=== PATIENT | female | born 1955 | race Caucasian/White ===

== ENCOUNTER 2024-12-20 14:25 | Outpatient (CLI) | payer MEDICARE, SELFPAY ==
--- OUTSIDE RECORDS SUMMARY | 2024-12-20 14:36 | XMS_ITS | Encounter Summary ---
Author Organization [facility] Address [address] [place] [address] Phone Care Team Providers Care Warehouse Distribution Associate Name Role Phone Ailyn Cruz MD Primary Care Provider + [phone] Jose Schwartz DPM Unavailable [phone] Diana Gonzalez SUPERVISOR TANK HOUSE, AIRCRAFT METALSMITH Unavailable [phone] Ewelina Reynolds SUPERVISOR TANK HOUSE, AIRCRAFT METALSMITH Unavailable Sandra uDron MD Primary Care Provider + [phone] Chuck Lee MD Unavailable Javier Yost PAC Primary Care Provider + [phone] Rafa Ortega MD Unavailable Reason for Visit * Reason Comments Medication Refill Encounter Details Date Type Department Care Team (Late st Contact Info) Description 12/03/2021 Refill [facility] - Primary Care - [address] [place] [address] Ailyn Cruz MD [address] [place] [address] Medication Refill Social History Tobacco Use Types Packs/Day Years Used Date Smoking Tobacco: Never Smokeless Tobacco: Never Alcohol Use Standard Drinks/Week Comments Yes 0 (1 standard drink = 0.6 oz pur e alcohol) very seldom PHQ-2 Answer Date Recorded Total Score - Questions 1-9 0 01/25 Education Answer Date Recorded What is the highest level of school you have completed or the highest degree you have received? Some college, no degree 08/23/2021 Comments No Sex and Gender Information Value Date Recorded Sex Assigned at Female 01/07/2023 12:14 PM CDT Legal Sex Female 11:59 PM CDT Gender Identity Female 01/07/2023 12:14 PM CDT Sexual Orientation Not on file Occupation Industry Job Start Date Job End Date [employer] Not on file Not on file Not on fi le documented as of this encounter Miscellaneous Notes * Telephone Encounter - Fatimah Lynch RN - 12/03/2021 2:33 PM CDT Medication failed the protocol, provider to review and approve the medication order if appropriate. Requested Prescriptions Pending Prescriptions Disp Refills Repatha SureClick 140 MG/ML Solution Auto-injector [Pharmacy Med Name: REPATHA SRCLK 140MG/ML PF AUTO INJ] 6 mL 2 Sig: INJECT 140 MG( ONE SYRINGE) UNDER THE SKIN ONCE EVERY 14 DAYS Not Delegated - Off Protocol Failed - 12/03/2021 2:18 PM Failed - This refill cannot be delegated Passed - Visit with relevant provider in past 12 months or upcoming 90 days Recent Visits Date Type Provider Dept 09/28/21 Office Visit Ailyn Cruz MD [facility] 08/23/21 Office Visit Natalya Maguire APRN, CNP [facility] [address] 05/29/21 Office Visit Natalya Maguire APRN, CNP [facility] [address] 02/22/21 Office Visit Ailyn Cruz MD [facility] Showing recent visits within past 365 days and meeting all other requirements Future Appointments No visits were found meeting these conditions. Showing future appointments within next 90 days and meeting all other requirements documented in this encounter Plan of Treatment Upcoming Encounters Date Type Department Care Team (Late st Contact Info) Description 01/14/2025 9:30 AM CDT Office Visit [facility] - Primary Care - [address] [place] [address] Javier Yost PAC [address] [place] [address] 04/05/2025 1:15 PM EMERGENCY SPILL RESPONSE TECHNICIAN Office Visit [facility] - Pulmonology & Sleep Medicine - [place] [address] [place] [address] Chuck Lee MD [address] [place] [address] documented as of this encounter Visit Diagnoses Not on filedocumented in this encounter Additional Health Concerns Infection Onset Date Last Indicated Resolved Time COVID - 19 06/23/2023 06/23/2023 06/23/2023 5:22 PM EMERGENCY SPILL RESPONSE TECHNICIAN Respiratory Rule-Out 06/23/2023 06/23/2023 024 5:23 PM EMERGENCY SPILL RESPONSE TECHNICIAN COVID - 19 Confirmed 06/23/2023 06/23/2023 024 12:16 AM EMERGENCY SPILL RESPONSE TECHNICIAN COVID - 19 01/25/2024 01/25/2024 01/25/2024 12:0 2 PM CDT Assessment Noted Time PHQ-9 Depression Total Score: 0 02/21/20 20 10:00 AM CDT documented as of this encounter Care Teams Warehouse Distribution Associate Relationship Specialty Start Date End Date Ailyn Cruz MD PCP - General Family Medicine 03/11/15 07/09/22 Sandra Duron MD [address] [place] [address] PCP - General Family Medicine 07/10/22 07/09/23 Javier Yost, PAC [address] [place] [address] PCP - General Physician Retail Sales Professional 07/10/23 Jose Schwartz DPM Podiatry 07/18/15 Diana Gonzalez, SUPERVISOR TANK HOUSE, AIRCRAFT METALSMITH Nurse Practitioner Advanced Practice Nurse 12/21/15 Ewelina Reynolds, LUKE, AIRCRAFT METALSMITH Nurse Practitioner Advanced Practice Nurse 04/16/16 Chuck Lee MD [address] [place] [address] Consulting Physician Pulmonary Disease 03/04/22 Rafa Ortega MD [address] [address] Consulting Physician Colon and Rectal Surgery 10/08/24 documented as of this encounter
--- OUTSIDE RECORDS SUMMARY | 2024-12-20 14:36 | XMS_ITS | Encounter Summary ---
Author Organization [facility] Address [address] [place] [address] Phone Care Team Providers Care Apprentice Instrument Technician Name Role Phone Ailyn Cruz MD Primary Care Provider + [phone] Jose Schwartz DPM Unavailable [phone] Diana Gonzalez EELER, HYDRAULIC ELEVATOR CONSTRUCTOR Unavailable [phone] Ewelina Reynolds EELER, HYDRAULIC ELEVATOR CONSTRUCTOR Unavailable Sandar Duron MD Primary Care Provider + [phone] Chuck Lee MD Unavailable Javier Yost PAC Primary Care Provider + [phone] Rafa Ortega MD Unavailable Reason for Visit * Reason Comments Medication Refill Encounter Details Date Type Department Care Team (Late st Contact Info) Description 07/04/2021 Refill [facility] - Primary Care - [address] [place] [address] Ailyn Cruz MD [address] [place] [address] Medication Refill Social History Tobacco Use Types Packs/Day Years Used Date Smoking Tobacco: Never Smokeless Tobacco: Never Alcohol Use Standard Drinks/Week Comments Yes 0 (1 standard drink = 0.6 oz pur e alcohol) very seldom PHQ-2 Answer Date Recorded Total Score - Questions 1-9 0 01/25 Comments No Sex and Gender Information Value Date Recorded Sex Assigned at Female 01/07/2023 12:14 PM CDT Legal Sex Female 11:59 PM CDT Gender Identity Female 01/07/2023 12:14 PM CDT Sexual Orientation Not on file Occupation Industry Job Start Date Job End Date [employer] Not on file Not on file Not on fi le documented as of this encounter Miscellaneous Notes * Telephone Encounter - Jennifer Lu RN - 07/04/2021 8:57 AM CST Per nursing clinical judgement, provider to review and approve the medication(s) order(s) if appropriate. Requested Prescriptions Pending Prescriptions Disp Refills hydroCHLOROthiazide 25 MG Tablet [Pharmacy Med Name: HYDROCHLOROTHIAZIDE 25MG TABLETS] 90 Tablet 1 Sig: TAKE 1 TABLET BY MOUTH DAILY Diuretics Protocol Passed - 07/04/2021 8:57 AM Passed - Serum potassium on record in past 12 months POTASSIUM Date Value Ref Range Status 03/21/2021 3.6 3.5 - 5.1 mmol/L Final Passed - Serum sodium on record in past 12 months SODIUM Date Value Ref Range Status 03/21/2021 144 136 - 144 mmol/L Final Passed - Blood pressure on record in past 12 months Clinician-entered: BP Readings from Last 3 Encounters: 05/29/21 142/80 02/22/21 120/70 11/19/20 148/58 Patient-entered: No data recorded Passed - Visit with relevant provider in past 12 months or upcoming 90 days Recent Visits Date Type Provider Dept 05/29/21 Office Visit Natalya Maguire APRN, BRANDY [facility] [employer] [address] 02/22/21 Office Visit Ailyn Cruz MD [facility] 10/26/20 Office Visit Ailyn Cruz MD [facility] [employer] [address] 08/21/20 [facility] Showing recent visits within past 365 days and meeting all other requirements Future Appointments Date Type Provider Dept 08/21/21 Appointment Ailyn Cruz MD [facility] [employer] [facility] Showing future appointments within next 90 days and meeting all other requirements Passed - GFR on record in past 12 months GFR, EST. NONAFRICAN Date Value Ref Range Status 03/21/2021 >60 >=60 Final glipiZIDE (GLUCOTROL XL) 5 MG TABLET SR 24 HR [Pharmacy Med Name: GLIPIZIDE ER 5MG TABLETS] 180 Tablet 1 Sig: TAKE 1 TABLET BY MOUTH TWICE DAILY Sulfonylureas Protocol Passed - 07/04/2021 8:57 AM Passed - Visit with relevant provider in past 6 months or upcoming 90 days Recent Visits Date Type Provider Dept 05/29/21 Office Visit Natalya Maguire APRN, HYDRAULIC ELEVATOR CONSTRUCTOR [facility] [address] 02/22/21 Office Visit Ailyn Cruz MD [facility] [employer] [facility] Showing recent visits within past 182 days and meeting all other requirements Future Appointments Date Type Provider Dept 08/21/21 Appointment Ailyn Cruz MD [facility] [employer] [facility] Showing future appointments within next 90 days and meeting all other requirements Passed - HgA1C on record in past 6 months HGB-A1C Date Value Ref Range Status 02/10/2021 6.3 (H) 4.0 - 6.0 % Final Passed - GFR on record in past 6 months GFR, EST. NONAFRICAN Date Value Ref Range Status 03/21/2021 >60 >=60 Final ICAL THERAPIST TECHNICIAN documented in this encounter Plan of Treatment Upcoming Encounters Date Type Department Care Team (Late st Contact Info) Description 01/14/2025 9:30 AM CDT Office Visit [facility] - Primary Care - [address] [place] [address] Javier Yost, NADIR [address] [place] [address] 04/05/2025 1:15 PM PHYSICAL THERAPIST TECHNICIAN Office [facility] - Pulmonology & [facility] Medicine [facility] [address] [place] [address] Chuck Lee MD [address] [place] [address] documented as of this encounter Visit Diagnoses Diagnosis Type 2 diabetes mellitus without complication, without long-term current use of insulin documented in this encounter Additional Health Concerns Infection Onset Date Last Indicated Resolved Time Influenza 08/23/2021 08/23/2021 08/30/2021 12:1 6 AM CDT COVID - 19 06/23/2023 06/23/2023 06/23/2023 5:22 PM PHYSICAL THERAPIST TECHNICIAN Respiratory Rule-Out 06/23/2023 06/23/2023 024 5:23 PM PHYSICAL THERAPIST TECHNICIAN COVID - 19 Confirmed 06/23/2023 06/23/2023 024 12:16 AM PHYSICAL THERAPIST TECHNICIAN COVID - 19 01/25/2024 01/25/2024 01/25/2024 12:0 2 PM CDT Assessment Noted Time PHQ-9 Depression Total Score: 0 02/21/20 20 10:00 AM CDT documented as of this encounter Care Teams Apprentice Instrument Technician Relationship Specialty Start Date End Date Ailyn Cruz MD PCP - General Family Medicine 03/11/15 07/09/22 Sandra Duron MD [address] [place] [address] PCP - General Family Medicine 07/10/22 07/09/23 Javier Yost PAC [address] [place] [id number] PCP - General Physician Biztalk Architect 07/10/23 Jose Schwartz DPM Podiatry 07/18/15 Diana Gonzalez, EELER, HYDRAULIC ELEVATOR CONSTRUCTOR Nurse Practitioner Advanced Practice Nurse 12/21/15 Ewelina Reynolds APRN, HYDRAULIC ELEVATOR CONSTRUCTOR Nurse Practitioner Advanced Practice Nurse 04/16/16 Chuck Lee MD [address] [place] [address] Consulting Physician Pulmonary Disease 03/04/22 Rafa Ortega MD [address] [address] Consulting Physician Colon and Rectal Surgery 10/08/24 documented as of this encounter
--- OUTSIDE RECORDS SUMMARY | 2024-12-20 14:36 | XMS_ITS | Encounter Summary ---
Author Organization [facility] Address [address] [place] [address] Phone Care Team Providers Care Barge Master Name Role Phone Ailyn Cruz MD Primary Care Provider + [phone] Jose Schwartz DPM Unavailable [phone] Diana Gonzalez FILLING WINDER, COKE STILL CLEANER Unavailable [phone] Ewelina Reynolds FILLING WINDER, COKE STILL CLEANER Unavailable Sandra Duron MD Primary Care Provider + [phone] Chuck Lee MD Unavailable Javier Yost PAC Primary Care Provider + [phone] Rafa Ortega MD Unavailable Reason for Visit * Reason Comments Medication Refill Encounter Details Date Type Department Care Team (Late st Contact Info) Description 02/26/2021 Refill [facility] - Primary Care - [address] [place] [address] Ailyn Cruz MD [address] [place] [address] Medication Refill Social History Tobacco [...] Not on file Not on fi le COVID-19 Exposure Response Date Recorded In the last month, have you been in contact with someone who was confirmed or suspected to have Coronavirus / COVID-19? Unable to assess 02/22/2021 9:50 AM CDT documented as of this encounter Miscellaneous Notes * Telephone Encounter - Jennifer Lu RN - 02/26/2021 10:49 AM CDT Medication failed the protocol, provider to review and approve the medication order if appropriate. Requested Prescriptions Pending Prescriptions Disp Refills glipiZIDE (GLUCOTROL XL) 5 MG TABLET SR 24 HR [Pharmacy Med Name: GLIPIZIDE ER 5MG TABLETS] 180 Tablet 3 Sig: TAKE 1 TABLET BY MOUTH TWICE DAILY Sulfonylureas Protocol Passed - 02/26/2021 10:47 AM Passed - Visit with relevant provider in past 6 months or upcoming 90 days Recent Visits Date Type Provider Dept 02/22/21 Office Visit Ailyn Cruz MD [facility] 10/26/20 Office Visit Ailyn Cruz MD [facility] Showing recent visits within past 182 days [...] EST. NONAFRICAN Date Value Ref Range Status 02/10/2021 >60 >=60 Final pregabalin (LYRICA) 75 MG Capsule [Pharmacy Med Name: PREGABALIN 75MG CAPSULES] 180 Capsule Sig: TAKE 1 CAPSULE BY MOUTH TWICE DAILY [facility] Not Delegated - Neurology: Anticonvulsants - Controlled Substances Failed - 02/26/2021 10:47 AM Failed - This refill cannot be delegated Passed - Valid encounter within last 12 months Past Office Visits Recent Outpatient Visits 4 days ago Type 2 diabetes mellitus without complication, without long-term current use of insulin ([facility]) [facility] Ailyn Cruz MD 4 months ago Acute sinusitis, recurrence not specified, unspecified location [facility] Ailyn Cruz MD 6 months ago Type 2 diabetes mellitus without complication, without long-term current use of insulin ([facility]) [facility] Ailyn Cruz MD 1 year ago Physical exam, annual (Adult) [facility] Ailyn Cruz MD 1 year ago Type 2 diabetes mellitus without complication, without long-term current use of insulin ([facility]) [facility] Ailyn Cruz MD Upcoming Appointments Future Appointments In 5 months Ailyn Cruz MD [facility] FACILITIES PLANT ENGINEER - Recent and Past Visits Recent Visits Date Type Provider Dept 02/22/21 Office Visit Ailyn Cruz MD [facility] 10/26/20 Office Visit Ailyn Cruz MD [facility] 08/21/20 Office Visit Ailyn Cruz MD [facility] 02/21/20 Office Visit Ailyn Cruz MD [facility] Showing recent visits within past 460 days with a meds authorizing provider and meeting all other requirements Future Appointments No visits were found meeting these conditions. Showing future appointments within next 90 days with a meds authorizing provider and meeting all other requirements hydroCHLOROthiazide 25 MG Tablet [Pharmacy Med Name: HYDROCHLOROTHIAZIDE 25MG TABLETS] 90 Tablet 3 Sig: TAKE 1 TABLET BY MOUTH DAILY Diuretics Protocol Passed - 02/26/2021 10:47 AM Passed - Serum potassium on record in past 12 months POTASSIUM Date Value Ref Range Status 02/10/2021 3.7 3.5 - 5.1 mmol/L Final Passed - Serum sodium on record in past 12 months SODIUM Date Value Ref Range Status 02/10/2021 142 136 - 144 mmol/L Final Passed - Blood pressure on record in past 12 months Clinician-entered: BP Readings from Last 3 Encounters: 02/22/21 120/70 11/19/20 148/58 10/26/20 124/78 Patient-entered: No data recorded Passed - Visit with relevant provider in past 12 months or upcoming 90 days Recent Visits Date Type Provider Dept 02/22/21 Office Visit Ailyn Cruz MD [facility] [address] 10/26/20 Office Visit Ailyn Cruz MD [facility] 08/21/20 Office Visit [facility] Showing recent visits within past 365 days and meeting all other requirements Future Appointments No visits were found meeting these conditions. Showing future appointments within next 90 days and meeting all other requirements Passed - GFR on record in past 12 months GFR, EST. NONAFRICAN Date Value Ref Range Status 02/10/2021 >60 >=60 Final documented in this encounter Plan of Treatment Upcoming Encounters Date Type Department Care Team (Late st Contact Info) Description 01/14/2025 9:30 AM CDT Office Visit [facility] - Primary Care - [address] [place] [phone] Javier Yost PAC [address] [place] [address] 04/05/2025 1:15 PM PSYCHOLOGIST ENGINEERING Office Visit [facility] - Pulmonology & Sleep Medicine - [place] [address] [place] [address] Chuck Lee MD [address] [place] [address] documented as of this encounter Visit Diagnoses Diagnosis Type 2 diabetes mellitus without complication, without long-term current use of insulin Arthralgia, unspecified joint documented in this encounter Additional Health Concerns Infection Onset Date Last Indicated Resolved Time Influenza 08/23/2021 08/23/2021 08/30/2021 12:1 6 AM CDT COVID - 19 06/23/2023 06/23/2023 06/23/2023 5:22 PM PSYCHOLOGIST ENGINEERING Respiratory Rule-Out 06/23/2023 06/23/2023 024 5:23 PM PSYCHOLOGIST ENGINEERING COVID - 19 Confirmed 06/23/2023 06/23/2023 024 12:16 AM PSYCHOLOGIST ENGINEERING COVID - 19 01/25/2024 01/25/2024 01/25/2024 12:0 2 PM CDT Assessment Noted Time PHQ-9 Depression Total Score: 0 02/21/20 20 10:00 AM CDT documented as of this encounter Care Teams Barge Master Relationship Specialty Start Date End Date Ailyn Cruz MD PCP - General Family Medicine 03/11/15 07/09/22 Sandra Duron MD [address] [place] [address] PCP - General Family Medicine 07/10/22 07/09/23 Javier Yost PAC [address] [place] [address] PCP - General Physician Dental Service Technician 07/10/23 Jose Schwartz DPM Podiatry 07/18/15 Diana Gonzalez, FILLING WINDER, COKE STILL CLEANER Nurse Practitioner Advanced Practice Nurse 12/21/15 Ewelina Reynolds APRN, BRANDY Nurse Practitioner Advanced Practice Nurse 04/16/16 Chuck Lee MD [address] [place] [address] Consulting Physician Pulmonary Disease 03/04/22 Rafa Ortega MD [address] [address] Consulting Physician Colon and Rectal Surgery 10/08/24 documented as of this encounter
--- OUTSIDE RECORDS SUMMARY | 2024-12-20 14:36 | XMS_ITS | Encounter Summary ---
Author Organization [facility] Address [address] [place] [address] Phone Care Team Providers Care Certified Real Estate Appraiser Name Role Phone LanaJose DPM Unavailable [phone] Diana Gonzalez LAB ENGINEER, SOFTWARE ANALYST Unavailable [phone] wEelina Reynolds LAB ENGINEER, SOFTWARE ANALYST Unavailable Chuck Lee MD Unavailable Javier Yost [facility] Primary Care Provider [phone] Rafa Ortega MD Unavailable Reason for Visit * Reason Comments Medication Refill Encounter Details Date Type Department Care Team (Late st Contact Info) Description 08/29/2023 Refill [facility] - Primary Care - [address] [place] [address] Sandra Duron MD [address] [place] [address] Medication Refill Social History Tobacco Use Types Packs/Day Years Used Date Smoking Tobacco: Never Smokeless Tobacco: Never Alcohol Use Standard Drinks/Week Comments Yes 0 (1 standard drink = 0.6 oz pur e alcohol) Very seldom [facility] Utilities Answer Date Recorded In the past 12 months has th e electric, gas, oil, or water Diversion threatened to shut off services in your home? No 07/07/2023 Social Connection and Isolation Panel Answer Date Recorded In a typical week, how many times do you talk on the phone with family, friends, or neighbors? More than three times a week 07/07/2023 How often do you get togethe r with friends or relatives? Once a week 07/07/2023 How often do you attend chur or samaritan services? Never 07/07/2023 Do you belong to any clubs o r organizations such as confucianist groups, unions, fraternal or athletic groups, or school groups? No 07/07/2023 How often do you attend meet ings of the clubs or organizations you belong to? Never 07/07/2023 Are you , , di vorced, , never , or living with a partner? 07/07/2023 AUDIT-C Answer Date Recorded Q1: How often do you have a drink containing alc ohol? Monthly or less 07/07/2023 Q2: How many drinks containi ng alcohol do you have on a typical day when you are drinking? 1 or 2 07/07/2023 Q3: How often do you have si x or more drinks on one occasion? Never 07/07/2023 Overall Financial Resource Strain (CARDIA) Answe r Date Recorded How hard is it for you to pa y for the very basics like food, housing, medical care, and heating? Not very hard 07/07/2023 PHQ-2 Answer Date Recorded Total Score - Questions 1-9 0 06/26 [facility] - Occupational Stress Questionnaire Answer Date Recorded Do you feel stress - tense, restless, nervous, or anxious, or unable to sleep at night because your mind is troubled all the time - these days? Rather much 07/07/2023 Exercise Vital Sign Answer Date Recorde d On average, how many days pe r week do you engage in moderate to strenuous exercise (like a brisk walk)? 2 days 07/07/2023 On average, how many minutes do you engage in exercise at this level? 30 min 07/07/2023 Hunger Vital Sign Answer Date Recorded Within the past 12 months, y ou worried that your food would run out before you got the money to buy more. Never true 07/07/19 24 Within the past 12 months, t he food you bought just didn't last and you didn't have money to get more. Never true 07/07/2023 PRAPARE - Transportation Answer Date Re corded In the past 12 months, has l ack of transportation kept you from medical appointments or from getting medications? No 06/26 In the past 12 months, has l ack of transportation kept you from meetings, work, or from getting things needed for daily living? No 07/07/2023 Housing Stability Vital Sign Answer Yg e Recorded In the last 12 months, was t here a time when you were not able to pay the mortgage or rent on time? No 07/07/2023 In the last 12 months, how many places have you lived? 1 07/07/2023 In the last 12 months, was t here a time when you did not have a steady place to sleep or slept in a halfway (including now)? No 07/07/2023 Education Answer Date Recorded What is the highest level of school you have completed or the highest degree you have received? Some college, no degree 08/23/2021 Sexually Active Control Partners Comments Not Currently Comments No Sex and Gender Information Value [...] encounter Miscellaneous Notes * Telephone Encounter - Deep Higginbotham RN - 08/29/2023 8:18 AM CDT Medication(s) refilled and signed per [facility] Chronic Medication Refill Standing Order for Pediatricand Adult Patients. Requested Prescriptions Pending Prescriptions Disp Refills hydroCHLOROthiazide 25 MG Tablet [Pharmacy Med Name: HYDROCHLOROTHIAZIDE 25MG TABLETS] 90 Tablet 1 Sig: TAKE 1 TABLET BY MOUTH DAILY Diuretics Protocol Passed - 08/29/2023 5:37 AM Passed - Serum potassium on record in past 12 months POTASSIUM Date Value Ref Range Status 07/09/2023 4.1 3.5 - 5.1 mmol/L Final Passed - Serum sodium on record in past 12 months SODIUM Date Value Ref Range Status 07/09/2023 146 (H) 136 - 145 mmol/L Final Passed - Blood pressure on record in past 12 months Clinician-entered: BP Readings from Last 3 Encounters: 07/29/23 140/80 07/09/23 104/72 06/23/23 116/78 Patient-entered: No data recorded Passed - Visit with relevant provider in past 12 months or upcoming 90 days Recent Visits Date Type Provider Dept 07/29/23 Office Visit Yelena Rausch APRN, BR[facility] 07/09/23 Office Visit Javier Yost, PAC [facility] 11/11/22 Office Visit Sandra Duron, [facility] 10/02/22 Office Visit Sandra Duron, [facility] Showing recent visits within past 365 days and meeting all other requirements Future Appointments No visits were found meeting these conditions. Showing future appointments within next 90 days and meeting all other requirements Passed - GFR on record in past 12 months GFR, EST. NONAFRICAN Date Value Ref Range Status 07/09/2023 >60 >=60 Final levothyroxine (SYNTHROID) 100 MCG Tablet [Pharmacy Med Name: LEVOTHYROXINE 0.100MG (100MCG) TAB] 90Tablet 1 Sig: TAKE 1 TABLET BY MOUTH DAILY Thyroid Hormones Protocol Passed - 08/29/2023 5:37 AM Passed - Visit with relevant provider in past 12 months or upcoming 90 days Recent Visits Date Type Provider Dept 07/29/23 Office Visit Yelena Rausch APRN, [facility] 07/09/23 Office Visit Javier Yost, PAC [facility] 11/11/22 Office Visit Sandra Duron, [facility] 10/02/22 Office Visit Sandra Duron, [facility] Showing recent visits within past 365 days and meeting all other requirements Future Appointments No visits were found meeting these conditions. Showing future appointments within next 90 days and meeting all other requirements Passed - Normal TSH in past 12 months TSH Date Value Ref Range Status 07/09/2023 3.717 0.300 - 5.000 mIU/L Final metFORMIN (GLUCOPHAGE) 500 MG Tablet [Pharmacy Med Name: METFORMIN 500MG TABLETS] 180 Tablet 1 Sig: TAKE 1 TABLET BY MOUTH TWICE DAILY WITH MEALS Biguanides Protocol Passed - 08/29/2023 5:37 AM Passed - Visit with relevant provider in past 6 months or upcoming 90 days Recent Visits Date Type Provider Dept 07/29/23 Office Visit Yelena Rausch APRN, SOFTWARE ANALYST [facility] 07/09/23 Office Visit Javier Yost, NADIR [facility] Showing recent visits within past 182 days and meeting all other requirements Future Appointments No visits were found meeting these conditions. Showing future appointments within next 90 days and meeting all other requirements Passed - HgA1C on record in past 6 months HGB-A1C Date Value Ref Range Status 07/09/2023 5.8 4.0 - 6.0 % Final 10/09/2022 5.9 % Final Passed - GFR on record in past 6 months GFR, EST. NONAFRICAN Date Value Ref Range Status 07/09/2023 >60 >=60 Final amLODIPine (NORVASC) 10 MG Tablet [Pharmacy Med Name: AMLODIPINE BESYLATE 10MG TABLETS] 90 Tablet 1 Sig: TAKE 1 TABLET BY MOUTH DAILY Calcium-Channel Blockers Protocol Passed - 08/29/2023 5:37 AM Passed - BP on record in the past year Clinician-entered: BP Readings from Last 3 Encounters: 07/29/23 140/80 07/09/23 104/72 06/23/23 116/78 Patient-entered: No data recorded Passed - Visit with relevant provider in past 12 months or upcoming 90 days Recent Visits Date Type Provider Dept 07/29/23 Office Visit Yelena Rausch APRN, SOFTWARE ANALYST [facility] 07/09/23 Office Visit Javier Yost, NADIR [facility] 11/11/22 Office Visit Sandra Duron, [facility] 10/02/22 Office Visit Sandra Duron, [facility] Showing recent visits within past 365 days and meeting all other requirements Future Appointments No visits were found meeting these conditions. Showing future appointments within next 90 days and meeting all other requirements documented in this encounter Plan of Treatment Upcoming Encounters Date Type Department Care Team (Late st Contact Info) Description 01/14/2025 9:30 AM CDT Office Visit [facility] [place] [place] - Primary Care - [place] [address] [place] [address] Javier Yost PAC [address] [place] [address] 04/05/2025 1:15 PM APPEALS REFEREE Office Visit [facility] [place] [place] - Pulmonology & Sleep Medicine [facility] [address] [place] [address] Chuck Lee MD [address] [place] [address] documented as of this encounter Visit Diagnoses Diagnosis Type 2 diabetes mellitus without complication, without long-term current use of insulin Essential hypertension Unspecified essential hypertension documented in this encounter Additional Health Concerns Infection Onset Date Last Indicated Resolved Time COVID - 19 01/25/2024 01/25/2024 01/25/2024 12:0 2 PM CDT Assessment Noted Time PHQ-9 Depression Total Score: 0 07/09/19 8:46 AM APPEALS REFEREE documented as of this encounter Care Teams Certified Real Estate Appraiser Relationship Specialty Start Date End Date Javier Yost PAC [address] [place] [address] PCP - General Physician Manager Style 07/10/23 Jose Schwartz DPM Podiatry 07/18/15 Diana Gonzalez, LAB ENGINEER, SOFTWARE ANALYST Nurse Practitioner Advanced Practice Nurse 12/21/15 Ewelina Reynolds APRN, SOFTWARE ANALYST Nurse Practitioner Advanced Practice Nurse 04/16/16 Chuck Lee MD [address] [place] [phone] Consulting Physician Pulmonary Disease 03/04/22 Rafa Ortega MD [address] [address] Consulting Physician Colon and Rectal Surgery 10/08/24 documented as of this encounter
--- OUTSIDE RECORDS SUMMARY | 2024-12-20 14:36 | XMS_ITS | Encounter Summary ---
Author Organization [facility] Address [address] [place] [address] Phone Care Team Providers Care Natural Sciences Professor Name Role Phone Ailyn Cruz MD Primary Care Provider + [phone] Jose Schwartz DPM Unavailable [phone] Diana Gonzalez REGISTERED NURSES, LITHOGRAPH OPERATOR Unavailable [phone] Ewelina Reynolds REGISTERED NURSES, LITHOGRAPH OPERATOR Unavailable Sandra Duron MD Primary Care Provider + [phone] Chuck Lee MD Unavailable Javier Yost PAC Primary Care Provider + [phone] Rafa Ortega MD Unavailable Reason for Visit * Reason Comments Medication Refill Encounter Details Date Type Department Care Team (Late st Contact Info) Description 05/26/2022 Refill [facility] - Primary Care - [address] [place] [address] Ailyn Cruz MD [address] [place] [address] Medication Refill Social History Tobacco [...] encounter Miscellaneous Notes * Telephone Encounter - Margot Harrell RN - 05/28/2022 9:15 AM CST Medication failed the protocol, provider to review and approve the medication order if appropriate. Requested Prescriptions Pending Prescriptions Disp Refills pregabalin (LYRICA) 75 MG Capsule [Pharmacy Med Name: PREGABALIN 75MG CAPSULES] 180 Capsule 1 Sig: Take 1 Capsule by mouth 2 times daily. Not Delegated - Anticonvulsants Excluding Benzodiazepines Protocol Failed - 05/26/2022 10:50 PM Failed - This refill cannot be delegated Passed - Visit with relevant provider in past 12 months or upcoming 90 days Recent Visits Date Type Provider Dept 04/01/22 Office Visit Ailyn Cruz MD [facility] 09/28/21 Office Visit Ailyn Cruz MD [facility] 08/23/21 Office Visit Natalya Maguire APRN, CNP [facility] 05/29/21 Office Visit Natalya Maguire APRN, CNP [facility] Showing recent visits within past 365 days and meeting all other requirements Future Appointments No visits were found meeting these conditions. Showing future appointments within next 90 days and meeting all other requirements AL ASSAULT COUNSELOR documented in this encounter Plan of Treatment Upcoming Encounters Date Type Department Care Team (Late st Contact Info) Description 01/14/2025 9:30 AM CDT Office Visit [facility] - Primary Care - [address] [place] [address] Javier Yost PAC [address] [place] [address] 04/05/2025 1:15 PM SEXUAL ASSAULT COUNSELOR Office Visit [facility] - Pulmonology & Sleep Medicine [facility] [address] [place] [address] Chuck Lee MD [address] [place] [address] documented as of this encounter Visit Diagnoses Diagnosis Arthralgia, unspecified joint documented in this encounter Additional Health Concerns Infection Onset Date Last Indicated Resolved Time COVID - 19 06/23/2023 06/23/2023 06/23/2023 5:22 PM SEXUAL ASSAULT COUNSELOR Respiratory Rule-Out 06/23/2023 06/23/2023 024 5:23 PM SEXUAL ASSAULT COUNSELOR COVID - 19 Confirmed 06/23/2023 06/23/2023 024 12:16 AM SEXUAL ASSAULT COUNSELOR COVID - 19 01/25/2024 01/25/2024 01/25/2024 12:0 2 PM CDT Assessment Noted Time PHQ-9 Depression Total Score: 0 02/21/20 20 10:00 AM CDT documented as of this encounter Care Teams Natural Sciences Professor Relationship Specialty Start Date End Date Ailyn Cruz MD PCP - General Family Medicine 03/11/15 07/09/22 Sandra Duron MD [address] [place], [place] [id number] PCP - General Family Medicine 07/10/22 07/09/23 Javier Yost, PAC [address] [place] [address] PCP - General Physician Plant Engineer 07/10/23 Jose Schwartz DPM Podiatry 07/18/15 Diana Gonzalez, REGISTERED NURSES, LITHOGRAPH OPERATOR Nurse Practitioner Advanced Practice Nurse 12/21/15 Ewelina Reynolds APRN, LITHOGRAPH OPERATOR Nurse Practitioner Advanced Practice Nurse 04/16/16 Chuck Lee MD [address] [place] [address] Consulting Physician Pulmonary Disease 03/04/22 Rafa Ortega MD [address] [address] Consulting Physician Colon and Rectal Surgery 10/08/24 documented as of this encounter
--- OUTSIDE RECORDS SUMMARY | 2024-12-20 14:36 | XMS_ITS | Encounter Summary ---
Author Organization [facility] Address [address] [place] [address] Care Team Providers Care Rejected Items Clerk Name Role Phone Shady Rust MD Unavailable Ailyn Cruz MD Primary Care Provider [phone] Dorian Patel MD Primary Care Provider + [phone] Dorian Patel MD Primary Care Provider + [phone] Ailyn Cruz MD Primary Care Provider [phone] Ailyn Cruz MD Primary Care Provider [phone] Aiyln Cruz MD Primary Care Provider [phone] Dorian Patel MD Primary Care Provider + [phone] Ailyn Cruz MD Primary Care Provider [phone] Dorian Patel MD Primary Care Provider + [phone] Ailyn Cruz MD Primary Care Provider [phone] Dorian Patel MD Primary Care Provider + [phone] Ailyn Cruz MD Primary Care Provider [phone] Dorian Patel MD Primary Care Provider + [phone] Ailyn Cruz MD Primary Care Provider [phone] Dorian Patel MD Primary Care Provider + [phone] Sandra Duron MD Primary Care Provider + [phone] Fareed John MD Unavailable [phone] Javier Yost Primary Care Provider [phone] Encounter Details Date Type Department Care Team (Late st Contact Info) Description 04/09/2019 [facility] Outpatient Visit [facility] [address] [place] [address] [place] [address] [facility] [address] [place] [address] Social History Tobacco Use Types Packs/Day Years Used Date Smoking Tobacco: Never Smokeless Tobacco: Never Alcohol Use Standard Drinks/Week Comments Yes 0 (1 standard drink = 0.6 oz pur e alcohol) rare social Comments No Sex and Gender Information Value Date Recorded Sex Assigned at Not on file Legal Sex Female 2:19 PM CDT Gender Identity Not on file Sexual Orientation Not on file documented as of this encounter Plan of Treatment Upcoming Encounters Date Type Department Care Team (Late st Contact Info) Description 02/17/2025 10:15 AM CDT Office Visit [facility] - Rheumatology [address] [facility] [address] [place] [address] [place] [address] [facility] [address] [place] [address] documented as of this encounter Visit Diagnoses Not on filedocumented in this encounter Care Teams Rejected Items Clerk Relationship Specialty [place] [address] [facility] [address] [place] [address] PCP - General Family Medicine 04/07/19 04/25/19 Dorian Patel MD [address] [place] [phone] PCP - General 04/26/19 08/22/19 Dorian Patel MD [address] [place] [address] PCP - General 08/23/19 11/15/19 Ailyn Cruz MD [address] [place] [address] PCP - General Family Medicine 11/16/19 11/21/19 Ailyn Cruz MD [address] [place] [address] PCP - General Family Medicine 02/22/20 02/22/20 Ailyn Cruz MD [address] [place] [address] PCP - General Family Medicine 05/23/20 06/22/20 Dorian Patel MD [address] [place] [address] PCP - General 06/23/20 09/18/20 Ailyn Cruz MD [address] [place] [address] PCP - General Family Medicine 09/19/20 10/16/20 Dorian Patel MD [address] [place] [phone] PCP - General 10/17/20 03/19/21 Ailyn Cruz MD [address] [place] [address] PCP - General Family Medicine 03/20/21 04/03/21 Dorian Patel MD [address] [place] [address] PCP - General 04/04/21 07/09/21 Ailyn Cruz MD [address] [place] [address] PCP - General Family Medicine 07/10/21 08/14/21 Dorian Patel MD [address] [place] [address] PCP - General 08/15/21 01/07/22 Ailyn Cruz MD [address] [place] [address] PCP - General Family Medicine 01/08/22 01/22/22 Dorian Patel MD [address] [place] [address] PCP - General 01/23/22 07/10/22 Sandra Duron MD [address] [place] [address] PCP - General Family Medicine 07/11/22 09/30/23 Javier Yost [address] [place] [phone] PCP - General 10/01/23 [place] [address] [place] [address] Generator Repairer Rheumatology 04/07/19 Fareed John MD [address] [place] [address] Orthopedic Surgery 09/24/22 documented as of this encounter
--- OUTSIDE RECORDS SUMMARY | 2024-12-20 14:36 | XMS_ITS | Encounter Summary ---
Author Organization [facility] Address [address] [place] [address] Phone Care Team Providers Care Acid Purifier Name Role Phone Ailyn Cruz MD Primary Care Provider + [phone] Jose Schwartz DPM Unavailable [phone] Diana Gonzalez ORDER PACKER OR PACKAGER, ENTRY LEVEL MECHANICAL ENGINEER Unavailable [phone] Ewelina Reynolds ORDER PACKER OR PACKAGER, ENTRY LEVEL MECHANICAL ENGINEER Unavailable Sandra Duron MD Primary Care Provider + [phone] Chuck Lee MD Unavailable Javier Yost PAC Primary Care Provider + [phone] Rafa Ortega MD Unavailable Reason for Visit * Reason Comments Medication Refill Encounter Details Date Type Department Care Team (Late st Contact Info) Description 06/24/2022 Refill [facility] - Primary Care - [address] [place] [address] Sandra Duron MD [address] [place] [address] Medication Refill Social History Tobacco [...] Telephone Encounter - Margot Harrell RN - 06/24/2022 9:26 AM CST Medication failed the protocol, provider to review and approve the medication order if appropriate. Requested Prescriptions Pending Prescriptions Disp Refills cyclobenzaprine (FLEXERIL) 5 MG Tablet [Pharmacy Med Name: CYCLOBENZAPRINE 5MG TABLETS] 90 Tablet 1 Sig: Take 1 Tablet by mouth every evening. Not Delegated - Muscle Relaxants Protocol Failed - 06/24/2022 12:35 AM Failed - This refill cannot be delegated Failed - Not delegated, patient not between 1 and 65 years of age Passed - Visit with relevant provider in past 12 months or upcoming 90 days Recent Visits Date Type Provider Dept 04/01/22 Office Visit Ailyn Cruz MD [facility] 09/28/21 Office Visit Ailyn Cruz MD [facility] 08/23/21 Office Visit Natalya Maguire APRN, ENTRY LEVEL MECHANICAL ENGINEER [facility] Showing recent visits within past 365 days and meeting all other requirements Future Appointments No visits were found meeting these conditions. Showing future appointments within next 90 days and meeting all other requirements Signed Prescriptions Disp Refills hydroCHLOROthiazide 25 MG Tablet 90 Tablet 1 Sig: Take 1 Tablet by mouth daily. Diuretics Protocol Passed - 06/24/2022 12:35 AM Passed - Serum potassium on record in past 12 months POTASSIUM Date Value Ref Range Status 04/01/2022 3.9 3.5 - 5.1 mmol/L Final Passed - Serum sodium on record in past 12 months SODIUM Date Value Ref Range Status 04/01/2022 143 136 - 144 mmol/L Final Passed - Blood pressure on record in past 12 months Clinician-entered: BP Readings from Last 3 Encounters: 04/01/22 120/78 03/04/22 124/72 10/24/21 120/72 Patient-entered: No data recorded Passed - Visit with relevant provider in past 12 months or upcoming 90 days Recent Visits Date Type Provider Dept 04/01/22 Office Visit Ailyn Cruz MD [facility] [address] 09/28/21 Office Visit [facility]ily[facility]/23/21 Office Visit Natalya Maguire APRN, ENTRY LEVEL MECHANICAL ENGINEER [facility] Showing recent visits within past 365 days and meeting all other requirements Future Appointments No visits were found meeting these conditions. Showing future appointments within next 90 days and meeting all other requirements Passed - GFR on record in past 12 months GFR, EST. NONAFRICAN Date Value Ref Range Status 04/01/2022 >60 >=60 Final K ABSORPTION FLOOR LAYER documented in this encounter Plan of Treatment Upcoming Encounters Date Type Department Care Team (Late st Contact Info) Description 01/14/2025 9:30 AM CDT Office Visit [facility] - Primary Care - [address] [place] [phone] Javier Yost PAC [address] [place] [address] 04/05/2025 1:15 PM SHOCK ABSORPTION FLOOR LAYER Office Visit [facility] - Pulmonology & Sleep Medicine [facility] [address] [place] [phone] Chuck Lee MD [address] [place] [phone] documented as of this encounter Visit Diagnoses Not on filedocumented in this encounter Additional Health Concerns Infection Onset Date Last Indicated Resolved Time COVID - 19 06/23/2023 06/23/2023 06/23/2023 5:22 PM SHOCK ABSORPTION FLOOR LAYER Respiratory Rule-Out 06/23/2023 06/23/2023 024 5:23 PM SHOCK ABSORPTION FLOOR LAYER COVID - 19 Confirmed 06/23/2023 06/23/2023 024 12:16 AM SHOCK ABSORPTION FLOOR LAYER COVID - 19 01/25/2024 01/25/2024 01/25/2024 12:0 2 PM CDT Assessment Noted Time PHQ-9 Depression Total Score: 0 02/21/20 20 10:00 AM CDT documented as of this encounter Care Teams Acid Purifier Relationship Specialty Start Date End Date Ailyn Cruz MD PCP - General Family Medicine 03/11/15 07/09/22 Sandra Duron MD [address] [place], [place] [id number] PCP - General Family Medicine 07/10/22 07/09/23 Javier Yost PAC [address] [place] [address] PCP - General Physician Volleyball Referee 07/10/23 Jose Scwhartz DPM Podiatry 07/18/15 Diana Gonzalez APRN, ENTRY LEVEL MECHANICAL ENGINEER Nurse Practitioner Advanced Practice Nurse 12/21/15 Ewelina Reynolds APRN, ENTRY LEVEL MECHANICAL ENGINEER Nurse Practitioner Advanced Practice Nurse 04/16/16 Chuck Lee MD [address] [place] [address] Consulting Physician Pulmonary Disease 03/04/22 Rafa Ortega MD [address] [address] Consulting Physician Colon and Rectal Surgery 10/08/24 documented as of this encounter
--- OUTSIDE RECORDS SUMMARY | 2024-12-20 14:36 | XMS_ITS | Encounter Summary ---
Author Organization [facility] Address [address] [place] [address] Phone Care Team Providers Care Social Media Content Manager Name Role Phone Ailyn Cruz MD Primary Care Provider + [phone] Jose Schwartz DPM Unavailable [phone] Diana Gonzalez ADMINISTRATIVE OPERATIONS COORDINATOR, CITY CLERK Unavailable [phone] Ewelina Reynolds ADMINISTRATIVE OPERATIONS COORDINATOR, CITY CLERK Unavailable Sandra Duron MD Primary Care Provider + [phone] Chuck Lee MD Unavailable Javier Yost PAC Primary Care Provider + [phone] Rafa Ortega MD Unavailable Reason for Visit * Reason Comments Medication Refill Encounter Details Date Type Department Care Team (Late st Contact Info) Description 10/15/2020 Refill [facility] - Primary Care - [address] [place] [address] Ailyn Cruz MD [address] [place] [address] Medication Refill Social History Tobacco [...] or suspected to have Coronavirus / COVID-19? No / Unsure 10/03/2020 1:06 PM CDT documented as of this encounter Miscellaneous Notes * Telephone Encounter - Jennifer Lu RN - 10/16/2020 12:22 PM CDT Medication failed the protocol, provider to review and approve the medication order if appropriate. Requested Prescriptions Pending Prescriptions Disp Refills amLODIPine (NORVASC) 10 MG Tablet [Pharmacy Med Name: AMLODIPINE BESYLATE 10MG TABLETS] 90 Tablet 0 Sig: TAKE 1 TABLET BY MOUTH DAILY Calcium-Channel Blockers Protocol Passed - 10/16/2020 12:22 PM Passed - BP on record in the past year Clinician-entered: BP Readings from Last 3 Encounters: 08/21/20 128/72 02/21/20 122/78 11/16/19 (!) 138/92 Patient-entered: No data recorded Passed - Visit with relevant provider in past 12 months or upcoming 90 days Recent Visits Date Type Provider Dept 08/21/20 Office Visit Ailyn Cruz MD [facility] [address] 02/21/20 Office Visit Ailyn Cruz MD [facility] [address] 11/16/19 Office Visit Ailyn Cruz MD [facility] Showing recent visits within past 365 days and meeting all other requirements Future Appointments No visits were found meeting these conditions. Showing future appointments within next 90 days and meeting all other requirements levothyroxine (SYNTHROID) 100 MCG Tablet [Pharmacy Med Name: LEVOTHYROXINE 0.100MG (100MCG) TAB] 90Tablet 1 Sig: TAKE 1 TABLET BY MOUTH DAILY Thyroid Hormones Protocol Passed - 10/16/2020 12:22 PM Passed - Visit with relevant provider in past 6 months or upcoming 90 days Recent Visits Date Type Provider Dept 08/21/20 Office Visit Ailyn Cruz MD [facility] [address] [facility] Showing recent visits within past 182 days and meeting all other requirements Future Appointments No visits were found meeting these conditions. Showing future appointments within next 90 days and meeting all other requirements Passed - Normal TSH in past 6 months TSH Date Value Ref Range Status 08/14/2020 4.040 0.270 - 4.200 mIU/L Final metFORMIN (GLUCOPHAGE) 500 MG Tablet [Pharmacy Med Name: METFORMIN 500MG TABLETS] 180 Tablet 0 Sig: TAKE 1 TABLET BY MOUTH TWICE DAILY WITH MEALS Biguanides Protocol Failed - 10/16/2020 12:22 PM Failed - Normal creatinine in past 6 months CREATININE, BLOOD Date Value Ref Range Status 10/03/2020 0.57 (L) 0.60 - 1.10 mg/dL Final Passed - Visit with relevant provider in past 6 months or upcoming 90 days Recent Visits Date Type Provider Dept 08/21/20 Office Visit Ailyn Cruz MD [facility] Showing recent visits within past 182 days and meeting all other requirements Future Appointments No visits were found meeting these conditions. Showing future appointments within next 90 days and meeting all other requirements Passed - HgA1C on record in past 6 months HGB-A1C Date Value Ref Range Status 08/14/2020 6.6 (H) 4.0 - 6.0 % Final Passed - GFR in normal range fenofibrate 160 MG Tablet [Pharmacy Med Name: FENOFIBRATE 160MG TABLETS] 90 Tablet 1 Sig: TAKE 1 TABLET BY MOUTH DAILY Fibrates Protocol Passed - 10/16/2020 12:22 PM Passed - Visit with relevant provider in past 12 months or upcoming 90 days Recent Visits Date Type Provider Dept 08/21/20 Office Visit [facility] 02/21[facility]20 Office Visit Ailyn Cruz MD [facility] 11/16/19 Office Visit Ailyn Cruz MD [facility] Showing recent visits within past 365 days and meeting all other requirements Future Appointments No visits were found meeting these conditions. Showing future appointments within next 90 days and meeting all other requirements Passed - Lipid panel in past 12 months LDL Date Value Ref Range Status 08/14/2020 113 5 - 130 mg/dL Final HDL CHOLESTEROL Date Value Ref Range Status 08/14/2020 49.4 >40 mg/dL Final CHOLESTEROL Date Value Ref Range Status 08/14/2020 194 <=200 mg/dL Final TRIGLYCERIDES Date Value Ref Range Status 08/14/2020 160 (H) <150 mg/dL Final VLDL Date Value Ref Range Status 08/14/2020 32 5 - 55 mg/dL Final CHOL/HDL RATIO Date Value Ref Range Status 08/14/2020 3.9 0.0 - 4.4 Final NON-HDL CHOLESTEROL Date Value Ref Range Status 08/14/2020 144.6 (H) <130 mg/dL Final documented in this encounter Plan of Treatment Upcoming Encounters Date Type Department Care Team (Late st Contact Info) Description 01/14/2025 9:30 AM CDT Office Visit [facility] - Primary Care - [address] [place] [address] Javier Yost PAC [address] [place] [address] 04/05/2025 1:15 PM LINING REPAIRER Office Visit [facility] - Pulmonology & Sleep Medicine [facility] [address] [place] [phone] Chuck Lee MD [address] [place] [address] documented as of this encounter Visit Diagnoses Diagnosis Essential hypertension Unspecified essential hypertension Type 2 diabetes mellitus without complication, without long-term current use of insulin Hyperlipidemia, unspecified hyperlipidemia type documented in this encounter Additional Health Concerns Infection Onset Date Last Indicated Resolved Time Influenza 08/23/2021 08/23/2021 08/30/2021 12:1 6 AM CDT COVID - 19 06/23/2023 06/23/2023 06/23/2023 5:22 PM LINING REPAIRER Respiratory Rule-Out 06/23/2023 06/23/2023 024 5:23 PM LINING REPAIRER COVID - 19 Confirmed 06/23/2023 06/23/2023 024 12:16 AM LINING REPAIRER COVID - 19 01/25/2024 01/25/2024 01/25/2024 12:0 2 PM CDT Assessment Noted Time PHQ-9 Depression Total Score: 0 02/21/20 20 10:00 AM CDT documented as of this encounter Care Teams Social Media Content Manager Relationship Specialty Start Date End Date Ailyn Cruz MD PCP - General Family Medicine 03/11/15 07/09/22 Sandra Duron MD [address] [place], [place] [id number] PCP - General Family Medicine 07/10/22 07/09/23 Javier Yost PAC [address] [place] [phone] PCP - General Physician Hiv/Aids Care Nurse 07/10/23 Jose Schwartz DPM Podiatry 07/18/15 Diana Gonzalez APRN, CITY CLERK Nurse Practitioner Advanced Practice Nurse 12/21/15 Ewelina Reynolds APRN, CITY CLERK Nurse Practitioner Advanced Practice Nurse 04/16/16 Chuck Lee MD [address] [place] [address] Consulting Physician Pulmonary Disease 03/04/22 Rafa Ortega MD [address] [address] Consulting Physician Colon and Rectal Surgery 10/08/24 documented as of this encounter
--- OUTSIDE RECORDS SUMMARY | 2024-12-20 14:36 | XMS_ITS | Encounter Summary ---
Author Organization [facility] Address [address] [place] [address] Phone Care Team Providers Care Manager Of Customer Billing Name Role Phone Ailyn Cruz MD Primary Care Provider + [phone] Jose Schwartz DPM Unavailable [phone] Diana Gonzalez COMPUTER LAB PARA PROFESSIONAL, JERKER Unavailable [phone] Ewelina Reynolds COMPUTER LAB PARA PROFESSIONAL, JERKER Unavailable Sandra Duron MD Primary Care Provider + [phone] Chuck Lee MD Unavailable Javier Yost PAC Primary Care Provider + [phone] Rafa Ortega MD Unavailable Reason for Visit * Reason Comments Medication Refill Encounter Details Date Type Department Care Team (Late st Contact Info) Description 03/18/2022 Refill [facility] - Primary Care - [address] [place] [address] Ailyn Cruz MD [address] [place] [address] Medication Refill Social History Tobacco [...] Exposure Response Date Recorded In the last 10 days, have yo u been in contact with someone who was confirmed or suspected to have Coronavirus/COVID-19? No / Unsure 03/20/2022 12:03 PM CDT documented as of this encounter Miscellaneous Notes * Telephone Encounter - Sherice Apple RN - 03/18/2022 11:01 AM CDT Medication failed the protocol, provider to review and approve the medication order if appropriate. Requested Prescriptions Pending Prescriptions Disp Refills pregabalin (LYRICA) 75 MG Capsule [Pharmacy Med Name: PREGABALIN 75MG CAPSULES] 180 Capsule 0 Sig: TAKE 1 CAPSULE BY MOUTH TWICE DAILY Not Delegated - Anticonvulsants Excluding Benzodiazepines Protocol Failed - 03/18/2022 12:22 AM Failed - This refill cannot be delegated Passed - Visit with relevant provider in past 12 months or upcoming 90 days Recent Visits Date Type Provider Dept 09/28/21 Office Visit Ailyn Cruz MD [facility] 08/23/21 Office Visit Natalya Maguire APRN, CNP [facility] [address] 05/29/21 Office Visit Natalya Maguire APRN, BRANDY [facility] Showing recent visits within past 365 days and meeting all other requirements Future Appointments Date Type Provider Dept 04/01/22 Appointment Ailyn Cruz MD [facility] Showing future appointments within next 90 days and meeting all other requirements Signed Prescriptions Disp Refills hydroCHLOROthiazide 25 MG Tablet 90 Tablet 0 Sig: TAKE 1 TABLET BY MOUTH DAILY Diuretics Protocol Passed - 03/18/2022 12:22 AM Passed - Serum potassium on record in past 12 months POTASSIUM Date Value Ref Range Status 01/08/2022 3.8 3.5 - 5.1 mmol/L Final Passed - Serum sodium on record in past 12 months SODIUM Date Value Ref Range Status 01/08/2022 144 136 - 144 mmol/L Final Passed - Blood pressure on record in past 12 months Clinician-entered: BP Readings from Last 3 Encounters: 03/04/22 124/72 10/24/21 120/72 09/28/21 120/74 Patient-entered: No data recorded Passed - Visit with relevant provider in past 12 months or upcoming 90 days Recent Visits Date Type Provider Dept 09/28/21 Office Visit Ailyn Cruz MD [facility] 08/23/21 Office Visit Natalya Maguire APRN, CNP [facility] 05/29/21 Office Visit Natalya Maguire APRN, CNP [facility] Showing recent visits within past 365 days and meeting all other requirements Future Appointments Date Type Provider Dept 04/01/22 Appointment Ailyn Cruz MD [facility] Showing future appointments within next 90 days and meeting all other requirements Passed - GFR on record in past 12 months GFR, EST. NONAFRICAN Date Value Ref Range Status 09/24/2021 >60 >=60 Final documented in this encounter Plan of Treatment Upcoming Encounters Date Type Department Care Team (Late st Contact Info) Description 01/14/2025 9:30 AM CDT Office Visit [facility] - Primary Care - [address] [place] [address] Javier Yost, PAC [address] [place] [address] 04/05/2025 1:15 PM NUT ORCHARDIST [facility] [address] [place] [phone] Chuck Lee MD [address] [place] [phone] documented as of this encounter Visit Diagnoses Diagnosis Arthralgia, unspecified joint documented in this encounter Additional Health Concerns Infection Onset Date Last Indicated Resolved Time COVID - 19 06/23/2023 06/23/2023 06/23/2023 5:22 PM NUT ORCHARDIST Respiratory Rule-Out 06/23/2023 06/23/2023 024 5:23 PM NUT ORCHARDIST COVID - 19 Confirmed 06/23/2023 06/23/2023 024 12:16 AM NUT ORCHARDIST COVID - 19 01/25/2024 01/25/2024 01/25/2024 12:0 2 PM CDT Assessment Noted Time PHQ-9 Depression Total Score: 0 02/21/20 20 10:00 AM CDT documented as of this encounter Care Teams Manager Of Customer Billing Relationship Specialty Start Date End Date Ailyn Cruz MD PCP - General Family Medicine 03/11/15 07/09/22 Sandra Duron MD [address] [place] [address] PCP - General Family Medicine 07/10/22 07/09/23 Javier Yost PAC [address] [place] [address] PCP - General Physician Cook Dinner 07/10/23 Jose Schwartz DPM Podiatry 07/18/15 Diana Gonzalez, COMPUTER LAB PARA PROFESSIONAL, JERKER Nurse Practitioner Advanced Practice Nurse 12/21/15 Ewelina Reynolds, LUKE, JERKER Nurse Practitioner Advanced Practice Nurse 04/16/16 Chuck Lee MD [address] [place] [address] Consulting Physician Pulmonary Disease 03/04/22 Rafa Ortega MD [address] [address] Consulting Physician Colon and Rectal Surgery 10/08/24 documented as of this encounter
--- OUTSIDE RECORDS SUMMARY | 2024-12-20 14:36 | XMS_ITS | Encounter Summary ---
Author Organization [facility] Address [address] [place] [address] Phone Care Team Providers Care Director Of Intercollegiate Athletics Name Role Phone Ailyn Cruz MD Primary Care Provider + [phone] Jose Schwartz DPM Unavailable [phone] Diana Gonzalez HOGSHEAD OPENER, STAFF RADIOLOGIST Unavailable [phone] Ewelina Reynolds HOGSHEAD OPENER, STAFF RADIOLOGIST Unavailable Sandra Duron MD Primary Care Provider + [phone] Chuck Lee MD Unavailable Javier Yost PAC Primary Care Provider + [phone] Rafa Ortega MD Unavailable Reason for Visit * Reason Comments Medication Refill Encounter Details Date Type Department Care Team (Late st Contact Info) Description 12/03/2020 Refill [facility] - Primary Care - [address] [place] [address] Ailyn Cruz MD [address] [place] [address] Medication Refill Social History Tobacco [...] have Coronavirus / COVID-19? No / Unsure 11/19/2020 2:50 PM CDT documented as of this encounter Miscellaneous Notes * Telephone Encounter - Jennifer Lu RN - 12/04/2020 10:26 AM CDT [place] last fill date 08/28/20 Medication failed the protocol, provider to review and approve the medication order if appropriate. Requested Prescriptions Pending Prescriptions Disp Refills sertraline (ZOLOFT) 25 MG Tablet [Pharmacy Med Name: SERTRALINE 25MG TABLETS] 90 Tablet 1 Sig: TAKE 1 TABLET BY MOUTH DAILY SSRI (6 Month Refill Only) Protocol Failed - 12/04/2020 10:26 AM Failed - Has an encounter in the past 6 months with a depression, anxiety, adjustment disorder, OCD, or PTSD visit diagnosis Passed - Visit with relevant provider in past 6 months or upcoming 90 days Recent Visits Date Type Provider Dept 10/26/20 Office Visit Ailyn Cruz MD [facility] [address] 08/21/20 Office Visit Ailyn Cruz MD [facility] Showing recent visits within past 182 days and meeting all other requirements Future Appointments Date Type Provider Dept 02/22/21 Appointment Ailyn Cruz MD [facility] Showing future appointments within next 90 days and meeting all other requirements Passed - Patient has establiashed therapy with SSRI for at least 6 months pregabalin (LYRICA) 75 MG Capsule [Pharmacy Med Name: PREGABALIN 75MG CAPSULES] 180 Capsule Sig: TAKE 1 CAPSULE BY MOUTH TWICE DAILY [facility] Not Delegated - Neurology: Anticonvulsants - Controlled Substances Failed - 12/04/2020 10:26 AM Failed - This refill cannot be delegated Passed - Valid encounter within last 12 months Past Office Visits Recent Outpatient Visits 1 month ago Acute sinusitis, recurrence not specified, unspecified location [facility] Ailyn Cruz MD 3 months ago Type 2 diabetes mellitus without complication, without long-term current use of insulin ([facility]) [facility] Ailyn Cruz MD 9 months ago Physical exam, annual (Adult) [facility] Ailyn Cruz MD 1 year ago Type 2 diabetes mellitus without complication, without long-term current use of insulin ([facility]) [facility] Ailyn Cruz MD 1 year ago Depression, unspecified depression type [facility] Ailyn Cruz MD Upcoming Appointments Future Appointments In 2 months Ailyn Cruz MD [facility] ORACLE ANALYST - Recent and Past Visits Recent Visits Date Type Provider Dept 10/26/20 Office Visit Ailyn Cruz MD [facility] 08/21/20 Office Visit Ailyn Cruz MD [facility] 02/21/20 Office Visit Ailyn Cruz MD [facility] 11/16/19 Office Visit Ailyn Cruz MD [facility] Showing recent visits within past 460 days with a meds authorizing provider and meeting all other requirements Future Appointments Date Type Provider Dept 02/22/21 Appointment Ailyn Cruz MD [facility] Showing future appointments within next 90 days with a meds authorizing provider and meeting all other requirements documented in this encounter Plan of Treatment Upcoming Encounters Date Type Department Care Team (Late st Contact Info) Description 01/14/2025 9:30 AM CDT Office Visit [facility] - Primary Care - [place] [address] [place] [address] Javier Yost PAC [address] [place] [address] 04/05/2025 1:15 PM SPEECH SCIENTIST [facility] [address] [place] [address] Chuck Lee MD [address] [place] [address] documented as of this encounter Visit Diagnoses Diagnosis Depression, unspecified depression type Arthralgia, unspecified joint documented in this encounter Additional Health Concerns Infection Onset Date Last Indicated Resolved Time Influenza 08/23/2021 08/23/2021 08/30/2021 12:1 6 AM CDT COVID - 19 06/23/2023 06/23/2023 06/23/2023 5:22 PM SPEECH SCIENTIST Respiratory Rule-Out 06/23/2023 06/23/2023 024 5:23 PM SPEECH SCIENTIST COVID - 19 Confirmed 06/23/2023 06/23/2023 024 12:16 AM SPEECH SCIENTIST COVID - 19 01/25/2024 01/25/2024 01/25/2024 12:0 2 PM CDT Assessment Noted Time PHQ-9 Depression Total Score: 0 02/21/20 20 10:00 AM CDT documented as of this encounter Care Teams Director Of Intercollegiate Athletics Relationship Specialty Start Date End Date Ailyn Cruz MD PCP - General Family Medicine 03/11/15 07/09/22 Sandra Duron MD [address] [place] [address] PCP - General Family Medicine 07/10/22 07/09/23 Javier Yost, PAC [address] [place] [address] PCP - General Physician Account Relationship Manager 07/10/23 Jose Schwartz DPM Podiatry 07/18/15 Diana Gonzalez, HOGSHEAD OPENER, STAFF RADIOLOGIST Nurse Practitioner Advanced Practice Nurse 12/21/15 Ewelina Reynolds, HOGSHEAD OPENER, STAFF RADIOLOGIST Nurse Practitioner Advanced Practice Nurse 04/16/16 Chuck Lee MD [address] [place] [address] Consulting Physician Pulmonary Disease 03/04/22 Rafa Ortega MD [address] [address] Consulting Physician Colon and Rectal Surgery 10/08/24 documented as of this encounter
--- OUTSIDE RECORDS SUMMARY | 2024-12-20 14:36 | XMS_ITS | Encounter Summary ---
Author Organization [facility] Address [address] [place] [address] Phone Care Team Providers Care Metal Grader Name Role Phone Ailyn Cruz MD Primary Care Provider + [phone] Jose Schwartz DPM Unavailable [phone] Diana Gonzalez DIE CASTING MACHINE MAINTAINER, REFLOW OPERATOR Unavailable [phone] Ewelina Reynolds DIE CASTING MACHINE MAINTAINER, REFLOW OPERATOR Unavailable Sandra Duron MD Primary Care Provider + [phone] Chuck Lee MD Unavailable Javier Yost PAC Primary Care Provider + [phone] Rafa Orteag MD Unavailable Reason for Visit * Reason Comments Medication Refill Encounter Details Date Type Department Care Team (Late st Contact Info) Description 05/07/2020 Refill [facility] - Primary Care - [place] [place] [address] Aliyn Cruz MD [address] [place] [address] Medication Refill Social History Tobacco [...] Miscellaneous Notes * Telephone Encounter - Margot Harrell, [facility] - 05/08/2020 9:26 AM CST Medication failed the protocol, provider to review and approve the medication order if appropriate. Requested Prescriptions Pending Prescriptions Disp Refills glipiZIDE (GLUCOTROL XL) 5 MG TABLET SR 24 HR [Pharmacy Med Name: GLIPIZIDE ER 5MG TABLETS] 180 Tab1 Sig: Take 1 Tab by mouth 2 times daily. Endocrinology: Diabetes - Sulfonylureas Passed - 05/07/2020 11:47 PM Passed - Valid encounter within last 12 months Past Office Visits Recent Outpatient Visits 2 months ago Physical exam, annual (Adult) [facility] Ailyn Cruz MD 5 months ago Type 2 diabetes mellitus without complication, without long-term current use of insulin (HCC) [facility] Ailyn Bloom MD 1 year ago Depression, unspecified depression type [facility] Ailyn Bloom MD 1 year ago Type 2 diabetes mellitus without complication, without long-term current use of insulin (HCC) [facility] - Ailyn Bloom MD 1 year ago Physical exam, annual (Adult) [facility] Ailyn Bloom MD Upcoming Appointments Future Appointments In 3 months Ailyn Cruz MD [facility] - Recent and Past Visits Recent Visits Date Type Provider Dept 02/21/20 Office Visit Ailyn Cruz MD [facility] [address] 11/16/19 Office Visit Ailyn Cruz MD [facility] 04/16/19 Office Visit Ailyn Cruz MD [facility] 02/16/19 Office Visit Ailyn [facility] MD [facility] [address] Showing recent visits within past 460 days with a meds authorizing provider and meeting all other requirements Future Appointments No visits were found meeting these conditions. Showing future appointments within next 90 days with a meds authorizing provider and meeting all other requirements Passed - Last BP in normal range BP Readings from Last 1 Encounters: 02/21/20 122/78 S COUNTRY AND TRACK AND FIELD COACH documented in this encounter Plan of Treatment Upcoming Encounters Date Type Department Care Team (Late st Contact Info) Description 01/14/2025 9:30 AM CDT Office Visit [facility] - Primary Care - [place] [address] [place] [address] Javier Yost, NADIR [address] [place] [address] 04/05/2025 1:15 PM CROSS COUNTRY AND TRACK AND FIELD COACH Office Visit [facility] - Pulmonology & Sleep Medicine [facility] [address] [place] [address] Chuck Lee MD [address] [place] [address] documented as of this encounter Visit Diagnoses Diagnosis Type 2 diabetes mellitus without complication, without long-term current use of insulin documented in this encounter Additional Health Concerns Infection Onset Date Last Indicated Resolved Time Influenza 08/23/2021 08/23/2021 08/30/2021 12:1 6 AM CDT COVID - 19 06/23/2023 06/23/2023 06/23/2023 5:22 PM CROSS COUNTRY AND TRACK AND FIELD COACH Respiratory Rule-Out 06/23/2023 06/23/2023 024 5:23 PM CROSS COUNTRY AND TRACK AND FIELD COACH COVID - 19 Confirmed 06/23/2023 06/23/2023 024 12:16 AM CROSS COUNTRY AND TRACK AND FIELD COACH COVID - 19 01/25/2024 01/25/2024 01/25/2024 12:0 2 PM CDT Assessment Noted Time PHQ-9 Depression Total Score: 0 02/21/20 20 10:00 AM CDT documented as of this encounter Care Teams Metal Grader Relationship Specialty Start Date End Date Ailyn Cruz MD PCP - General Family Medicine 03/11/15 07/09/22 Sandra Duron MD [address] [place] [address] PCP - General Family Medicine 07/10/22 07/09/23 Javier Yost, PAC [address] [place] [address] PCP - General Physician Senior Controller 07/10/23 Jose Schwartz DPM Podiatry 07/18/15 Diana Gonzalez, DIE CASTING MACHINE MAINTAINER, REFLOW OPERATOR Nurse Practitioner Advanced Practice Nurse 12/21/15 Ewelina Reynolds, DIE CASTING MACHINE MAINTAINER, REFLOW OPERATOR Nurse Practitioner Advanced Practice Nurse 04/16/16 Chuck Lee MD [address] [place] [address] Consulting Physician Pulmonary Disease 03/04/22 Rafa Ortega MD [address] [place] [address] Consulting Physician Colon and Rectal Surgery 10/08/24 documented as of this encounter
--- OUTSIDE RECORDS SUMMARY | 2024-12-20 14:36 | XMS_ITS | Encounter Summary ---
Author Organization [facility] Address [address] [place] [address] Phone Care Team Providers Care Lion Tamer Name Role Phone Ailyn Cruz MD Primary Care Provider + [phone] Jose Schwartz DPM Unavailable [phone] Diana Gonzalez PLEATING MACHINE OPERATOR, PROP SAWYER Unavailable [phone] Ewelina Reynolds PLEATING MACHINE OPERATOR, PROP SAWYER Unavailable Sandra Duron MD Primary Care Provider + [phone] Chuck Lee MD Unavailable Javier Yost PAC Primary Care Provider + [phone] Rafa Ortega MD Unavailable Reason for Visit * Reason Comments Medication Refill Encounter Details Date Type Department Care Team (Late st Contact Info) Description 01/11/2022 Refill [facility] - Primary Care - [place] [place] [address] Ailyn Cruz MD [address] [place] [address] Medication Refill Social History Tobacco [...] suspected to have Coronavirus/COVID-19? No / Unsure 01/09/2022 9:25 PM CDT documented as of this encounter Miscellaneous Notes * Telephone Encounter - Fatimah Lynch RN - 01/11/2022 1:19 PM CDT Medication failed the protocol, provider to review and approve the medication order if appropriate. Requested Prescriptions Pending Prescriptions Disp Refills cyclobenzaprine (FLEXERIL) 5 MG Tablet [Pharmacy Med Name: CYCLOBENZAPRINE 5MG TABLETS] 90 Tablet 1 Sig: Take 1 Tablet by mouth every evening. Not Delegated - Muscle Relaxants Protocol Failed - 01/11/2022 12:03 PM Failed - This refill cannot be delegated Passed - Visit with relevant provider in past 12 months or upcoming 90 days Recent Visits Date Type Provider Dept 09/28/21 Office Visit Ailyn Cruz MD [facility] [address] 08/23/21 Office Visit Natalya Maguire APRN, CNP [facility] [address] 05/29/21 Office Visit Natalya Maguire APRN, BRANDY [facility] [address] 02/22/21 Office Visit Ailyn Cruz MD [facility] [place] [facility] Showing recent visits within past 365 days and meeting all other requirements Future Appointments Date Type Provider Dept 04/01/22 Appointment [facility] MD [facility] Showing future appointments within next 90 days and meeting all other requirements documented in this encounter Plan of Treatment Upcoming Encounters Date Type Department Care Team (Late st Contact Info) Description 01/14/2025 9:30 AM CDT Office Visit [facility] - Primary Care - [place] [address] [place] [address] Javier Yost PAC [address] [place] [address] 04/05/2025 1:15 PM POCKETED SPRING ASSEMBLER Office Visit [facility] - Pulmonology & Sleep Medicine [facility] [address] [place] [address] Chuck Lee MD [address] [place] [address] documented as of this encounter Visit Diagnoses Not on filedocumented in this encounter Additional Health Concerns Infection Onset Date Last Indicated Resolved Time COVID - 19 06/23/2023 06/23/2023 06/23/2023 5:22 PM POCKETED SPRING ASSEMBLER Respiratory Rule-Out 06/23/2023 06/23/2023 024 5:23 PM POCKETED SPRING ASSEMBLER COVID - 19 Confirmed 06/23/2023 06/23/2023 024 12:16 AM POCKETED SPRING ASSEMBLER COVID - 19 01/25/2024 01/25/2024 01/25/2024 12:0 2 PM CDT Assessment Noted Time PHQ-9 Depression Total Score: 0 02/21/20 20 10:00 AM CDT documented as of this encounter Care Teams Lion Tamer Relationship Specialty Start Date End Date Ailyn Cruz MD PCP - General Family Medicine 10/17/15 2/14/23 Sandra Duron MD [address] [place], [place] [id number] PCP - General Family Medicine 07/10/22 07/09/23 Javier Yost, PAC [address] [place] [address] PCP - General Physician Support Services Tech 07/10/23 Jose Schwartz DPM Podiatry 07/18/15 Diana Gonzalez, PLEATING MACHINE OPERATOR, PROP SAWYER Nurse Practitioner Advanced Practice Nurse 12/21/15 Ewelina Reynolds, LUKE, PROP SAWYER Nurse Practitioner Advanced Practice Nurse 04/16/16 Chuck Lee MD [address] [place] [address] Consulting Physician Pulmonary Disease 03/04/22 Rafa Ortega MD [address] [address] Consulting Physician Colon and Rectal Surgery 10/08/24 documented as of this encounter
--- OUTSIDE RECORDS SUMMARY | 2024-12-20 14:36 | XMS_ITS | Encounter Summary ---
Author Organization [facility] Address [address] [place] [address] Phone Care Team Providers Care Play Reader Name Role Phone Ailyn Cruz MD Primary Care Provider + [phone] Jose Schwartz DPM Unavailable [phone] Diana Gonzalez RABIES INSPECTOR, INDUSTRIAL TRUCK MECHANIC Unavailable [phone] Ewelina Reynolds RABIES INSPECTOR, INDUSTRIAL TRUCK MECHANIC Unavailable Sandra Duron MD Primary Care Provider + [phone] Chuck Lee MD Unavailable Javier Yost PAC Primary Care Provider + [phone] Rafa Ortega MD Unavailable Reason for Visit * Reason Comments Medication Refill Encounter Details Date Type Department Care Team (Late st Contact Info) Description 10/14/2021 Refill [facility] - Primary Care - [place] [address] [place] [address] Ailyn Cruz MD [address] [place] [address] Medication Refill Social History Tobacco [...] suspected to have Coronavirus/COVID-19? No / Unsure 09/28/2021 9:34 AM CDT documented as of this encounter Plan of Treatment Upcoming Encounters Date Type Department Care Team (Late st Contact Info) Description 01/14/2025 9:30 AM CDT Office Visit [facility] - Primary Care - [place] [address] [place] [address] Javier Yost PAC [address] [place] [address] 04/05/2025 1:15 PM SLUBBER HAND [facility] - Pul[facility] [address] [place] [address] Chuck Lee MD [address] [place] [address] documented as of this encounter Visit Diagnoses Diagnosis Essential hypertension Unspecified essential hypertension Type 2 diabetes mellitus without complication, without long-term current use of insulin Hyperlipidemia, unspecified hyperlipidemia type documented in this encounter Additional Health Concerns Infection Onset Date Last Indicated Resolved Time COVID - 19 06/23/2023 06/23/2023 06/23/2023 5:22 PM SLUBBER HAND Respiratory Rule-Out 06/23/2023 06/23/2023 024 5:23 PM SLUBBER HAND COVID - 19 Confirmed 06/23/2023 06/23/2023 024 12:16 AM SLUBBER HAND COVID - 19 01/25/2024 01/25/2024 01/25/2024 12:0 2 PM CDT Assessment Noted Time PHQ-9 Depression Total Score: 0 02/21/20 20 10:00 AM CDT documented as of this encounter Care Teams Play Reader Relationship Specialty Start Date End Date Ailyn Cruz MD PCP - General Family Medicine 03/11/15 07/09/22 Sandra Duron MD [address] [place] [address] PCP - General Family Medicine 07/10/22 07/09/23 Javier Yost, PAC [address] [place] [address] PCP - General Physician Farm Crew Leader 07/10/23 Jose Schwartz DPM Podiatry 07/18/15 Diana Gonzalez APRN, INDUSTRIAL TRUCK MECHANIC Nurse Practitioner Advanced Practice Nurse 12/21/15 Ewelina Reynolds APRN, INDUSTRIAL TRUCK MECHANIC Nurse Practitioner Advanced Practice Nurse 04/16/16 Chuck Lee MD [address] [place] [address] Consulting Physician Pulmonary Disease 03/04/22 Rafa Ortega MD [address] [address] Consulting Physician Colon and Rectal Surgery 10/08/24 documented as of this encounter
--- OUTSIDE RECORDS SUMMARY | 2024-12-20 14:36 | XMS_ITS | Encounter Summary ---
Author Organization [facility] Address [address] [place] [address] Phone Care Team Providers Care Professor Of Poultry Science Name Role Phone Ailyn Cruz MD Primary Care Provider + [phone] Jose Schwartz DPM Unavailable [phone] Diana Gonzalez ANALYTICAL MANAGER, ORACLE MANAGER Unavailable [phone] Ewelina Reynolds ANALYTICAL MANAGER, ORACLE MANAGER Unavailable Sandra Duron MD Primary Care Provider + [phone] Chuck Lee MD Unavailable Javier Yost PAC Primary Care Provider + [phone] Rafa Ortega MD Unavailable Reason for Visit * Reason Comments Medication Refill Encounter Details Date Type Department Care Team (Late st Contact Info) Description 07/10/2020 Refill [facility] - Primary Care - [address] [place] [address] Ailyn Cruz MD [address] [place] [address] Medication Refill Social History Tobacco [...] Telephone Encounter - Fatimah Lynch RN - 07/10/2020 11:51 AM FABRICATING MACHINE OPERATOR Medication approved and signed per standing order protocol. ICATING MACHINE OPERATOR documented in this encounter Plan of Treatment Upcoming Encounters Date Type Department Care Team (Late st Contact Info) Description 01/14/2025 9:30 AM CDT [facility] Primary Care - [address] [place] [address] Javier Yost PAC [address] [place] [address] 04/05/2025 1:15 PM FABRICATING MACHINE OPERATOR [facility] - Pulmonology & Sleep Medicine [facility] [address] [place] [address] Chuck Lee MD [address] [place] [address] documented as of this encounter Visit Diagnoses Diagnosis Type 2 diabetes mellitus without complication, without long-term current use of insulin Essential hypertension Unspecified essential hypertension documented in this encounter Additional Health Concerns Infection Onset Date Last Indicated Resolved Time Influenza 08/23/2021 08/23/2021 08/30/2021 12:1 6 AM CDT COVID - 19 06/23/2023 06/23/2023 06/23/2023 5:22 PM FABRICATING MACHINE OPERATOR Respiratory Rule-Out 06/23/2023 06/23/2023 024 5:23 PM FABRICATING MACHINE OPERATOR COVID - 19 Confirmed 06/23/2023 06/23/2023 024 12:16 AM FABRICATING MACHINE OPERATOR COVID - 19 01/25/2024 01/25/2024 01/25/2024 12:0 2 PM CDT Assessment Noted Time PHQ-9 Depression Total Score: 0 02/21/20 20 10:00 AM CDT documented as of this encounter Care Teams Professor Of Poultry Science Relationship Specialty Start Date End Date Ailyn Cruz MD PCP - General Family Medicine 03/11/15 07/09/22 Sandra Duron MD [address] [place], [place] [id number] PCP - General Family Medicine 07/10/22 07/09/23 Javier Yost, PAC [address] [place] [address] PCP - General Physician Iron Molder Helper 07/10/23 Jose Schwartz DPM Podiatry 07/18/15 Diana Gonzalez APRN, ORACLE MANAGER Nurse Practitioner Advanced Practice Nurse 12/21/15 Ewelina Reynolds APRN, ORACLE MANAGER Nurse Practitioner Advanced Practice Nurse 04/16/16 Chuck Lee MD [address] [place] [address] Consulting Physician Pulmonary Disease 03/04/22 Rafa Ortega MD [address] [address] Consulting Physician Colon and Rectal Surgery 10/08/24 documented as of this encounter
--- OUTSIDE RECORDS SUMMARY | 2024-12-20 14:36 | XMS_ITS | Encounter Summary ---
Author Organization [facility] Address [address] [place] [address] Phone Care Team Providers Care Lead Coater Name Role Phone Ailyn Cruz MD Primary Care Provider + [phone] Jose Schwartz DPM Unavailable [phone] Diana Gonzalez LABORATORY OPERATIONS COORDINATOR, MAT PACKER Unavailable [phone] Ewelina Reynolds LABORATORY OPERATIONS COORDINATOR, MAT PACKER Unavailable Sandra Duron MD Primary Care Provider + [phone] Chuck Lee MD Unavailable Javier Yost PAC Primary Care Provider + [phone] Rafa Ortega MD Unavailable Reason for Visit * Reason Comments Medication Refill Encounter Details Date Type Department Care Team (Late st Contact Info) Description 06/05/2020 Refill [facility] - Primary Care - [address] [place] [address] Ailyn Cruz MD [address] [place] [address] Medication Refill Social History Tobacco [...] Notes * Telephone Encounter - Margot Harrell, [facility] - 06/05/2020 2:34 PM CST Medication failed the protocol, provider to review and approve the medication order if appropriate. Requested Prescriptions Pending Prescriptions Disp Refills sertraline (ZOLOFT) 25 MG Tablet [Pharmacy Med Name: SERTRALINE 25MG TABLETS] 90 Tab 1 Sig: TAKE 1 TABLET BY MOUTH DAILY Not Delegated - Psychiatry: Antidepressants Failed - 06/05/2020 2:22 PM Failed - This refill cannot be delegated Passed - Valid encounter within last 12 months Past Office Visits Recent Outpatient Visits 3 months ago Physical exam, annual (Adult) [facility] Ailyn Cruz MD 6 months ago Type 2 diabetes mellitus without complication, without long-term current use of insulin ([facility]) [facility] - Ailyn Bloom MD 1 year ago Depression, unspecified depression type [facility] Ailyn Bloom MD 1 year ago Type 2 diabetes mellitus without complication, without long-term current use of insulin (HCC) [facility] - Ailyn Bloom MD 1 year ago Physical exam, annual (Adult) [facility] - Ailyn Bloom MD Upcoming Appointments Future Appointments In 2 months Ailyn Cruz MD [facility] - Recent and Past Visits Recent Visits Date Type Provider Dept 02/21/20 Office Visit Ailyn Cruz MD [facility] 11/16/19 Office Visit Ailyn Cruz MD [facility] 04/16/19 Office Visit Ailyn Cruz MD [facility] Showing recent visits within past 460 days with a meds authorizing provider and meeting all other requirements Future Appointments Date Type Provider Dept 08/21/20 Appointment Ailyn Cruz MD [facility] Showing future appointments within next 90 days with a meds authorizing provider and meeting all other requirements pregabalin (LYRICA) 75 MG Capsule [Pharmacy Med Name: PREGABALIN 75MG CAPSULES] 180 Cap Sig: TAKE 1 CAPSULE BY MOUTH TWICE DAILY Not Delegated - Neurology: Anticonvulsants - Controlled Substances Failed - 06/05/2020 2:22 PM Failed - This refill cannot be delegated Passed - Valid encounter within last 12 months Past Office Visits Recent Outpatient Visits 3 months ago Physical exam, annual (Adult) [facility] Ailyn Cruz MD 6 months ago Type 2 diabetes mellitus without complication, without long-term current use of insulin ([facility]) [facility] - Ailyn Bloom MD 1 year ago Depression, unspecified depression type [facility] 1 year ago Type 2 diabetes mellitus without complication, without long-term current use of insulin ([facility]) [facility] - Ailyn Bloom MD 1 year ago Physical exam, annual (Adult[facility] Upcoming Appointments Future Appointments In 2 months Ailyn Cruz MD [facility] - Recent and Past Visits Recent Visits Date Type Provider Dept 02/21/20 Office Visit Ailyn Cruz MD [facility] 11/16/19 [facility] 04/16[facility]19 [facility] Showing recent visits within past 460 days with a meds authorizing provider and meeting all other requirements Future Appointments Date Type Provider Dept 08/21/20 Appointment Ailyn Cruz MD [address] Showing future appointments within next 90 days with a meds authorizing provider and meeting all other requirements TO LOG OPERATOR documented in this encounter Plan of Treatment Upcoming Encounters Date Type Department Care Team (Late st Contact Info) Description 01/14/2025 9:30 AM CDT Office Visit [facility] - Primary Care - [place] [address] [place] [address] Javier Yost PAC [address] [place] [address] 04/05/2025 1:15 PM PRESTO LOG OPERATOR Office Visit [facility] - Pulmonology & Sleep Medicine [facility] [address] [place] [address] Chuck Lee MD [address] [place] [phone] documented as of this encounter Visit Diagnoses Diagnosis Depression, unspecified depression type Arthralgia, unspecified joint documented in this encounter Additional Health Concerns Infection Onset Date Last Indicated Resolved Time Influenza 08/23/2021 08/23/2021 08/30/2021 12:1 6 AM CDT COVID - 19 06/23/2023 06/23/2023 06/23/2023 5:22 PM PRESTO LOG OPERATOR Respiratory Rule-Out 06/23/2023 06/23/2023 024 5:23 PM PRESTO LOG OPERATOR COVID - 19 Confirmed 06/23/2023 06/23/2023 024 12:16 AM PRESTO LOG OPERATOR COVID - 19 01/25/2024 01/25/2024 01/25/2024 12:0 2 PM CDT Assessment Noted Time PHQ-9 Depression Total Score: 0 02/21/20 20 10:00 AM CDT documented as of this encounter Care Teams Lead Coater Relationship Specialty Start Date End Date Ailyn Cruz MD PCP - General Family Medicine 03/11/15 07/09/22 Sandra Duron MD [address] [place] [address] PCP - General Family Medicine 07/10/22 07/09/23 Javier Yost PAC [address] [place] [address] PCP - General Physician Recruiter Account Manager 07/10/23 Jose Schwartz DPM Podiatry 07/18/15 Diana Gonzalez, LABORATORY OPERATIONS COORDINATOR, MAT PACKER Nurse Practitioner Advanced Practice Nurse 12/21/15 Ewelina Reynolds, LABORATORY OPERATIONS COORDINATOR, MAT PACKER Nurse Practitioner Advanced Practice Nurse 04/16/16 Chuck Lee MD [address] [place] [address] Consulting Physician Pulmonary Disease 03/04/22 Rafa Ortega MD [address] [address] Consulting Physician Colon and Rectal Surgery 10/08/24 documented as of this encounter
--- OUTSIDE RECORDS SUMMARY | 2024-12-20 14:36 | XMS_ITS | Encounter Summary ---
Author Organization [facility] Address [address] [facility] [place] [address] Care Team Providers Care Vehicle Window Tinter Name Role Phone Shady Rust MD Unavailable Ailyn Cruz MD Primary Care Provider [phone] Dorian Patel MD Primary Care Provider + [phone] Dorian Patel MD Primary Care Provider + [phone] Ailyn Cruz MD Primary Care Provider [phone] Ailyn Cruz MD Primary Care Provider [phone] Ailyn Cruz MD Primary Care Provider [phone] Ailyn Cruz MD Primary Care Provider [phone] Dorian Patel MD Primary Care Provider + [phone] Sandra Duron MD Primary Care Provider + [phone] Fareed John MD Unavailable [phone] Javier Yost Primary Care Provider [phone] Encounter Details Date Type Department Care Team (Late st Contact Info) Description 04/09/2019 [facility] Outpatient Visit [facility] [address] [place] [address] [place] [address] [facility] [address] [place] [address] Social History Tobacco Use Types [...] Description 02/17/2025 10:15 AM CDT Office Visit [facility] - Rheumatology [address] [facility] [address] [place] [address] [place] [address] [facility] [address] [place] [address] documented as of this encounter Visit Diagnoses Not on filedocumented in this encounter Care Teams Vehicle Window Tinter Relationship Specialty [place] [address] [facility] [address] [place] [address] PCP - General Family Medicine 04/07/19 04/25/19 Dorian Patel MD [address] [place] [phone] PCP - General 04/26/19 08/22/19 Dorian Patel MD [address] [place] [address] PCP - General 08/23/19 11/15/19 Ailyn Cruz MD [address] [place] [address] PCP - General Family Medicine 11/16/19 11/21/19 Ailyn Cruz MD [address] [place] [address] PCP - General Family Medicine 02/22/20 02/22/20 Ailyn Cruz MD [address] [place] [phone] PCP - General Family Medicine 05/23/20 06/22/20 Dorian Patel MD [address] [place] [address] PCP - General 06/23/20 09/18/20 Ailyn Cruz MD [address] [place] [address] PCP - General Family Medicine 09/19/20 10/16/20 Dorian Patel MD [address] [place] [address] PCP - General 10/17/20 03/19/21 Ailyn Cruz MD [address] [place] [phone] PCP - General Family Medicine 03/20/21 04/03/21 Dorian Patel MD [address] [place] [address] PCP - General 04/04/21 07/09/21 Ailyn Crzu MD [address] [place] [address] PCP - General Family Medicine 07/10/21 08/14/21 Dorian Patel MD [address] [place] [address] PCP - General 08/15/21 01/07/22 Ailyn Cruz MD [address] [place] [address] PCP - General Family Medicine 01/08/22 01/22/22 Dorian Patel MD [address] [place] [address] PCP - General 01/23/22 07/10/22 Sandra Duron MD [address] [place] [address] PCP - General Family Medicine 07/11/22 09/30/23 Javier Yost [address] [place] [address] PCP - General 10/01/23 [place] [address] [place] [address] Campaign Specialist Rheumatology 04/07/19 Fareed John MD [address] [place] [address] Orthopedic Surgery 09/24/22 documented as of this encounter
--- OUTSIDE RECORDS SUMMARY | 2024-12-20 14:36 | XMS_ITS | Encounter Summary ---
Author Organization [facility] Address [address] [place] [address] Phone Care Team Providers Care Skin Fitter Name Role Phone Ailyn Cruz MD Primary Care Provider + [phone] Jose Schwartz DPM Unavailable [phone] Diana Gonzalez FISCAL ASSISTANT, ORGAN FIXER Unavailable [phone] Ewelina Reynolds FISCAL ASSISTANT, ORGAN FIXER Unavailable Sandra Duron MD Primary Care Provider + [phone] Chuck Lee MD Unavailable Javier Yost PAC Primary Care Provider + [phone] Rafa Ortega MD Unavailable Reason for Visit * Reason Comments Medication Refill Encounter Details Date Type Department Care Team (Late st Contact Info) Description 09/09/2021 Refill [facility] - Primary Care - [address] [place] [address] Ailyn Cruz MD [address] [place] [address] Medication Refill Social History Tobacco [...] suspected to have Coronavirus/COVID-19? No / Unsure 08/23/2021 10:11 AM CDT documented as of this encounter Miscellaneous Notes * Telephone Encounter - Kiera Coreas RN - 09/10/2021 10:47 AM CDT Medication failed the protocol, provider to review and approve the medication order if appropriate. Requested Prescriptions Pending Prescriptions Disp Refills pregabalin (LYRICA) 75 MG Capsule [Pharmacy Med Name: PREGABALIN 75MG CAPSULES] 180 Capsule Sig: TAKE 1 CAPSULE BY MOUTH TWICE DAILY Not Delegated - Anticonvulsants Excluding Benzodiazepines Protocol Failed - 09/09/2021 11:32 PM Failed - This refill cannot be delegated Passed - Visit with relevant provider in past 12 months or upcoming 90 days Recent Visits Date Type Provider Dept 08/23/21 Office Visit Natal[facility] Magu[facility] [address] [facility] 05/29/21 Office Visit Natalya Maguire [facility] [address] [facility] 02/22/21 Office [facility] 10/26/20 Office [facility] Showing recent visits within past 365 days and meeting all other requirements Future Appointments Date Type Provider Dept 09/28/21 Appointment [facility] MD [facility] Showing future appointments within next 90 days and meeting all other requirements documented in this encounter Plan of Treatment Upcoming Encounters Date Type Department Care Team (Late st Contact Info) Description 01/14/2025 9:30 AM CDT Office Visit [facility] - Primary Care - [place] [address] [place] [address] Javier Yost, NADIR [address] [place] [address] 04/05/2025 1:15 PM PLAN REP Office Visit [facility] - Pulmonology & Sleep Medicine [facility] [address] [place] [address] Chuck Lee MD [address] [place] [address] documented as of this encounter Visit Diagnoses Diagnosis Arthralgia, unspecified joint documented in this encounter Additional Health Concerns Infection Onset Date Last Indicated Resolved Time COVID - 19 06/23/2023 06/23/2023 06/23/2023 5:22 PM PLAN REP Respiratory Rule-Out 06/23/2023 06/23/2023 024 5:23 PM PLAN REP COVID - 19 Confirmed 06/23/2023 06/23/2023 024 12:16 AM PLAN REP COVID - 19 01/25/2024 01/25/2024 01/25/2024 12:0 2 PM CDT Assessment Noted Time PHQ-9 Depression Total Score: 0 02/21/20 20 10:00 AM CDT documented as of this encounter Care Teams Skin Fitter Relationship Specialty Start Date End Date Ailyn Cruz MD PCP - General Family Medicine 10/17/15 2/14/23 Sandra Duron MD [address] [place], [place] [phone] PCP - General Family Medicine 07/10/22 07/09/23 Javier Yost, PAC [address] [place] [address] PCP - General Physician Die Casting Supervisor 07/10/23 Jose Schwartz DPM Podiatry 07/18/15 Diana Gonzalez, FISCAL ASSISTANT, ORGAN FIXER Nurse Practitioner Advanced Practice Nurse 12/21/15 Ewelina Reynolds, LUKE, ORGAN FIXER Nurse Practitioner Advanced Practice Nurse 04/16/16 Chuck Lee MD [address] [place] [address] Consulting Physician Pulmonary Disease 03/04/22 Rafa Ortega MD [address] [address] Consulting Physician Colon and Rectal Surgery 10/08/24 documented as of this encounter
--- OUTSIDE RECORDS SUMMARY | 2024-12-20 14:36 | XMS_ITS | Encounter Summary ---
Author Organization [facility] Address [address] [place] [address] Phone Care Team Providers Care Soap Worker Name Role Phone LanaJose griggs DPM Unavailable [phone] Diana Gonzalez PLAY LEADER, AUTOMATED LOGISTICS SPECIALIST Unavailable [phone] Ewelina Reynolds PLAY LEADER, AUTOMATED LOGISTICS SPECIALIST Unavailable Chuck Lee MD Unavailable Javier Yost Primary Care Provider [phone] Rafa Ortega MD Unavailable Reason for Visit * Reason Comments Medication Refill Encounter Details Date Type Department Care Team (Late st Contact Info) Description 09/10/2023 Refill [facility] - Primary Care - [address] [place] [address] Javier Yost PAC [address] [place] [address] Medication Refill Social History Tobacco Use Types Packs/Day Years Used Date Smoking Tobacco: Never Smokeless Tobacco: Never Alcohol Use Standard Drinks/Week Comments Yes 0 (1 standard drink = 0.6 oz pur e alcohol) Very seldom [facility] Utilities Answer Date Recorded In the past 12 months has th e electric, gas, oil, or water [employer] threatened to shut off services in your [...] How often do you attend chur or mosque services? Never 07/07/2023 Do you belong to any clubs o r organizations such as yazdanism groups, unions, fraternal or athletic groups, or [...] Total Score - Questions 1-9 0 06/26 [facility] - Occupational [...] encounter Miscellaneous Notes * Telephone Encounter - Javier Yost PAC - 09/10/2023 12:42 PM CDT Refill approved. * Telephone Encounter - Jennifer Lu RN - 09/10/2023 10:25 AM CDT Per nursing clinical judgement, provider to review and approve the medication(s) order(s) if appropriate. Requested Prescriptions Pending Prescriptions Disp Refills glipiZIDE (GLUCOTROL XL) 5 MG TABLET SR 24 HR [Pharmacy Med Name: GLIPIZIDE ER 5MG TABLETS] 180 Tablet 1 Sig: TAKE 1 TABLET BY MOUTH TWICE DAILY Sulfonylureas Protocol Passed - 09/10/2023 10:21 AM Passed - Visit with relevant provider in past 6 months or upcoming 90 days Recent Visits Date Type Provider Dept 07/29/23 Office Visit Yelena Rausch, PLAY LEADER, AUTOMATED LOGISTICS SPECIALIST [facility] 07/09/23 Office Visit Javier Yost PAC [facility] Showing recent visits within past [...] Ref Range Status 07/09/2023 >60 >=60 Final documented in this encounter Plan of Treatment Upcoming Encounters Date Type Department Care Team (Late st Contact Info) Description 01/14/2025 9:30 AM CDT Office Visit [facility] - Primary Care - [place] [address] [place] [address] Javier Yost PAC [address] [place] [address] 04/05/2025 1:15 PM CLINICAL RESEARCH SCIENTIST Office Visit [facility] - Pulmonology & Sleep Medicine [facility] [address] [place] [address] Chuck Lee MD [address] [place] [address] documented as of this encounter Visit Diagnoses Diagnosis Type 2 diabetes mellitus without complication, without long-term current use of insulin documented in this encounter Additional Health Concerns Infection Onset Date Last Indicated Resolved Time COVID - 19 01/25/2024 01/25/2024 01/25/2024 12:0 2 PM CDT Assessment Noted Time PHQ-9 Depression Total Score: 0 07/09/19 8:46 AM CLINICAL RESEARCH SCIENTIST documented as of this encounter Care Teams Soap Worker Relationship Specialty Start Date End Date Javier Yost, PAC [address] [place] [address] PCP - General Physician Retail Reset Merchandiser 07/10/23 Jose Schwartz DPM Podiatry 07/18/15 Diana Gonzalez, PLAY LEADER, AUTOMATED LOGISTICS SPECIALIST Nurse Practitioner Advanced Practice Nurse 12/21/15 Ewelina Reynolds, PLAY LEADER, AUTOMATED LOGISTICS SPECIALIST Nurse Practitioner Advanced Practice Nurse 04/16/16 Chuck Lee MD [address] [place] [address] Consulting Physician Pulmonary Disease 03/04/22 Rafa Ortega MD [address] [address] Consulting Physician Colon and Rectal Surgery 10/08/24 documented as of this encounter
--- OUTSIDE RECORDS SUMMARY | 2024-12-20 14:36 | XMS_ITS | Encounter Summary ---
Author Organization [facility] Address [address] [place] [address] Phone Care Team Providers Care Medical Administrative Technician Name Role Phone Ailyn Cruz MD Primary Care Provider + [phone] Jose Schwartz DPM Unavailable [phone] Diana Gonzalez TRAVEL COUNSELOR, ASSISTANT CHIEF ENGINEER Unavailable [phone] Ewelina Reynolds TRAVEL COUNSELOR, ASSISTANT CHIEF ENGINEER Unavailable Sandra Duron MD Primary Care Provider + [phone] Chuck Lee MD Unavailable Javier Yost PAC Primary Care Provider + [phone] Rafa Ortega MD Unavailable Reason for Visit * Reason Onset Date Comments Medication Refill 07/12/2020 Encounter Details Date Type Department Care Team (Late st Contact Info) Description 07/12/2020 [facility]ill [facility] [address] [place] [address] Ailyn Cruz MD [address] [place] [address] Medication Refill Social History Tobacco Use Types [...] Telephone Encounter - Jennifer Lu RN - 07/13/2020 12:25 PM CST Medication failed the protocol, provider to review and approve the medication order if appropriate. Requested Prescriptions Pending Prescriptions Disp Refills cyclobenzaprine (FLEXERIL) 5 MG Tablet 90 Tablet 1 Sig: Take 1 Tablet by mouth every evening. Not Delegated - Analgesics: Muscle Relaxants Failed - 07/12/2020 3:19 PM Failed - This refill cannot be delegated Passed - Valid encounter within last 6 months Past Office Visits Recent Outpatient Visits 4 months ago Physical exam, annual (Adult) [facility] Ailyn Cruz MD 8 months ago Type 2 diabetes mellitus without complication, without long-term current use of insulin ([facility]) [facility] - Ailyn Bloom MD 1 year ago Depression, unspecified depression type [facility] Ailyn Bloom MD 1 year ago Type 2 diabetes mellitus without complication, without long-term current use of insulin ([facility]) [facility] - Ailyn Bloom MD 1 year ago Physical exam, annual (Adult) [facility] - Ailyn Bloom MD Upcoming Appointments Future Appointments In 1 month Ailyn Cruz MD [facility] - Recent and Past Visits Recent Visits Date Type Provider Dept 02/21/20 Office Visit Ailyn Cruz MD [facility] [address] 11/16/19 Office Visit Ailyn Cruz MD [facility] 04/16/19 Office Visit Ailyn Cruz MD [facility] Showing recent visits within past 460 days with a meds authorizing provider and meeting all other requirements Future Appointments Date Type Provider Dept 08/21/20 Appointment Ailyn Cruz MD [facility] Showing future appointments within next 90 days with a meds authorizing provider and meeting all other requirements INE LACER * Telephone Encounter - Porsche Sullivan - 07/12/2020 3:19 PM CST Received a faxed Rx request from pharmacy. Reordered refill medication(s) requested and pended for nurse and physician/GABRIELA review. Refill encounter routed to nurse Luis's [employer] for processing. INE LACER documented in this encounter Plan of Treatment Upcoming Encounters Date Type Department Care Team (Late st Contact Info) Description 01/14/2025 9:30 AM CDT Office Visit [facility] - Primary Care - [place] [address] [place] [address] Javier Yost, NADIR [address] [place] [address] 04/05/2025 1:15 PM MACHINE LACER Office Visit [facility] - Pulmonology & Sleep Medicine - [place] [address] [place] [address] Chuck Lee MD [address] [place] [address] documented as of this encounter Visit Diagnoses Not on filedocumented in this encounter Additional Health Concerns Infection Onset Date Last Indicated Resolved Time Influenza 08/23/2021 08/23/2021 08/30/2021 12:1 6 AM CDT COVID - 19 06/23/2023 06/23/2023 06/23/2023 5:22 PM MACHINE LACER Respiratory Rule-Out 06/23/2023 06/23/2023 024 5:23 PM MACHINE LACER COVID - 19 Confirmed 06/23/2023 06/23/2023 024 12:16 AM MACHINE LACER COVID - 19 01/25/2024 01/25/2024 01/25/2024 12:0 2 PM CDT Assessment Noted Time PHQ-9 Depression Total Score: 0 02/21/20 20 10:00 AM CDT documented as of this encounter Care Teams Medical Administrative Technician Relationship Specialty Start Date End Date Ailyn Cruz MD PCP - General Family Medicine 03/11/15 07/09/22 Sandra Duron MD [address] [place], [place] [phone] PCP - General Family Medicine 07/10/22 07/09/23 Javier Yost, PAC [address] [place] [address] PCP - General Physician Plant Attendant 07/10/23 Jose Schwartz DPM Podiatry 07/18/15 Diana Gonzalez APRN, ASSISTANT CHIEF ENGINEER Nurse Practitioner Advanced Practice Nurse 12/21/15 Ewelina Reynolds APRN, ASSISTANT CHIEF ENGINEER Nurse Practitioner Advanced Practice Nurse 04/16/16 Chuck Lee MD [address] [place] [address] Consulting Physician Pulmonary Disease 03/04/22 Rafa Ortega MD [address] [address] Consulting Physician Colon and Rectal Surgery 10/08/24 documented as of this encounter
--- OUTSIDE RECORDS SUMMARY | 2024-12-20 14:36 | XMS_ITS | Encounter Summary ---
Author Organization [facility] Address [address] [place] [address] Phone Care Team Providers Care Field Marketing Associate Name Role Phone LanaJose DPM Unavailable [phone] Diana Gonzalez SEED AND FERTILIZER SPECIALIST, INSPECTOR BULLET SLUGS Unavailable [phone] Ewelina Reynolds SEED AND FERTILIZER SPECIALIST, INSPECTOR BULLET SLUGS Unavailable Chuck Lee MD Unavailable Javier Yost [facility] Primary Care Provider [phone] Rafa Ortega MD Unavailable Reason for Visit * Reason Comments Medication Refill Encounter Details Date Type Department Care Team (Late st Contact Info) Description 10/13/[address] [facility] - Primary Care - [address] [place] [address] Sandra Duron MD [address] [place] [address] Medication Refill Social History Tobacco Use Types Packs/Day Years Used Date Smoking Tobacco: Never Smokeless Tobacco: Never Alcohol Use Standard Drinks/Week Comments Yes 0 (1 standard drink = 0.6 oz pur e alcohol) Very seldom [facility] Utilities Answer Date Recorded In the past 12 months has th e electric, gas, oil, or water [employer] threatened to shut off services in your [...] any clubs o r organizations such as protestant groups, unions, fraternal or athletic groups, or [...] Total Score - Questions 1-9 0 06/26 [facility] - Occupational Stress [...] place to sleep or slept in a assisted (including now)? No 07/07/2023 Education Answer Date [...] Telephone Encounter - Jennifer Lu RN - 10/13/2023 10:47 AM CDT Medication(s) refilled and signed per [facility] Chronic Medication Refill Standing Order for Pediatricand Adult Patients. Requested Prescriptions Pending Prescriptions Disp Refills fenofibrate 160 MG Tablet [Pharmacy Med Name: FENOFIBRATE 160MG TABLETS] 90 Tablet 1 Sig: TAKE 1 TABLET BY MOUTH DAILY Fibrates Protocol Passed - 10/13/2023 10:35 AM Passed - Visit with relevant provider in past 12 months or upcoming 90 days Recent Visits Date Type Provider Dept 07/29/23 Office Visit Yelena Rausch APRN, INSPECTOR BULLET SLUGS [facility] 07/09/23 Office Visit Javier Yost, PAC [facility] 11/11/22 Office Visit Sandra Duron, [facility] Showing recent visits within past 365 days and meeting all other requirements Future Appointments Date Type Provider Dept 01/07/24 Appointment Javier Yost, NADIR [facility] Showing future appointments within next 90 days and meeting all other requirements Passed - Lipid panel in past 12 months LDL Date Value Ref Range Status 07/09/2023 126 <130 mg/dL Final 10/09/2022 130 0 - 130 mg/dL Final HDL CHOLESTEROL Date Value Ref Range Status 07/09/2023 47 >40 mg/dL Final CHOLESTEROL Date Value Ref Range Status 07/09/2023 206 (H) <200 mg/dL Final TRIGLYCERIDES Date Value Ref Range Status 07/09/2023 164 (H) <150 mg/dL Final VLDL Date Value Ref Range Status 07/09/2023 33 10 - 50 mg/dL Final CHOL/HDL RATIO Date Value Ref Range Status 07/09/2023 4.4 0.0 - 4.4 Final NON-HDL CHOLESTEROL Date Value Ref Range Status 07/09/2023 159 (H) <130 mg/dL Final lansoprazole (PREVACID) 30 MG CAPSULE DELAYED RELEASE [Pharmacy Med Name: LANSOPRAZOLE 30MG DR CAPSULES] 90 Capsule 1 Sig: TAKE 1 CAPSULE BY MOUTH DAILY Proton Pump Inhibitors Protocol Passed - 10/13/2023 10:35 AM Passed - Visit with relevant provider in past 12 months or upcoming 90 days Recent Visits Date Type Provider Dept 07/29/23 Office Visit Yelena Rausch APRN, INSPECTOR BULLET SLUGS [facility] 07/09/23 Office Visit Javier Yost, NADIR [facility] 11/11/22 Office Visit Sandra Duron, [facility] Showing recent visits within past 365 days and meeting all other requirements Future Appointments Date Type Provider Dept 01/07/24 Appointment Javier Yost, NADIR [facility] Showing future appointments within next 90 days and meeting all other requirements documented in this encounter Plan of Treatment Upcoming Encounters Date Type Department Care Team (Late st Contact Info) Description 01/14/2025 9:30 AM CDT Office Visit [facility] - Primary Care - [place] [address] [place] [address] Javier Yost PAC [address] [place] [address] 04/05/2025 1:[address] MAGISTRATE Office Visit [facility] - Pulmonology & Sleep Medicine [facility] [address] [place] [address] Chuck Lee MD [address] [place] [address] documented as of this encounter Visit Diagnoses Diagnosis Hyperlipidemia, unspecified hyperlipidemia type documented in this encounter Additional Health Concerns Infection Onset Date Last Indicated Resolved Time COVID - 19 01/25/2024 01/25/2024 01/25/2024 12:0 2 PM CDT Assessment Noted Time PHQ-9 Depression Total Score: 0 07/09/19 24 8:[address] MAGISTRATE documented as of this encounter Care Teams Field Marketing Associate Relationship Specialty Start Date End Date Javier Yost PAC [address] [place] [address] PCP - General Physician Horse Riding Coach Or Instructor 07/10/23 Jose Schwartz DPM Podiatry 07/18/15 Diana Gonzalez, SEED AND FERTILIZER SPECIALIST, INSPECTOR BULLET SLUGS Nurse Practitioner Advanced Practice Nurse 12/21/15 Ewelina Reynolds, SEED AND FERTILIZER SPECIALIST, INSPECTOR BULLET SLUGS Nurse Practitioner Advanced Practice Nurse 04/16/16 Chuck Lee MD [address] [place] [id number] Consulting Physician Pulmonary Disease 03/04/22 Rafa Ortega MD [address] [id number] Consulting Physician Colon and Rectal Surgery 10/08/24 documented as of this encounter
--- OUTSIDE RECORDS SUMMARY | 2024-12-20 14:36 | XMS_ITS | Encounter Summary ---
Author Organization [facility] Address [address] [place] [address] Phone Care Team Providers Care Lockstitch Zipper Setter Name Role Phone Ailyn Cruz MD Primary Care Provider + [phone] Jose Schwartz DPM Unavailable [phone] Diana Gonzalez COOLER MAN, BACKGROUND CHECK COORDINATOR Unavailable [phone] Ewelina Reynolds COOLER MAN, BACKGROUND CHECK COORDINATOR Unavailable Sandra Duron MD Primary Care Provider + [phone] Chuck Lee MD Unavailable Javier Yost PAC Primary Care Provider + [phone] Rafa Ortega MD Unavailable Reason for Visit * Reason Comments Medication Refill Encounter Details Date Type Department Care Team (Late st Contact Info) Description 01/21/2021 Refill [facility] - Family [facility] [address] [place] [id number] Ailyn Cruz MD [address] [place] [address] Medication Refill Social History Tobacco Use Types [...] Telephone Encounter - Jennifer Lu RN - 01/22/2021 12:23 PM CDT Medication failed the protocol, provider to review and approve the medication order if appropriate. Requested Prescriptions Pending Prescriptions Disp Refills cyclobenzaprine (FLEXERIL) 5 MG Tablet [Pharmacy Med Name: CYCLOBENZAPRINE 5MG TABLETS] 90 Tablet 1 Sig: Take 1 Tablet by mouth every evening. Not Delegated - Muscle Relaxants Protocol Failed - 01/22/2021 12:23 PM Failed - This refill cannot be delegated Passed - Visit with relevant provider in past 12 months or upcoming 90 days Recent Visits Date Type Provider Dept 10/26/20 Office Visit Ailyn Cruz MD [facility] [address] 08/21/20 Office Visit Ailyn Cruz MD [facility] [address] 02/21/20 Office Visit Ailyn Cruz MD [facility] Showing recent visits within past 365 days and meeting all other requirements Future Appointments Date Type Provider Dept 02/22/21 Appointment Ailyn Cruz MD [facility] [address] [facility] Showing future appointments within next 90 days and meeting all other requirements documented in this encounter Plan of Treatment Upcoming Encounters Date Type Department Care Team (Late st Contact Info) Description 01/14/2025 9:30 AM CDT Office Visit [facility] - Primary Care - [address] [place] [address] Javier Yost, PAC [address] [place] [address] 04/05/2025 1:15 PM COMPLEX CASE MANAGER [facility] [address] [place] [address] Chuck Lee MD [address] [place] [address] documented as of this encounter Visit Diagnoses Not on filedocumented in this encounter Additional Health Concerns Infection Onset Date Last Indicated Resolved Time Influenza 08/23/2021 08/23/2021 08/30/2021 12:1 6 AM CDT COVID - 19 06/23/2023 06/23/2023 06/23/2023 5:22 PM COMPLEX CASE MANAGER Respiratory Rule-Out 06/23/2023 06/23/2023 024 5:23 PM COMPLEX CASE MANAGER COVID - 19 Confirmed 06/23/2023 06/23/2023 024 12:16 AM COMPLEX CASE MANAGER COVID - 19 01/25/2024 01/25/2024 01/25/2024 12:0 2 PM CDT Assessment Noted Time PHQ-9 Depression Total Score: 0 02/21/20 20 10:00 AM CDT documented as of this encounter Care Teams Lockstitch Zipper Setter Relationship Specialty Start Date End Date Ailyn Cruz MD PCP - General Family Medicine 03/11/15 07/09/22 Sandra Duron MD [address], [place] [id number] PCP - General Family Medicine 07/10/22 07/09/23 Javier Yost, PAC [address] [place] [phone] PCP - General Physician Training Engineer 07/10/23 Jose Schwartz DPM Podiatry 07/18/15 Diana Gonzalez COOLER MAN, BACKGROUND CHECK COORDINATOR Nurse Practitioner Advanced Practice Nurse 12/21/15 Ewelina Reynolds APRN, BACKGROUND CHECK COORDINATOR Nurse Practitioner Advanced Practice Nurse 04/16/16 Chuck Lee MD [address] [place] [address] Consulting Physician Pulmonary Disease 03/04/22 Rafa Ortega MD [address] [address] Consulting Physician Colon and Rectal Surgery 10/08/24 documented as of this encounter
--- OUTSIDE RECORDS SUMMARY | 2024-12-20 14:36 | XMS_ITS | Encounter Summary ---
Author Organization [facility] Address [address] [place] [address] Phone Care Team Providers Care Machine Design Engineer Name Role Phone Ailyn Cruz MD Primary Care Provider + [phone] Jose Schwartz DPM Unavailable [phone] Diana Gonzalez CHIEF OF SAFETY AND PROTECTION, CUSTOMER CARE ASSISTANT Unavailable [phone] Ewelina Reynolds CHIEF OF SAFETY AND PROTECTION, CUSTOMER CARE ASSISTANT Unavailable Sandra Duron MD Primary Care Provider + [phone] Chuck Lee MD Unavailable Javier Yost PAC Primary Care Provider + [phone] Rafa Ortega MD Unavailable Encounter Details Date Type Department Care Team (Late st Contact Info) Description 03/20/2022 [facility] Ad[facility] [address] [place] [address] Sherri Mckeon APRN, CUSTOMER CARE ASSISTANT [address] [place] [address] Immunity status testing (Primary Dx) Social History Tobacco Use Types Packs/Day Years [...] Recorded In the last 10 days, have gunnar u been in contact with someone who was confirmed or suspected to have Coronavirus/COVID-19? No / Unsure 03/20/2022 12:03 PM CDT documented as of this encounter Plan of Treatment Upcoming Encounters Date Type Department Care Team (Late st Contact Info) Description 01/14/2025 9:30 AM CDT Office Visit [facility] - Primary Care - [place] [address] [place] [address] Javier Yost PAC [address] [place] [address] 04/05/2025 1:15 PM GREY GOODS TESTER [facility] - [facility]ology & [facility] Medicine [facility] [address] [place] [address] Chuck Lee MD [address] [place] [address] documented as of this encounter Results * QUANTIFERON-TB GOLD PLUS (03/20/2022 12:20 PM CDT) NIL CONTROL 0.15 <8.01 IU/mL 03/22/2022 11:13 AM CDT [facility] TB ANTIGEN 1 0.00 <0.35 IU/mL 03/22/2022 11:13 AM CDT [facility] TB ANTIGEN 2 0.00 <0.35 IU/mL 03/22/2022 11:13 AM CDT [facility] MITOGEN CONTROL >10.00 >0.49 IU/mL 03/22/20 11:13 AM CDT [facility] INTEPRETATION TB NEGATIVE NEGATIVE, NEGATIVE (TB antigen response less than 25% of internal negative control value) 03/22/2022 11:13 AM CDT [facility] Comment:No immune response t o Mycobacterium tuberculosis antigens was noted. M. tuberculosis infection unlikely. Blood Venipuncture / Unknown 03/20/2022 12:20 PM CDT 03/20/2022 12:28 PM CDT Narrative [facility] - 03/22/2022 11:13 AM CDT A POSITIVE QUANTIFERON-TB GOLD PLUS RESULT SHOULD NOT BE THE SOLE OR DEFINITIVE BASIS FOR DETERMINING INFECTION WITH M.TUBERCULOSIS. Diagnosing or excluding tuberculosis disease, and assessing the probability of LTBI, requires a combination of epidemiological, historical, medical and diagnostic findings (e.g., acid fast bacilli (AFB) smear and culture, chest xray) that should be taken into account when interpreting QFT-Plus results. Furthermore, the magnitude of the measured gamma interferon level cannot be correlated to stage or degree of infection, level of immune responsiveness, or likelihood for progression to active disease. The Nil control adjusts for background (e.g., elevated levels of circulating gamma interferon or presence of heterophile antibodies). The Mitogen control serves as an internal positive control and verifies each specimen tested can produce a gamma interferon response. Low mitogen may occur with insufficient lymphocytes, reduced lymphocyte activity due to improper specimen handling, filling/mixing of the mitogen tube, or inability of the patient's lymphocytes to generate gamma interferon. Infection with other Mycobacteria, including M. kansasii, M. szulgai, and M. marinum, may cause false positive results. A negative QuantiFERON-TB Gold Plus result does not preclude the possibility of M. tuberculosis infection or tuberculosis disease: false negative results can be due to incorrect blood sample collection/ improper handling of the specimen, stage of infection (e.g., specimen obtained prior to the development of cellular immune response), co-morbid conditions which affect immune function, or other individual immunological factors. The minimum number of lymphocytes required for a reliable test has not been established and may also be variable. Diagnostic testing for Mycobacterium tuberculosis using Interferon Gamma Release Assays should follow applicable published guidelines, including when testing in populations such as children, women, and HIV-infected or otherwise immunocompromised individuals. https://www.cdc.gov/tb/publications/guidelines/testing.htm us Sherri Mckeon CHIEF OF SAFETY AND PROTECTION, CUSTOMER CARE ASSISTANT IMMUNOLOGY ORDERA BLES Final Result [facility] [address] [place] [address], documented in this encounter Visit Diagnoses Diagnosis Immunity status testing- Primary Antibody response examination documented in this encounter Additional Health Concerns Infection Onset Date Last Indicated Resolved Time COVID - 19 06/23/2023 06/23/2023 06/23/2023 5:22 PM GREY GOODS TESTER Respiratory Rule-Out 06/23/2023 06/23/2023 024 5:23 PM GREY GOODS TESTER COVID - 19 Confirmed 06/23/2023 06/23/2023 024 12:16 AM GREY GOODS TESTER COVID - 19 01/25/2024 01/25/2024 01/25/2024 12:0 2 PM CDT Assessment Noted Time PHQ-9 Depression Total Score: 0 02/21/20 20 10:00 AM CDT documented as of this encounter Care Teams Machine Design Engineer Relationship Specialty Start Date End Date Ailyn Cruz MD PCP - General Family Medicine 03/11/15 07/09/22 Sandra Duron MD [address] [place] [address] PCP - General Family Medicine 07/10/22 07/09/23 Javier Yost PAC [address] [place] [address] PCP - General Physician Marine Farmer 07/10/23 Jose Schwartz DPM Podiatry 07/18/15 Diana Gonzalez CHIEF OF SAFETY AND PROTECTION, CUSTOMER CARE ASSISTANT Nurse Practitioner Advanced Practice Nurse 12/21/15 Ewelina Reynolds APRN, CUSTOMER CARE ASSISTANT Nurse Practitioner Advanced Practice Nurse 04/16/16 Chuck Lee MD [address] [place] [address] Consulting Physician Pulmonary Disease 03/04/22 Rafa Ortega MD [address] [id number] Consulting Physician Colon and Rectal Surgery 10/08/24 documented as of this encounter
--- OUTSIDE RECORDS SUMMARY | 2024-12-20 14:36 | XMS_ITS | Clinical Summary ---
Author Organization [facility] [employer] Address [address] [place] [address] Care Team Providers Care Food Service Worker Hospital Name Role Phone Shady Rust MD Unavailable Fareed John MD Unavailable [phone] Javier Yost Primary Care Provider [phone] Source Comments [facility],non-owned Affiliates and Associated Physician Practices is amultiple site organization consisting of ambulatory clinics and hospital sitesin [place], [place]. This disclosure is being madepursuant to the Care Everywhere program and may not contain all information available regarding this patient. Last updated 18.[facility] [employer] Allergies Active Allergy Reactions Criticality Noted Date Comments Lisinopril Anaphylaxis High 07/07/2018 Niacin Other 08/23/2019 Flushing and skin redness and nausea Hydroxychloroquine Sulfate Rash Medium 9 Hmg-Coa-R Inhibitors Myalgias 07/07/2018 Sulfa Drugs Rash Medium 07/07/2018 Medications * Be aware that medications may not be up to date on this document. Alwaysverify current medications with the patient. aspirin (ASPIRIN) 81 MG tablet Take 1 (one) tablet by mouth once daily Active fexofenadine (Ángela) 180 MG tablet Take 1 (one) tablet by mouth once daily as needed for Runny Nose or Allergies Active hydroCHLOROthiaz alie (HYDRODIURIL) 25 MG tablet Take 1 (one) tablet by mouth once daily Active levothyroxine (Synthroid) 100 MCG tablet Take 1 (one) tablet by mouth daily before breakfast Active metFORMIN (GLUCOPHAGE) 500 MG tablet Take 2 (two) tablets by mouth 2 times daily with morning and evening meal Active albuterol HFA (Proventil; Ventolin; Proair) 108 (90 Base) MCG/ACT inhaler Inhale 2 (two) puffs by mouth every 6 hours as needed Active cyclobenzaprine (FLEXERIL) 5 MG tablet 10mg po nightly for 14 days, then decrease to 5mg po nightly. 44 tablet 2 9 Active glipiZIDE CR 24hr (GLUCOTROL XL) 5 MG tablet Take 1 (one) tablet by mouth 2 times daily 0 Active ketoconazole (NIZORAL) 2 % cream Apply to affected area once daily 0 Active REPATHA SURECLICK 140 MG/ML auto-injector 0 Active zolpidem (AMBIEN) 5 MG tablet TAKE 1 TABLET BY MOUTH EVERY NIGHT NEEDED FOR SLEEP 1 Active pregabalin (LYRICA) 75 MG capsule Take 1 (one) capsule by mouth 2 times daily 1 Active lansoprazole (Prevacid) 30 MG capsule Take 1 (one) capsule by mouth once daily 2 Active fenofibrate (Lofibra) 160 MG tablet Take 1 (one) tablet by mouth once daily 2 Active amLODIPine (Norvasc) 10 MG tablet Take 1 (one) tablet by mouth once daily 2 Active vitamin D, ergocalciferol, (Drisdol) 1.25 MG (16443 UT) capsuleIndicatio ns:Medication monitoring encounter,Polyar thralgia,Vitamin D deficiency,Willard nirmala antinuclear antibody (BRENDA) level Take 1 (one) capsule by mouth every 7 days 4 capsule 1 2 Active sertraline (Zoloft) 100 MG tablet Take 1 (one) tablet by mouth once daily 2 Active buPROPion XL 24hr (Wellbutrin-XL) 150 MG tablet Take 1 (one) tablet by mouth every morning 4 Active terbinafine (LamISIL) 250 MG tablet 4 Active celecoxib (CeleBREX) 200 MG capsuleIndicatio ns:Undifferentia nirmala connective tissue disease (HCC),Polyarthra lgia TAKE 1 CAPSULE BY MOUTH DAILY 90 capsule 4 Active Additional Information Patient taking differently:200 mg Oral2 TIMES DAILY, Reported on 09/16/2024 Active Problems Problem Noted Date Diagnosed Date History of connective tissue disease 04/07/2024 OA (osteoarthritis) of knee 11/23/2018 Hypothyroidism 07/07/2018 DM2 (diabetes mellitus, type 2) 07/07/2018 HTN (hypertension) 07/07/2018 Fatty liver 07/07/2018 DDD (degenerative disc disease), lumbar 02/17/20 18 Overview (11/23/2018): Overview: Overview: L-S Depression 02/16/2018 Pancreatic cyst 02/16/2018 Disorder of connective tissue 06/23/2017 Raynaud's disease without gangrene 06/23/2017 Trochanteric bursitis of both hips 06/23/2017 Statin intolerance 06/12/2017 MELIDA (obstructive sleep apnea) 05/22/2017 Joint pain 03/12/2017 Anxiety 09/03/2016 Elevated liver function tests 04/02/2016 Obesity, Class II, BMI 35-39.9, with comorbidity 04/02/2016 Hyperlipidemia 09/18/2015 Plantar fasciitis, right 07/18/2015 Encounters Date Type Department Care Team Description 10/08/2024 Results Follow-Up [facility] - Rheumatology [address] [place] [id number] Shady Rust MD from Last 3 Months Immunizations Immunization Administration Dates Next Due INFLUENZA VACCINE, TRIV. (AF LURIA, FLUZONE TRIVALENT; 6MO+) (IIV3) 02/18/2020,02/27/2018,02/24/2016,2014,02/23/2014 Covid [employer] primary monoval ent 12+ yr 0.3mL Purple cap 05/13/2020 FLU VACCINE TRI IIV3 SPLIT P F IM (FLUVIRIN) 03/04/2024,03/20/2022,02/18/2020 HEP A VACCINE, ADULT 12/13/2014 HEP A/HEP B 06/19/2015 HEP B VACCINE, ADULT 3 DOSE 01/13/2015, 5 INFLUENZA VACCINE, HIGH-DOSE , QUADR. (FLUZONE HIGH-DOSE QUADRIVALENT; 65Y+), 0.7 ML (HD-IIV4) 02/27/2023,01/24/2023 INFLUENZA VACCINE, QUADR. (F LUZONE; FLULAVAL; FLUARIX; AFLURIA QUADRIVALENT; 6MO+), 0.5 ML (IIV4) 02/26/2021,02/15/2020,02/27/2019 PNEUMOCOCCAL PCV20 CONJ VAC IM 04/01/2022 PNEUMOCOCCAL PPSV23 05/26/2007 TD (AGE 7-ADULT) 05/26/2007 Zoster Hzv Vacc Recombinant Inj Im 10/15/2018, Social History Tobacco Use Types Packs/Day Years Used Date Smoking Tobacco: Never Smokeless Tobacco: Never Alcohol Use Standard Drinks/Week Comments Yes 0 (1 standard drink = 0.6 oz pur e alcohol) rare social PHQ-2 Answer Date Recorded Patient Health Questionnaire-2 Score 1 04/07/2024 Comments No Sex and Gender Information Value Date Recorded Sex Assigned at Not on file Legal Sex Female 2:19 PM CDT Gender Identity Not on file Sexual Orientation Not on file Last Filed Vital Signs Vital Sign Reading Time Taken Comments Blood Pressure 132/80 09/16/2024 10:15 AM CDT Pulse 80 09/16/2024 10:15 AM CDT Temperature 36.5 C (97.7 F) 07/10/2021 10:31 AM CARD TAPE CONVERTER OPERATOR Respiratory Rate 18 04/07/2024 9:50 AM CARD TAPE CONVERTER OPERATOR Oxygen Saturation 95% 04/07/2024 9:50 AM CARD TAPE CONVERTER OPERATOR Inhaled Oxygen Concentration - - Weight 107.1 kg (236 lb 3.2 oz) 025 10:15 AM CDT Height 175.3 cm (5' 9) 09/16/2024 10:1 5 AM CDT Body Mass Index 34.88 09/16/2024 10:15 AM CDT Plan of Treatment Upcoming Encounters Date Type Department Care Team (Late st Contact Info) Description 02/17/2025 10:15 AM CDT Office Visit [facility] - Rheumatology [address] [address] [place] [address] [place] [address] Health Maintenance Due Date Last Done Comments COLOGUARD (AGES 45-75) - COLON CA SCREENING 1955 COLON MONITORING 1956 COLONOSCOPY - COLON CA SCREENING 1956 CT COLONOGRAPHY - COLON CA SCREENING 1955 Colorectal Cancer Screening 1955 FIT - COLON CA SCREENING 1955 FLEX SIG - COLON CA SCREENING 1955 DIABETES-STATIN 1996 DTAP/TDAP/TD VACCINES (2 - Td or Tdap) 05/26/2017 05/26/2007 DIABETES RETINOPATHY SCREENING 07/07/2018 DIABETES-FOOT EXAM WITH MONOFILAMENT 07/07/2018 COVID-19 VACCINE ( - season) 2024 04/16/2021, 06/03/2020, 05/13/2020 DEPRESSION SCREENING 05/26/2024 04/07/2024 DIABETES - URINE PROTEIN SCREENING 05/26/2024 04/07/2024, 07/09/2023, 07/11/2022, Additional history exists MEDICARE AWV CALENDAR YEAR 2024 DIABETES-HGB A1C 01/02/2025 07/05/2024, 02/2024, 07/09/2023, Additional history exists INFLUENZA VACCINE (#1) 2025 , 02/27/2023, 01/24/2023, Additional history exists DIABETES-SERUM CREATININE 07/05/20252024, 07/05/2024, 07/05/2024, Additional history exists MAMMOGRAM 08/12/2025 08/13/2023, 07/25, 08/13/2023, Additional history exists Respiratory Syncytial Virus (RSV) Vaccine Pt: or over 60 yrs (1 - 1-dose 75+ series) 2031 HEPATITIS B VACCINE Completed 06/19/2015, 01/13/2015, 12/13/2014 HEPATITIS C SCREENING Completed 07/09/2018 ZOSTER VACCINE Completed 10/15/2018, 08/14/2018 PNEUMOCOCCAL VACCINE 50+ Completed 04/01/2022, 05/2007 BONE DENSITY TESTING Completed 08/13/2023, 03/20/20 21 HIB VACCINE Aged Out No longer eligi ble based on patient's age to complete this topic HPV VACCINE Aged Out No longer eligi ble based on patient's age to complete this topic MENINGOCOCCAL (Group B) VACCINE SHARED DECISION-MAKING Aged Out No longer eligible based on patient's age to complete this topic MENINGOCOCCAL GROUPS A/C/Y/W VACCINE Aged Out No longer eligible based on patient's age to complete this topic Procedures Procedure Name Priority Date/Time Associated Diagnosis Comments DNA ANTIBODY DOUBLE STRANDED Routine 09/24/2024 Polyarthralgia Osteoarthritis of multiple joints, unspecified osteoarthritis type Medication monitoring encounter NSAID long-term use COMPLEMENT C3 C4 PANEL Routine 09/23/2024 Polyarthralgia Osteoarthritis of multiple joints, unspecified osteoarthritis type Medication monitoring encounter NSAID long-term use CBC W AUTO DIFFERENTIAL Routine 09/23/2024 Polyarthralgia Osteoarthritis of multiple joints, unspecified osteoarthritis type Medication monitoring encounter NSAID long-term use PROTEIN CREATININE RATIO URINE RANDOM PNL Routine 04/07/2024 11:07 AM CARD TAPE CONVERTER OPERATOR Polyarthralgia Osteoarthritis of multiple joints, unspecified osteoarthritis type NSAID long-term use History of connective tissue disease COMPREHENSIVE METABOLIC PANEL Routine 04/07/2024 11:07 AM CARD TAPE CONVERTER OPERATOR Polyarthralgia Osteoarthritis of multiple joints, unspecified osteoarthritis type NSAID long-term use History of connective tissue disease MAMMOGRAM 08/13/2023 from Last 3 Months or Most Recently Relevant to Health Maintenance Results * DNA ANTIBODY DOUBLE STRANDED (09/24/2024) Blood BLOOD SPECIMEN / Unknown 09/24/2024 us Shady Rust MD LAB - HEMATOLOGY ORDERABLES Iliana mackenzie Result OTHER LAB * CBC WITH DIFFERENTIAL (09/23/2024) Blood BLOOD SPECIMEN / Unknown 09/23/2024 us Shady Rust MD LAB - HEMATOLOGY ORDERABLES Iliana l Result OTHER LAB * COMPLEMENT C3 C4 PANEL (09/23/2024) Blood BLOOD SPECIMEN / Unknown 09/23/2024 Shady Rust MD LAB - CHEMISTRY ORDERABLES Final Result OTHER LAB * (ABNORMAL) COMPREHENSIVE METABOLIC PANEL (04/07/2024 11:07 AM CARD TAPE CONVERTER OPERATOR) Glucose 93 70 - 99 mg/dL [facility] ACCOUNT BILL BUN 19 8 - 27 mg/dL [facility] ACCOUNT BILL Creatinine 0.90 0.57 - 1.00 mg/dL [facility] ACCOUNT BILL eGFR by CKD-EPI 70 >59 mL/min/1.7 3 [facility] ACCOUNT BILL BUN/Creatinine Ratio 21 12 - 28 [facility] ACCOUNT BILL Sodium 147(H) 134 - 144 mmol/L [facility] ACCOUNT BILL Potassium 4.3 3.5 - 5.2 mmol/L [facility] ACCOUNT BILL Chloride 109(H) 96 - 106 mmol/L [facility] ACCOUNT BILL CO2 25 20 - 29 mmol/L [facility] ACCOUNT BILL Calcium 9.8 8.7 - 10.3 mg/dL [facility] ACCOUNT BILL Protein Total 6.9 6.0 - 8.5 g/dL [facility] ACCOUNT BILL Albumin 4.5 3.9 - 4.9 g/dL [facility] ACCOUNT BILL Globulin Total 2.4 1.5 - 4.5 g/dL [facility] ACCOUNT BILL Bilirubin Total 0.4 0.0 - 1.2 mg/dL [facility] ACCOUNT BILL Alkaline Phosphatase 83 44 - 121 IU/L [facility] ACCOUNT BILL AST 27 0 - 40 IU/L [facility] ACCOUNT BILL ALT 23 0 - 32 IU/L [facility] ACCOUNT BILL Blood BLOOD SPECIMEN / Unknown 04/07/2024 11:07 AM CARD TAPE CONVERTER OPERATOR 04/07/2024 Narrative [facility] ACCOUNT BILL - 04/08/2024 7:12 AM CARD TAPE CONVERTER OPERATOR Performed at: - [facility] [id number] Crime Lab Technician: Ozzy Benz PhD, Phone: [phone] us Shady Rust MD LAB - CHEMISTRY ORDERABLES Final Result Performing Organization Address City/[facility]/ZIP Co de Phone Number [facility] ACCOUNT BILL [address] [place] [address] * (ABNORMAL) PROTEIN CREATININE RATIO URINE RANDOM PNL (04/07/2024 11:07 AM CARD TAPE CONVERTER OPERATOR) Creatinine Urine 89.8 Not Estab. mg/dL [facility] ACCOUNT BILL Protein Urine 22.1 Not Estab. mg/dL [facility] ACCOUNT BILL Protein/Creatin ine Ratio 246(H) 0 - 200 mg/g creat [facility] ACCOUNT BILL Urine URINE SPECIMEN OBTAINED BY CLEAN CATCH PROCEDURE / Unknown 04/07/2024 11:07 AM CARD TAPE CONVERTER OPERATOR 04/07/2024 Narrative [facility] ACCOUNT BILL - 04/08/2024 8:21 AM CARD TAPE CONVERTER OPERATOR Performed at: - [facility] [id number] Crime Lab Technician: Ozzy Benz PhD, Phone: [phone] us Shady Rust MD LAB - URINE CHEMISTRY ORDERABLES Final Result Performing Organization Address City/[facility]/ZIP Co de Phone Number [facility] ACCOUNT BILL [address] [place] [address] * MAMMOGRAM (08/13/2023) Anatomical Region Laterality Modality Other 08/13/2023 Narrative 08/13/2023 Ordered by an unspecified provider. us Scanned Document SCANNING ONLY Final Result from Last 3 Months or Most Recently Relevant to Health Maintenance Insurance [facility] MANAGED MEDICARE ADV Care Teams Food Service Worker Hospital Relationship Specialty Start Date End Date Javier Yost [address] [place] [phone] PCP - General 10/01/23 [place] [address] [place] [address] Fare Register Repairer Rheumatology 04/07/19 [place] [address] [place] [phone] Orthopedic Surgery 09/24/22
--- OUTSIDE RECORDS SUMMARY | 2024-12-20 14:36 | XMS_ITS | Encounter Summary ---
Author Organization [facility] Address [address] [place] [address] Phone Care Team Providers Care Car Sales Associate Name Role Phone Ailyn Cruz MD Primary Care Provider [phone] Jose Schwartz DPM Unavailable [phone] Diana Gonzalez EGG PRODUCER, WEB SOFTWARE ENGINEER Unavailable [phone] Ewelina Reynolds EGG PRODUCER, WEB SOFTWARE ENGINEER Unavailable Sandra Duron MD Primary Care Provider [phone] Chuck Lee MD Unavailable Javier Yost PAC Primary Care Provider [phone] Rafa Ortega MD Unavailable Reason for Visit * Reason Comments Medication Refill Encounter Details Date Type Department Care Team (Late st Contact Info) Description 11/23/2020 Refill [facility] - Primary Care - [address] [place] [address] Ailyn Cruz MD [address] [place] [address] Medication Refill Social History Tobacco [...] Telephone Encounter - Jennifer Lu RN - 11/24/2020 8:38 AM CDT Per nursing clinical judgement, provider to review and approve the medication(s) order(s) if appropriate. Requested Prescriptions Pending Prescriptions Disp Refills glipiZIDE (GLUCOTROL XL) 5 MG TABLET SR 24 HR [Pharmacy Med Name: GLIPIZIDE ER 5MG TABLETS] 180 Tablet 0 Sig: TAKE 1 TABLET BY MOUTH TWICE DAILY Sulfonylureas Protocol Passed - 11/24/2020 8:38 AM Passed - Visit with relevant provider in past 6 months or upcoming 90 days Recent Visits Date Type Provider Dept 10/26/20 Office Visit Ailyn Cruz MD [facility] 08/21/20 Office Visit Ailyn Cruz MD [facility] Showing recent visits within past 182 days and meeting all other requirements Future Appointments Date Type Provider Dept 02/22/21 Appointment Ailyn Cruz MD [facility] Showing future appointments within next 90 days and meeting all other requirements Passed - HgA1C on record in past 6 months HGB-A1C Date Value Ref Range Status 08/14/2020 6.6 (H) 4.0 - 6.0 % Final Passed - GFR on record in past 6 months GFR, EST. NONAFRICAN Date Value Ref Range Status 10/03/2020 >60 >=60 Final * Telephone Encounter - Jennifer Lu RN - 11/24/2020 8:38 AM CDT Medication approved and signed per standing order protocol. documented in this encounter Plan of Treatment Upcoming Encounters Date Type Department Care Team (Late st Contact Info) Description 01/14/2025 9:30 AM CDT Office Visit [facility] - Primary Care - [address] [place] [address] Javier Yost PAC [address] [place] [address] 04/05/2025 1:15 PM COLLAR TURNER Office Visit [facility] - Pulmonology & Sleep Medicine - [place] [address] [place] [phone] Chuck Lee MD [address] [place] [address] documented as of this encounter Visit Diagnoses Diagnosis Type 2 diabetes mellitus without complication, without long-term current use of insulin documented in this encounter Additional Health Concerns Infection Onset Date Last Indicated Resolved Time Influenza 08/23/2021 08/23/2021 08/30/2021 12:1 6 AM CDT COVID - 19 06/23/2023 06/23/2023 06/23/2023 5:22 PM COLLAR TURNER Respiratory Rule-Out 06/23/2023 06/23/2023 024 5:23 PM COLLAR TURNER COVID - 19 Confirmed 06/23/2023 06/23/2023 024 12:16 AM COLLAR TURNER COVID - 19 01/25/2024 01/25/2024 01/25/2024 12:0 2 PM CDT Assessment Noted Time PHQ-9 Depression Total Score: 0 02/21/20 20 10:00 AM CDT documented as of this encounter Care Teams Car Sales Associate Relationship Specialty Start Date End Date Ailyn Cruz MD PCP - General Family Medicine 03/11/15 07/09/22 Sandra Duron MD [address] [place], [place] [id number] PCP - General Family Medicine 07/10/22 07/09/23 Javier Yost PAC [address] [place] [phone] PCP - General Physician Preschool Special Education Teacher 07/10/23 Jose Schwartz DPM Podiatry 07/18/15 Diana Gonzalez, EGG PRODUCER, WEB SOFTWARE ENGINEER Nurse Practitioner Advanced Practice Nurse 12/21/15 Ewelina Reynolds APRN, WEB SOFTWARE ENGINEER Nurse Practitioner Advanced Practice Nurse 04/16/16 Chuck Lee MD [address] [place] [address] Consulting Physician Pulmonary Disease 03/04/22 Rafa Ortega MD [address] [address] Consulting Physician Colon and Rectal Surgery 10/08/24 documented as of this encounter
--- OUTSIDE RECORDS SUMMARY | 2024-12-20 14:36 | XMS_ITS | Encounter Summary ---
Author Organization [facility] Address [address] [place] [address] Phone Care Team Providers Care Bar Captain Name Role Phone LanaJose griggs DPM Unavailable [phone] Diana Gonzalez SENIOR WEB DESIGNER, CURTAIN INSPECTOR Unavailable [phone] Ewelina Reynolds SENIOR WEB DESIGNER, CURTAIN INSPECTOR Unavailable Chuck Lee MD Unavailable Javier Yost Primary Care Provider [phone] Rafa Ortega MD Unavailable Reason for Visit * Reason Comments Medication Refill Encounter Details Date Type Department Care Team (Late st Contact Info) Description 09/28/2023 Refill [facility] - Primary Care - [address] [place] [address] Javier Yost PAC [address] [place] [address] Medication Refill Social History Tobacco Use Types Packs/Day Years Used Date Smoking Tobacco: Never Smokeless Tobacco: Never Alcohol Use Standard Drinks/Week Comments Yes 0 (1 standard drink = 0.6 oz pur e alcohol) Very seldom [facility] Utilities Answer Date Recorded In the past 12 months has th e electric, gas, oil, or water [employer] threatened to shut off services in your [...] How often do you attend chur or confucianist services? Never 07/07/2023 Do you belong to any clubs o r organizations such as gnosticism groups, unions, fraternal or athletic groups, or [...] Total Score - Questions 1-9 0 06/26 [facility] - Occupational [...] place to sleep or slept in a correction (including now)? No 07/07/2023 Education Answer Date [...] Telephone Encounter - Javier Yost PAC - 09/29/2023 5:35 PM CDT Refill approved. * Telephone Encounter - Deep Higginbotham RN - 09/29/2023 11:23 AM CDT Medication failed the protocol, provider to review and approve the medication order if appropriate. Requested Prescriptions Pending Prescriptions Disp Refills pregabalin (LYRICA) 75 MG Capsule [Pharmacy Med Name: PREGABALIN 75MG CAPSULES] 180 Capsule 1 Sig: TAKE 1 CAPSULE BY MOUTH TWICE DAILY. Not Delegated - Anticonvulsants Excluding Benzodiazepines Protocol Failed - 09/28/2023 9:46 PM Failed - This refill cannot be delegated Passed - Visit with relevant provider in past 12 months or upcoming 90 days Recent Visits Date Type Provider Dept 07/29/23 Office Visit Yelena Rausch APRN, CURTAIN INSPECTOR [facility] 07/09/23 Office Visit Javier Yost PAC [facility] 11/11/22 Office Visit Sandra Duron MD [facility] 10/02/22 Office Visit Sandra Duron MD [facility] Showing recent visits within past 365 days and meeting all other requirements Future Appointments No visits were found meeting these conditions. Showing future appointments within next 90 days and meeting all other requirements documented in this encounter Plan of Treatment Upcoming Encounters Date Type Department Care Team (Late st Contact Info) Description 01/14/2025 9:30 AM CDT Office Visit [facility] - Primary Care - [address] [place] [phone] Javier Yost PAC [address] [place] [phone] 04/05/2025 1:15 PM GENERAL STUDIES PROGRAM CHAIR Office Visit [facility] - Pulmonology & Sleep Medicine [facility] [address] [place] [address] Chuck Lee MD [address] [place] [address] documented as of this encounter Visit Diagnoses Diagnosis Arthralgia, unspecified joint documented in this encounter Additional Health Concerns Infection Onset Date Last Indicated Resolved Time COVID - 19 01/25/2024 01/25/202401/2401/25/2024 12:0 2 PM CDT Assessment Noted Time PHQ-9 Depression Total Score: 0 07/09/19 8:46 AM GENERAL STUDIES PROGRAM CHAIR documented as of this encounter Care Teams Bar Captain Relationship Specialty Start Date End Date Javier Yost, PAC [address] [place] [address] PCP - General Physician Licensed Psychologist Director 07/10/23 Jose Schwartz DPM Podiatry 07/18/15 Diana Gonzalez APRN, CURTAIN INSPECTOR Nurse Practitioner Advanced Practice Nurse 12/21/15 Ewelina Reynolds APRN, CURTAIN INSPECTOR Nurse Practitioner Advanced Practice Nurse 04/16/16 Chuck Lee MD [address] [facility] [place] [address] Consulting Physician Pulmonary Disease 03/04/22 Raf[facility]tega MD [address] [facility] [address] [address] Consulting Physician Colon and Rectal Surgery 10/08/24 documented as of this encounter
--- OUTSIDE RECORDS SUMMARY | 2024-12-20 14:36 | XMS_ITS | Encounter Summary ---
Author Organization [facility] Address [address] [place] [address] Phone Care Team Providers Care Irrigation Teacher Name Role Phone Ailyn Cruz MD Primary Care Provider + [phone] Jose Schwartz DPM Unavailable [phone] Diana Gonzalez RECREATION THERAPY AIDES TEACHER, ORTHOPEDIC DENTIST Unavailable [phone] Ewelina Reynolds RECREATION THERAPY AIDES TEACHER, ORTHOPEDIC DENTIST Unavailable Sandra Duron MD Primary Care Provider + [phone] Chuck Lee MD Unavailable Javier Yost PAC Primary Care Provider + [phone] Rafa Ortega MD Unavailable Reason for Visit * Reason Comments Medication Refill Encounter Details Date Type Department Care Team (Late st Contact Info) Description 08/26/2021 Refill [facility] - Primary Care - [address] [place] [address] Ailyn Cruz MD [address] [place] [address] Medication Refill Social History Tobacco [...] Telephone Encounter - Kiera Coreas RN - 08/27/2021 11:59 AM CDT Medication failed the protocol, provider to review and approve the medication order if appropriate. Requested Prescriptions Pending Prescriptions Disp Refills sertraline (ZOLOFT) 50 MG Tablet [Pharmacy Med Name: SERTRALINE 50MG TABLETS] 90 Tablet 1 Sig: Take 1 Tablet by mouth daily. SSRI (6 Month Refill Only) Protocol Failed - 08/26/2021 9:35 PM Failed - Has an encounter in the past 6 months with a depression, anxiety, adjustment disorder, OCD, or PTSD visit diagnosis Passed - Visit with relevant provider in past 6 months or upcoming 90 days Recent Visits Date Type Provider Dept 08/23/21 Office Visit Natalya Maguire APRN, CNP [facility] 05/29/21 Office Visit Natalya Maguire APRN, CNP [facility] Showing recent visits within past 182 days and meeting all other requirements Future Appointments Date Type Provider Dept 09/28/21 Appointment Ailyn Cruz MD [facility] Showing future appointments within next 90 days and meeting all other requirements Passed - Patient has established therapy with SSRI for at least 6 months documented in this encounter Plan of Treatment Upcoming Encounters Date Type Department Care Team (Late st Contact Info) Description 01/14/2025 9:30 AM CDT Office Visit [facility] - Primary Care - [place] [address] [place] [address] Javier Yost PAC [address] [place] [address] 04/05/2025 1:15 PM REGULATOR ASSEMBLER Office Visit [facility] - Pulmonology & Sleep Medicine [facility] [address] [place] [phone] Chuck Lee MD [address] [place] [phone] documented as of this encounter Visit Diagnoses Diagnosis Depression, unspecified depression type documented in this encounter Additional Health Concerns Infection Onset Date Last Indicated Resolved Time Influenza 08/23/2021 08/23/2021 08/30/2021 12:1 6 AM CDT COVID - 19 06/23/2023 06/23/2023 06/23/2023 5:22 PM REGULATOR ASSEMBLER Respiratory Rule-Out 06/23/2023 06/23/2023 024 5:23 PM REGULATOR ASSEMBLER COVID - 19 Confirmed 06/23/2023 06/23/2023 024 12:16 AM REGULATOR ASSEMBLER COVID - 19 01/25/2024 01/25/2024 01/25/2024 12:0 2 PM CDT Assessment Noted Time PHQ-9 Depression Total Score: 0 02/21/20 20 10:00 AM CDT documented as of this encounter Care Teams Irrigation Teacher Relationship Specialty Start Date End Date Ailyn Cruz MD PCP - General Family Medicine 03/11/15 07/09/22 Sandra Duron MD [address] [place], [place] [id number] PCP - General Family Medicine 07/10/22 07/09/23 Javier Yost, PAC [address] [place] [address] PCP - General Physician Electrical Subcontractor 07/10/23 Jose Schwartz DPM Podiatry 07/18/15 Diana Gonzalez, RECREATION THERAPY AIDES TEACHER, ORTHOPEDIC DENTIST Nurse Practitioner Advanced Practice Nurse 12/21/15 Ewelina Reynolds, RECREATION THERAPY AIDES TEACHER, ORTHOPEDIC DENTIST Nurse Practitioner Advanced Practice Nurse 04/16/16 Chuck Lee MD [address] [place] [address] Consulting Physician Pulmonary Disease 03/04/22 Rafa Ortega MD [address] [address] Consulting Physician Colon and Rectal Surgery 10/08/24 documented as of this encounter
--- OUTSIDE RECORDS SUMMARY | 2024-12-20 14:36 | XMS_ITS | Encounter Summary ---
Author Organization [facility] Address [address] [place] [address] Phone Care Team Providers Care Tuckpointer Cleaner Caulker Name Role Phone Ailyn Cruz MD Primary Care Provider + [phone] Jose Schwartz DPM Unavailable [phone] Diana Gonzalez LINUX KERNEL DEVELOPER, BUSINESS PROJECT ANALYST Unavailable [phone] Ewelina Reynolds LINUX KERNEL DEVELOPER, BUSINESS PROJECT ANALYST Unavailable Sandra Duron MD Primary Care Provider + [phone] Chuck Lee MD Unavailable Javier Yost PAC Primary Care Provider + [phone] Rafa Ortega MD Unavailable Reason for Visit * Reason Comments Medication Refill Encounter Details Date Type Department Care Team (Late st Contact Info) Description 01/20/2021 Refill [facility] - Primary Care - [place] [address] [place] [address] Ailyn Cruz MD [address] [place] [address] Medication Refill Social History Tobacco [...] Industry Job Start Date Job End Date [employer] Not on file Not on file Not on fi le documented as of this encounter Miscellaneous Notes * Telephone Encounter - Jennifer Lu RN - 01/22/2021 12:23 PM CDT Refill too soon documented in this encounter Plan of Treatment Upcoming Encounters Date Type Department Care Team (Late st Contact Info) Description 01/14/2025 9:30 AM CDT Office Visit [facility] - Primary Care - [place] [address] [place] [address] Javier Yost PAC [address] [place] [address] 04/05/2025 1:15 PM SHEET PILE DRIVER OPERATOR [facility] - [facility] [address] [place] [address] Chuck Lee MD [address] [place] [address] documented as of this encounter Visit Diagnoses Diagnosis Type 2 diabetes mellitus without complication, without long-term current use of insulin Essential hypertension Unspecified essential hypertension Hyperlipidemia, unspecified hyperlipidemia type documented in this encounter Additional Health Concerns Infection Onset Date Last Indicated Resolved Time Influenza 08/23/2021 08/23/2021 08/30/2021 12:1 6 AM CDT COVID - 19 06/23/2023 06/23/2023 06/23/2023 5:22 PM SHEET PILE DRIVER OPERATOR Respiratory Rule-Out 06/23/2023 06/23/2023 024 5:23 PM SHEET PILE DRIVER OPERATOR COVID - 19 Confirmed 06/23/2023 06/23/2023 024 12:16 AM SHEET PILE DRIVER OPERATOR COVID - 19 01/25/2024 01/25/2024 01/25/2024 12:0 2 PM CDT Assessment Noted Time PHQ-9 Depression Total Score: 0 02/21/20 20 10:00 AM CDT documented as of this encounter Care Teams Tuckpointer Cleaner Caulker Relationship Specialty Start Date End Date Ailyn Cruz MD PCP - General Family Medicine 03/11/15 07/09/22 Sandra Duron MD [address] [place], [place] [phone] PCP - General Family Medicine 07/10/22 07/09/23 Javier Yost, PAC [address] [place] [address] PCP - General Physician Edge Kitter 07/10/23 Jose Schwartz DPM Podiatry 07/18/15 Diana Gonzalez APRN, BUSINESS PROJECT ANALYST Nurse Practitioner Advanced Practice Nurse 12/21/15 Ewelina Reynolds APRN, BUSINESS PROJECT ANALYST Nurse Practitioner Advanced Practice Nurse 04/16/16 Chuck Lee MD [address] [place] [address] Consulting Physician Pulmonary Disease 03/04/22 Rafa Ortega MD [address] [address] Consulting Physician Colon and Rectal Surgery 10/08/24 documented as of this encounter
--- OUTSIDE RECORDS SUMMARY | 2024-12-20 14:36 | XMS_ITS | Encounter Summary ---
Author Organization [facility] Address [address] [place] [address] Phone Care Team Providers Care Chairman President And Chief Executive Officer Name Role Phone Ailyn Cruz MD Primary Care Provider + [phone] Jose Schwartz DPM Unavailable [phone] Diana Gonzalez WELDING MACHINE OPERATOR HELPER GAS, COMPLIANCE TESTING ANALYST Unavailable [phone] Ewelina Reynolds WELDING MACHINE OPERATOR HELPER GAS, COMPLIANCE TESTING ANALYST Unavailable Sandra Duron MD Primary Care Provider + [phone] Chuck Lee MD Unavailable Javier Yost PAC Primary Care Provider + [phone] Rafa Ortega MD Unavailable Reason for Visit * Reason Comments Medication Refill Encounter Details Date Type Department Care Team (Late st Contact Info) Description 09/24/2020 Refill [facility] - Primary Care - [place] [address] [place] [address] Ailyn Cruz MD [address] [place] [address] Medication Refill Social History Tobacco [...] encounter Miscellaneous Notes * Telephone Encounter - Jnenifer Lu RN - 09/25/2020 10:23 AM CDT Medication failed the protocol, provider to review and approve the medication order if appropriate. Requested Prescriptions Pending Prescriptions Disp Refills Repatha SureClick 140 MG/ML Solution Auto-injector [Pharmacy Med Name: REPATHA SRCLK 140MG/ML PF AUTO INJ] 6 mL Sig: INJECT 140 MG(ONE SYRINGE) UNDER THE SKIN ONCE EVERY 14 DAYS [facility] Off-Protocol Failed - 09/24/2020 9:52 PM Failed - Medication not assigned to a protocol, review manually. Passed - Valid encounter within last 12 months Past Office Visits Recent Outpatient Visits 1 month ago Type 2 diabetes mellitus without complication, without long-term current use of insulin(HCC) [facility] Ailyn Cruz MD 7 months ago Physical exam, annual (Adult) [facility] Ailyn Cruz MD 10 months ago Type 2 diabetes mellitus without complication, without long-term current use of insulin (HCC) [facility] - Ailyn [place] MD 1 year ago Depression, unspecified depression type [facility] - Ailyn [place] MD 1 year ago Type 2 diabetes mellitus without complication, without long-term current use of insulin (HCC) [facility] - Ailyn [place] MD Upcoming Appointments Future Appointments In 5 months Ailyn Cruz MD [facility] - Family Medicine - [facility] [place], BREMO BLUFF B OPERATOR - Recent and Past Visits Recent Visits Date Type Provider Dept 08/21/20 Office Visit Ailyn Cruz MD [facility] 02/21/20 Office Visit Ailyn Cruz MD [facility] 11/16/19 Office Visit Ailyn Cruz MD [facility] Showing recent visits within past 460 days [...] Description 01/14/2025 9:30 AM CDT Office Visit [facility] - Primary Care - [place] [address] [place] [address] Javier Yost PAC [address] [place] [address] 04/05/2025 1:15 PM AUGER OPERATOR Office Visit [facility] - Pulmonology & Sleep Medicine [facility] [address] [place] [address] Chuck Lee MD [address] [place] [address] documented as of this encounter Visit Diagnoses Not on filedocumented in this encounter Additional Health Concerns Infection Onset Date Last Indicated Resolved Time Influenza 08/23/2021 08/23/2021 08/30/2021 12:1 6 AM CDT COVID - 19 06/23/2023 06/23/2023 06/23/2023 5:22 PM AUGER OPERATOR Respiratory Rule-Out 06/23/2023 06/23/2023 024 5:23 PM AUGER OPERATOR COVID - 19 Confirmed 06/23/2023 06/23/2023 024 12:16 AM AUGER OPERATOR COVID - 19 01/25/2024 01/25/2024 01/25/2024 12:0 2 PM CDT Assessment Noted Time PHQ-9 Depression Total Score: 0 02/21/20 20 10:00 AM CDT documented as of this encounter Care Teams Chairman President And Chief Executive Officer Relationship Specialty Start Date End Date Ailyn Cruz MD PCP - General Family Medicine 03/11/15 07/09/22 Sandra Duron MD [address] [place], [place] [id number] PCP - General Family Medicine 07/10/22 07/09/23 Javier Yost, PAC [address] [place] [address] PCP - General Physician Mate Relief 07/10/23 Jose Schwartz DPM Podiatry 07/18/15 Diana Gonzalez, WELDING MACHINE OPERATOR HELPER GAS, COMPLIANCE TESTING ANALYST Nurse Practitioner Advanced Practice Nurse 12/21/15 Ewelina Reynolds, WELDING MACHINE OPERATOR HELPER GAS, COMPLIANCE TESTING ANALYST Nurse Practitioner Advanced Practice Nurse 04/16/16 Chuck Lee MD [address] [place] [address] Consulting Physician Pulmonary Disease 03/04/22 Rafa Ortega MD [address] [address] Consulting Physician Colon and Rectal Surgery 10/08/24 documented as of this encounter
--- OUTSIDE RECORDS SUMMARY | 2024-12-20 14:36 | XMS_ITS | Encounter Summary ---
Author Organization [facility] Address [address] [place] [address] Phone Care Team Providers Care Workers Compensation Attorney Name Role Phone LanaJose griggs DPM Unavailable [phone] Diana Gonzalez FOOD SERVICE AMBASSADOR, COMMUNICATION COORDINATOR Unavailable [phone] Ewelina Reynolds FOOD SERVICE AMBASSADOR, COMMUNICATION COORDINATOR Unavailable Chuck Lee MD Unavailable Javier Yost Primary Care Provider [phone] Rafa Ortega MD Unavailable Reason for Visit * Reason Comments Medication Refill Encounter Details Date Type Department Care Team (Late st Contact Info) Description 08/29/2023 Refill [facility] - Primary Care - [address] [place] [address] Javier Yost PAC [address] [place] [address] Medication Refill Social History Tobacco Use Types Packs/Day Years Used Date Smoking Tobacco: Never Smokeless Tobacco: Never Alcohol Use Standard Drinks/Week Comments Yes 0 (1 standard drink = 0.6 oz pur e alcohol) Very seldom [facility] Utilities Answer Date Recorded In the past 12 months has th e electric, gas, oil, or water [employer] threatened to shut off services in your [...] How often do you attend chur or yarsanism services? Never 07/07/2023 Do you belong to any clubs o r organizations such as mormonism groups, unions, fraternal or athletic groups, or [...] Total Score - Questions 1-9 0 06/26 [facility] - Occupational Stress [...] place to sleep or slept in a senior care (including now)? No 07/07/2023 Education Answer Date [...] Telephone Encounter - Javier Yost PAC - 08/29/2023 9:16 AM CDT Refill approved. * Telephone Encounter - Deep Higginbotham RN - 08/29/2023 8:33 AM CDT Medication failed the protocol, provider to review and approve the medication order if appropriate. Requested Prescriptions Pending Prescriptions Disp Refills buPROPion (WELLBUTRIN) 150 MG XL tablet [Pharmacy Med Name: BUPROPION XL 150MG TABLETS (24 H)] 30 Tablet 2 Sig: TAKE 1 TABLET BY MOUTH EVERY MORNING Bupropion (6 Month Refill Only) Protocol Failed - 08/29/2023 5:37 AM Failed - Patient has established therapy with Bupropion for at least 6 months Passed - Visit with relevant provider in past 6 months or upcoming 90 days Recent Visits Date Type Provider Dept 07/29/23 Office Visit Yelena Rausch APRN, COMMUNICATION COORDINATOR [facility] 07/09/23 Office Visit Javier Yost PAC [facility] Showing recent visits within past 182 days and meeting all other requirements Future Appointments No visits were found meeting these conditions. Showing future appointments within next 90 days and meeting all other requirements Passed - Has an encounter in the past 6 months with a depression or anxiety visit diagnosis documented in this encounter Plan of Treatment Upcoming Encounters Date Type Department Care Team (Late st Contact Info) Description 01/14/2025 9:30 AM CDT Office Visit [facility] - Primary Care - [address] [place] [address] Javier Yost PAC [address] [place] [address] 04/05/2025 1:15 PM FIRE SPRINKLER INSPECTOR Office Visit [facility] - Pulmonology & Sleep Medicine [facility] [address] [place] [address] Chuck Lee MD [address] [place] [address] documented as of this encounter Visit Diagnoses Diagnosis Depression, unspecified depression type documented in this encounter Additional Health Concerns Infection Onset Date Last Indicated Resolved Time COVID - 19 01/25/2024 01/25/2024 01/25/2024 12:0 2 PM CDT Assessment Noted Time PHQ-9 Depression Total Score: 0 07/09/19 8:46 AM FIRE SPRINKLER INSPECTOR documented as of this encounter Care Teams Workers Compensation Attorney Relationship Specialty Start Date End Date Javier Yost, PAC [address] [place] [address] PCP - General Physician Bridge Worker Apprentice 07/10/23 Jose Schwartz DPM Podiatry 07/18/15 Diana Gonzalez, FOOD SERVICE AMBASSADOR, COMMUNICATION COORDINATOR Nurse Practitioner Advanced Practice Nurse 12/21/15 Ewelina Reynolds, LUKE, COMMUNICATION COORDINATOR Nurse Practitioner Advanced Practice Nurse 04/16/16 Chuck Lee MD [address] [place] [address] Consulting Physician Pulmonary Disease 03/04/22 Rafa Ortega MD [address] [address] Consulting Physician Colon and Rectal Surgery 10/08/24 documented as of this encounter
--- OUTSIDE RECORDS SUMMARY | 2024-12-20 14:37 | XMS_ITS | Encounter Summary ---
Author Organization [facility] Address [address] [place] [address] Phone Care Team Providers Care Beam Worker Name Role Phone LaanJose DPM Unavailable [phone] Diana Gonzalez GIFT SHOP MANAGER, STULL HEWER Unavailable [phone] Ewelina Reynolds GIFT SHOP MANAGER, STULL HEWER Unavailable Chuck Lee MD Unavailable Javier Yost [facility] Primary Care Provider [phone] Rafa Ortega MD Unavailable Reason for Visit * Reason Comments Medication Refill Encounter Details Date Type Department Care Team (Late st Contact Info) Description 08/10/2023 Refill [facility] - Primary Care - [place] [place] [address] Sandra Duron MD [address] [place] [address] Medication Refill Social History Tobacco Use Types Packs/Day Years Used Date Smoking Tobacco: Never Smokeless Tobacco: Never Alcohol Use Standard Drinks/Week Comments Yes 0 (1 standard drink = 0.6 oz pur e alcohol) Very seldom [facility] Utilities Answer Date Recorded In the past 12 months has th e electric, gas, oil, or water [employer] threatened to shut off services in your [...] How often do you attend chur or evangelical services? Never 07/07/2023 Do you belong to any clubs o r organizations such as alevism groups, unions, fraternal or athletic groups, or [...] Total Score - Questions 1-9 0 06/26 [facility] Occupat ional Health - [...] Telephone Encounter - Fatimah Lynch RN - 08/11/2023 10:12 AM CDT Medication(s) refilled and signed per [facility] Chronic Medication Refill Standing Order for Pediatricand Adult Patients. Requested Prescriptions Pending Prescriptions Disp Refills sertraline (ZOLOFT) 100 MG Tablet [Pharmacy Med Name: SERTRALINE 100MG TABLETS] 90 Tablet 1 Sig: TAKE 1 TABLET BY MOUTH DAILY SSRI (6 Month Refill Only) Protocol Passed - 08/10/2023 3:08 PM Passed - Visit with relevant provider in past 6 months or upcoming 90 days Recent Visits Date Type Provider Dept 07/29/23 Office Visit Yelena Rausch APRN, STULL HEWER [facility] 07/09/23 Office Visit Javier Yost PAC [facility] Showing recent visits within past 182 days and meeting all other requirements Future Appointments No visits were found meeting these conditions. Showing future appointments within next 90 days and meeting all other requirements Passed - Patient has established therapy with SSRI for at least 6 months Passed - Has an encounter in the past 6 months with a depression, anxiety, adjustment disorder, OCD, or PTSD visit diagnosis documented in this encounter Plan of Treatment Upcoming Encounters Date Type Department Care Team (Late st Contact Info) Description 01/14/2025 9:30 AM CDT Office Visit [facility] - Primary Care - [place] [address] [place] [address] Javier Yost PAC [address] [place] [address] 04/05/2025 1:15 PM MISSILE AND MISSILE CHECKOUT TECHNICIAN Office Visit [facility] - Pulmonology & Sleep Medicine [facility] [address] [place] [address] Chuck Lee MD [address] [place] [address] documented as of this encounter Visit Diagnoses Diagnosis Depression, unspecified depression type documented in this encounter Additional Health Concerns Infection Onset Date Last Indicated Resolved Time COVID - 19 01/25/2024 01/25/2024 01/25/2024 12:0 2 PM CDT Assessment Noted Time PHQ-9 Depression Total Score: 0 07/09/19 8:46 AM MISSILE AND MISSILE CHECKOUT TECHNICIAN documented as of this encounter Care Teams Beam Worker Relationship Specialty Start Date End Date Javier Yost PAC [address] [place] [address] PCP - General Physician Harness Rigger 07/10/23 Jose Schwartz DPM Podiatry 07/18/15 Diana Gonzalez, GIFT SHOP MANAGER, STULL HEWER Nurse Practitioner Advanced Practice Nurse 12/21/15 Ewelina Reynolds, GIFT SHOP MANAGER, STULL HEWER Nurse Practitioner Advanced Practice Nurse 04/16/16 Chuck Lee MD [address] [place] [address] Consulting Physician Pulmonary Disease 03/04/22 Rafa Ortega MD [address] [address] Consulting Physician Colon and Rectal Surgery 10/08/24 documented as of this encounter
--- OUTSIDE RECORDS SUMMARY | 2024-12-20 14:37 | XMS_ITS | Clinical Summary ---
Author Organization [facility] Address [address], [address] [address] Phone Care Team Providers Care Trade Economist Name Role Phone Jose Schwartz DPM Unavailable [phone] Diana Gonzalez TRACK LAMINATING MACHINE TENDER, RECORDING STUDIO INTERN Unavailable [phone] Ewelina Reynolds TRACK LAMINATING MACHINE TENDER, RECORDING STUDIO INTERN Unavailable Chuck Lee MD Unavailable Javier Yost PAC Primary Care Provider Rafa Ortega MD Unavailable Allergies Active Allergy Reactions Criticality Noted Date Comments Atenolol Other (see Comments) Medium Extreme fatigue Lisinopril Anaphylaxis,Other (see Comments) High Angioedema Niacin Other (see Comments) Medium reddness and feeling hot Hydroxychloroquine Sulfate Rash Low 8 Statins Other (see Comments) High 06/30/2018 Muscle and joint aches Sulfa Antibiotics Rash Medium Ezetimibe Other (see Comments) High pain Medications zolpidem (AMBIEN) 5 MG TabletIndications: Insomnia, unspecified type Take 1 Tablet by mouth nightly as needed for Sleep. 90 Tablet 10/03/19 23 Active triamcinolone (KENALOG) 0.1 % Cream Apply 2 times daily as needed. Application Site: BREAST (Description and Location) Active Hydrocortisone, Perianal, 2.5 % Cream Apply daily as needed. Apply to rectum as directed. Active Cholecalciferol (Vitamin D) 2000 UNIT Tablet Take by mouth. Act robbin ASPIRIN 81 PO Take 1 Tablet by mouth daily. Active albuterol (ProAir HFA) 108 (90 Base) MCG/ACT Aerosol SolutionIndication s:Cough, unspecified type,COVID-19 take 2 Puffs by inhalation every 4 hours as needed for Wheezing or Cough. 8 g 06/23/19 24 Active ketoconazole (NIZORAL) 2 % CreamIndications:I ntertriginous candidiasis Apply daily. Application Site: apply on skin breast and groin prn 30 g 1 03/11/20 24 Active terbinafine (LamISIL) 250 MG Tablet 11/02/19 24 Active cyclobenzaprine (FLEXERIL) 10 MG TabletIndications: Degeneration of intervertebral disc of lumbar region, unspecified whether pain present Take 1 Tablet by mouth nightly as needed for Muscle spasms. 90 Tablet 1 07/09/19 25 Active celecoxib (CeleBREX) 200 MG CapsuleIndications :Osteoarthritis,Lo wer Back Pain Take 1 Capsule by mouth 2 times daily. Indications: Joint Damage causing Pain and Loss of Function, Lower Backache 180 Capsule 1 07/09/19 25 Active Evolocumab (Repatha SureClick) 140 MG/ML Solution Auto-injectorIndic ations:Hyperlipide latoya, unspecified hyperlipidemia type,Statin intolerance 1 mL by Subcutaneous route every 14 days. 6 mL 07/09/19 25 Active buPROPion (WELLBUTRIN) 150 MG XL tabletIndications: Depression, unspecified depression type TAKE 1 TABLET BY MOUTH EVERY MORNING 90 Tablet 1 07/21/19 25 Active lansoprazole (PREVACID) 30 MG CAPSULE DELAYED RELEASE TAKE 1 CAPSULE BY MOUTH DAILY 90 Capsule 1 07/21/19 25 Active levothyroxine (SYNTHROID) 100 MCG Tablet TAKE 1 TABLET BY MOUTH DAILY 90 Tablet 1 08/21/19 25 Active amLODIPine (NORVASC) 10 MG TabletIndications: Essential hypertension TAKE 1 TABLET BY MOUTH DAILY 90 Tablet 1 08/21/19 25 Active hydroCHLOROthiazid e 25 MG Tablet TAKE 1 TABLET BY MOUTH DAILY 90 Tablet 1 08/21/19 25 Active metFORMIN (GLUCOPHAGE) 500 MG TabletIndications: Type 2 diabetes mellitus without complication, without long-term current use of insulin TAKE 1 TABLET BY MOUTH TWICE DAILY WITH MEALS 180 Tablet 1 08/21/19 25 Active glipiZIDE (GLUCOTROL XL) 5 MG TABLET SR 24 HRIndications:Type 2 diabetes mellitus without complication, without long-term current use of insulin TAKE 1 TABLET BY MOUTH TWICE DAILY 180 Tablet 1 08/21/19 25 Active fenofibrate 160 MG TabletIndications: Hyperlipidemia, unspecified hyperlipidemia type TAKE 1 TABLET BY MOUTH DAILY 90 Tablet 1 10/20/19 25 Active sertraline (ZOLOFT) 100 MG TabletIndications: Depression, unspecified depression type Take 1 Tablet by mouth daily. 90 Tablet 10/22/19 25 Active pregabalin (LYRICA) 75 MG CapsuleIndications :Arthralgia, unspecified joint TAKE 1 CAPSULE BY MOUTH TWICE DAILY 180 Capsule 10/30/19 25 Active Active Problems Problem Noted Date Diagnosed Date Hyperplastic polyp of sigmoid colon 02/17/2024 Gastroesophageal reflux disease without esophagi tis 03/04/2022 Insomnia 08/21/2020 Non morbid obesity 04/06/2018 Pancreatic cyst 02/16/2018 Raynaud's disease without gangrene 06/23/2017 Statin intolerance 06/12/2017 Disorder of connective tissue 06/12/2017 MELIDA (obstructive sleep apnea) 05/22/2017 Positive BRENDA (antinuclear antibody) 03/12/2017 Anxiety 09/03/2016 Hyperlipidemia 09/18/2015 HTN (hypertension) DM2 (diabetes mellitus, type 2) Hypothyroidism Depression OA (osteoarthritis) of knee DDD (degenerative disc disease), lumbar Overview (07/01/2018): L-S Overview: Overview: L-S Resolved Problems Problem Noted Date Diagnosed Date Resolved Date Pedal edema 02/21/2020 04/12/2024 Elevated LFTs 04/02/2016 01/07/2024 Plantar fasciitis, right 07/18/2015 Encounters Date Type Department Care Team Description 12/20/2024 Refill [facility] - [facility] Care - [address] [place] [address] Javier Yost, PAC Medication Refill 12/18/2024 Refill [facility] [place] [address] [place] [phone] Javier Yost B, PAC Medication Refill 10/28/2024 Refill [facility] [address] [place] [phone] Javier Yost B, PAC Medication Refill 10/21/2024 Refill [facility] [address] [facility] [place] [address] Javier Yost B, PAC Medication Refill (Sertraline) 10/16/2024 Refill [facility] [place] [id number] [place] [phone] Javier Yost B, PAC Medication Refill 10/15/2024 Results Follow-Up [facility] - [facility] [address] [place] [phone] Rafa Ortega MD PATHOLOGY SURGICAL, PATHOLOGY SURGICAL 10/12/2024 1:00 PM CDT Office Visit [facility] Surgery - [facility] [address] [place] [address] Angelito Gao APRN, RECORDING STUDIO INTERN Rafa Ortega MD Skin lesion of right ear (Primary Dx); Pigmented skin lesion suspicious for malignant neoplasm Discharge Disposition: Discharged to home or Selfcare 10/10/2024 Travel 10/04/2024 10:15 AM CDT Office Visit [facility] Pulmonology & Sleep Medicine - [address] [place] [phone] Chuck Lee MD MELIDA (obstructive sleep apnea) (Primary Dx); Primary hypertension; Non morbid obesity Discharge Disposition: Discharged to home or Selfcare 10/04/2024 Travel 09/27/2024 10:45 AM CDT Physical Therapy [facility] [address] [place] [address] Donn Gilman, Isacc Mahmood, PERSONAL SUPPORT WORKER Calcific tendonitis of right foot (Primary Dx) Discharge Disposition: Discharged to home or Selfcare 09/27/2024 Travel 09/23/2024 7:00 AM CDT [facility] [address] [place] [place] [address] Donn Gilman, Isacc Mahmood R, PERSONAL SUPPORT WORKER Calcific tendonitis of right foot (Primary Dx) Discharge Disposition: Discharged to home or Selfcare 09/22/2024 Travel 09/21/2024 1:00 PM CDT Physical Therapy [facility] [address] [place] [address] Donn Gilman, Isacc Mahmood R, PERSONAL SUPPORT WORKER Calcific tendonitis of right foot (Primary Dx) Discharge Disposition: Discharged to home or Selfcare 09/20/2024 Travel from Last 3 Months Immunizations Immunization Administration Dates Next Due Covid-19, Mrna, Lnp-s, Pf, 3 0 Mcg/0.3 Ml Dose (Webtalk) 04/16/2021,06/03/2020,05/13/2020 Hepatitis A And Hepatitis B Vaccine 06/19/2015 Hepatitis A Vaccine 12/13/2014 Hepatitis B Vaccine 01/13/2015,12/13/2014 Influenza Vaccine 03/04/2024,03/20/2022,02/18/20 20 Influenza Vaccine greater than 3 yrs 02/27/2018, 02/20/2015,02/23/2014 Influenza Vaccine less than 3 yrs 02/18/2020,05/2015 Influenza Vaccine, Quadrivalent, PF 02/26/2021,0 02/15/2020,02/27/2019 Influenza, High-dose, Quadrivalent 02/27/2023 Influenza, Seasonal, Injecta ble, Undefined 02/18/2020,02/27/2018,02/24/2016,02/20,02/23/2014 Influenza, high-dose, trivalent, PF 01/24/2023 PUR HEP A HEP B ADULT IM 06/19/2015 Pneumococcal Vaccine Adult - 23 Valent 8 Pneumococcal conjugate PCV20 , polysaccharide [id number] conjugate, adjuvant, PF 04/01/2022 TD VACCINE 05/26/2007 Zoster Vaccine Recombinant 10/15/2018,08/14/2018 Family History Medical History Relation Name Comments Anxiety disorder Daughter Atrial fibrillation Daughter Autoimmune Disease Daughter Fibro Clotting Disorder Daughter Factor 5 Depression Daughter Lupus Daughter Cancer Father bone cancer Heart Attack Father Cancer Maternal Grandfather Skin Cancer Maternal Grandfather Cancer Maternal Grandmother Rectal Cancer Mother Chronic Obstructive Pulmonary Disease Mother Depression Mother Diabetes Mother Hypertension Mother Lung Cancer Mother Thyroid Disease Mother No Known Problems Paternal Grandfather No Known Problems Paternal Grandmother No Known Problems Son Relation Name Status Comments Daughter Alive Father Maternal Grandfather Maternal Grandmother Mother Paternal Grandfather Paternal Grandmother Son Alive Social History Tobacco Use Types Packs/Day Years Used Date Smoking Tobacco: Never Smokeless Tobacco: Never Tobacco Cessation:Counseling Given: Not Answered Alcohol Use Standard Drinks/Week Comments Yes 0 (1 standard drink = 0.6 oz pur e alcohol) rarely UrgentRxities Answer Date Recorded In the past 12 months has [employer], gas, oil, or water [employer] threatened to shut off services in your home? No 07/07/2024 Social Connection and Isolation Panel Answer Date Recorded In a typical week, how many times do you talk on the phone with family, friends, or neighbors? More than three times a week 07/07/2024 How often do you get togethe r with friends or relatives? Once a week 07/07/2024 How often do you attend [facility] or tenriism services? Never 07/07/2024 Do you belong to any clubs o r organizations such as sabianism groups, unions, fraternal or athletic groups, or school groups? No 07/07/2024 How often do you attend meet ings of the clubs or organizations you belong to? Patient declined 07/07/2024 Are you , , di vorced, , never , or living with a partner? 07/07/2024 AUDIT-C Answer Date Recorded Q1: How often do you have a drink containing alc ohol? Monthly or less 07/07/2024 Q2: How many drinks containi ng alcohol do you have on a typical day when you are drinking? 1 or 2 07/07/2024 Q3: How often do you have si x or more drinks on one occasion? Never 07/07/2024 Overall Financial Resource Strain (CARDIA) Answe r Date Recorded How hard is it for you to pa y for the very basics like food, housing, medical care, and heating? Not very hard 07/07/2024 PHQ-2 Answer Date Recorded Total Score - Questions 1-9 0 06/26 [facility]at ional [facility] - Occupational Stress Questionnaire Answer Date Recorded Do you feel stress - tense, restless, nervous, or anxious, or unable to sleep at night because your mind is troubled all the time - these days? Rather much 07/07/2024 Exercise Vital Sign Answer Date Recorde d On average, how many days pe r week do you engage in moderate to strenuous exercise (like a brisk walk)? 2 days 07/07/2024 On average, how many minutes do you engage in exercise at this level? 60 min 07/07/2024 Hunger Vital Sign Answer Date Recorded Within the past 12 months, y ou worried that your food would run out before you got the money to buy more. Never true 07/07/19 25 Within the past 12 months, t he food you bought just didn't last and you didn't have money to get more. Never true 07/07/2024 PRAPARE - Transportation Answer Date Re corded In the past 12 months, has l ack of transportation kept you from medical appointments or from getting medications? No 06/26 In the past 12 months, has l ack of transportation kept you from meetings, work, or from getting things needed for daily living? No 07/07/2024 Housing Stability Vital Sign Answer Yg e [...] place to sleep or slept in a fdc (including now)? No 07/07/2023 Housing Stability Vital Sign Answer Yg e Recorded In the last 12 months, was t here a time when you were not able to pay the mortgage or rent on time? No 07/07/2024 In the past 12 months, how m any times have you moved where you were living? 0 07/07/2024 At any time in the past 12 m [facility], were you homeless or living in a fdc (including now)? No 07/07/2024 Education Answer Date Recorded What is the highest level of school you have completed or the highest degree you have received? Some college, no degree 08/23/2021 Sexually Active Control Partners Comments Not Currently Male Comments No Sex and Gender Information Value Date Recorded Sex Assigned at Female 01/07/2023 12:14 PM CDT Legal Sex Female 11:59 PM CDT Gender Identity Female 01/07/2023 12:14 PM CDT Sexual Orientation Not on file Occupation Industry Job Start Date Job End Date [employer] Not on file Not on file Not on fi le Last Filed Vital Signs Vital Sign Reading Time Taken Comments Blood Pressure 154/78 10/12/2024 12:51 PM CDT Pulse 102 10/12/2024 12:51 PM CDT Temperature 35.7 C (96.3 F) 10/12/2024 12:51 PM CDT Respiratory Rate 16 10/04/2024 10:12 AM CDT Oxygen Saturation 96% 10/12/2024 12:51 PM CDT Inhaled Oxygen Concentration - - Weight 108.4 kg (239 lb) 10/12/2024 12:51 PM CDT Height 175.3 cm (5' 9) 10/12/2024 12:51 PM CDT Body Mass Index 35.29 10/12/2024 12:51 PM CDT Plan of Treatment Upcoming Encounters Date Type Department Care Team (Late st Contact Info) Description 01/14/2025 9:30 AM CDT Office [facility] Primary Care - [address] [place] [address] Javier Yost PAC [address] [place] [address] 04/05/2025 1:15 PM TERRAZZO LAYER Office Visit [facility] - Pulmonology & Sleep Medicine [facility] [address] [place] [phone] Chuck Lee MD [address] [place] [address] Health Maintenance Due Date Last Done Comments Diabetes: Foot Exam 1955 TdaP Immunization 1955 Cologuard 2001 Immunochemical Fecal Occult Blood 2001 Respiratory Syncytial Virus (RSV) Immunization (Adult) (1 - Risk 60-74 years 1-dose series) 2016 SARS-COV-2 Immunization ( season) 2024 02/27/2023, 05/13/2022, 04/16/2021, Additional history exists Mammogram 08/12/2024 08/13/2023, 02/24, 04/20/2019, Additional history exists Diabetes: Hemoglobin A1c 01/02/2025 025, 01/03/2024, 07/09/2023, Additional history exists Influenza Immunization (#1) 01/24/202502/23, 02/27/2023, 01/24/2023, Additional history exists Diabetes: Eye Exam 05/12/2025 05/12/2024, 1 07/13/2023, 12/18/2022, Additional history exists DEXA Bone Density 08/12/2025 08/13/2023, 03/20/2021 Diabetes: Nephropathy Screening 09/23/2025 09/23/2024, 07/05/2024, 01/03/2024, Additional history exists Colonoscopy 02/16/2031 02/17/2024, 02/25, 09/03/2013 Colorectal Cancer Screening 02/16/2031 Hepatitis B Immunization Completed 016, 06/19/2015, 01/13/2015, Additional history exists Hepatitis C Virus (HCV) Screening Completed 07/09/2018 Zoster Immunization Completed 10/15/2018, 9 Pneumococcal Immunization (50+ years) Completed 04/01/2022, 05/26/2007 Pneumococcal Immunization Combined Discontinued 04/01/2022, 05/26/2007 Human Papillomavirus (HPV) Immunization Aged Out No longer eligible based on patient's age to complete this topic Meningococcal Immunization (ACWY) Aged Out No longer eligible based on patient's age to complete this topic Rotavirus Immunization Aged Out No lo nger eligible based on patient's age to complete this topic Medical Devices Implanted Type Area Front End Architect Device Identifier Shelf Expiration Date Model / Serial / Lot Attune Knee System Tibial Insert Fixed Bearing Medial Stabilized Implanted:Qty: 1 on 10/28/2022 by F[facility]ed John MD at [facility] Left: Knee DePuy 03/25/2030 [id number] / [id number] / [id number] Attune Knee System Tibial Base System Fixed Bearing Implanted:Qty: 1 on 10/28/2022 by Fareed John MD at [facility] Left: Knee DePuy 02/23/2032 [id number] / [id number] / [id number] Attune Femoral Porocoat Cruciate Retaining Implanted:Qty: 1 on 10/28/2022 by Fareed John MD at [facility] Left: Knee DePuy 08/24/2031 1504-01-106 / [id number]--[id number] / [id number] Procedures Procedure Name Priority Date/Time Associated Diagnosis Comments PATHOLOGY SURGICAL Routine 10/12/2024 1: 45 PM CDT Pigmented skin lesion suspicious for malignant neoplasm Skin lesion of right ear PATHOLOGY SURGICAL Routine 10/12/2024 1: 45 PM CDT Pigmented skin lesion suspicious for malignant neoplasm Skin lesion of right ear EXC SKIN BENIG 0.6-1CM FACE,FACIAL Routine 10/12/2024 1:00 PM CDT Pigmented skin lesion suspicious for malignant neoplasm Skin lesion of right ear EXC SKIN BENIG 0.6-1CM TRUNK,ARM,LEG Routine 10/12/2024 1:00 PM CDT Pigmented skin lesion suspicious for malignant neoplasm Skin lesion of right ear CBC WITH AUTO DIFFERENTIAL Today 09/23/2024 3:59 PM CDT Pain in joint, multiple sites Encounter for therapeutic drug monitoring Encounter for long-term (current) use of non-steroidal anti-inflammatories ANTI DOUBLE STRAND DNA (DS DNA) ANTIBODY Today 09/23/2024 3:59 PM CDT Pain in joint, multiple sites Encounter for therapeutic drug monitoring Encounter for long-term (current) use of non-steroidal anti-inflammatories C4 COMPLEMENT Today 09/23/2024 3:59 PM CDT Pain in joint, multiple sites Encounter for therapeutic drug monitoring Encounter for long-term (current) use of non-steroidal anti-inflammatories C3 COMPLEMENT GLOBULIN B-1C Today 09/23/2024 3:59 PM CDT Pain in joint, multiple sites Encounter for therapeutic drug monitoring Encounter for long-term (current) use of non-steroidal anti-inflammatories ERYTHROCYTE SEDIMENTATION RATE (ESR) Today 09/23/2024 3:59 PM CDT Pain in joint, multiple sites Encounter for therapeutic drug monitoring Encounter for long-term (current) use of non-steroidal anti-inflammatories C-REACTIVE PROTEIN (CRP) QUANT Today 09/23/2024 3:59 PM CDT Pain in joint, multiple sites Encounter for therapeutic drug monitoring Encounter for long-term (current) use of non-steroidal anti-inflammatories CMP (COMPREHENSIVE METABOLIC PANEL) Today 09/23/2024 3:59 PM CDT Pain in joint, multiple sites Encounter for therapeutic drug monitoring Encounter for long-term (current) use of non-steroidal anti-inflammatories COMPLETE BLOOD COUNT (CBC) WITH DIFF Today 09/23/2024 3:59 PM CDT Pain in joint, multiple sites Encounter for therapeutic drug monitoring Encounter for long-term (current) use of non-steroidal anti-inflammatories HEMOGLOBIN A1C W/ ESTIMATED GLUCOSE Routine 07/05/2024 12:52 PM TERRAZZO LAYER Type 2 diabetes mellitus without complication, without long-term current use of insulin (HCC) DILATED EYE EXAM 05/12/2024 1 2:00 AM TERRAZZO LAYER [facility] BONE DENSITOMETRY AXIAL SKELETON Routine 08/13/2023 8:58 AM CDT Postmenopausal Undifferentiated connective tissue disease (HCC) Polyarthralgia Pain in unspecified joint [facility] SCREENING BILATERAL DIGITAL W CAD W SOPHIA Routine 08/13/2023 8:49 AM CDT Visit for screening mammogram HEPATITIS PANEL ACUTE (AHP) Routine 07/09/2018 12:34 PM TERRAZZO LAYER Undifferentiated connective tissue disease (HCC) Family history of systemic lupus erythematosus Osteoarthritis of multiple joints, unspecified osteoarthritis type Long-term use of Plaquenil Thyroid disease COLONOSCOPY Routine 09/03/2013 from Last 3 Months or Most Recently Relevant to Health Maintenance Results * PATHOLOGY SURGICAL (10/12/2024 1:45 PM CDT) Only the most recent of2 resultswithin the time period is included. Case Report Surgical Pathology Report Case: [id number] Authorizing Provider: Rafa Ortega MD Collected: 10/12/2024 01:45 PM Ordering Location: [facility] - Received: 10/12/2024 01:45 PM General Surgery [facility] Pathologist: Yassine Ruiz MD PhD Specimens: A) - Ear, External B) - Arm 10/14/2024 9:00 AM CDT [facility] FINAL DIAGNOSIS A. 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 Skin, left arm, excision: - Seborrheic keratosis and actinic keratosis - Negative for high-grade dysplasia or malignancy 10/14/2024 9:00 AM CDT [facility] at 0900 CDT Pre-Operative Diagnosis Excision of right external ear lesion, less than 1 cm - 10/14/2024 9:00 AM CDT [facility] Gross Description A. The specimen presents in two formalin containers for gross and microscopic examination labeled with the patient's name, Amrita Mathew. Part A is designated as ear lesion. The specimen consists of two shave biopsies measuring 0.6 x 0.4 x 0.2 cm. Both skin surfaces are unremarkable. The subcutaneous portion of the skin of both specimens is inked, one with black, one with blue. They are both bisected and submitted in their entirety in cassette A1. B. Part B is designated as left upper arm lesion. In formalin is an ellipse of skin that measures 1.0 x 0.3 x 0.3 cm . The surface of the skin is pink-blackmon and nodular in appearance. The subcutaneous tissue is unremarkable. This is inked with black ink. The specimen is trisected and submitted in its entirety in cassette B1. Total time of fixation is 32 hours, 1 minute. NADINE/gracie 10/14/2024 9:00 AM CDT [facility] Microscopic Description Microscopic examination was performed which supports the final diagnosis. All control tissues stained appropriately. 10/14/2024 9:00 AM CDT [facility] Other UPPER LIMB STRUCTURE / Unknown Non-Phlebotomy Collection / Unknown 10/12/2024 1:45 PM CDT 10/12/2024 1:45 PM CDT Specimen of unknown material (specimen) EXTERNAL EAR STRUCTURE / Unknown 10/12/2024 1:45 PM CDT 10/12/2024 1:45 PM CDT us Rafa Ortega MD PATHOLOGY/CYTOLOGY ORDERABLES Fi nal Result [facility] [address] [place] [address] * EXC SKIN BENIG 0.6-1CM FACE,FACIAL (10/12/2024 1:00 PM CDT) Narrative Rafa Ortega MD - 10/12/2024 1:00 PM CDT Rafa Ortega MD 10/12/2024 1:52 PM Pre-Op diagnosis: Lesion of the right ear and left arm Postop diagnosis: same Procedure: excision of left arm lesion 0.7 cm, excision of right ear skin lesion 0.7 cm. Surgeon: Rafa Ortega MD Fire Ranger: Barbie solomon ma Anesthesia: 3 cc 1% lidocaine with epi. Indications: Amrita Mathew is a 69 y.o. female who presents with a 2 skin lesions as above. She would like to have them removed as she has a history of cancer. Procedure discussed with her in detail. Risk benefits alternatives were also discussed with her. She understands agrees to the procedure done. Consent was obtained. Findings: 0.7 cm lesion of the left upper arm removed, excision of the right ear skin lesion on the helix 0.7 cm. Procedure: Patient was seated upright. The ear was tackled first. The lesion and the helix were prepped and draped in usual sterile manner. Timeout was done. Local was injected. Using a 15 blade, the lesion was cut off flush with the rest of the helix. Lesion was sent off to pathology. Silver nitrate was used to achieve hemostasis. After the bleeding had stopped, the spot Band-Aids were placed on there. Afterwards, the arm lesion was tackled. The arm was on top of a Cramer stand. The area was also prepped and draped in the usual sterile manner. Local was injected around the lesion. Using a 15 blade, the lesion was excised completely, down to the subcutaneous fat. The lesion was handed off to pathology. The skin was closed with 4-0 Monocryl interrupted x 1. Areas washed and dried and surgical glue placed on top of the incision. She tolerated procedure well. Postop instructions discussed with her. I will call her with the pathology us Rafa Ortega MD PROCEDURE/MINOR SURGICAL ORDERAB LES Final Result * EXC SKIN BENIG 0.6-1CM TRUNK,ARM,LEG (10/12/2024 1:00 PM CDT) Narrative Rafa Ortega MD - 10/12/2024 1:00 PM CDT Rafa Ortega MD 10/12/2024 1:52 PM Pre-Op diagnosis: Lesion of the right ear and left arm Postop diagnosis: same Procedure: excision of left arm lesion 0.7 cm, excision of right ear skin lesion 0.7 cm. Surgeon: Rafa Ortega MD Fire Ranger: Barbie solomon ma Anesthesia: 3 cc 1% lidocaine with epi. Indications: Amrita Mathew is a 69 y.o. female who presents with a 2 skin lesions as above. She would like to have them removed as she has a history of cancer. Procedure discussed with her in detail. Risk benefits alternatives were also discussed with her. She understands agrees to the procedure done. Consent was obtained. Findings: 0.7 cm lesion of the left upper arm removed, excision of the right ear skin lesion on the helix 0.7 cm. Procedure: Patient was seated upright. The ear was tackled first. The lesion and the helix were prepped and draped in usual sterile manner. Timeout was done. Local was injected. Using a 15 blade, the lesion was cut off flush with the rest of the helix. Lesion was sent off to pathology. Silver nitrate was used to achieve hemostasis. After the bleeding had stopped, the spot Band-Aids were placed on there. Afterwards, the arm lesion was tackled. The arm was on top of a Cramer stand. The area was also prepped and draped in the usual sterile manner. Local was injected around the lesion. Using a 15 blade, the lesion was excised completely, down to the subcutaneous fat. The lesion was handed off to pathology. The skin was closed with 4-0 Monocryl interrupted x 1. Areas washed and dried and surgical glue placed on top of the incision. She tolerated procedure well. Postop instructions discussed with her. I will call her with the pathology us Rafa Ortega MD PROCEDURE/MINOR SURGICAL ORDERAB LES Final Result * CBC WITH AUTO DIFFERENTIAL (09/23/2024 3:59 PM CDT) WBC 7.57 4.00 - 12.00 10(3)/mcL 09/23/2024 4:28 PM CDT [facility] RBC 4.82 3.80 - 5.30 10(6)/mcL 09/23/2024 4:28 PM CDT [facility] HEMOGLOBIN (HGB) 12.9 12.0 - 15.8 g/dL 09/23/2024 4:28 PM CDT [facility] HEMATOCRIT (HCT) 40.2 36.0 - 47.0 % 09/23/2024 4:28 PM CDT [facility] MCV 83.4 82.0 - 96.0 fL 09/23/2024 4:28 PM CDT [facility] MCH 26.8 26.0 - 34.0 pg 09/23/2024 4:28 PM CDT [facility] MCHC 32.1 31.0 - 36.0 g/dL 09/23/2024 4:28 PM CDT [facility] PLATELET COUNT 277 140 - 440 10(3)/mcL 09/23/2024 4:28 PM CDT [facility] RDW 13.9 11.8 - 15.5 % 09/23/2024 4:28 PM CDT [facility] MPV 11.6 9.7 - 12.4 fL 09/23/2024 4:28 PM CDT [facility] NEUTROPHILS 62.0 47.0 - 73.0 % 09/23/2024 4:28 PM CDT [facility] LYMPHOCYTES 28.0 18.0 - 42.0 % 09/23/2024 4:28 PM CDT [facility] MONOCYTES 6.3 4.0 - 12.0 % 09/23/2024 4:28 PM CDT [facility] EOSINOPHILS 2.9 0.0 - 5.0 % 09/23/2024 4:28 PM CDT [facility] BASOPHILS 0.8 0.0 - 1.0 % 09/23/2024 4:28 PM CDT [facility] ABSOLUTE NEUTROPHILS 4.69 1.60 - 7.70 10(3)/mcL 09/23/2024 4:28 PM CDT [facility] ABSOLUTE LYMPHOCYTES 2.12 1.30 - 3.20 10(3)/mcL 09/23/2024 4:28 PM CDT [facility] ABSOLUTE MONOCYTES 0.48 0.20 - 1.00 10(3)/mcL 09/23/2024 4:28 PM CDT [facility] ABSOLUTE EOSINOPHIL 0.22 0.00 - 0.40 10(3)/mcL 09/23/2024 4:28 PM CDT [facility] ABSOLUTE BASOPHILS 0.06 0.00 - 0.10 10(3)/mcL 09/23/2024 4:28 PM CDT [facility] NRBC PER 100 WBC 0 09/24/19 4:28 PM CDT [facility] Blood Venipuncture / Unknown 09/23/2024 3:59 PM CDT 09/23/2024 4:26 PM CDT Shady Rust MD HEMATOLOGY ORDERABLES Fin al Result Performing Organization Address [facility] de Phone Number [facility] [address] [place] [address] * ERYTHROCYTE SEDIMENTATION RATE (ESR) (09/23/2024 3:59 PM CDT) ESR (SED RATE, ERYTHROCYTE SEDIMENTATION RATE) 10 <30 mm/h 09/23/2024 4:31 PM CDT [facility] Comment: Patients presenting with increased level of fibrinogen, gamma globulins, or abnormally shaped RBCs could affect the results for the erythrocyte sedimentation rate (ESR). Results should be clinically correlated. Blood Venipuncture / Unknown 09/23/2024 3:59 PM CDT 09/23/2024 4:26 PM CDT Shady Rust MD HEMATOLOGY ORDERABLES Fin al Result Performing Organization Address [facility] Co de Phone Number [facility] [address] [place] [address] * (ABNORMAL) CMP (COMPREHENSIVE METABOLIC PANEL) (09/23/2024 3:59 PM CDT) SODIUM 144 136 - 145 mmol/L 09/23/2024 4:51 PM CDT [facility] POTASSIUM 3.8 3.5 - 5.1 mmol/L 09/23/2024 4:51 PM CDT [facility] CHLORIDE 109(H) 98 - 107 mmol/L 09/23/2024 4:51 PM CDT [facility] CO2, VENOUS 26 22 - 30 mmol/L 09/23/2024 4:51 PM CDT [facility] ANION GAP 12.8 <18.0 mmol/L 09/23/2024 4:51 PM CDT [facility] GLUCOSE 137(H) 70 - 99 mg/dL 09/23/2024 4:51 PM CDT [facility] BUN 22(H) 10 - 20 mg/dL 09/23/2024 4:51 PM CDT [facility] CREATININE, BLOOD 0.89 0.60 - 1.00 mg/dL 09/23/2024 4:51 PM CDT [facility] BUN/CREATININE RATIO 25(H) 12 - 20 ratio 09/23/2024 4:51 PM CDT [facility] TOTAL PROTEIN 7.5 6.0 - 8.0 g/dL 09/23/2024 4:51 PM CDT [facility] ALBUMIN 4.4 3.5 - 5.0 g/dL 09/23/2024 4:51 PM CDT [facility] A/G RATIO 1.4 1.0 - 2.2 09/23/2024 4:51 PM CDT [facility] CALCIUM 9.7 8.7 - 10.5 mg/dL 09/23/2024 4:51 PM CDT [facility] T BILI 0.3 0.2 - 1.2 mg/dL 09/23/2024 4:51 PM CDT [facility] SGOT (AST) 38 <43 U/L 09/23/2024 4:51 PM CDT [facility] SGPT (ALT) 32 <56 U/L 09/23/2024 4:51 PM CDT [facility] ALKALINE PHOSPHATASE 80 40 - 150 U/L 09/23/2024 4:51 PM CDT [facility] IS THE PATIENT REQUIRED TO BE FASTING? No 09/23/2024 4:51 PM CDT [facility] GFR, ESTIMATED >60 >=60 09/23/2024 4:51 PM CDT [facility] Comment: Creatinine Clearance is the preferred criteria for selecting drug dose adjustments in renally impaired patients. The GFR is provided as additional pertinent clinical information. GFR is reported in mL/min/1.73 sq m. Calculation based on the Chronic Kidney Disease Epidemiology Collaboration (CKD- EPI) equation refit without adjustment for race. GFR, EST. >60 >=60 025 4:51 PM CDT [facility] GFR, EST. NONAFRICAN >60 >=60 09/23/2024 4:51 PM CDT [facility] Blood Venipuncture / Unknown 09/23/2024 3:59 PM CDT 09/23/2024 4:25 PM CDT Shady Rust MD CHEMISTRY ORDERABLES Iliana l Result [facility] [address] [place] [address] * C4 COMPLEMENT (09/23/2024 3:59 PM CDT) C4 COMPLEMENT 45 15 - 57 mg/dL 09/23/2024 10:59 PM CDT [facility] Blood Venipuncture / Unknown 09/23/2024 3:59 PM CDT 09/23/2024 4:25 PM CDT Shady Rust MD CHEMISTRY ORDERABLES Iliana l Result [facility] [address] [place] [address], * C3 COMPLEMENT GLOBULIN B-1C (09/23/2024 3:59 PM CDT) C3 COMPLEMENT 172 83 - 193 mg/dL 09/23/2024 10:59 PM CDT [facility] Blood Venipuncture / Unknown 09/23/2024 3:59 PM CDT 09/23/2024 4:25 PM CDT Shady Rust MD CHEMISTRY ORDERABLES Iliana l Result Performing Organization Address City/[facility]/ZIP Co de Phone Number [facility] [address] [place] [address], [place] * (ABNORMAL) C-REACTIVE PROTEIN (CRP) QUANT (09/23/2024 3:59 PM CDT) C-REACTIVE PROTEIN 1.30(H) <0.50 mg/dL 09/23/2024 4:51 PM CDT [facility] Blood Venipuncture / Unknown 09/23/2024 3:59 PM CDT 09/23/2024 4:25 PM CDT Shady Rust MD CHEMISTRY ORDERABLES Iliana l Result Performing Organization Address [facility] Co de Phone Number [facility] [address] [place] [address] * ANTI DOUBLE STRAND DNA (DS DNA) ANTIBODY (09/23/2024 3:59 PM CDT) DNA AB, DOUBLE STRAND 1 <5 IU/mL 09/24/2024 2:46 AM CDT [facility] Blood Venipuncture / Unknown 09/23/2024 3:59 PM CDT 09/23/2024 4:25 PM CDT Narrative [facility] - 09/24/2024 2:46 AM CDT <= 4 Negative 5-9 Indeterminate >= 10 Positive Antibody testing was performed by multiplex flow immunoassay on the [employer] platform. Shady Rust MD IMMUNOLOGY ORDERABLES Fin al Result Performing Organization Address City/[facility]/ZIP Co de Phone Number [facility] [address] [place] [address], [place] * HEMOGLOBIN A1C W/ ESTIMATED GLUCOSE (07/05/2024 12:52 PM [facility]) HGB-A1C 5.8 4.0 - 6.0 % 07/05/2024 2:10 PM [facility] Est Average Glucose 119.8 mg/dL 07/05/2024 2:10 PM [facility] Blood Venipuncture / Unknown 07/05/2024 12:52 PM [facility] 07/05/2024 1:30 PM [facility] Narrative [facility] - 07/05/2024 2:10 PM [facility] HEMOGLOBIN A1C: DIABETIC PATIENTS: WELL-CONTROLLED: 6.2 - 7.0 INTERMEDIATE WELL-CONTROLLED: 7.0 - 9.0 POORLY-CONTROLLED: >9.0 Specimens containing greater than 5% of Hemoglobin F may result in lower than expected % HbA1C results. us Javier Yost PAC CHEMISTRY ORDERABLES Final R esult Performing Organization Address City/[facility] Co de Phone Number [facility] [address] [place] [address] * HM DILATED EYE EXAM (05/12/2024 12:00 AM [facility]) 05/12/2024 us Provider Scan PROCEDURE/MINOR SURGICAL ORDERAB LES Final Result Performing Organization Address [facility] Co de Phone Number SCAN * JOVANI BONE DENSITOMETRY AXIAL SKELETON (08/13/2023 8:58 AM CDT) Anatomical Region Laterality Modality BODY N/A Computed Radiogr aphy 08/13/2023 9:13 AM CDT Impressions 08/13/2023 9:18 AM CDT IMPRESSION: Normal bone mass. REFERENCE: Bone mineral density: T-Score: Normal (T-score above or = -1.0) Low bone mass (T-score between -1.0 and -2.5) replaces the previously used term osteopenia Osteoporosis (T-score = or below -2.5) Z-Score: Within the expected range for age (Z-score above -2.0) Below the expected range for age (Z-score is -2.0 or below) Please see below follow up recommendations. Medical evaluation for secondary causes of low bone mineral density may be appropriate. FRAX is a World Health Organization validated fracture risk assessment tool that calculates a person's 10 year probability of a major osteoporosis related fracture and hip fracture. According to the National Osteoporosis Foundation guidelines, postmenopausal women and men age 50 or older with low bone mass and a 10 year probability of a major osteoporosis related fracture = or greater than 20% or a 10 year probability of a hip fracture = or greater than 3% should be considered for pharmacological treatment for the prevention of osteoporosis. For further information, including treatment recommendations, please refer to the 2019 ISCD Official Positions (http://www.iscd.org) and the NOF's Clinician's Guide to Prevention and Treatment of Osteoporosis (http://www.nof.org/professionals/clinical-guidelines) Narrative 08/13/2023 9:18 AM CDT EXAM DESCRIPTION: JOVANI BONE DENSITOMETRY AXIAL SKELETON REASON FOR STUDY: 68 y/o year old F with given history of: Postmenopausal, Undifferentiated connective tissue disease (HCC), Polyarthralgia. History of prior fracture and secondary osteoporosis. Patient takes vitamin-D and multivitamin. Front End Architect/Model: [employer] (S/N [id number]) CLINICAL INFORMATION: Current height: 69 inches Maximum height: 70.5 inches Weight: 245. pounds Risk factors: Prior fracture and secondary osteoporosis. COMPARISON: 03/20/2021 FINDINGS: AP LUMBAR SPINE L1-L4: Total BMD is 1.610 g/cm2 T-score is 3.4 This is a 3.1% increase in comparison to prior exam which is statistically significant. LEFT HIP: Total BMD is 1.118 g/cm2 T-score is 0.9 This is a 3.8% increase in comparison to prior exam which is statistically significant. Femoral neck BMD is 0.979 g/cm2 T-score is -0.4 FRAX: FRAX not reported due to T-scores of hip, femoral neck and/or spine being at or above -1.0 (Normal). THIS IS AN ELECTRONICALLY VERIFIED FINAL REPORT 08/13/2023 9:13 AM - Electronically signed by Thelma Cook M.D. TW: CB Report ID: [id number] Reading Location: [place] [address] Procedure Note Thelma Cook MD - 08/13/2023 EXAM DESCRIPTION: JOVANI BONE DENSITOMETRY AXIAL SKELETON REASON FOR STUDY: 68 y/o year old F with given history of: Postmenopausal, Undifferentiated connective tissue disease (HCC), Polyarthralgia. History of prior fracture and secondary osteoporosis. Patient takes vitamin-D and multivitamin. Front End Architect/Model: [employer] (S/N [id number]) CLINICAL INFORMATION: Current height: 69 inches Maximum height: 70.5 inches Weight: 245. pounds Risk factors: Prior fracture and secondary osteoporosis. COMPARISON: 03/20/2021 FINDINGS: AP LUMBAR SPINE L1-L4: Total BMD is 1.610 g/cm2 T-score is 3.4 This is a 3.1% increase in comparison to prior exam which is statistically significant. LEFT HIP: Total BMD is 1.118 g/cm2 T-score is 0.9 This is a 3.8% increase in comparison to prior exam which is statistically significant. Femoral neck BMD is 0.979 g/cm2 T-score is -0.4 FRAX: FRAX not reported due to T-scores of hip, femoral neck and/or spine being at or above -1.0 (Normal). THIS IS AN ELECTRONICALLY VERIFIED FINAL REPORT 08/13/2023 9:13 AM - Electronically signed by Thelma Cook M.D. TW: CB Report ID: [id number] Reading Location: [id number] IMPRESSION: Normal bone mass. REFERENCE: Bone mineral density: T-Score: Normal (T-score above or = -1.0) Low bone mass (T-score between -1.0 and -2.5) replaces the previously used term osteopenia Osteoporosis (T-score = or below -2.5) Z-Score: Within the expected range for age (Z-score above -2.0) Below the expected range for age (Z-score is -2.0 or below) Please see below follow up recommendations. Medical evaluation for secondary causes of low bone mineral density may be appropriate. FRAX is a World Health Organization validated fracture risk assessment tool that calculates a person's 10 year probability of a major osteoporosis related fracture and hip fracture. According to the National Osteoporosis Foundation guidelines, postmenopausal women and men age 50 or older with low bone mass and a 10 year probability of a major osteoporosis related fracture = or greater than 20% or a 10 year probability of a hip fracture = or greater than 3% should be considered for pharmacological treatment for the prevention of osteoporosis. For further information, including treatment recommendations, please refer to the 2019 ISCD Official Positions (http://www.iscd.org) and the NOF's Clinician's Guide to Prevention and Treatment of Osteoporosis (http://www.nof.org/professionals/clinical-guidelines) us Shady Rust MD IMG DEXA ORDERABLES Final Result * JOVANI SCREENING BILATERAL DIGITAL W CAD W SOPHIA (08/13/2023 8:49 AM CDT) Anatomical Region Laterality Modality breast Bilateral Mammography 08/13/2023 9:22 AM CDT Narrative 08/13/2023 3:54 PM CDT - JOVANI SCREENING BILATERAL DIGITAL W CAD W SOPHIA BILATERAL DIGITAL SCREENING MAMMOGRAM 3D/2D WITH CAD WITH MEDIOLATERAL OBLIQUE CRANIOCAUDAL: 08/13/2023 The study was acquired using digital technology and interpreted from soft copy. Current study was also evaluated with ICAD version 7.2. 2D digital mammographic views, as well as 3D digital tomosynthesis were performed in the CC and MLO projections. CLINICAL: Routine screening. Patient has no complaints. Possible 10 pound weight loss since last mammogram. She has reduced range of motion. No personal history of cancer. No family history of breast cancer. COMPARISONS: Comparison is made to exams dated: 03/14/2021, 04/20/2019, and 01/19/2018 F [facility]. BREAST TISSUE:There are scattered fibroglandular densities in both breasts. FINDINGS: There are benign calcifications in both breasts. No significant masses, calcifications, or other findings are seen in either breast. There has been no significant interval change. IMPRESSION: BI-RAD 2 BENIGN There is no mammographic evidence of malignancy. A 1 year screening mammogram is recommended. A letter will be sent to the patient with these results. The patient will be entered into a reminder system with a target due date of 1 year for her next screening exam. Electronically signed by: Riri whitley/penrad:08/13/2023 12:55:25 Clam Shucker(s): RT Felix(R)(M), [facility] letter sent: Normal Exam Reading location: [place] BI-RADS: 2 Benign Procedure Note Riri Dominique MD - 08/13/2023 - JOVANI SCREENING BILATERAL DIGITAL W CAD W SOPHIA BILATERAL DIGITAL SCREENING MAMMOGRAM 3D/2D WITH CAD WITH MEDIOLATERAL OBLIQUE CRANIOCAUDAL: 08/13/2023 The study was acquired using digital technology and interpreted from soft copy. Current study was also evaluated with HERMEL DELORD version 7.2. 2D digital mammographic views, as well as 3D digital tomosynthesis were performed in the CC and MLO projections. CLINICAL: Routine screening. Patient has no complaints. Possible 10 pound weight loss since last mammogram. She has reduced range of motion. No personal history of cancer. No family history of breast cancer. COMPARISONS: Comparison is made to exams dated: 03/14/2021, 04/20/2019, and 01/19/2018 [facility]. BREAST TISSUE:There are scattered fibroglandular densities in both breasts. FINDINGS: There are benign calcifications in both breasts. No significant masses, calcifications, or other findings are seen in either breast. There has been no significant interval change. IMPRESSION: BI-RAD 2 BENIGN There is no mammographic evidence of malignancy. A 1 year screening mammogram is recommended. A letter will be sent to the patient with these results. The patient will be entered into a reminder system with a target due date of 1 year for her next screening exam. Electronically signed by: Riri whitley/penrad:08/13/2023 12:55:25 Clam Shucker(s): RT Felix(R)(M), [facility] letter sent: Normal Exam Reading location: [place] BI-RADS: 2 Benign us Sandra Duron MD IMG MAMMO ORDERABLES Final R esult * HEPATITIS PANEL ACUTE (AHP) (07/09/2018 12:34 PM [facility]) HEPATITIS A IGM ANTIBODY NON DETECTED NON DETECTED 07/09/2018 10:37 PM [facility] Comment: IGM Antibodies to HAV not detected. Does not exclude early acute or recovered HAV infection. HEP B CORE AB (IGM) NON DETECTED NON DETECTED 07/09/2018 10:37 PM [facility] Comment: IGM anti-HBC not detected. Does not exclude the possibility of exposure to or infection with HBV. HEPATITIS B SURFACE ANTIGEN NON DETECTED NON DETECTED 07/09/2018 10:37 PM [facility] Comment: A nonreactive test result does not exclude the possibility of exposure to or infection with Hepatitis B virus. A nonreactive test result in individuals with prior exposure to hepatitis B may be due to antigen levels below the detection limit of this assay or lack of antigen reactivity to the antibodies in this assay. hepatitis C antibody 0.09 <1 S/CO 07/09/2018 10:37 PM [facility] Comment: Signal/Cutoff ratio < 0.79 is Nondetected Signal/Cutoff ratio 0.80-0.99 is Grayzone Signal/Cutoff ratio > 0.99 is Detected Supplemental assays are recommended if signal/cutoff ratio is >/=1.00. Signal/cutoff ratio result >/= 5.00 is 97% predictive of positivity for recombinant immunoblot assay (RIBA) and will be reported to the [place] Department of Public [facility] as required. Blood specimen (specimen) Venipuncture / Unknown 07/09/2018 12:34 PM [facility] 07/09/2018 2:03 PM [facility] us Shady Rust MD HEMATOLOGY ORDERABLES Fin al Result [facility] [address] [place] [address], * COLONOSCOPY (09/03/2013) Ailyn Cruz MD PROCEDURE/MINOR SURGICAL ORD ERABLES Final Result from Last 3 Months or Most Recently Relevant to Health Maintenance Insurance MEDICARE C [facility] Care Teams Trade Economist Relationship Specialty Start Date End Date Javier Yost, PAC [address] [place] [address] PCP - General Physician Fire Ranger 07/10/23 Jose Schwartz DPM Podiatry 07/18/15 Diana Gonzalez APRN, RECORDING STUDIO INTERN Nurse Practitioner Advanced Practice Nurse 12/21/15 Ewelina Reynolds APRN, RECORDING STUDIO INTERN Nurse Practitioner Advanced Practice Nurse 04/16/16 Chuck Lee MD [address] [place] [address] Consulting Physician Pulmonary Disease 03/04/22 Rafa Ortega MD [address] [address] Consulting Physician Colon and Rectal Surgery 10/08/24
--- OUTSIDE RECORDS SUMMARY | 2024-12-20 14:37 | XMS_ITS | Encounter Summary ---
Author Organization [facility] Address [address] [place] [address] Phone Care Team Providers Care Architecture Drafter Name Role Phone LanaJose DPM Unavailable [phone] Diana Gonzalez FIRE OFFICER, PET HOUSE SITTER Unavailable [phone] Ewelina Reynolds FIRE OFFICER, PET HOUSE SITTER Unavailable Chuck Lee MD Unavailable Javier Yost Primary Care Provider [phone] Rafa Ortega MD Unavailable Reason for Visit * Reason Comments Medication Refill Encounter Details Date Type Department Care Team (Late st Contact Info) Description 12/18/2024 Refill [facility] - Primary Care - [address] [place] [address] Javier Yost PAC [address] [place] [address] Medication Refill Social History Tobacco Use Types Packs/Day Years Used Date Smoking Tobacco: Never Smokeless Tobacco: Never Alcohol Use Standard Drinks/Week Comments Yes 0 (1 standard drink = 0.6 oz pur e alcohol) rarely [facility] Utilities Answer Date Recorded In the past 12 months has th e electric, gas, oil, or water [employer] threatened to shut off services in your home? No 07/07/2024 Social Connection and Isolation Panel Answer Date Recorded In a typical week, how many times do you talk on the phone with family, friends, or neighbors? More than three times a week 07/07/2024 How often do you get togethe r with friends or relatives? Once a week 07/07/2024 How often do you attend chur or congregational services? Never 07/07/2024 Do you belong to any clubs o r organizations such as congregational groups, unions, fraternal or athletic groups, or [...] Total Score - Questions 1-9 0 06/26 [facility] Occupat ional Health - Occupational Stress [...] any time in the past [address] [facility], were you homeless or living in a [...] encounter Miscellaneous Notes * Telephone Encounter - Elsa Rivera RN - 12/20/2024 7:44 AM CDT Refill requested too soon documented in this encounter Plan of Treatment Upcoming Encounters Date Type Department Care Team (Late st Contact Info) Description 01/14/2025 9:30 AM CDT Office Visit [facility] - Primary Care - [place] [address] [place] [address] Javier Yost PAC [address] [place] [address] 04/05/2025 1:15 PM MUSIC ENGRAVER Office Visit [facility] - Pulmonology & Sleep Medicine [facility] [address] [place] [address] Chuck Lee MD [address] [place] [address] documented as of this encounter Visit Diagnoses Diagnosis Degeneration of intervertebral disc of lumbar region, unspecified whether pain present documented in this encounter Additional Health Concerns Assessment Noted Time PHQ-9 Depression Total Score: 0 07/09/19 25 9:32 AM MUSIC ENGRAVER documented as of this encounter Care Teams Architecture Drafter Relationship Specialty Start Date End Date Javier Yost PAC [address] [place] [address] PCP - General Physician Commissary Steward 07/10/23 Jose Schwartz DPM Podiatry 07/18/15 Diana Gonzalez APRN, PET HOUSE SITTER Nurse Practitioner Advanced Practice Nurse 12/21/15 Ewelina Reynolds APRN, PET HOUSE SITTER Nurse Practitioner Advanced Practice Nurse 04/16/16 Chuck Lee MD [address] [place] [address] Consulting Physician Pulmonary Disease 03/04/22 Rafa Ortega MD [address] [address] Consulting Physician Colon and Rectal Surgery 10/08/24 documented as of this encounter
--- OUTSIDE RECORDS SUMMARY | 2024-12-20 14:37 | XMS_ITS | Referral Summary ---
Author Organization [facility] Address [address] [address] Phone Care Team Providers Care Financial Services Consultant Name Role Phone Sandra Duron MD Primary Care Provider Allergies Active Allergy Reactions Criticality Noted Date Comments Atenolol Anaphylaxis,Unknown High Atorvastatin Other (See comments),Unknown Low pain Ezetimibe Other (See comments),Unknown Low pain Hydroxychloroquine Sulfate Rash Medium 8 Lisinopril Anaphylaxis High 03/12/2017 Niacin Other (See comments),Unknown Low reddness and feeling hot Simvastatin Other (See comments),Unknown Low pain Hsbnlru-Wix-Ctw Reductase Inhibitors Muscle pain Medium 07/07/2018 Sulfa (Sulfonamide Antibiotics) Rash Medium 03/12/2017 Sulfasalazine Rash,Unknown Medium Medications metFORMIN (GLUCOPHAGE) 500 mg tablet Take 1 tablet (500 mg total) by mouth daily with breakfast Active lansoprazole (PREVACID) 30 mg capsule Take 1 capsule (30 mg total) by mouth daily Active cyclobenzaprine (FLEXERIL) 5 mg tablet Take 1 tablet (5 mg total) by mouth daily Active aspirin 81 mg tablet Take 1 tablet (81 mg total) by mouth daily Active fexofenadine (HARRISON) 60 mg tablet Take 1 tablet (60 mg total) by mouth daily Active fenofibrate (TRIGLIDE) 160 mg tablet Take 1 tablet (160 mg total) by mouth daily 8 Active VENTOLIN HFA 90 mcg/actuation inhaler 0 8 Active fluticasone (FLONASE) 50 mcg/actuation nasal spray 0 8 Active celecoxib (CeleBREX) 200 mg capsule Take 1 capsule (200 mg total) by mouth daily 1 Active evolocumab (Repatha SureClick) 140 mg/mL pen injector 0 Active glipiZIDE XL (GLUCOTROL XL) 5 mg 24 hr tablet Take 1 tablet (5 mg total) by mouth 2 (two) times a day 0 Active ketoconazole (NIZORAL) 2 % cream Apply topically daily 0 Active sertraline (ZOLOFT) 100 mg tablet Take 1 tablet (100 mg total) by mouth daily Active ergocalciferol (VITAMIN D) 50,000 unit capsule Take by mouth daily 3 Active Proctozone-HC 2.5 % rectal cream 3 Active [facility] albuterol HFA () inhaler Inhale as directed Active zolpidem (AMBIEN) 5 mg tabletIndication s:Sleep-Onset Insomnia Take 1 tablet (5 mg total) by mouth nightly as needed for sleep Active ascorbic acid (vitamin C) 100 mg tablet Take 1 tablet (100 mg total) by mouth daily Active amLODIPine (NORVASC) 10 mg tablet Take 1 tablet (10 mg total) by mouth daily 3 Active hydroCHLOROthiaz alie (HYDRODIURIL) 25 mg tablet Take 1 tablet (25 mg total) by mouth daily 3 Active levothyroxine (SYNTHROID) 100 mcg tablet Take 1 tablet (100 mcg total) by mouth daily 3 Active nitrofurantoin monohydrate (MACROBID) 100 mg capsule Take 1 capsule (100 mg total) by mouth 2 (two) times a day 3 Active pregabalin (LYRICA) 75 mg capsule Take 1 capsule (75 mg total) by mouth 2 (two) times a day 3 Active Active Problems Problem Noted Date Diagnosed Date Gastroesophageal reflux disease without esophagi tis 03/04/2022 Insomnia 08/21/2020 Pedal edema 02/21/2020 Fatty liver 07/07/2018 DDD (degenerative disc disease), lumbar 02/17/20 18 Overview (12/24/2021): Overview: L-S L-S Overview: Overview: L-S Depression 02/16/2018 DM2 (diabetes mellitus, type 2) 02/16/2018 HTN (hypertension) 02/16/2018 Hypothyroidism 02/16/2018 OA (osteoarthritis) of knee 02/16/2018 Pancreatic cyst 02/16/2018 Connective tissue disease 06/23/2017 High risk medication use 06/23/2017 Raynaud's disease without gangrene 06/23/2017 Trochanteric bursitis of both hips 06/23/2017 Lupus erythematosus 06/12/2017 Statin intolerance 06/12/2017 MELIDA (obstructive sleep apnea) 05/22/2017 UTI (urinary tract infection) 03/20/2017 Positive BRENDA (antinuclear antibody) 03/12/2017 Pain in joint 03/12/2017 Anxiety 09/03/2016 Elevated liver function tests 04/02/2016 Non morbid obesity 04/02/2016 Hyperlipidemia 09/18/2015 Plantar fasciitis, right 07/18/2015 Social History Tobacco Use Types Packs/Day Years Used Date Smoking Tobacco: Never Smokeless Tobacco: Never Tobacco Cessation:Counseling Given: Not Answered Personal Safety Answer Date Recorded Getting School Help Needed Not on file 07/19 Comments Unknown Sex and Gender Information Value Date Recorded Sex Assigned at Not on file Legal Sex Female 9:09 AM TRANSMISSION WORKER Gender Identity Not on file Sexual Orientation Not on file Last Filed Vital Signs Vital Sign Reading Time Taken Comments Blood Pressure 148/79 04/23/2023 9:05 AM TRANSMISSION WORKER Pulse 88 04/23/2023 9:05 AM TRANSMISSION WORKER Temperature 37.2 C (98.9 F) 03/22/2022 6:28 PM CDT Respiratory Rate 18 03/22/2022 6:28 PM CDT Oxygen Saturation 96% 03/22/2022 6:28 PM CDT Inhaled Oxygen Concentration - - Weight 108 kg (238 lb) 04/23/2023 9:05 AM TRANSMISSION WORKER Height 175.3 cm (5' 9) 04/23/2023 9:05 AM TRANSMISSION WORKER Body Mass Index 35.15 04/23/2023 9:05 AM TRANSMISSION WORKER Plan of Treatment Not on file Procedures Procedure Name Priority Date/Time Associated Diagnosis Comments EGFR Routine 10/09/2022 4:16 PM CDT HEMOGLOBIN A1C Routine 10/09/2022 4:16 PM CDT LIPID PANEL Routine 10/09/2022 4:16 PM CDT from Last 3 Months or Most Recently Relevant to Health Maintenance Results * eGFR (10/09/2022 4:16 PM CDT) eGFR 91 mL/min/1. 73 m2 [facility] ([facility]) Comment: Interpretive Data Reference Interval Normal >/= 90 mL/min/1.73m2 Mildly decreased* 60 - 89 mL/min/1.73m2 Mildly to moderately decreased 45 - 59 mL/min/1.73m2 Moderately to severely decreased 30 - 44 mL/min/1.73m2 Severely decreased 15 - 29 mL/min/1.73m2 Kidney Failure < 15 mL/min/1.73m2 *Relative to young adult level Estimated glomerular filtration rate is determined by the 2020 CKD-EPI equation recommended by the National Kidney Foundation (A Unifying Approach to GFR Estimation: Recommendations of the NKF-ASK Task Force on Reassessing the Inclusion of Race in Diagnosing Kidney Disease, JASN 2020). The CKD-EPI equation should not be used for patients with unstable renal function and has not been validated in children and those over 70. Current interpretive data was last reviewed 2021. Blood 10/09/2022 4:16 PM CDT 10/09/2022 4:37 PM CDT us Sandra Duron MD LAB BLOOD ORDERABLES Final Result [facility] ([facility]) [facility] Department of Laboratories [place], [place] [id number] * (ABNORMAL) Hemoglobin A1c (10/09/2022 4:16 PM CDT) Hgb A1C 5.9(H) 4.0 - 5.6 % [facility] ([facility]) Estimated Average Glucose 123 mg/dL [facility] ([facility]) Comment: The ADA recommends reporting an estimated Average Glucose (eAG) with all Hemoglobin A1c results using the equation derived from a study of 507 normal and diabetic adults. Minority populations were underrepresented and children were not included. (Diabetes Care 31:1368-3048, 2008). The eAG is not equivalent to a fasting glucose. Blood 10/09/2022 4:16 PM CDT 10/09/2022 4:37 PM CDT us Sandra Duron MD LAB BLOOD ORDERABLES Final Result [facility] ([facility]) [facility] Department [place] [address] * (ABNORMAL) Lipid panel (10/09/2022 4:16 PM CDT) Cholesterol 205(H) 30 - 199 mg/dL [facility] ([facility]F) Comment: Interpretive Data Ages < or = 19 years Acceptable: <170 mg/dL Borderline high: 170-199 mg/dL High: >or= 200 mg/dL Ages > or = 20 years Desirable: <200 mg/dL Borderline high: 200-239 mg/dL High: >or= 240 mg/dL Literature References: 1. Expert Panel on Integrated Guidelines for Cardiovascular Health and Risk Reduction in Children and Adolescents. Pediatrics 2011;128:S213 2. NCEP Expert Panel. Circulation 2004;110:227 Current Interpretive Data was last revised on 2018. Triglycerides 130 <=149 mg/dL [facility] ([facility]F) Comment: Interpretive Data Ages < or = 9 years Acceptable: <75 mg/dL Borderline high: 75-99 mg/dL High: >or= 100 mg/dL Ages 10 to 20 years Acceptable: <90 mg/dL Borderline high: 90-129 mg/dL High: >or= 130 mg/dL Ages > or = 20 years Desirable: <150 mg/dL Borderline high: 150-199 mg/dL High: 200-499 mg/dL Very high: >or= 499 mg/dL Literature References: 1. Expert Panel on Integrated Guidelines for Cardiovascular Health and Risk Reduction in Children and Adolescents. Pediatrics 2011;128:S213 2. NCEP Expert Panel. Circulation 2004;110:227 Current Interpretive Data was last revised on 2018. HDL 49 >=40 mg/dL [facility] ([facility]) Comment: Interpretive Data Ages < or = 19 years Acceptable: >45 mg/dL Borderline low: 40-45 mg/dL Low: <40 mg/dL Ages > or = 20 years Desirable: >or= 60 mg/dL Low: <40 mg/dL Literature References: 1. Expert Panel on Integrated Guidelines for Cardiovascular Health and Risk Reduction in Children and Adolescents. Pediatrics 2011;128:S213 2. NCEP Expert Panel. Circulation 2004;110:227 Current Interpretive Data was last revised on 2018. LDL, calculated 130(H) <=129 mg/dL [facility] ([facility]F) Comment: Interpretive Data Ages < or = 19 years Acceptable: <110 mg/dL Borderline high: 110-129 mg/dL High: >or= 130 mg/dL Ages > or = 20 years Optimal: <100 mg/dL Near optimal: 100-129 mg/dL Borderline high: 130-159 mg/dL High: >160 mg/dL Literature References: 1. Expert Panel on Integrated Guidelines for Cardiovascular Health and Risk Reduction in Children and Adolescents. Pediatrics 2011;128:S213 2. NCEP Expert Panel. Circulation 2004;110:227 Current Interpretive Data was last revised on 2018. Non-HDL Cholesterol 156 mg/dL [facility] ([facility]F) Comment: Interpretive Data Ages < or = 19 years Acceptable: <120 mg/dL Borderline high: 120-144 mg/dL High: >145 mg/dL Ages > or = 20 years When triglycerides are >200 mg/dL, Non-HDL cholesterol is a secondary target of therapy with treatment goals that are 30 mg/dL greater than the LDL cholesterol target. Literature References: 1. Expert Panel on Integrated Guidelines for Cardiovascular Health and Risk Reduction in Children and Adolescents. Pediatrics 2011;128:S213 2. NCEP Expert Panel. Circulation 2004;110:227 Current Interpretive Data was last revised on 2018. Chol/HDL ratio 4 LARISSANE Rod RIVERA (YUSUF) Blood 10/09/2022 4:16 PM CDT 10/09/2022 4:37 PM CDT Sandra Duron MD LAB BLOOD ORDERABLES Final Result [facility] ([facility]) [facility] Department [place] [address] from Last 3 Months or Most Recently Relevant to Health Maintenance Insurance Care Teams Financial Services Consultant Relationship Specialty Start Date End Date Sandra Duron MD [address] [place] [address] PCP - General Family Medicine 10/09/22
--- OUTSIDE RECORDS SUMMARY | 2024-12-20 14:37 | XMS_ITS | Encounter Summary ---
Author Organization [facility] Address [address] [place] [address] Phone Care Team Providers Care Plug Stitcher Name Role Phone LanaJose DPM Unavailable [phone] Diana Gonzalez OUTREACH WORKER, MINE WIRER Unavailable [phone] Ewelina Reynolds OUTREACH WORKER, MINE WIRER Unavailable Chuck Lee MD Unavailable Javier Yost Primary Care Provider [phone] Rafa Ortega MD Unavailable Reason for Visit * Reason Comments Medication Refill Encounter Details Date Type Department Care Team (Late st Contact Info) Description 12/20/2024 [address]ill [facility] - Primary Care - [address] [place] [address] Javier Yost PAC [address] [place] [address] Medication Refill Social History Tobacco Use Types Packs/Day Years Used Date Smoking Tobacco: Never Smokeless Tobacco: Never Alcohol Use Standard Drinks/Week Comments Yes 0 (1 standard drink = 0.6 oz pur e alcohol) rarely [facility] Utilities Answer Date Recorded In the past 12 months has th e electric, gas, oil, or water [employer] threatened to shut off services in your [...] How often do you attend chur or holiness services? Never 07/07/2024 Do you belong to any clubs o r organizations such as denominational groups, unions, fraternal or athletic groups, or [...] Total Score - Questions 1-9 0 06/26 [facility] of Occupat ional Health - [...] place to sleep or slept in a [place] (including now)? No 07/07/2023 Housing Stability Vital Sign Answer Yg e Recorded In the last 12 months, was t here a time when you were not able to pay the mortgage or rent on time? No 07/07/2024 In the past 12 months, how m any times have you moved where you were living? 0 07/07/2024 At any time in the past 12 m [facility], were you homeless or living in a [place] facility (including now)? No 07/07/2024 Education Answer Date [...] Description 01/14/2025 9:30 AM CDT Office Visit [facility] - Primary Care - [place] [address] [place] [address] Javier Yost PAC [address] [place] [address] 04/05/2025 1:15 PM PLASMA CENTER TECHNICIAN Office Visit [facility] Pulmonology & Sleep Medicine [facility] [address] [place] [address] Chuck Lee MD [address] [place] [address] documented as of this encounter Visit Diagnoses Not on filedocumented in this encounter Additional Health Concerns Assessment Noted Time PHQ-9 Depression Total Score: 0 07/09/19 25 9:32 AM PLASMA CENTER TECHNICIAN documented as of this encounter Care Teams Plug Stitcher Relationship Specialty Start Date End Date Javier Yost PAC [address] [place] [address] PCP - General Physician Dye Winch Operator 07/10/23 Jose Schwartz DPM Podiatry 07/18/15 Diana Gonzalez APRN, MINE WIRER Nurse Practitioner Advanced Practice Nurse 12/21/15 Ewelina Reynolds APRN, MINE WIRER Nurse Practitioner Advanced Practice Nurse 04/16/16 Chuck Lee MD [address] [place] [address] Consulting Physician Pulmonary Disease 03/04/22 Rafa Ortega MD [address] [address] Consulting Physician Colon and Rectal Surgery 10/08/24 documented as of this encounter
--- OUTSIDE RECORDS SUMMARY | 2024-12-20 14:37 | XMS_ITS | Encounter Summary ---
Author Organization [facility] Address [address] [place] [address] Phone Care Team Providers Care Carry In Worker Name Role Phone LanaJose DPM Unavailable [phone] Diana Gonzalez BANK APPRAISER, INSULATION WORKER INTERIOR SURFACE Unavailable [phone] Ewelina Reynolds BANK APPRAISER, INSULATION WORKER INTERIOR SURFACE Unavailable Sandra Duron MD Primary Care Provider + [phone] Chuck Lee MD Unavailable Javier Yost Primary Care Provider + [phone] Rafa Ortega MD Unavailable Encounter Details Date Type Department Care Team (Latest Contact Info) Description 06/03/2023 Transcribe [facility] [address] [place] [phone] [place] [address] [address] [place] [phone] Diffuse disease of connective tissue (HCC) (Primary Dx); Encounter for therapeutic drug monitoring; Pain in joint, multiple sites; Encounter for long-term (current) use of non-steroidal anti-inflammatories Social History Tobacco Use Types Packs/Day Years [...] Industry Job Start Date Job End Date [facility] Not on file Not on file Not on [facility] documented as of this encounter Plan of Treatment Upcoming Encounters Date Type Department Care Team (Late st Contact Info) Description 01/14/2025 9:30 AM CDT [facility] - Primary Care - [address] [place] [phone] Javier Yost PAC [address] [place] [address] 04/05/2025 1:15 PM REEXAMINER [facility] - Pulmonology & Sleep Medicine [facility] [address] [place] [phone] Chuck Lee MD [address] [place] [address] documented as of this encounter Results * UR PROTEIN/CREATININE RATIO (07/09/2023 9:46 AM REEXAMINER) UR PROTEIN RAND, QT 7.2 mg/dL 07/09/2023 11:39 AM REEXAMINER [facility] Comment:No reference range h as been established. Consider Clinical Correlation. URINE CREATININE 99.4 mg/dL 07/09/2023 11:39 AM REEXAMINER [facility] Comment:No reference range h as been established. Consider Clinical Correlation. URINE PROTEIN/CREATIN INE RATIO 0.07 <0.25 07/09/2023 11:39 AM REEXAMINER [facility] Urine Non-Phlebotomy Collection / Unknown 07/09/2023 9:46 AM REEXAMINER 07/09/2023 11:04 AM REEXAMINER us Shady Rust MD URINE ORDERABLES Final Re sult [facility] [address] [place] [address] * ANTI DOUBLE STRAND DNA (DS DNA) ANTIBODY (07/09/2023 9:46 AM REEXAMINER) DNA AB, DOUBLE STRAND 1 <5 IU/mL 07/09/2023 10:49 PM REEXAMINER [facility] Blood Venipuncture / Unknown 07/09/2023 9:46 AM REEXAMINER 07/09/2023 9:58 AM REEXAMINER Narrative [facility] - 07/09/2023 10:49 PM REEXAMINER <= 4 Negative 5-9 Indeterminate >= 10 Positive Antibody testing was performed by multiplex flow immunoassay on the [employer] platform. us Shady Rust MD IMMUNOLOGY ORDERABLES Fin al Result Performing Organization Address City/[facility]/ZIP Co de Phone Number [facility] [address] [place] [address], * C4 COMPLEMENT (07/09/2023 9:46 AM REEXAMINER) C4 COMPLEMENT 40 15 - 57 mg/dL 07/09/2023 2:54 PM REEXAMINER [facility] Blood Venipuncture / Unknown 07/09/2023 9:46 AM REEXAMINER 07/09/2023 9:57 AM REEXAMINER us Shady Rust MD CHEMISTRY ORDERABLES Iliana l Result [facility] [address] [place] [address], [place] * C3 COMPLEMENT GLOBULIN B-1C (07/09/2023 9:46 AM REEXAMINER) C3 COMPLEMENT 176 83 - 193 mg/dL 07/09/2023 2:54 PM REEXAMINER [facility] Blood Venipuncture / Unknown 07/09/2023 9:46 AM REEXAMINER 07/09/2023 9:57 AM REEXAMINER us Shady Rust MD CHEMISTRY ORDERABLES Iliana l Result Performing Organization Address City/[facility]/ZIP Co de Phone Number [facility] [address] [place] [address], [place] * URIC ACID (BLOOD ASSAY) (07/09/2023 9:46 AM REEXAMINER) URIC ACID 5.7 2.5 - 6.2 mg/dL 07/09/2023 10:23 AM REEXAMINER [facility] Blood Venipuncture / Unknown 07/09/2023 9:46 AM REEXAMINER 07/09/2023 9:57 AM REEXAMINER us Shady Rust MD CHEMISTRY ORDERABLES Iliana l Result Performing Organization Address City/[facility]/ZIP Co de Phone Number [facility] [address] [place] [address] * ERYTHROCYTE SEDIMENTATION RATE (ESR) (07/09/2023 9:46 AM REEXAMINER) ESR (SED RATE, ERYTHROCYTE SEDIMENTATION RATE) 13 <30 mm/h 07/09/2023 10:14 AM REEXAMINER [facility] Comment: Patients presenting with increased level of fibrinogen, gamma globulins, or abnormally shaped RBCs could affect the results for the erythrocyte sedimentation rate (ESR). Results should be clinically correlated. Blood Venipuncture / Unknown 07/09/2023 9:46 AM REEXAMINER 07/09/2023 9:56 AM REEXAMINER us Shady Rust MD HEMATOLOGY ORDERABLES Fin al Result Performing Organization Address City/[facility]/ZIP Co de Phone Number [facility] [address] [place] [address] * (ABNORMAL) C-REACTIVE PROTEIN (CRP) QUANT (07/09/2023 9:46 AM REEXAMINER) C-REACTIVE PROTEIN 0.61(H) <0.50 mg/dL 07/09/2023 10:23 AM [facility] Blood Venipuncture / Unknown 07/09/2023 9:46 AM REEXAMINER 07/09/2023 9:57 AM REEXAMINER us Shady Rust MD CHEMISTRY ORDERABLES Iliana l Result Performing Organization Address [facility] Co de Phone Number [facility] [address] [place] [address] * (ABNORMAL) CMP (COMPREHENSIVE METABOLIC PANEL) (07/09/2023 9:46 AM REEXAMINER) SODIUM 146(H) 136 - 145 mmol/L 07/09/2023 10:23 AM [facility] POTASSIUM 4.1 3.5 - 5.1 mmol/L 07/09/2023 10:23 AM [facility] CHLORIDE 111(H) 98 - 107 mmol/L 07/09/2023 10:23 AM [facility] CO2, VENOUS 24 22 - 30 mmol/L 07/09/2023 10:23 AM [facility] ANION GAP 15.1 <18.0 mmol/L 07/09/2023 10:23 AM [facility] GLUCOSE 119(H) 70 - 99 mg/dL 07/09/2023 10:23 AM [facility] BUN 22(H) 10 - 20 mg/dL 07/09/2023 10:23 AM [facility] CREATININE, BLOOD 0.88 0.60 - 1.00 mg/dL 07/09/2023 10:23 AM [facility] BUN/CREATININE RATIO 25(H) 12 - 20 ratio 07/09/2023 10:23 AM [facility] TOTAL PROTEIN 7.5 6.3 - 8.2 g/dL 07/09/2023 10:23 AM [facility] ALBUMIN 4.6 3.5 - 5.0 g/dL 07/09/2023 10:23 AM [facility] A/G RATIO 1.6 1.0 - 2.2 07/09/2023 10:23 AM [facility] CALCIUM 9.7 8.7 - 10.5 mg/dL 07/09/2023 10:23 AM [facility] T BILI 0.6 0.2 - 1.2 mg/dL 07/09/2023 10:23 AM [facility] SGOT (AST) 32 5 - 34 U/L 07/09/2023 10:23 AM [facility] SGPT (ALT) 28 0 - 55 U/L 07/09/2023 10:23 AM [facility] ALKALINE PHOSPHATASE 82 40 - 150 U/L 07/09/2023 10:23 AM [facility] IS THE PATIENT REQUIRED TO BE FASTING? No 07/09/2023 10:23 AM [facility] GFR, ESTIMATED >60 >=60 07/09/2023 10:23 AM [facility] Comment: Creatinine Clearance is the preferred criteria for selecting drug dose adjustments in renally impaired patients. The GFR is provided as additional pertinent clinical information. GFR is reported in mL/min/1.73 sq m. Calculation based on the Chronic Kidney Disease Epidemiology Collaboration (CKD- EPI) equation refit without adjustment for race. GFR, EST. >60 >=60 024 10:23 AM [facility] GFR, EST. NONAFRICAN >60 >=60 07/09/2023 10:23 AM [facility] Blood Venipuncture / Unknown 07/09/2023 9:46 AM REEXAMINER 07/09/2023 9:57 AM REEXAMINER us Shady Rust MD CHEMISTRY ORDERABLES Iliana avril Result [facility] [address] [place] [address] documented in this encounter Visit Diagnoses Diagnosis Diffuse disease of connective tissue (HCC)- Primary Unspecified diffuse connective tissue disease Encounter for therapeutic drug monitoring Pain in joint, multiple sites Encounter for long-term (current) use of non-steroidal anti-inflammatories documented in this encounter Additional Health Concerns Infection Onset Date Last Indicated Resolved Time COVID - 19 06/23/2023 06/23/2023 06/23/2023 5:22 PM REEXAMINER Respiratory Rule-Out 06/23/2023 06/23/2023 024 5:23 PM REEXAMINER COVID - 19 Confirmed 06/23/2023 06/23/2023 024 12:16 AM REEXAMINER COVID - 19 01/25/2024 01/25/2024 01/25/2024 12:0 2 PM CDT Assessment Noted Time PHQ-9 Depression Total Score: 0 02/21/20 20 10:00 AM CDT documented as of this encounter Care Teams Carry In Worker Relationship Specialty Start Date End Date Sandra Duron MD [address] [place] [address] PCP - General Family Medicine 07/10/22 07/09/23 Javier Yost PAC [address] [place] [phone] PCP - General Physician Supervisor Of Way 07/10/23 Jose Schwartz DPM Podiatry 07/18/15 Diana Gonzalez, BANK APPRAISER, INSULATION WORKER INTERIOR SURFACE Nurse Practitioner Advanced Practice Nurse 12/21/15 Ewelina Reynolds APRN, INSULATION WORKER INTERIOR SURFACE Nurse Practitioner Advanced Practice Nurse 04/16/16 Chuck Lee MD [address] [place] [phone] Consulting Physician Pulmonary Disease 03/04/22 Rafa Ortega MD [address] [address] Consulting Physician Colon and Rectal Surgery 10/08/24 documented as of this encounter
--- OUTSIDE RECORDS SUMMARY | 2024-12-20 14:37 | XMS_ITS | Clinical Summary ---
Author Organization [facility] Address [address] [address] Phone Care Team Providers Care Single Needle Operator Name Role Phone Sandra Duron MD Primary Care Provider Allergies Active Allergy Reactions Criticality Noted Date Comments Atenolol Anaphylaxis,Unknown High Atorvastatin Other (See comments),Unknown Low pain Ezetimibe Other (See comments),Unknown Low pain Hydroxychloroquine Sulfate Rash Medium 8 Lisinopril Anaphylaxis High 03/12/2017 Niacin Other (See comments),Unknown Low reddness and feeling hot Simvastatin Other (See comments),Unknown Low pain Hvwqmes-Yei-Nri Reductase Inhibitors Muscle pain Medium 07/07/2018 Sulfa [...] Proctozone-HC 2.5 % rectal cream 3 Active [facility] albuterol HFA () inhaler Inhale as [...] 04/02/2016 Hyperlipidemia 09/18/2015 Plantar fasciitis, right 07/18/2015 Surgical History Surgery Date Site/Laterality Comments HYSTERECTOMY BUNIONECTOMY CHOLECYSTECTOMY FRACTURE SURGERY 1990 TUBAL LIGATION 1988 TONSILLECTOMY ARM SURGERY Right Johnny placed in arm and then removed KNEE SURGERY JOINT REPLACEMENT Medical History Medical History Date Comments Hypertension Hypothyroidism Diabetes mellitus (HCC) Hyperlipidemia Arthritis Unknown Depression 1993 Sleep apnea 2 years ago Peripheral neuropathy Hiatal hernia Osteoarthritis Family History Medical History Relation Name Comments Lupus Daughter Cancer Father Scott Jennings Cancer Maternal Grandfather Jose Bui Allergy (severe) Mother Karen Jennings Arthritis Mother Karen Jennings COPD Mother Karen Jennings Cancer Mother Karen Jennings Depression Mother Karen Jennings Diabetes Mother Karen Jennings Hearing loss Mother Karen Jennings Heart disease Mother Karen Jennings Hypertension Mother Karen Jennings Relation Name Status Comments Daughter Father Scott Jennings Maternal Grandfather Jose Bui Mother Karen Jennings Social History Tobacco Use Types Packs/Day Years Used Date Smoking Tobacco: Never Smokeless Tobacco: Never Tobacco Cessation:Counseling Given: Not Answered Personal Safety Answer Date Recorded Getting School Help Needed Not on file 07/19 Comments Unknown Sex and Gender Information Value Date Recorded Sex Assigned at Not on file Legal Sex Female 9:09 AM GOLF CART MECHANIC Gender Identity Not on file Sexual Orientation Not on file Obstetrics History Last Filed Vital Signs Vital Sign Reading Time Taken Comments Blood Pressure 148/79 04/23/2023 9:05 AM GOLF CART MECHANIC Pulse 88 04/23/2023 9:05 AM GOLF CART MECHANIC Temperature 37.2 C (98.9 F) 03/22/2022 6:28 PM CDT Respiratory Rate 18 03/22/2022 6:28 PM CDT Oxygen Saturation 96% 03/22/2022 6:28 PM CDT Inhaled Oxygen Concentration - - Weight 108 kg (238 lb) 04/23/2023 9:05 AM GOLF CART MECHANIC Height 175.3 cm (5' 9) 04/23/2023 9:05 AM GOLF CART MECHANIC Body Mass Index 35.15 04/23/2023 9:05 AM GOLF CART MECHANIC Plan of Treatment Health Maintenance Due Date Last Done Comments Albumin Creatinine Ratio, Urine 1956 Colon Cancer Screening-Colonoscopy 1956 Depression Screening 1956 Fall Risk Assessment 1956 Hepatitis C Screening 1956 Osteoporosis Screening-Bone Density Scan 1956 Dilated Eye Exam 1956 Foot Exam 1956 DTaP/Tdap/Td Vaccine (1 - Tdap) 05/27/2007 8 Pneumococcal vaccine 65+ (2 of 2 - PCV) 05/26/2008 05/26/2007 Breast Cancer Screening-Mammogram 01/19/2019 018 Well Visit 65+ 2021 Hemoglobin A1C 04/11/2023 10/09/2022, 10/09/2022 Lipid Panel 10/10/2023 10/09/2022, 11/0 11/2021, 09/24/2021, Additional history exists eGFR 10/10/2023 10/09/2022, 10/09/2022 Covid-19 Vaccine (4 - 2023-2 5 season) 2024 04/16/2021, 06/03/2020, 05/13/2020 Influenza Vaccine (#1) 2025 2, 02/26/2021, 02/18/2020, Additional history exists Zoster Vaccine Completed 10/15/2018, 08/14/2018 Procedures Procedure Name Priority Date/Time Associated Diagnosis Comments EGFR Routine 10/09/2022 4:16 PM CDT HEMOGLOBIN A1C Routine 10/09/2022 4:16 PM CDT LIPID PANEL Routine 10/09/2022 4:16 PM CDT from Last 3 Months or Most Recently Relevant to Health Maintenance Results * eGFR (10/09/2022 4:16 PM CDT) eGFR 91 mL/min/1. 73 m2 [facility] ([facility]) Comment: Interpretive Data Reference Interval Normal >/= [...] of Race in Diagnosing Kidney Disease, JASN 202). The CKD-EPI equation should not be used for patients with unstable renal function and has not been validated in children and those over 70. Current interpretive data was last reviewed 2021. Blood 10/09/2022 4:16 PM CDT 10/09/2022 4:37 PM CDT us Sandra Duron MD LAB BLOOD ORDERABLES Final Result [facility] ([facility]) 1 [facility] Department of Laboratories [place], [place] [id number] * (ABNORMAL) Hemoglobin A1c (10/09/2022 4:16 PM [...] and children were not included. (Diabetes Care 31:1571-4714, 2008). The eAG is not equivalent to a fasting glucose. Blood 10/09/2022 4:16 PM CDT 10/09/2022 4:37 PM CDT us Sandra Duron MD LAB BLOOD ORDERABLES Final Result [facility] ([facility]) 1 [facility] Department [place] [address] * (ABNORMAL) Lipid panel (10/09/2022 4:16 PM [...] LAB BLOOD ORDERABLES Final Result [facility]) 1 [facility] Department [place] [address] from Last 3 Months or Most Recently Relevant to Health Maintenance Insurance Care Teams Single Needle Operator Relationship Specialty Start Date End Date Sandra Duron MD [address] [place] [address] PCP - General Family Medicine 10/09/22
--- NOTE | 2024-12-20 14:57 | ECG_ITS ---
Test Date: 2024-12-20 15:13:36 Measurements Intervals [place] Rate: 79 P: 42 MS: 171 QRS: 11 QRSD: 112 T: 50 QT: 365 QTc: 419 Interpretive Statements SINUS RHYTHM LOW QRS VOLTAGE IN PRECORDIAL LEADS PATTERN CONSISTENT WITH PULMONARY DISEASE INTRAVENTRICULAR CONDUCTION DELAY Electronically Signed On 12-21-2024 17:09:22 CDT by Edson Lazar D.O
[2024-12-20 15:20] LABS: Anion Gap 11 mmol/L (4-12); Blood Urea Nitrogen 22 mg/dL (7-17); Calcium 10.1 mg/dL (8.4-10.2); Carbon Dioxide 22 mmol/L (22-30); Chloride 106 mmol/L (98-107); Estimated Glomerular Filt Rate > 60; Glucose 129 mg/dL (65-110); Potassium 3.9 mmol/L (3.4-5.0); Sodium 139 mmol/L (137-145)
== END 2024-12-20 14:26 | disposition home or self-care (01) ==
PROVIDERS: Visit Provider Anesthesiology
DX: E11.9 Type 2 diabetes mellitus without complications (principal); Z79.899 Other long term (current) drug therapy; I10 Essential (primary) hypertension; Z01.818 Encounter for other preprocedural examination
CPT/HCPCS: 36415; 80048; 93005

== ENCOUNTER 2024-12-24 02:23 | Day surgery (SDC) | payer MEDICARE, SELFPAY ==
[2024-12-17 15:13] VITALS: BMI 34.7
--- NOTE | 2024-12-17 15:25 | PC.NURSE ---
Report to the Outpatient Waiting Room, entrance under the green pavilion located off [facility], at time _0800_ on date _[id number]_. Planned Procedure Time: _1000_.? Time changes happen often and if your time is changed the preop area will call you the afternoon before. - You and your visitor will be asked to self-screen and do not enter if you have any COVID symptoms. Please call surgeon if you need to reschedule. - A mask is optional within the hospital at this time. Patients may have clear liquids (water, carbonated beverages, clear teas, apple juice) until 3 hours prior to surgery with a maximum of 20 ounces. - No food from midnight until time of surgery and no smoking, or chewing tobacco (or any form of nicotine). No chewing gum, candy or mints. Take only the following medications with a SIP of water on the morning of surgery: ___Sertraline, Levothyroxine, Bupropion, and Pregabalin DO NOT STOP ANY OF YOUR OTHER PRESCRIPTION MEDICATIONS PRIOR TO SURGERY EXCEPT THE FOLLOWING Hold all vitamins and supplements for 3 days per anesthesiologist. Medications to discontinue per physician Please ask Dr Gilman office if need to hold Aspirin Date to take last dose Please no make-up, nail romansh, hairspray, perfume, deodorant, or body powder the day of surgery.? No jewelry (including any body piercings) or valuables the day of surgery, leave them at home.? Please take a shower or bath the night before, or the morning of, surgery with an antibacterial soap.? Wear comfortable, loose fitting clothing. - Jewelry must be removed prior to entering the operating room.? Rings and piercings that are not removed may be cut off. - The hospital will not accept responsibility for valuables.? - Please leave all valuables, including medications, at home the day of surgery. If you are going home after surgery, a licensed drivers license examiner must drive you home.? - NO public transportation without another adult if you receive anesthesia. - We recommend that an adult stay with you for 24 hours following discharge. - We also recommend that you do not drive, make important decision, drink alcoholic beverages, or take any drugs that were not prescribed by your health care provider for at least 24 hours after your discharge time. Follow any additional instructions given to you from your surgeon. Telephone instructions given to __Pam___and asked if any additional questions and then verbalized understanding. Patient advised to call surgeon office or pre surgery nurse liaison [phone] if any additional questions.
[2024-12-24] VITALS (10 sets, daily range): BP systolic 122–155; BP diastolic 74–81; PULSE 81–97; RESP 12–20; TEMP 36.6–37.3; O2SAT 93–98
--- NOTE | ~2024-12-24 | XR_ITS ---
INTRAOPERATIVE FLUOROSCOPY: CLINICAL HISTORY: 69 years old Female; RIGHT ACHILLES PROCEDURE COMMENTS: Limited intraoperative fluoroscopy of the bones of the right foot was performed. CUMULATIVE DOSE: 8.9 mGy FLUOROSCOPY TIME: 14 seconds FINDINGS/IMPRESSION: Please refer to operative note for further details. Reviewed, dictated and finalized at location A.
--- OUTSIDE RECORDS SUMMARY | 2024-12-24 02:25 | XMS_ITS | Encounter Summary ---
Author Organization [facility] Address [address] [place] [address] Phone Care Team Providers Care Supervisor Green End Department Name Role Phone Ailyn Cruz MD Primary Care Provider + [phone] Joes Schwartz DPM Unavailable [phone] Diana Gonzalez SUB ARC OPERATOR, FRUIT DUMPER Unavailable [phone] Ewelina Reynolds SUB ARC OPERATOR, FRUIT DUMPER Unavailable Sandra Duron MD Primary Care Provider + [phone] Chuck Lee MD Unavailable Javier Yost PAC Primary Care Provider + [phone] Rafa Ortega MD Unavailable Reason for Visit * Reason Comments Medication Refill Encounter Details Date Type Department Care Team (Late st Contact Info) Description 02/26/2021 Refill [facility] - Primary Care - [address] [place] [address] Ailyn Cruz MD [address] [place] [address] Medication Refill Social History Tobacco [...] Dept 02/22/21 Office Visit Ailyn Cruz MD [facility] 10/26/20 Office Visit Ailyn Cruz MD [facility] Showing recent visits within past 182 [...] complication, without long-term current use of insulin ([facility]) [facility] Ailyn Cruz MD 4 months ago Acute sinusitis, recurrence not specified, unspecified location [facility] Ailyn Cruz MD 6 months ago Type 2 diabetes mellitus without complication, without long-term current use of insulin ([facility]) [facility] Ailyn Cruz MD 1 year ago Physical exam, annual (Adult) [facility] Ailyn Cruz MD 1 year ago Type 2 diabetes mellitus without complication, without long-term current use of insulin ([facility]) [facility] Ailyn Cruz MD Upcoming Appointments Future Appointments In 5 [address]ily[address] Cruz MD [facility] INFRASTRUCTURE DESIGN ENGINEER - Recent and Past Visits Recent Visits Date Type Provider Dept 02/22/21 Office Visit Ailyn Cruz MD [facility] 10/26/20 Office Visit Ailyn Cruz MD [facility] 08/21/20 Office Visit Ailyn Cruz MD [facility] 02/21/20 Office Visit Ailyn Cruz MD [facility] Showing recent visits within past 460 [...] Dept 02/22/21 Office Visit Ailyn Cruz MD [facility] [address] 10/26/20 Office Visit Ailyn Cruz MD [facility] 08/21/20 [facility] Showing recent visits within past 365 [...] Description 01/14/2025 9:30 AM CDT Office Visit [facility] - Primary Care - [address] [place] [phone] Javier Yost PAC [address] [place] [address] 04/05/2025 1:15 PM TEXTILE CLOTHING AND FOOTWEAR MECHANIC Office Visit [facility] - Pulmonology & Sleep Medicine - [place] [address] [place] [phone] Chuck Lee MD [address] [place] [phone] documented as of this encounter Visit Diagnoses Diagnosis Type 2 diabetes mellitus without complication, without long-term current use of insulin Arthralgia, unspecified joint documented in this encounter Additional Health Concerns Infection Onset Date Last Indicated Resolved Time Influenza 08/23/2021 08/23/2021 08/30/2021 12:1 6 AM CDT COVID - 19 06/23/2023 06/23/2023 06/23/2023 5:22 PM TEXTILE CLOTHING AND FOOTWEAR MECHANIC Respiratory Rule-Out 06/23/2023 06/23/2023 024 5:23 PM TEXTILE CLOTHING AND FOOTWEAR MECHANIC COVID - 19 Confirmed 06/23/2023 06/23/2023 024 12:16 AM TEXTILE CLOTHING AND FOOTWEAR MECHANIC COVID - 19 01/25/2024 01/25/2024 01/25/2024 12:0 2 PM CDT Assessment Noted Time PHQ-9 Depression Total Score: 0 02/21/20 20 10:00 AM CDT documented as of this encounter Care Teams Supervisor Green End Department Relationship Specialty Start Date End Date Ailyn Cruz MD PCP - General Family Medicine 03/11/15 07/09/22 Sandra Duron MD [address] [place] [address] PCP - General Family Medicine 07/10/22 07/09/23 Javier Yost PAC [address] [place] [address] PCP - General Physician Senior Office Support Assistant Sosa 07/10/23 Jose Schwartz DPM Podiatry 07/18/15 Diana Gonzalez, SUB ARC OPERATOR, FRUIT DUMPER Nurse Practitioner Advanced Practice Nurse 12/21/15 Ewelina Reynolds APRN, BRANDY Nurse Practitioner Advanced Practice Nurse 04/16/16 Chuck Lee MD [address] [place] [address] Consulting Physician Pulmonary Disease 03/04/22 Rafa Ortega MD [address] [address] Consulting Physician Colon and Rectal Surgery 10/08/24 documented as of this encounter
--- OUTSIDE RECORDS SUMMARY | 2024-12-24 02:25 | XMS_ITS | Encounter Summary ---
Author Organization [facility] Address [address] [place] [address] Phone Care Team Providers Care Cafe Aide Name Role Phone Ailyn Cruz MD Primary Care Provider + [phone] Jose Schwartz DPM Unavailable [phone] Diana Gonzalez DISPATCH SUPERVISOR, TAXICAB DISPATCHER Unavailable [phone] Ewelina Reynolds DISPATCH SUPERVISOR, TAXICAB DISPATCHER Unavailable Sandra Duron MD Primary Care Provider + [phone] Chuck Lee MD Unavailable Javier Yost PAC Primary Care Provider + [phone] Rafa Ortega MD Unavailable Reason for Visit * Reason Onset Date Comments Medication Refill 07/12/2020 Encounter Details Date Type Department Care Team (Late st Contact Info) Description 07/12/2020 Refill [facility] [address] [place] [address] Ailyn Cruz MD [address] [place] [address] Medication Refill Social History Tobacco Use Types [...] 4 months ago Physical exam, annual (Adult) [facility] Ailyn Cruz MD 8 months ago Type 2 diabetes mellitus without complication, without long-term current use of insulin ([facility]) [facility] - Ailyn Bloom MD 1 year ago Depression, unspecified depression type [facility] Ailyn Bloom MD 1 year ago Type 2 diabetes mellitus without complication, without long-term current use of insulin ([facility]) [facility] - Ailyn Bloom MD 1 year ago Physical exam, annual (Adult) [facility] - Ailyn Bloom MD Upcoming Appointments Future Appointments In 1 month Ailyn Cruz MD [facility] - Recent and Past Visits Recent Visits Date Type Provider Dept 02/21/20 Office Visit Ailyn Cruz MD [facility] [address] 11/16/19 Office Visit Ailyn Cruz MD [facility] 04/16/19 Office Visit Ailyn Cruz MD [facility] Showing recent visits within past 460 days with a meds authorizing provider and meeting all other requirements Future Appointments Date Type Provider Dept 08/21/20 Appointment Ailyn Cruz MD [facility] Showing future appointments within next 90 days with a meds authorizing provider and meeting all other requirements R PACKER AND SORTER * Telephone Encounter - Porsche Sullivan - 07/12/2020 3:19 PM CST Received a faxed Rx request from pharmacy. Reordered refill medication(s) requested and pended for nurse and physician/GABRIELA review. Refill encounter routed to nurse Luis's [facility] for processing. R PACKER AND SORTER documented in this encounter Plan of Treatment Upcoming Encounters Date Type Department Care Team (Late st Contact Info) Description 01/14/2025 9:30 AM CDT Office Visit [facility] - Primary Care - [place] [address] [place] [address] Javier Yost, NADIR [address] [place] [address] 04/05/2025 1:15 PM CIGAR PACKER AND SORTER Office Visit [facility] - Pulmonology & Sleep Medicine - [place] [address] [place] [address] Chuck Lee MD [address] [place] [address] documented as of this encounter Visit Diagnoses Not on filedocumented in this encounter Additional Health Concerns Infection Onset Date Last Indicated Resolved Time Influenza 08/23/2021 08/23/2021 08/30/2021 12:1 6 AM CDT COVID - 19 06/23/2023 06/23/2023 06/23/2023 5:22 PM CIGAR PACKER AND SORTER Respiratory Rule-Out 06/23/2023 06/23/2023 024 5:23 PM CIGAR PACKER AND SORTER COVID - 19 Confirmed 06/23/2023 06/23/2023 024 12:16 AM CIGAR PACKER AND SORTER COVID - 19 01/25/2024 01/25/2024 01/25/2024 12:0 2 PM CDT Assessment Noted Time PHQ-9 Depression Total Score: 0 02/21/20 20 10:00 AM CDT documented as of this encounter Care Teams Cafe Aide Relationship Specialty Start Date End Date Ailyn Cruz MD PCP - General Family Medicine 03/11/15 07/09/22 Sandra Duron MD [address] [place], [place] [id number] PCP - General Family Medicine 07/10/22 07/09/23 Javier Yost, PAC [address] [place] [address] PCP - General Physician Route Agent 07/10/23 Jose Schwartz DPM Podiatry 07/18/15 Diana Gonzalez APRN, TAXICAB DISPATCHER Nurse Practitioner Advanced Practice Nurse 12/21/15 Ewelina Reynolds APRN, TAXICAB DISPATCHER Nurse Practitioner Advanced Practice Nurse 04/16/16 Chuck Lee MD [address] [place] [address] Consulting Physician Pulmonary Disease 03/04/22 Rafa Ortega MD [address] [address] Consulting Physician Colon and Rectal Surgery 10/08/24 documented as of this encounter
--- OUTSIDE RECORDS SUMMARY | 2024-12-24 02:25 | XMS_ITS | Encounter Summary ---
Author Organization [facility] Address [address] [place] [address] Phone Care Team Providers Care Ic Engineer Name Role Phone Ailyn Cruz MD Primary Care Provider + [phone] Jose Schwartz DPM Unavailable [phone] Diana Gonzalez DESULPHURIZER OPERATOR, TELEPHONE MECHANIC Unavailable [phone] Ewelina Reynolds DESULPHURIZER OPERATOR, TELEPHONE MECHANIC Unavailable Sandra Duron MD Primary Care Provider + [phone] Chuck Lee MD Unavailable Javier Yost PAC Primary Care Provider + [phone] Rafa Ortega MD Unavailable Reason for Visit * Reason Comments Medication Refill Encounter Details Date Type Department Care Team (Late st Contact Info) Description 06/24/2022 Refill [facility] - [place] Care - [place] [address] [place] [address] Sandra Duron MD [address] [place] [address] Medication Refill Social History Tobacco [...] Dept 04/01/22 Office Visit Ailyn Cruz MD [facility] 09/28/21 Office Visit Ailyn Cruz MD [facility] 08/23/21 Office Visit Natalya Maguire APRN, TELEPHONE MECHANIC [facility] Showing recent visits within past 365 days [...] Dept 04/01/22 Office Visit Ailyn Cruz MD [facility] [address] 09/28/21 Office Visit Aily[facility] 08/23/21 Office Visit Natalya Maguire APRN, TELEPHONE MECHANIC [facility] Showing recent visits within past 365 days and meeting all other requirements Future Appointments No visits were found meeting these conditions. Showing future appointments within next 90 days and meeting all other requirements Passed - GFR on record in past 12 months GFR, EST. NONAFRICAN Date Value Ref Range Status 04/01/2022 >60 >=60 Final STANT PROFESSOR OF PSYCHOLOGY documented in this encounter Plan of Treatment Upcoming Encounters Date Type Department Care Team (Late st Contact Info) Description 01/14/2025 9:30 AM CDT Office Visit [facility] - Primary Care - [place] [address] [place] [address] Javier Yost PAC [address] [place] [address] 04/05/2025 1:15 PM ASSISTANT PROFESSOR OF PSYCHOLOGY Office Visit [facility] - Pulmonology & Sleep Medicine [facility] [address] [place] [address] Chuck Lee MD [address] [place] [address] documented as of this encounter Visit Diagnoses Not on filedocumented in this encounter Additional Health Concerns Infection Onset Date Last Indicated Resolved Time COVID - 19 06/23/2023 06/23/2023 06/23/2023 5:22 PM ASSISTANT PROFESSOR OF PSYCHOLOGY Respiratory Rule-Out 06/23/2023 06/23/2023 024 5:23 PM ASSISTANT PROFESSOR OF PSYCHOLOGY COVID - 19 Confirmed 06/23/2023 06/23/2023 024 12:16 AM ASSISTANT PROFESSOR OF PSYCHOLOGY COVID - 19 01/25/2024 01/25/2024 01/25/2024 12:0 2 PM CDT Assessment Noted Time PHQ-9 Depression Total Score: 0 02/21/20 20 10:00 AM CDT documented as of this encounter Care Teams Ic Engineer Relationship Specialty Start Date End Date Ailyn Cruz MD PCP - General Family Medicine 03/11/15 07/09/22 Sandra Duron MD [address] [place], [place] [id number] PCP - General Family Medicine 07/10/22 07/09/23 Javier Yost PAC [address] [place] [address] PCP - General Physician Mix Maker 07/10/23 Jose Schwartz DPM Podiatry 07/18/15 Diana Gonzalez APRN, TELEPHONE MECHANIC Nurse Practitioner Advanced Practice Nurse 12/21/15 Ewelina Reynolds APRN, TELEPHONE MECHANIC Nurse Practitioner Advanced Practice Nurse 04/16/16 Chuck Lee MD [address] [place] [address] Consulting Physician Pulmonary Disease 03/04/22 Rafa Ortega MD [address] [address] Consulting Physician Colon and Rectal Surgery 10/08/24 documented as of this encounter
--- OUTSIDE RECORDS SUMMARY | 2024-12-24 02:25 | XMS_ITS | Encounter Summary ---
Author Organization [facility] Address [address] [place] [address] Phone Care Team Providers Care Hook Puller Name Role Phone Ailyn Cruz MD Primary Care Provider + [phone] Jose Schwartz DPM Unavailable [phone] Diana Gonzalez PROGRAM PROPOSALS COORDINATOR, E BUSINESS PROJECT MANAGER Unavailable [phone] Ewelina Reynolds PROGRAM PROPOSALS COORDINATOR, E BUSINESS PROJECT MANAGER Unavailable Sandra Duron MD Primary Care Provider + [phone] Chuck Lee MD Unavailable Javier Yost PAC Primary Care Provider + [phone] Rafa Ortega MD Unavailable Reason for Visit * Reason Comments Medication Refill Encounter Details Date Type Department Care Team (Late st Contact Info) Description 09/24/2020 Refill [facility] - Primary Care - [place] [address] [place] [address] Ailyn Cruz MD [address] [place] [address] Medication Refill Social History Tobacco [...] Telephone Encounter - Jennifer Lu RN - 09/25/2020 10:23 AM CDT [...] complication, without long-term current use of insulin(HCC) [facility] Ailyn Cruz MD 7 months ago Physical exam, annual (Adult) [facility] Ailyn Cruz MD 10 months ago Type 2 diabetes mellitus without complication, without long-term current use of insulin (HCC) [facility] - Ailyn Bloom MD 1 year ago Depression, unspecified depression type [facility] - Ailyn Bloom MD 1 year ago Type 2 diabetes mellitus without complication, without long-term current use of insulin (HCC) [facility] - Ailyn Bloom MD Upcoming Appointments Future Appointments In 5 months Ailyn Cruz MD [facility] Medical [facility] - Family Medicine - [facility], SAND [employer] MINING MACHINERY ASSEMBLER - Recent and Past Visits Recent Visits Date Type Provider Dept 08/21/20 Office Visit Ailyn Cruz MD [facility] 02/21/20 Office Visit Ailyn Cruz MD [facility] 11/16/19 Office Visit Ailyn Cruz MD [...] Description 01/14/2025 9:30 AM CDT Office Visit [facility] - Primary Care - [place] [address] [place] [address] Javier Yost PAC [address] [place] [address] 04/05/2025 1:15 PM CIRCULAR DISTRIBUTOR Office Visit [facility] - Pulmonology & Sleep Medicine [facility] [address] [place] [address] Chuck Lee MD [address] [place] [address] documented as of this encounter Visit Diagnoses Not on filedocumented in this encounter Additional Health Concerns Infection Onset Date Last Indicated Resolved Time Influenza 08/23/2021 08/23/2021 08/30/2021 12:1 6 AM CDT COVID - 19 06/23/2023 06/23/2023 06/23/2023 5:22 PM CIRCULAR DISTRIBUTOR Respiratory Rule-Out 06/23/2023 06/23/2023 024 5:23 PM CIRCULAR DISTRIBUTOR COVID - 19 Confirmed 06/23/2023 06/23/2023 024 12:16 AM CIRCULAR DISTRIBUTOR COVID - 19 01/25/2024 01/25/2024 01/25/2024 12:0 2 PM CDT Assessment Noted Time PHQ-9 Depression Total Score: 0 02/21/20 20 10:00 AM CDT documented as of this encounter Care Teams Hook Puller Relationship Specialty Start Date End Date Ailyn Cruz MD PCP - General Family Medicine 03/11/15 07/09/22 Sandra Duron MD [address] [place], [place] [id number] PCP - General Family Medicine 07/10/22 07/09/23 Javier Yost, PAC [address] [place] [address] PCP - General Physician Glove Stitcher 07/10/23 Jose Schwartz DPM Podiatry 07/18/15 Diana Gonzalez, PROGRAM PROPOSALS COORDINATOR, E BUSINESS PROJECT MANAGER Nurse Practitioner Advanced Practice Nurse 12/21/15 Ewelina Reynolds, PROGRAM PROPOSALS COORDINATOR, E BUSINESS PROJECT MANAGER Nurse Practitioner Advanced Practice Nurse 04/16/16 Chuck Lee MD [address] [place] [address] Consulting Physician Pulmonary Disease 03/04/22 Rafa Ortega MD [address] [address] Consulting Physician Colon and Rectal Surgery 10/08/24 documented as of this encounter
--- OUTSIDE RECORDS SUMMARY | 2024-12-24 02:25 | XMS_ITS | Encounter Summary ---
Author Organization [facility] Address [address] [place] [address] Phone Care Team Providers Care Daycare Assistant Name Role Phone Ailyn Cruz MD Primary Care Provider + [phone] Jose Schwartz DPM Unavailable [phone] Diana Gonzalez INNER DIAMETER GRINDER TOOL, LIBRARY CIRCULATION ASSISTANT Unavailable [phone] Ewelina Reynolds INNER DIAMETER GRINDER TOOL, LIBRARY CIRCULATION ASSISTANT Unavailable Sandra Duron MD Primary Care Provider + [phone] Chuck Lee MD Unavailable Javier Yost PAC Primary Care Provider + [phone] Rafa Ortega MD Unavailable Reason for Visit * Reason Comments Medication Refill Encounter Details Date Type Department Care Team (Late st Contact Info) Description 12/03/2020 Refill [facility] - Primary Care - [place] [address] [place] [address] Ailyn Cruz MD [address] [place] [address] Medication Refill Social History Tobacco [...] Dept 10/26/20 Office Visit Ailyn Cruz MD [facility] [address] 08/21/20 Office Visit Ailyn Cruz MD [facility] Showing recent visits within past 182 days and meeting all other requirements Future Appointments Date Type Provider Dept 02/22/21 Appointment Ailyn Cruz MD [facility] Showing future appointments within next 90 [...] Acute sinusitis, recurrence not specified, unspecified location [facility] Ailyn Cruz MD 3 months ago Type 2 diabetes mellitus without complication, without long-term current use of insulin ([facility]) [facility] Ailyn Cruz MD 9 months ago Physical exam, annual (Adult) [facility] Ailyn Cruz MD 1 year ago Type 2 diabetes mellitus without complication, without long-term current use of insulin ([facility]) [facility] Ailyn Cruz MD 1 year ago Depression, unspecified depression type [facility] Ailyn Cruz MD Upcoming Appointments Future Appointments In 2 months Ailyn Cruz MD [facility] RN COMPLIANCE - Recent and Past Visits Recent Visits Date Type Provider Dept 10/26/20 Office Visit Ailyn Cruz MD [facility] 08/21/20 Office Visit Ailyn Cruz MD [facility] 02/21/20 Office Visit Ailyn Cruz MD [facility] 11/16/19 Office Visit Ailyn Cruz MD [facility] Showing recent visits within past 460 days with a meds authorizing provider and meeting all other requirements Future Appointments Date Type Provider Dept 02/22/21 Appointment Ailyn Cruz MD [facility] Showing future appointments within next 90 days with a meds authorizing provider and meeting all other requirements documented in this encounter Plan of Treatment Upcoming Encounters Date Type Department Care Team (Late st Contact Info) Description 01/14/2025 9:30 AM CDT Office Visit [facility] - Primary Care - [place] [address] [place] [address] Javier Yost PAC [address] [place] [address] 04/05/2025 1:15 PM CARGO TANK MECHANIC [facility] [address] [place] [address] Chuck Lee MD [address] [place] [address] documented as of this encounter Visit Diagnoses Diagnosis Depression, unspecified depression type Arthralgia, unspecified joint documented in this encounter Additional Health Concerns Infection Onset Date Last Indicated Resolved Time Influenza 08/23/2021 08/23/2021 08/30/2021 12:1 6 AM CDT COVID - 19 06/23/2023 06/23/2023 06/23/2023 5:22 PM CARGO TANK MECHANIC Respiratory Rule-Out 06/23/2023 06/23/2023 024 5:23 PM CARGO TANK MECHANIC COVID - 19 Confirmed 06/23/2023 06/23/2023 024 12:16 AM CARGO TANK MECHANIC COVID - 19 01/25/2024 01/25/2024 01/25/2024 12:0 2 PM CDT Assessment Noted Time PHQ-9 Depression Total Score: 0 02/21/20 20 10:00 AM CDT documented as of this encounter Care Teams Daycare Assistant Relationship Specialty Start Date End Date Ailyn Cruz MD PCP - General Family Medicine 03/11/15 07/09/22 Sandra Duron MD [address] [place] [address] PCP - General Family Medicine 07/10/22 07/09/23 Javier Yost, PAC [address] [place] [address] PCP - General Physician Director Patient 07/10/23 Jose Schwartz DPM Podiatry 07/18/15 Diana Gonzalez, INNER DIAMETER GRINDER TOOL, LIBRARY CIRCULATION ASSISTANT Nurse Practitioner Advanced Practice Nurse 12/21/15 Ewelina Reynolds, INNER DIAMETER GRINDER TOOL, LIBRARY CIRCULATION ASSISTANT Nurse Practitioner Advanced Practice Nurse 04/16/16 Chuck Lee MD [address] [place] [address] Consulting Physician Pulmonary Disease 03/04/22 Rafa Ortega MD [address] [address] Consulting Physician Colon and Rectal Surgery 10/08/24 documented as of this encounter
--- OUTSIDE RECORDS SUMMARY | 2024-12-24 02:25 | XMS_ITS | Encounter Summary ---
Author Organization [facility] Address [address] [place] [address] Phone Care Team Providers Care International Trade Manager Name Role Phone Ailyn Cruz MD Primary Care Provider + [phone] Jose Schwartz DPM Unavailable [phone] Diana Gonzalez ROLL BUCKER, RESEARCH MICROBIOLOGIST Unavailable [phone] Ewelina Reynolds ROLL BUCKER, RESEARCH MICROBIOLOGIST Unavailable Sandra Duron MD Primary Care Provider + [phone] Chuck Lee MD Unavailable Javier Yost PAC Primary Care Provider + [phone] Rafa Ortega MD Unavailable Reason for Visit * Reason Comments Medication Refill Encounter Details Date Type Department Care Team (Late st Contact Info) Description 08/26/2021 Refill [facility] - [place] Care - [place] [address] [place] [address] Ailyn Cruz MD [address] [place] [address] Medication Refill Social History Tobacco [...] 08/23/21 Office Visit Natalya Maguire APRN, CNP [facility] [email or web address] [facility] 05/29/21 Office Visit Natalya Maguire APRN, CNP [facility] [email or web address] [facility] Showing recent visits within past 182 days and meeting all other requirements Future Appointments Date Type Provider Dept 09/28/21 Appointment Ailyn Cruz MD [facility] [email or web address] [facility] Showing future appointments within next 90 days and meeting all other requirements Passed - Patient has established therapy with SSRI for at least 6 months documented in this encounter Plan of Treatment Upcoming Encounters Date Type Department Care Team (Late st Contact Info) Description 01/14/2025 9:30 AM CDT Office Visit [facility] - Primary Care - [place] [address] [place] [address] Javier Yost PAC [address] [place] [address] 04/05/2025 1:15 PM TRANSPORT CONDUCTOR Office Visit [facility] - Pulmonology & Sleep Medicine [facility] [address] [place] [address] Chuck Lee MD [address] [place] [address] documented as of this encounter Visit Diagnoses Diagnosis Depression, unspecified depression type documented in this encounter Additional Health Concerns Infection Onset Date Last Indicated Resolved Time Influenza 08/23/2021 08/23/2021 08/30/2021 12:1 6 AM CDT COVID - 19 06/23/2023 06/23/2023 06/23/2023 5:22 PM TRANSPORT CONDUCTOR Respiratory Rule-Out 06/23/2023 06/23/2023 024 5:23 PM TRANSPORT CONDUCTOR COVID - 19 Confirmed 06/23/2023 06/23/2023 024 12:16 AM TRANSPORT CONDUCTOR COVID - 19 01/25/2024 01/25/2024 01/25/2024 12:0 2 PM CDT Assessment Noted Time PHQ-9 Depression Total Score: 0 02/21/20 20 10:00 AM CDT documented as of this encounter Care Teams International Trade Manager Relationship Specialty Start Date End Date Ailyn Cruz MD PCP - General Family Medicine 03/11/15 07/09/22 Sandra Duron MD [address] [place], [place] [phone] PCP - General Family Medicine 07/10/22 07/09/23 Javier Yost, PAC [address] [place] [address] PCP - General Physician Pet Resort Concierge 07/10/23 Jose Schwartz DPM Podiatry 07/18/15 Diana Gonzalez, ROLL BUCKER, RESEARCH MICROBIOLOGIST Nurse Practitioner Advanced Practice Nurse 12/21/15 Ewelina Reynolds, ROLL BUCKER, RESEARCH MICROBIOLOGIST Nurse Practitioner Advanced Practice Nurse 04/16/16 Chuck Lee MD [address] [place] [address] Consulting Physician Pulmonary Disease 03/04/22 Rafa Ortega MD [address] [address] Consulting Physician Colon and Rectal Surgery 10/08/24 documented as of this encounter
--- OUTSIDE RECORDS SUMMARY | 2024-12-24 02:25 | XMS_ITS | Clinical Summary ---
Author Organization [facility] [employer] Address [address] [facility] [place] [address] Care Team Providers Care Wafer Abrading Machine Tender Name Role Phone Shady Rust MD Unavailable Fareed John MD Unavailable [phone] Javier Yost Primary Care Provider [phone] Source Comments [facility],non-owned Affiliates and Associated Physician Practices is amultiple site organization consisting of ambulatory clinics and hospital sitesin [place], [place], [place] and [place]. This disclosure is being madepursuant to the Care Everywhere program and may not contain all information available regarding this patient. Last updated 18.[facility] [employer] Allergies Active Allergy Reactions Criticality Noted Date [...] Active vitamin D, ergocalciferol, (Drisdol) 1.25 MG (62460 UT) capsuleIndicatio ns:Medication monitoring encounter,Polyar thralgia,Vitamin D deficiency,[place] nirmala antinuclear antibody (BRENDA) level Take 1 [...] Department Care Team Description 10/08/2024 Results Follow-Up [facility] - Rheumatology [address] [place] [address] Shady Rust MD from Last 3 Months Immunizations Immunization Administration Dates Next Due INFLUENZA VACCINE, TRIV. (AF LURIA, FLUZONE TRIVALENT; 6MO+) (IIV3) 02/18/2020,02/27/2018,02/24/2016,2014,02/23/2014 Covid [employer] primary monoval ent 12+ yr 0.3mL Purple [...] 36.5 C (97.7 F) 07/10/2021 10:31 AM DAYCARE ASSISTANT Respiratory Rate 18 04/07/2024 9:50 AM DAYCARE ASSISTANT Oxygen Saturation 95% 04/07/2024 9:50 AM DAYCARE ASSISTANT Inhaled Oxygen Concentration - - Weight 107.1 kg (236 lb 3.2 oz) 025 10:15 AM CDT Height 175.3 cm (5' 9) 09/16/2024 10:1 5 AM CDT Body Mass Index 34.88 09/16/2024 10:15 AM CDT Plan of Treatment Upcoming Encounters Date Type Department Care Team (Late st Contact Info) Description 02/17/2025 10:15 AM CDT Office Visit [facility] - Rheumatology [address] [address] [place] [address] [place] [address] Health Maintenance Due Date Last [...] URINE RANDOM PNL Routine 04/07/2024 11:07 AM DAYCARE ASSISTANT Polyarthralgia Osteoarthritis of multiple joints, unspecified osteoarthritis type NSAID long-term use History of connective tissue disease COMPREHENSIVE METABOLIC PANEL Routine 04/07/2024 11:07 AM DAYCARE ASSISTANT Polyarthralgia Osteoarthritis of multiple joints, unspecified osteoarthritis [...] (ABNORMAL) COMPREHENSIVE METABOLIC PANEL (04/07/2024 11:07 AM DAYCARE ASSISTANT) Glucose 93 70 - 99 mg/dL [facility] [...] BLOOD SPECIMEN / Unknown 04/07/2024 11:07 AM DAYCARE ASSISTANT 04/07/2024 Narrative [facility] ACCOUNT BILL - 04/08/2024 7:12 AM DAYCARE ASSISTANT Performed at: - [facility] [id number] Internet Salesperson: Ozzy Benz PhD, Phone: [phone] us Shady Rust MD LAB - CHEMISTRY ORDERABLES Final Result Performing Organization Address City/[facility]/ZIP Co de Phone Number [facility] ACCOUNT BILL [address] [place] [address] * (ABNORMAL) PROTEIN CREATININE RATIO URINE RANDOM PNL (04/07/2024 11:07 AM DAYCARE ASSISTANT) Creatinine Urine 89.8 Not Estab. mg/dL [facility] ACCOUNT BILL Protein Urine 22.1 Not Estab. mg/dL [facility] ACCOUNT BILL Protein/Creatin ine Ratio 246(H) 0 - 200 mg/g creat [facility] ACCOUNT BILL Urine URINE SPECIMEN OBTAINED BY CLEAN CATCH PROCEDURE / Unknown 04/07/2024 11:07 AM DAYCARE ASSISTANT 04/07/2024 Narrative [facility] ACCOUNT BILL - 04/08/2024 8:21 AM DAYCARE ASSISTANT Performed at: - [facility] [id number] Internet Salesperson: Ozzy Benz PhD, Phone: [phone] us Shady Rust MD LAB - URINE CHEMISTRY ORDERABLES Final Result Performing Organization Address City/[facility]/ZIP Co de Phone Number [facility] ACCOUNT BILL [address] [place] [address] * MAMMOGRAM (08/13/2023) Anatomical Region Laterality Modality Other 08/13/2023 Narrative 08/13/2023 Ordered by an unspecified provider. us Scanned Document SCANNING ONLY Final Result from Last 3 Months or Most Recently Relevant to Health Maintenance Insurance [facility] MANAGED MEDICARE ADV Care Teams Wafer Abrading Machine Tender Relationship Specialty Start Date End Date Javier Yost [address] [place] [address] PCP - General 10/01/23 [place] [address] [place] [address] Adzing And Boring Machine Helper Rheumatology 04/07/19 [place] [address] [place] [address] Orthopedic Surgery 09/24/22
--- OUTSIDE RECORDS SUMMARY | 2024-12-24 02:25 | XMS_ITS | Encounter Summary ---
Author Organization [facility] Address [address] [facility] [place] [address] Care Team Providers Care Web Solutions Architect Name Role Phone Shady Rust MD Unavailable [...] Ailyn Cruz MD Primary Care Provider [phone] Dorian Patel MD Primary Care Provider + [phone] Sandra Duron MD Primary Care Provider + [phone] Fareed John MD Unavailable [phone] Javier Yost Primary Care Provider [phone] Encounter Details Date Type Department Care Team (Late st Contact Info) Description 04/09/2019 [facility] Outpatient Visit [facility] [address] [place] [address] [place] [address] [facility] [address] [place] [address] Social History Tobacco Use Types [...] Description 02/17/2025 10:15 AM CDT Office Visit [facility] - Rheumatology [address] [facility] [address] [place] [address] [place] [address] [facility] [address] [place] [address] documented as of this encounter Visit Diagnoses Not on filedocumented in this encounter Care Teams Web Solutions Architect Relationship Specialty [place] [address] [facility] [address] [place] [address] PCP - General Family Medicine 04/07/19 04/25/19 Dorian Patel MD [address] [place] [phone] PCP - General 04/26/19 08/22/19 Dorian Patel MD [address] [place] [address] PCP - General 08/23/19 11/15/19 Ailyn Cruz MD [address] [place] [address] PCP - General Family Medicine 11/16/19 11/21/19 Ailyn Cruz MD [address] [place] [address] PCP - General Family Medicine 02/22/20 02/22/20 Ailyn Cruz MD [address] [place] [address] PCP - General Family Medicine 05/23/20 06/22/20 Dorian Patel MD [address] [place] [address] PCP - General 06/23/20 09/18/20 Ailyn Cruz MD [address] [place] [address] PCP - General Family Medicine 09/19/20 10/16/20 Dorian Patel MD [address] [place] [address] PCP - General 10/17/20 03/19/21 Ailyn Cruz MD [address] [place] [address] PCP - General Family Medicine 03/20/21 04/03/21 Dorian Patel MD [address] [place] [address] PCP - General 04/04/21 07/09/21 Ailyn Cruz MD [address] [place] [address] PCP - General Family Medicine 07/10/21 08/14/21 Dorian Patel MD [address] [place] [address] PCP - General 08/15/21 01/07/22 Ailyn Cruz MD [address] [place] [address] PCP - General Family Medicine 01/08/22 01/22/22 Dorian Patel MD [address] [place] [address] PCP - General 01/23/22 07/10/22 Sandra Duron MD [address] [place] [address] PCP - General Family Medicine 07/11/22 09/30/23 Javier Yost [address] [place] [address] PCP - General 10/01/23 [place] [address] [place] [address] Archives Specialist Rheumatology 04/07/19 Fareed John MD [address] [place] [address] Orthopedic Surgery 09/24/22 documented as of this encounter
--- OUTSIDE RECORDS SUMMARY | 2024-12-24 02:25 | XMS_ITS | Encounter Summary ---
Author Organization [facility] Address [address] [place] [address] Phone Care Team Providers Care Multi Needle Machine Operator Name Role Phone Ailyn Cruz MD Primary Care Provider + [phone] Jose Schwartz DPM Unavailable [phone] Diana Gonzalez WASHROOM OPERATOR, SHOE FOLDER Unavailable [phone] Ewelina Reynolds WASHROOM OPERATOR, SHOE FOLDER Unavailable Sandra Duron MD Primary Care Provider + [phone] Chuck Lee MD Unavailable Javier Yost PAC Primary Care Provider + [phone] Rafa Ortega MD Unavailable Reason for Visit * Reason Comments Medication Refill Encounter Details Date Type Department Care Team (Late st Contact Info) Description 12/03/2021 Refill [facility] - Primary Care - [place] [address] [place] [address] Ailyn Cruz MD [address] [place] [address] Medication Refill Social History Tobacco [...] Cruz MD [facility] [employer] [facility] 08/23/21 Office Visit Natalya Maguire APRN, CNP [facility] [address] 05/29/21 Office Visit Natalya Maguire APRN, CNP [facility] [address] 02/22/21 Office Visit Ailyn Cruz MD [facility] Showing recent visits within past 365 days and meeting all other requirements Future Appointments No visits were found meeting these conditions. Showing future appointments within next 90 days and meeting all other requirements documented in this encounter Plan of Treatment Upcoming Encounters Date Type Department Care Team (Late st Contact Info) Description 01/14/2025 9:30 AM CDT Office Visit [facility] - Primary Care - [place] [address] [place] [address] Javier Yost PAC [address] [place] [address] 04/05/2025 1:15 PM PLASTIC TOOL MAKER Office Visit [facility] - Pulmonology & Sleep Medicine - [place] [address] [place] [address] Chuck Lee MD [address] [place] [address] documented as of this encounter Visit Diagnoses Not on filedocumented in this encounter Additional Health Concerns Infection Onset Date Last Indicated Resolved Time COVID - 19 06/23/2023 06/23/2023 06/23/2023 5:22 PM PLASTIC TOOL MAKER Respiratory Rule-Out 06/23/2023 06/23/2023 024 5:23 PM PLASTIC TOOL MAKER COVID - 19 Confirmed 06/23/2023 06/23/2023 024 12:16 AM PLASTIC TOOL MAKER COVID - 19 01/25/2024 01/25/2024 01/25/2024 12:0 2 PM CDT Assessment Noted Time PHQ-9 Depression Total Score: 0 02/21/20 20 10:00 AM CDT documented as of this encounter Care Teams Multi Needle Machine Operator Relationship Specialty Start Date End Date Ailyn Cruz MD PCP - General Family Medicine 03/11/15 07/09/22 Sandra Duron MD [address] [place] [address] PCP - General Family Medicine 07/10/22 07/09/23 Javier Yost, PAC [address] [place] [address] PCP - General Physician Crop Or Grain Farmer 07/10/23 Jose Schwartz DPM Podiatry 07/18/15 Diana Gonzalez, WASHROOM OPERATOR, SHOE FOLDER Nurse Practitioner Advanced Practice Nurse 12/21/15 Ewelina Reynolds, LUKE, SHOE FOLDER Nurse Practitioner Advanced Practice Nurse 04/16/16 Chuck Lee MD [address] [place] [address] Consulting Physician Pulmonary Disease 03/04/22 Rafa Ortega MD [address] [address] Consulting Physician Colon and Rectal Surgery 10/08/24 documented as of this encounter
--- OUTSIDE RECORDS SUMMARY | 2024-12-24 02:25 | XMS_ITS | Encounter Summary ---
Author Organization [facility] Address [address] [place] [address] Phone Care Team Providers Care Adolescent Coordinator Name Role Phone Ailyn Cruz MD Primary Care Provider + [phone] Jose Schwartz DPM Unavailable [phone] Diana Gonzalez BUTTERMAKER HELPER, COUNTY EXTENSION AGENT Unavailable [phone] Ewelina Reynolds BUTTERMAKER HELPER, COUNTY EXTENSION AGENT Unavailable Sandra Duron MD Primary Care Provider + [phone] Chuck Lee MD Unavailable Javier Yost PAC Primary Care Provider + [phone] Rafa Ortega MD Unavailable Reason for Visit * Reason Comments Medication Refill Encounter Details Date Type Department Care Team (Late st Contact Info) Description 11/23/2020 Refill [facility] - Primary Care - [place] [address] [place] [address] Ailyn Cruz MD [address] [place] [address] Medication Refill Social History Tobacco [...] Dept 10/26/20 Office Visit Ailyn Cruz MD [facility] 08/21/20 Office Visit Ailyn Cruz MD [facility] Showing recent visits within past 182 days and meeting all other requirements Future Appointments Date Type Provider Dept 02/22/21 [address] [facility] Showing future appointments within next [...] Description 01/14/2025 9:30 AM CDT Office Visit [facility] - Primary Care - [place] [address] [place] [address] Javier Yost PAC [address] [place] [address] 04/05/2025 1:15 PM RESORT DESK CLERK Office Visit [facility] - Pulmonology & Sleep Medicine - [place] [address] [place] [address] Chuck Lee MD [address] [place] [address] documented as of this encounter Visit Diagnoses Diagnosis Type 2 diabetes mellitus without complication, without long-term current use of insulin documented in this encounter Additional Health Concerns Infection Onset Date Last Indicated Resolved Time Influenza 08/23/2021 08/23/2021 08/30/2021 12:1 6 AM CDT COVID - 19 06/23/2023 06/23/2023 06/23/2023 5:22 PM RESORT DESK CLERK Respiratory Rule-Out 06/23/2023 06/23/2023 024 5:23 PM RESORT DESK CLERK COVID - 19 Confirmed 06/23/2023 06/23/2023 024 12:16 AM RESORT DESK CLERK COVID - 19 01/25/2024 01/25/2024 01/25/2024 12:0 2 PM CDT Assessment Noted Time PHQ-9 Depression Total Score: 0 02/21/20 20 10:00 AM CDT documented as of this encounter Care Teams Adolescent Coordinator Relationship Specialty Start Date End Date Ailyn Cruz MD PCP - General Family Medicine 03/11/15 07/09/22 Sandra Duron MD [address] [place], [place] [phone] PCP - General Family Medicine 07/10/22 07/09/23 Javier Yost PAC [address] [place] [address] PCP - General Physician Electronics Repair Technician 07/10/23 Jose Schwartz DPM Podiatry 07/18/15 Diana Gonzalez, BUTTERMAKER HELPER, COUNTY EXTENSION AGENT Nurse Practitioner Advanced Practice Nurse 12/21/15 Ewelina Reynolds APRN, COUNTY EXTENSION AGENT Nurse Practitioner Advanced Practice Nurse 04/16/16 Chuck Lee MD [address] [place] [address] Consulting Physician Pulmonary Disease 03/04/22 Rafa Ortega MD [address] [address] Consulting Physician Colon and Rectal Surgery 10/08/24 documented as of this encounter
--- OUTSIDE RECORDS SUMMARY | 2024-12-24 02:25 | XMS_ITS | Encounter Summary ---
Author Organization [facility] Address [address] [place] [address] Phone Care Team Providers Care Channel Lip Stiffener Insoles Name Role Phone Ailyn Cruz MD Primary Care Provider + [phone] Jose Schwartz DPM Unavailable [phone] Diana Gonzalez BOOKKEEPING MANAGER, JIGGER MACHINE OPERATOR Unavailable [phone] Ewelina Reynolds BOOKKEEPING MANAGER, JIGGER MACHINE OPERATOR Unavailable Sandra Duron MD Primary Care Provider + [phone] Chuck Lee MD Unavailable Javier Yost PAC Primary Care Provider + [phone] Rafa Ortega MD Unavailable Reason for Visit * Reason Comments Medication Refill Encounter Details Date Type Department Care Team (Late st Contact Info) Description 07/10/2020 Refill [facility] - Primary Care - [place] [address] [place] [address] Ailyn Cruz MD [address] [place] [address] Medication Refill Social History Tobacco [...] Fatimah Lynch RN - 07/10/2020 11:51 AM MOVING CONSULTANT Medication approved and signed per standing order protocol. NG CONSULTANT documented in this encounter Plan of Treatment Upcoming Encounters Date Type Department Care Team (Late st Contact Info) Description 01/14/2025 9:30 AM CDT [facility] - Primary Care - [place] [address] [place] [address] Javier Yost PAC [address] [place] [address] 04/05/2025 1:15 PM MOVING CONSULTANT [facility] - Pulmonology & Sleep Medicine [facility] [address] [place] [address] Chuck Lee MD [address] [place] [address] documented as of this encounter Visit Diagnoses Diagnosis Type 2 diabetes mellitus without complication, without long-term current use of insulin Essential hypertension Unspecified essential hypertension documented in this encounter Additional Health Concerns Infection Onset Date Last Indicated Resolved Time Influenza 08/23/2021 08/23/2021 08/30/2021 12:1 6 AM CDT COVID - 19 06/23/2023 06/23/2023 06/23/2023 5:22 PM MOVING CONSULTANT Respiratory Rule-Out 06/23/2023 06/23/2023 024 5:23 PM MOVING CONSULTANT COVID - 19 Confirmed 06/23/2023 06/23/2023 024 12:16 AM MOVING CONSULTANT COVID - 19 01/25/2024 01/25/2024 01/25/2024 12:0 2 PM CDT Assessment Noted Time PHQ-9 Depression Total Score: 0 02/21/20 20 10:00 AM CDT documented as of this encounter Care Teams Channel Lip Stiffener Insoles Relationship Specialty Start Date End Date Ailyn Cruz MD PCP - General Family Medicine 03/11/15 07/09/22 Sandra Duron MD [address] [place], [place] [phone] PCP - General Family Medicine 07/10/22 07/09/23 Javier Yost, PAC [address] [place] [address] PCP - General Physician Combat Engineer 07/10/23 Jose Schwartz DPM Podiatry 07/18/15 Diana Gonzalez APRN, JIGGER MACHINE OPERATOR Nurse Practitioner Advanced Practice Nurse 12/21/15 Ewelina Reynolds APRN, JIGGER MACHINE OPERATOR Nurse Practitioner Advanced Practice Nurse 04/16/16 Chuck Lee MD [address] [facility] [place] [address] Consulting Physician Pulmonary Disease 03/04/22 Rafa Ortega MD [address] [address] Consulting Physician Colon and Rectal Surgery 10/08/24 documented as of this encounter
--- OUTSIDE RECORDS SUMMARY | 2024-12-24 02:25 | XMS_ITS | Encounter Summary ---
Author Organization [facility] Address [address] [place] [address] Phone Care Team Providers Care Land Degradation Analyst Name Role Phone Ailyn Cruz MD Primary Care Provider + [phone] Jose Schwartz DPM Unavailable [phone] Diana Gonzalez LOAN BROKER, SHOE PATTERNMAKER Unavailable [phone] Ewelina Reynolds LOAN BROKER, SHOE PATTERNMAKER Unavailable Sandra Duron MD Primary Care Provider + [phone] Chuck Lee MD Unavailable Javier Yost PAC Primary Care Provider + [phone] Rafa Orteag MD Unavailable Reason for Visit * Reason Comments Medication Refill Encounter Details Date Type Department Care Team (Late st Contact Info) Description 09/09/2021 Refill [facility] - Primary Care - [place] [address] [place] [address] Ailyn Cruz MD [address] [place] [address] Medication Refill Social History Tobacco [...] Miscellaneous Notes * Telephone Encounter - Kiera oCreas RN - 09/10/2021 10:47 AM CDT Medication [...] 08/23/21 Office Visit Natalya Maguire APRN, CNP [facility] [address] 05/29/21 Office Visit Natalya Maguire APRN, CNP [facility] [address] 02/22/21 Office Visit Ailyn Cruz MD [facility] 10/26/20 Office Visit Ailyn Cruz MD [facility] Showing recent visits within past 365 days and meeting all other requirements Future Appointments Date Type Provider Dept 09/28/21 Appointment Ailyn Cruz MD [facility] [address] Showing future appointments within next 90 days and meeting all other requirements documented in this encounter Plan of Treatment Upcoming Encounters Date Type Department Care Team (Late st Contact Info) Description 01/14/2025 9:30 AM CDT Office Visit [facility] - Primary Care - [place] [address] [place] [address] Javier Yost, NADIR [address] [place] [address] 04/05/2025 1:15 PM CHILD ADVOCATE Office Visit [facility] - Pulmonology & Sleep Medicine [facility] [address] [place] [address] Chuck Lee MD [address] [place] [address] documented as of this encounter Visit Diagnoses Diagnosis Arthralgia, unspecified joint documented in this encounter Additional Health Concerns Infection Onset Date Last Indicated Resolved Time COVID - 19 06/23/2023 06/23/2023 06/23/2023 5:22 PM CHILD ADVOCATE Respiratory Rule-Out 06/23/2023 06/23/2023 024 5:23 PM CHILD ADVOCATE COVID - 19 Confirmed 06/23/2023 06/23/2023 024 12:16 AM CHILD ADVOCATE COVID - 19 01/25/2024 01/25/2024 01/25/2024 12:0 2 PM CDT Assessment Noted Time PHQ-9 Depression Total Score: 0 02/21/20 20 10:00 AM CDT documented as of this encounter Care Teams Land Degradation Analyst Relationship Specialty Start Date End Date Ailyn Cruz MD PCP - General Family Medicine 10/17/15 2/14/23 Sandra Duron MD [address] [place], [place] [phone] PCP - General Family Medicine 07/10/22 07/09/23 Javier Yost, PAC [address] [place] [address] PCP - General Physician Powder Mixer 07/10/23 Jose Schwartz DPM Podiatry 07/18/15 Diana Gonzalez, LOAN BROKER, SHOE PATTERNMAKER Nurse Practitioner Advanced Practice Nurse 12/21/15 Ewelina Reynolds, LUKE, SHOE PATTERNMAKER Nurse Practitioner Advanced Practice Nurse 04/16/16 Chuck Lee MD [address] [place] [address] Consulting Physician Pulmonary Disease 03/04/22 Rafa Ortega MD [address] [address] Consulting Physician Colon and Rectal Surgery 10/08/24 documented as of this encounter
--- OUTSIDE RECORDS SUMMARY | 2024-12-24 02:25 | XMS_ITS | Encounter Summary ---
Author Organization [facility] Address [address] [place] [address] Phone Care Team Providers Care Watch And Clock Maker And Repairer Name Role Phone Ailyn Cruz MD Primary Care Provider + [phone] Jose Schwartz DPM Unavailable [phone] Diana Gonzalez INTERNATIONAL AFFAIRS VICE PRESIDENT, TOP CUTTER Unavailable [phone] Ewelina Reynolds INTERNATIONAL AFFAIRS VICE PRESIDENT, TOP CUTTER Unavailable Sandra Duron MD Primary Care Provider + [phone] Chuck Lee MD Unavailable Javier Yost PAC Primary Care Provider + [phone] Rafa Ortega MD Unavailable Reason for Visit * Reason Comments Medication Refill Encounter Details Date Type Department Care Team (Late st Contact Info) Description 01/21/[address] [facility] - Family [facility] [address] [place] [phone] Ailyn Cruz MD [address] [place] [address] Medication Refill Social History Tobacco Use Types [...] Dept 10/26/20 Office Visit Ailyn Cruz MD [facility] [address] 08/21/20 Office Visit Ailyn Cruz MD [facility] [address] 02/21/20 Office Visit Ailyn Cruz MD [facility] [address] [facility] Showing recent visits within past 365 days and meeting all other requirements Future Appointments Date Type Provider Dept 02/22/21 Appointment Ailyn Cruz MD [facility] [address] [facility] Showing future appointments within next 90 days and meeting all other requirements documented in this encounter Plan of Treatment Upcoming Encounters Date Type Department Care Team (Late st Contact Info) Description 01/14/2025 9:30 AM CDT Office Visit [facility] - Primary Care - [address] [place] [address] Javier Yost, PAC [address] [place] [address] 04/05/2025 1:15 PM GRAIN ELEVATOR OPERATOR [facility] [address] [place] [address] Chuck Lee MD [address] [place] [address] documented as of this encounter Visit Diagnoses Not on filedocumented in this encounter Additional Health Concerns Infection Onset Date Last Indicated Resolved Time Influenza 08/23/2021 08/23/2021 08/30/2021 12:1 6 AM CDT COVID - 19 06/23/2023 06/23/2023 06/23/2023 5:22 PM GRAIN ELEVATOR OPERATOR Respiratory Rule-Out 06/23/2023 06/23/2023 024 5:23 PM GRAIN ELEVATOR OPERATOR COVID - 19 Confirmed 06/23/2023 06/23/2023 024 12:16 AM GRAIN ELEVATOR OPERATOR COVID - 19 01/25/2024 01/25/2024 01/25/2024 12:0 2 PM CDT Assessment Noted Time PHQ-9 Depression Total Score: 0 02/21/20 20 10:00 AM CDT documented as of this encounter Care Teams Watch And Clock Maker And Repairer Relationship Specialty Start Date End Date Ailyn Cruz MD PCP - General Family Medicine 03/11/15 07/09/22 Sandra Duron MD [address] [place], [place] [id number] PCP - General Family Medicine 07/10/22 07/09/23 Javier Yost, PAC [address] [place] [address] PCP - General Physician Sieve Repairer 07/10/23 Jose Schwartz DPM Podiatry 07/18/15 Diana Gonzalez INTERNATIONAL AFFAIRS VICE PRESIDENT, TOP CUTTER Nurse Practitioner Advanced Practice Nurse 12/21/15 Ewelina Reynolds APRN, TOP CUTTER Nurse Practitioner Advanced Practice Nurse 04/16/16 Chuck Lee MD [address] [place] [address] Consulting Physician Pulmonary Disease 03/04/22 Rafa Ortega MD [address] [address] Consulting Physician Colon and Rectal Surgery 10/08/24 documented as of this encounter
--- OUTSIDE RECORDS SUMMARY | 2024-12-24 02:25 | XMS_ITS | Encounter Summary ---
Author Organization [facility] Address [address] [place] [address] Phone Care Team Providers Care Woodenware Assembler Name Role Phone Ailyn Cruz MD Primary Care Provider + [phone] Jose Schwartz DPM Unavailable [phone] Diana Gonzalez RELAY TELEGRAPHER, AUTOMATION ENGINEERING MANAGER Unavailable [phone] Ewelina Reynolds RELAY TELEGRAPHER, AUTOMATION ENGINEERING MANAGER Unavailable Sandra Duron MD Primary Care Provider + [phone] Chuck Lee MD Unavailable Javier Yost PAC Primary Care Provider + [phone] Rafa Ortega MD Unavailable Reason for Visit * Reason Comments Medication Refill Encounter Details Date Type Department Care Team (Late st Contact Info) Description 10/14/2021 Refill [facility] - Primary Care - [address] [place] [address] Ailyn Cruz MD [address] [place] [address] Medication Refill Social History Tobacco [...] AM CDT Office Visit [facility] - Primary Care - [place] [address] [place] [address] Javier Yost PAC [address] [place] [address] 04/05/2025 1:15 PM PUNCH FINISHER [facility] - [facility] [address] [place] [address] Chuck Lee MD [address] [place] [address] documented as of this encounter Visit Diagnoses Diagnosis Essential hypertension Unspecified essential hypertension Type 2 diabetes mellitus without complication, without long-term current use of insulin Hyperlipidemia, unspecified hyperlipidemia type documented in this encounter Additional Health Concerns Infection Onset Date Last Indicated Resolved Time COVID - 19 06/23/2023 06/23/2023 06/23/2023 5:22 PM PUNCH FINISHER Respiratory Rule-Out 06/23/2023 06/23/2023 024 5:23 PM PUNCH FINISHER COVID - 19 Confirmed 06/23/2023 06/23/2023 024 12:16 AM PUNCH FINISHER COVID - 19 01/25/2024 01/25/2024 01/25/2024 12:0 2 PM CDT Assessment Noted Time PHQ-9 Depression Total Score: 0 02/21/20 20 10:00 AM CDT documented as of this encounter Care Teams Woodenware Assembler Relationship Specialty Start Date End Date Ailyn Cruz MD PCP - General Family Medicine 03/11/15 07/09/22 Sandra Duron MD [address] [place] [address] PCP - General Family Medicine 07/10/22 07/09/23 Javier Yost, PAC [address] [place] [address] PCP - General Physician Pie Bottomer 07/10/23 Jose Schwartz DPM Podiatry 07/18/15 Diana Gonzalez APRN, AUTOMATION ENGINEERING MANAGER Nurse Practitioner Advanced Practice Nurse 12/21/15 Ewelina Reynolds APRN, AUTOMATION ENGINEERING MANAGER Nurse Practitioner Advanced Practice Nurse 04/16/16 Chuck Lee MD [address] [place] [address] Consulting Physician Pulmonary Disease 03/04/22 Rafa Ortega MD [address] [address] Consulting Physician Colon and Rectal Surgery 10/08/24 documented as of this encounter
--- OUTSIDE RECORDS SUMMARY | 2024-12-24 02:25 | XMS_ITS | Encounter Summary ---
Author Organization [facility] Address [address] [place] [address] Care Team Providers Care Student Affairs Dean Name Role Phone Shady Rust MD Unavailable [...] Ailyn Cruz MD Primary Care Provider [phone] Dorian Patel MD Primary Care Provider + [phone] Sandra Duron MD Primary Care Provider + [phone] Fareed John MD Unavailable [phone] Javier Yost Primary Care Provider [phone] Encounter Details Date Type Department Care Team (Late st Contact Info) Description 04/09/2019 [facility] Outpatient Visit [facility] [address] [place] [address] [place] [address] [facility] [address] [place] [address] Social History Tobacco Use Types [...] Description 02/17/2025 10:15 AM CDT Office Visit [facility] - Rheumatology [address] [facility] [address] [place] [address] [place] [address] [facility] [address] [place] [address] documented as of this encounter Visit Diagnoses Not on filedocumented in this encounter Care Teams Student Affairs Dean Relationship Specialty [place] [address] [facility] [address] [place] [address] PCP - General Family Medicine 04/07/19 04/25/19 Dorian Patel MD [address] [place] [phone] PCP - General 04/26/19 08/22/19 Dorian Patel MD [address] [place] [address] PCP - General 08/23/19 11/15/19 Ailyn Cruz MD [address] [place] [address] PCP - General Family Medicine 11/16/19 11/21/19 Ailyn Cruz MD [address] [place] [address] PCP - General Family Medicine 02/22/20 02/22/20 Ailyn Cruz MD [address] [place] [address] PCP - General Family Medicine 05/23/20 06/22/20 Dorian Patel MD [address] [place] [address] PCP - General 06/23/20 09/18/20 Ailyn Cruz MD [address] [place] [address] PCP - General Family Medicine 09/19/20 10/16/20 Dorian Patel MD [address] [place] [address] PCP - General 10/17/20 03/19/21 Ailyn Cruz MD [address] [place] [address] PCP - General Family Medicine 03/20/21 04/03/21 Dorian Patel MD [address] [place] [address] PCP - General 04/04/21 07/09/21 Ailyn Cruz MD [address] [place] [address] PCP - General Family Medicine 07/10/21 08/14/21 Dorian Patel MD [address] [place] [address] PCP - General 08/15/21 01/07/22 Ailyn Cruz MD [address] [place] [address] PCP - General Family Medicine 01/08/22 01/22/22 Dorian Patel MD [address] [place] [address] PCP - General 01/23/22 07/10/22 Sandra Duron MD [address] [place] [address] PCP - General Family Medicine 07/11/22 09/30/23 Javier Yost [address] [place] [address] PCP - General 10/01/23 [place] [address] [place] [address] Test Kitchen Home Economist Rheumatology 04/07/19 Fareed John MD [address] [place] [address] Orthopedic Surgery 09/24/22 documented as of this encounter
--- OUTSIDE RECORDS SUMMARY | 2024-12-24 02:25 | XMS_ITS | Encounter Summary ---
Author Organization [facility] Address [address] [address] Phone Care Team Providers Care Graphics Edit Technician Name Role Phone Ailyn Cruz MD Primary Care Provider + [phone] Jose Schwartz DPM Unavailable [phone] Diana Gonzalez BARBER SHOP MANAGER, HORTICULTURE INSTRUCTOR Unavailable [phone] Ewelina Reynolds BARBER SHOP MANAGER, HORTICULTURE INSTRUCTOR Unavailable Sandra Duron MD Primary Care Provider + [phone] Chuck Lee MD Unavailable Javier Yost PAC Primary Care Provider + [phone] Rafa Ortega MD Unavailable Reason for Visit * Reason Comments Medication Refill Encounter Details Date Type Department Care Team (Late st Contact Info) Description 07/04/2021 Refill [facility] - Primary Care - [address] [place] [address] Ailyn Cruz MD [address] [place] [address] Medication Refill Social History Tobacco [...] 05/29/21 Office Visit Natalya Maguire APRN, BRANDY [facility] [address] 02/22/21 Office Visit Ailyn Cruz MD [facility] [address] [facility] 10/26/20 Office Visit Ailyn Cruz MD [facility] [address] 08/21/20 Office Visit Ailyn Cruz MD [facility] Showing recent visits within past 365 days and meeting all other requirements Future Appointments Date Type Provider Dept 08/21/21 Appointment Ailyn Cruz MD [facility] [address] [facility] Showing future appointments within next 90 [...] Dept 05/29/21 Office Visit Natalya Maguire APRN, HORTICULTURE INSTRUCTOR [facility] [address] 02/22/21 Office Visit Ailyn Cruz MD [facility] [address] [facility] Showing recent visits within past 182 days and meeting all other requirements Future Appointments Date Type Provider Dept 08/21/21 Appointment Ailyn Cruz MD [facility] [address] [facility] Showing future appointments within next 90 days and meeting all other requirements Passed - HgA1C on record in past 6 months HGB-A1C Date Value Ref Range Status 02/10/2021 6.3 (H) 4.0 - 6.0 % Final Passed - GFR on record in past 6 months GFR, EST. NONAFRICAN Date Value Ref Range Status 03/21/2021 >60 >=60 Final NG TEACHER documented in this encounter Plan of Treatment Upcoming Encounters Date Type Department Care Team (Late st Contact Info) Description 01/14/2025 9:30 AM CDT Office Visit [facility] - Primary Care - [address] [place] [address] Javier Yost, NADIR [address] [place] [address] 04/05/2025 1:15 PM TYPING TEACHER [facility] [address] [place] [address] Chuck Lee MD [address] [place] [address] documented as of this encounter Visit Diagnoses Diagnosis Type 2 diabetes mellitus without complication, without long-term current use of insulin documented in this encounter Additional Health Concerns Infection Onset Date Last Indicated Resolved Time Influenza 08/23/2021 08/23/2021 08/30/2021 12:1 6 AM CDT COVID - 19 06/23/2023 06/23/2023 06/23/2023 5:22 PM TYPING TEACHER Respiratory Rule-Out 06/23/2023 06/23/2023 024 5:23 PM TYPING TEACHER COVID - 19 Confirmed 06/23/2023 06/23/2023 024 12:16 AM TYPING TEACHER COVID - 19 01/25/2024 01/25/2024 01/25/2024 12:0 2 PM CDT Assessment Noted Time PHQ-9 Depression Total Score: 0 02/21/20 20 10:00 AM CDT documented as of this encounter Care Teams Graphics Edit Technician Relationship Specialty Start Date End Date Ailyn Cruz MD PCP - General Family Medicine 03/11/15 07/09/22 Sandra Duron MD [address] [place] [address] PCP - General Family Medicine 07/10/22 07/09/23 Javier Yost PAC [address] [place] [address] PCP - General Physician Bonding Supervisor 07/10/23 Jose Schwartz DPM Podiatry 07/18/15 Diana Gonzalez, BARBER SHOP MANAGER, HORTICULTURE INSTRUCTOR Nurse Practitioner Advanced Practice Nurse 12/21/15 Ewelina Reynodls APRN, HORTICULTURE INSTRUCTOR Nurse Practitioner Advanced Practice Nurse 04/16/16 Chuck Lee MD [address] [place] [address] Consulting Physician Pulmonary Disease 03/04/22 Rafa Ortega MD [address] [address] Consulting Physician Colon and Rectal Surgery 10/08/24 documented as of this encounter
--- OUTSIDE RECORDS SUMMARY | 2024-12-24 02:25 | XMS_ITS | Encounter Summary ---
Author Organization [facility] Address [address] [place] [address] Phone Care Team Providers Care Director Of Neurology Name Role Phone Ailyn Cruz MD Primary Care Provider + [phone] Jose Schwartz DPM Unavailable [phone] Diana Gonzalez MACHINE INSTALLER, TAKE AWAY ATTENDANT Unavailable [phone] Eewlina Reynolds MACHINE INSTALLER, TAKE AWAY ATTENDANT Unavailable Sandra Duron MD Primary Care Provider + [phone] Chuck Lee MD Unavailable Javier Yost PAC Primary Care Provider + [phone] Rafa Ortega MD Unavailable Reason for Visit * Reason Comments Medication Refill Encounter Details Date Type Department Care Team (Late st Contact Info) Description 10/15/2020 Refill [facility] - Primary Care - [address] [place] [address] Ailyn Cruz MD [address] [place] [address] Medication Refill Social History Tobacco [...] Dept 08/21/20 Office Visit Ailyn Cruz MD [facility] [address] 02/21/20 Office Visit Ailyn Cruz MD [facility] [address] 11/16/19 Office Visit Ailyn Cruz MD [facility] Showing recent visits within past 365 [...] Dept 08/21/20 Office Visit Ailyn Cruz MD [facility] [address] [facility] Showing recent visits within past 182 days [...] Dept 08/21/20 Office Visit Ailyn Cruz MD [facility] Showing recent visits within past 182 [...] Dept 08/21/20 Office Visit [facility] 02/21/20 Office Visit Ailyn Cruz MD [facility] 11/16/19 Office Visit Ailyn Cruz MD [facility] Showing recent visits within past 365 [...] [facility] - Primary Care - [address] [place] [address] Javier Yost PAC [address] [place] [address] 04/05/2025 1:15 PM FRESCO ARTIST Office Visit [facility] - Pulmonology & Sleep Medicine [facility] [address] [place] [address] Chuck Lee MD [address] [place] [address] documented as of this encounter Visit Diagnoses Diagnosis Essential hypertension Unspecified essential hypertension Type 2 diabetes mellitus without complication, without long-term current use of insulin Hyperlipidemia, unspecified hyperlipidemia type documented in this encounter Additional Health Concerns Infection Onset Date Last Indicated Resolved Time Influenza 08/23/2021 08/23/2021 08/30/2021 12:1 6 AM CDT COVID - 19 06/23/2023 06/23/2023 06/23/2023 5:22 PM FRESCO ARTIST Respiratory Rule-Out 06/23/2023 06/23/2023 024 5:23 PM FRESCO ARTIST COVID - 19 Confirmed 06/23/2023 06/23/2023 024 12:16 AM FRESCO ARTIST COVID - 19 01/25/2024 01/25/2024 01/25/2024 12:0 2 PM CDT Assessment Noted Time PHQ-9 Depression Total Score: 0 02/21/20 20 10:00 AM CDT documented as of this encounter Care Teams Director Of Neurology Relationship Specialty Start Date End Date Ailyn Cruz MD PCP - General Family Medicine 03/11/15 07/09/22 Sandra Duron MD [address] [place], [place] [phone] PCP - General Family Medicine 07/10/22 07/09/23 Javier Yost PAC [address] [place] [address] PCP - General Physician Repair Welder 07/10/23 Jose Schwartz DPM Podiatry 07/18/15 Diana Gonzalez APRN, TAKE AWAY ATTENDANT Nurse Practitioner Advanced Practice Nurse 12/21/15 Ewelina Reynolds APRN, TAKE AWAY ATTENDANT Nurse Practitioner Advanced Practice Nurse 04/16/16 Chuck Lee MD [address] [place] [address] Consulting Physician Pulmonary Disease 03/04/22 Rafa Ortega MD [address] [address] Consulting Physician Colon and Rectal Surgery 10/08/24 documented as of this encounter
--- OUTSIDE RECORDS SUMMARY | 2024-12-24 02:25 | XMS_ITS | Encounter Summary ---
Author Organization [facility] Address [address] [place] [address] Phone Care Team Providers Care Hyperion Essbase Developer Name Role Phone Ailyn Cruz MD Primary Care Provider + [phone] Jose Schwartz DPM Unavailable [phone] Daina Gonzalez OLIVING MACHINE OPERATOR, TUBE BENDER HAND Unavailable [phone] Ewelina Reynolds OLIVING MACHINE OPERATOR, TUBE BENDER HAND Unavailable Sandra Duron MD Primary Care Provider + [phone] Chuck Lee MD Unavailable Javier Yost PAC Primary Care Provider + [phone] Rafa Ortega MD Unavailable Reason for Visit * Reason Comments Medication Refill Encounter Details Date Type Department Care Team (Late st Contact Info) Description 01/20/2021 Refill [facility] - Primary Care - [address] [place] [address] Ailyn Cruz MD [address] [place] [address] Medication Refill Social History Tobacco [...] AM CDT Office Visit [facility] - Primary Care - [address] [place] [address] Javier Yost PAC [address] [place] [address] 04/05/2025 1:15 PM PHYSICAL GEOGRAPHER [facility] [address] [place] [address] Chuck Lee MD [address] [place] [address] documented as of this encounter Visit Diagnoses Diagnosis Type 2 diabetes mellitus without complication, without long-term current use of insulin Essential hypertension Unspecified essential hypertension Hyperlipidemia, unspecified hyperlipidemia type documented in this encounter Additional Health Concerns Infection Onset Date Last Indicated Resolved Time Influenza 08/23/2021 08/23/2021 08/30/2021 12:1 6 AM CDT COVID - 19 06/23/2023 06/23/2023 06/23/2023 5:22 PM PHYSICAL GEOGRAPHER Respiratory Rule-Out 06/23/2023 06/23/2023 024 5:23 PM PHYSICAL GEOGRAPHER COVID - 19 Confirmed 06/23/2023 06/23/2023 024 12:16 AM PHYSICAL GEOGRAPHER COVID - 19 01/25/2024 01/25/2024 01/25/2024 12:0 2 PM CDT Assessment Noted Time PHQ-9 Depression Total Score: 0 02/21/20 20 10:00 AM CDT documented as of this encounter Care Teams Hyperion Essbase Developer Relationship Specialty Start Date End Date Ailyn Cruz MD PCP - General Family Medicine 03/11/15 07/09/22 Sandra Duron MD [address] [place], [place] [id number] PCP - General Family Medicine 07/10/22 07/09/23 Javier Yost, PAC [address] [place] [address] PCP - General Physician Program Writer 07/10/23 Jose Schwartz DPM Podiatry 07/18/15 Diana Gonzalez APRN, TUBE BENDER HAND Nurse Practitioner Advanced Practice Nurse 12/21/15 Ewelina Reynolds APRN, TUBE BENDER HAND Nurse Practitioner Advanced Practice Nurse 04/16/16 Chuck Lee MD [address] [facility] [place] [address] Consulting Physician Pulmonary Disease 03/04/22 Rafa Ortega MD [address] [address] Consulting Physician Colon and Rectal Surgery 10/08/24 documented as of this encounter
--- OUTSIDE RECORDS SUMMARY | 2024-12-24 02:25 | XMS_ITS | Encounter Summary ---
Author Organization [facility] Address [address] [place] [address] Phone Care Team Providers Care Inspector Process Name Role Phone Ailyn Cruz MD Primary Care Provider + [phone] Jose Schwartz DPM Unavailable [phone] Diana Gonzalez BYPRODUCTS SUPERVISOR, LOSS CLAIM CLERK Unavailable [phone] Ewelina Reynolds BYPRODUCTS SUPERVISOR, LOSS CLAIM CLERK Unavailable Sandra Duron MD Primary Care Provider + [phone] Chuck Lee MD Unavailable Javier Yost PAC Primary Care Provider + [phone] Rafa Ortega MD Unavailable Reason for Visit * Reason Comments Medication Refill Encounter Details Date Type Department Care Team (Late st Contact Info) Description 05/07/[address] [facility] - Primary Care - [address] [place] [address] Ailyn Cruz MD [address] [place] [address] Medication Refill Social History Tobacco [...] Notes * Telephone Encounter - Margot Harrell, [facility] - 05/08/2020 9:26 AM CST Medication failed [...] 2 months ago Physical exam, annual (Adult) [facility] Ailyn Cruz MD 5 months ago Type 2 diabetes mellitus without complication, without long-term current use of insulin (HCC) [facility] - Ailyn Bloom MD 1 year ago Depression, unspecified depression type [facility] Ailyn Bloom MD 1 year ago Type 2 diabetes mellitus without complication, without long-term current use of insulin (HCC) [facility] - Ailyn Bloom MD 1 year ago Physical exam, annual (Adult) [facility] Ailyn Bloom MD Upcoming Appointments Future Appointments In 3 months Ailyn Cruz MD [facility] - Recent and Past Visits Recent Visits Date Type Provider Dept 02/21/20 Office Visit Ailyn Cruz MD [facility] [address] 11/16/19 Office Visit Ailyn Cruz MD [facility] 04/16/19 Office Visit Ailyn Cruz MD [facility] 02/16/19 Office Visit Ailyn [facility] MD [facility] Showing recent visits within past 460 days with a meds authorizing provider and meeting all other requirements Future Appointments No visits were found meeting these conditions. Showing future appointments within next 90 days with a meds authorizing provider and meeting all other requirements Passed - Last BP in normal range BP Readings from Last 1 Encounters: 02/21/20 122/78 RTING SPECIALIST documented in this encounter Plan of Treatment Upcoming Encounters Date Type Department Care Team (Late st Contact Info) Description 01/14/2025 9:30 AM CDT Office Visit [facility] - Primary Care - [address] [place] [address] Javier Yost, NADIR [address] [place] [address] 04/05/2025 1:15 PM REPORTING SPECIALIST Office Visit [facility] - Pulmonology & Sleep Medicine [facility] [address] [place] [address] Chuck Lee MD [address] [place] [address] documented as of this encounter Visit Diagnoses Diagnosis Type 2 diabetes mellitus without complication, without long-term current use of insulin documented in this encounter Additional Health Concerns Infection Onset Date Last Indicated Resolved Time Influenza 08/23/2021 08/23/2021 08/30/2021 12:1 6 AM CDT COVID - 19 06/23/2023 06/23/2023 06/23/2023 5:22 PM REPORTING SPECIALIST Respiratory Rule-Out 06/23/2023 06/23/2023 024 5:23 PM REPORTING SPECIALIST COVID - 19 Confirmed 06/23/2023 06/23/2023 024 12:16 AM REPORTING SPECIALIST COVID - 19 01/25/2024 01/25/2024 01/25/2024 12:0 2 PM CDT Assessment Noted Time PHQ-9 Depression Total Score: 0 02/21/20 20 10:00 AM CDT documented as of this encounter Care Teams Inspector Process Relationship Specialty Start Date End Date Ailyn Cruz MD PCP - General Family Medicine 03/11/15 07/09/22 Sandra Duron MD [address] [place] [address] PCP - General Family Medicine 07/10/22 07/09/23 Javier Yost, PAC [address] [place] [id number] PCP - General Physician [employer] 07/10/23 Jose Schwartz DPM Podiatry 07/18/15 Diana Gonzalez, BYPRODUCTS SUPERVISOR, LOSS CLAIM CLERK Nurse Practitioner Advanced Practice Nurse 12/21/15 Ewelina Reynolds, BYPRODUCTS SUPERVISOR, LOSS CLAIM CLERK Nurse Practitioner Advanced Practice Nurse 04/16/16 Chuck Lee MD [address] [place] [address] Consulting Physician Pulmonary Disease 03/04/22 Rafa Ortega MD [address] [place] [address] Consulting Physician Colon and Rectal Surgery 10/08/24 documented as of this encounter
--- OUTSIDE RECORDS SUMMARY | 2024-12-24 02:25 | XMS_ITS | Encounter Summary ---
Author Organization [facility] Address [address] [place] [address] Phone Care Team Providers Care Development And Planning Engineer Name Role Phone Ailyn Cruz MD Primary Care Provider + [phone] Jose Schwartz DPM Unavailable [phone] Diana Gonzalez GUEST EXPERIENCE CAPTAIN, COMMUNICATIONS TECHNICIAN Unavailable [phone] Ewelina Reynolds GUEST EXPERIENCE CAPTAIN, COMMUNICATIONS TECHNICIAN Unavailable Sandra Duron MD Primary Care Provider + [phone] Chuck Lee MD Unavailable Javier Yost PAC Primary Care Provider + [phone] Rafa Ortega MD Unavailable Reason for Visit * Reason Comments Medication Refill Encounter Details Date Type Department Care Team (Late st Contact Info) Description 06/05/2020 Refill [facility] - Primary Care - [address] [place] [address] Ailyn Cruz MD [address] [place] [address] Medication Refill Social History Tobacco [...] Notes * Telephone Encounter - Margot Harrell, [facility] - 06/05/2020 2:34 PM CST Medication failed [...] 3 months ago Physical exam, annual (Adult) [facility] Ailyn Cruz MD 6 months ago Type 2 diabetes mellitus without complication, without long-term current use of insulin ([facility]) [facility] - Ailyn Bloom MD 1 year ago Depression, unspecified depression type [facility] Ailyn Bloom MD 1 year ago Type 2 diabetes mellitus without complication, without long-term current use of insulin (HCC) [facility] - Ailyn Bloom MD 1 year ago Physical exam, annual (Adult) [facility] - Ailyn Bloom MD Upcoming Appointments Future Appointments In 2 months Ailyn Cruz MD [facility] - Recent and Past Visits Recent Visits Date Type Provider Dept 02/21/20 Office Visit Ailyn Cruz MD [facility] 11/16/19 Office Visit Ailyn Cruz MD [facility] 04/16/19 Office Visit Ailyn Cruz MD [facility] Showing recent visits within past 460 days with a meds authorizing provider and meeting all other requirements Future Appointments Date Type Provider Dept 08/21/20 Appointment Ailyn Cruz MD [facility] Showing future appointments within next 90 days [...] 3 months ago Physical exam, annual (Adult) [facility] Ailyn Cruz MD 6 months ago Type 2 diabetes mellitus without complication, without long-term current use of insulin ([facility]) [facility] - Ailyn Bloom MD 1 year ago Depression, unspecified depression [facility] 1 year ago Type 2 diabetes mellitus without complication, without long-term current use of insulin ([facility]) [facility] - Ailyn Bloom MD 1 year ago Physical exam, annual (Adult) [facility] Upcoming Appointments Future Appointments In 2 months Ailyn Cruz MD [facility] - Recent and Past Visits Recent Visits Date Type Provider Dept 02/21/20 Office Visit Ailyn Cruz MD [facility] 11/16/19 Office Visit [facility] 04/16/19 [facility] Showing recent visits within past 460 days with a meds authorizing provider and meeting all other requirements Future Appointments Date Type Provider Dept 08/21/20 Appointment Ailyn Cruz MD [facility] [address] Showing future appointments within next 90 days with a meds authorizing provider and meeting all other requirements T SUPERVISOR RN documented in this encounter Plan of Treatment Upcoming Encounters Date Type Department Care Team (Late st Contact Info) Description 01/14/2025 9:30 AM CDT Office Visit [facility] - Primary Care - [place] [address] [place] [address] Javier Yost PAC [address] [place] [address] 04/05/2025 1:15 PM SHIFT SUPERVISOR RN Office Visit [facility] - Pulmonology & Sleep Medicine [facility] [address] [place] [address] Chuck Lee MD [address] [place] [phone] documented as of this encounter Visit Diagnoses Diagnosis Depression, unspecified depression type Arthralgia, unspecified joint documented in this encounter Additional Health Concerns Infection Onset Date Last Indicated Resolved Time Influenza 08/23/2021 08/23/2021 08/30/2021 12:1 6 AM CDT COVID - 19 06/23/2023 06/23/2023 06/23/2023 5:22 PM SHIFT SUPERVISOR RN Respiratory Rule-Out 06/23/2023 06/23/2023 024 5:23 PM SHIFT SUPERVISOR RN COVID - 19 Confirmed 06/23/2023 06/23/2023 024 12:16 AM SHIFT SUPERVISOR RN COVID - 19 01/25/2024 01/25/2024 01/25/2024 12:0 2 PM CDT Assessment Noted Time PHQ-9 Depression Total Score: 0 02/21/20 20 10:00 AM CDT documented as of this encounter Care Teams Development And Planning Engineer Relationship Specialty Start Date End Date Ailyn Cruz MD PCP - General Family Medicine 03/11/15 07/09/22 Sandra Duron MD [address] [place] [address] PCP - General Family Medicine 07/10/22 07/09/23 Javier Yost PAC [address] [place] [address] PCP - General Physician Motorsports Technician 07/10/23 Jose Schwartz DPM Podiatry 07/18/15 Diana Gonzalez, GUEST EXPERIENCE CAPTAIN, COMMUNICATIONS TECHNICIAN Nurse Practitioner Advanced Practice Nurse 12/21/15 Ewelina Reynolds, GUEST EXPERIENCE CAPTAIN, COMMUNICATIONS TECHNICIAN Nurse Practitioner Advanced Practice Nurse 04/16/16 Chuck Lee MD [address] [place] [address] Consulting Physician Pulmonary Disease 03/04/22 Rafa Ortega MD [address] [address] Consulting Physician Colon and Rectal Surgery 10/08/24 documented as of this encounter
--- OUTSIDE RECORDS SUMMARY | 2024-12-24 02:26 | XMS_ITS | Encounter Summary ---
Author Organization [facility] Address [address] [place] [address] Phone Care Team Providers Care Glass Pulverizer Equipment Operator Name Role Phone Ailyn Cruz MD Primary Care Provider + [phone] Jose Schwartz DPM Unavailable [phone] Diana Gonzalez MOUNTAIN SERVICES MANAGER, EAR NOSE AND THROAT SPECIALIST Unavailable [phone] Ewelina Reynolds MOUNTAIN SERVICES MANAGER, EAR NOSE AND THROAT SPECIALIST Unavailable Sandra Duron MD Primary Care Provider + [phone] Chuck Lee MD Unavailable Javier Yost PAC Primary Care Provider + [phone] Rafa Ortega MD Unavailable Reason for Visit * Reason Comments Medication Refill Encounter Details Date Type Department Care Team (Late st Contact Info) Description 01/11/2022 Refill [facility] - Primary Care - [address] [place] [address] Ailyn Cruz MD [address] [place] [address] Medication Refill Social [...] Dept 09/28/21 Office Visit Ailyn Cruz MD [facility] [address] 08/23/21 Office Visit Natalya Maguire APRN, CNP [facility] [address] 05/29/21 Office Visit Natalya Maguire APRN, BRANDY [facility] [address] 02/22/21 Office Visit Ailyn Cruz MD [facility] Showing recent visits within past 365 days and meeting all other requirements Future Appointments Date Type Provider Dept 04/01/22 Appointment [facility] Show[facility] future appointments within next 90 days and meeting all other requirements documented in this encounter Plan of Treatment Upcoming Encounters Date Type Department Care Team (Late st Contact Info) Description 01/14/2025 9:30 AM CDT Office Visit [facility] - Primary Care - [place] [address] [place] [address] Javier Yost PAC [address] [place] [address] 04/05/2025 1:15 PM ENTERTAINMENT MANAGER Office Visit [facility] - Pulmonology & Sleep Medicine [facility] [address] [place] [address] Chuck Lee MD [address] [place] [address] documented as of this encounter Visit Diagnoses Not on filedocumented in this encounter Additional Health Concerns Infection Onset Date Last Indicated Resolved Time COVID - 19 06/23/2023 06/23/2023 06/23/2023 5:22 PM ENTERTAINMENT MANAGER Respiratory Rule-Out 06/23/2023 06/23/2023 024 5:23 PM ENTERTAINMENT MANAGER COVID - 19 Confirmed 06/23/2023 06/23/2023 024 12:16 AM ENTERTAINMENT MANAGER COVID - 19 01/25/2024 01/25/2024 01/25/2024 12:0 2 PM CDT Assessment Noted Time PHQ-9 Depression Total Score: 0 02/21/20 20 10:00 AM CDT documented as of this encounter Care Teams Glass Pulverizer Equipment Operator Relationship Specialty Start Date End Date Ailyn Cruz MD PCP - General Family Medicine 10/17/15 2/14/23 Sandra Duron MD [address] [place], [place] [id number] PCP - General Family Medicine 07/10/22 07/09/23 Javier Yost, PAC [address] [place] [address] PCP - General Physician Development Geologist 07/10/23 Jose Schwartz DPM Podiatry 07/18/15 Diana Gonzalez, MOUNTAIN SERVICES MANAGER, EAR NOSE AND THROAT SPECIALIST Nurse Practitioner Advanced Practice Nurse 12/21/15 Ewelina Reynolds, LUKE, EAR NOSE AND THROAT SPECIALIST Nurse Practitioner Advanced Practice Nurse 04/16/16 Chuck Lee MD [address] [place] [address] Consulting Physician Pulmonary Disease 03/04/22 Rafa Ortega MD [address] [address] Consulting Physician Colon and Rectal Surgery 10/08/24 documented as of this encounter
--- OUTSIDE RECORDS SUMMARY | 2024-12-24 02:26 | XMS_ITS | Encounter Summary ---
Author Organization [facility] Address [address] [place] [address] Phone Care Team Providers Care Fountain Jerk Name Role Phone LanaJose DPM Unavailable [phone] Diana Gonzalez SKEINER, NURSE STAFF INDUSTRIAL Unavailable [phone] Ewelina Reynolds SKEINER, NURSE STAFF INDUSTRIAL Unavailable Chuck Lee MD Unavailable Javier Yost [facility] Primary Care Provider [phone] Rafa Ortega MD Unavailable Reason for Visit * Reason Comments Medication Refill Encounter Details Date Type Department Care Team (Late st Contact Info) Description 10/13/2023 Refill [facility] - Primary Care - [address] [place] [address] Sandra Duron MD [address] [place] [address] Medication Refill Social History Tobacco Use Types Packs/Day Years Used Date Smoking Tobacco: Never Smokeless Tobacco: Never Alcohol Use Standard Drinks/Week Comments Yes 0 (1 standard drink = 0.6 oz pur e alcohol) Very seldom [facility] Utilities Answer Date Recorded In the past 12 months has th e electric, gas, oil, or water [employer] threatened to shut off services in your [...] How often do you attend chur or restorationism services? Never 07/07/2023 Do you belong to any clubs o r organizations such as christianity groups, unions, fraternal or athletic groups, or [...] Total Score - Questions 1-9 0 06/26 [facility] - Occupational [...] place to sleep or slept in a intermediate (including now)? No 07/07/2023 Education Answer Date [...] Dept 07/29/23 Office Visit Yelena Rausch APRN, NURSE STAFF INDUSTRIAL [facility] 07/09/23 Office Visit Javier Yost, PAC [facility] 11/11/22 Office Visit Sandra Duron, [facility] Showing recent visits within past 365 days and meeting all other requirements Future Appointments Date Type Provider Dept 01/07/24 Appointment Javier Yots, NADIR [facility] Showing future appointments within next 90 [...] Dept 07/29/23 Office Visit Yelena Rausch APRN, NURSE STAFF INDUSTRIAL [facility] 07/09/23 Office Visit Javier Yost, NADIR [facility] 11/11/22 Office Visit Sandra Duron, [facility] Showing recent visits within past 365 days and meeting all other requirements Future Appointments Date Type Provider Dept 01/07/24 Appointment Javier Yost, NADIR [facility] Showing future appointments within next 90 days and meeting all other requirements documented in this encounter Plan of Treatment Upcoming Encounters Date Type Department Care Team (Late st Contact Info) Description 01/14/2025 9:30 AM CDT Office Visit [facility] - Primary Care - [place] [address] [place] [address] Javier Yost PAC [address] [place] [address] 04/05/2025 1:15 PM PLANNING MANAGEMENT IT SPECIALIST Office Visit [facility] - Pulmonology & Sleep Medicine [facility] [address] [place] [address] Chuck Lee MD [address] [place] [address] documented as of this encounter Visit Diagnoses Diagnosis Hyperlipidemia, unspecified hyperlipidemia type documented in this encounter Additional Health Concerns Infection Onset Date Last Indicated Resolved Time COVID - 19 01/25/2024 01/25/2024 01/25/2024 12:0 2 PM CDT Assessment Noted Time PHQ-9 Depression Total Score: 0 07/09/19 24 8:46 AM PLANNING MANAGEMENT IT SPECIALIST documented as of this encounter Care Teams Fountain Jerk Relationship Specialty Start Date End Date Javier Yost PAC [address] [place] [address] PCP - General Physician Supervisor Mails 07/10/23 Jose Schwartz DPM Podiatry 07/18/15 Diana Gonzalez, SKEINER, NURSE STAFF INDUSTRIAL Nurse Practitioner Advanced Practice Nurse 12/21/15 Ewelina Reynolds, SKEINER, NURSE STAFF INDUSTRIAL Nurse Practitioner Advanced Practice Nurse 04/16/16 Chuck Lee MD [address] [place] [address] Consulting Physician Pulmonary Disease 03/04/22 Rafa Ortega MD [address] [id number] Consulting Physician Colon and Rectal Surgery 10/08/24 documented as of this encounter
--- OUTSIDE RECORDS SUMMARY | 2024-12-24 02:26 | XMS_ITS | Encounter Summary ---
Author Organization [facility] Address [address] [place] [address] Phone Care Team Providers Care Ring Sorter Name Role Phone Ailyn Cruz MD Primary Care Provider + [phone] Jose Schwartz DPM Unavailable [phone] Diana Gonzalez TRADEMARK AFFIXER, SUGAR LABORATORY ASSISTANT Unavailable [phone] Ewelina Reynolds TRADEMARK AFFIXER, SUGAR LABORATORY ASSISTANT Unavailable Sandra Duron MD Primary Care Provider + [phone] Chuck Lee MD Unavailable Javier Yost PAC Primary Care Provider + [phone] Rafa Ortega MD Unavailable Reason for Visit * Reason Comments Medication Refill Encounter Details Date Type Department Care Team (Late st Contact Info) Description 03/18/2022 Refill [facility] - Primary Care - [address] [place] [address] Ailyn Cruz MD [address] [place] [address] Medication Refill Social History Tobacco [...] Dept 09/28/21 Office Visit Ailyn Cruz MD [facility] [employer] [facility] 08/23/21 Office Visit Natalya Maguire APRN, CNP [facility] [address] 05/29/21 Office Visit Natalya Maguire APRN, BRANDY [facility] [employer] [facility] Showing recent visits within past 365 days and meeting all other requirements Future Appointments Date Type Provider Dept 04/01/22 Appointment Ailyn Cruz MD [facility] Showing future appointments within next 90 days [...] Dept 09/28/21 Office Visit Ailyn Cruz MD [facility] [employer] [facility] 08/23/21 Office Visit Natalya Maguire APRN, CNP [facility] [employer] [facility] 05/29/21 Office Visit Natalya Maguire APRN, CNP [facility] Showing recent visits within past 365 days and meeting all other requirements Future Appointments Date Type Provider Dept 04/01/22 Appointment Ailyn Cruz MD [facility] [employer] [facility] Showing future appointments within next 90 days and meeting all other requirements Passed - GFR on record in past 12 months GFR, EST. NONAFRICAN Date Value Ref Range Status 09/24/2021 >60 >=60 Final documented in this encounter Plan of Treatment Upcoming Encounters Date Type Department Care Team (Late st Contact Info) Description 01/14/2025 9:30 AM CDT Office Visit [facility] - Primary Care - [address] [place] [address] Javier Yost, PAC [address] [place] [address] 04/05/2025 1:15 PM INFORMATICIST [facility] [address] [place] [address] Chuck Lee MD [address] [place] [address] documented as of this encounter Visit Diagnoses Diagnosis Arthralgia, unspecified joint documented in this encounter Additional Health Concerns Infection Onset Date Last Indicated Resolved Time COVID - 19 06/23/2023 06/23/2023 06/23/2023 5:22 PM INFORMATICIST Respiratory Rule-Out 06/23/2023 06/23/2023 024 5:23 PM INFORMATICIST COVID - 19 Confirmed 06/23/2023 06/23/2023 024 12:16 AM INFORMATICIST COVID - 19 01/25/2024 01/25/2024 01/25/2024 12:0 2 PM CDT Assessment Noted Time PHQ-9 Depression Total Score: 0 02/21/20 20 10:00 AM CDT documented as of this encounter Care Teams Ring Sorter Relationship Specialty Start Date End Date Ailyn Cruz MD PCP - General Family Medicine 03/11/15 07/09/22 Sandra Duron MD [address] [place] [address] PCP - General Family Medicine 07/10/22 07/09/23 Javier Yost PAC [address] [place] [address] PCP - General Physician Production Team Advisor 07/10/23 Jose Schwartz DPM Podiatry 07/18/15 Diana Gonzalez, TRADEMARK AFFIXER, SUGAR LABORATORY ASSISTANT Nurse Practitioner Advanced Practice Nurse 12/21/15 Ewelina Reynolds, LUKE, SUGAR LABORATORY ASSISTANT Nurse Practitioner Advanced Practice Nurse 04/16/16 Chuck Lee MD [address] [place] [address] Consulting Physician Pulmonary Disease 03/04/22 Rafa Ortega MD [address] [address] Consulting Physician Colon and Rectal Surgery 10/08/24 documented as of this encounter
--- OUTSIDE RECORDS SUMMARY | 2024-12-24 02:26 | XMS_ITS | Clinical Summary ---
Author Organization [facility] Address [address], [address] [address] Phone Care Team Providers Care Torts Law Professor Name Role Phone Jose Schwartz DPM Unavailable [phone] Diana Gonzalez TEST DEVELOPER, HOSTLER HELPER Unavailable [phone] Ewelina Reynolds TEST DEVELOPER, HOSTLER HELPER Unavailable Chuck Lee MD Unavailable Javier Yost [...] Type Department Care Team Description [facility] - [address] [place] [address] Javier Yost, PAC Medication Refill 12/18/2024 Refill [facility] [place] [address] [place] [phone] Javier Yost B, PAC Medication Refill 10/28/2024 Refill [facility] [place] [address] [place] [address] Javier Yost B, PAC Medication Refill 10/21/2024 Refill [facility] [place] [address] [facility] [place] [address] Javier Yost B, PAC Medication Refill (Sertraline) 10/16/2024 Refill [facility] [place] [address] [place] [phone] Javier Yost B, PAC Medication Refill 10/15/2024 Results Follow-Up [facility] Surgery - [facility] [address] [place] [phone] Rafa Ortega MD PATHOLOGY SURGICAL, PATHOLOGY SURGICAL 10/12/2024 1:00 PM CDT Office Visit [facility] - [facility] [address] [place] [address] Angelito Gao APRN, HOSTLER HELPER Rafa Ortega MD Skin lesion of right ear (Primary Dx); Pigmented skin lesion suspicious for malignant neoplasm Discharge Disposition: Discharged to home or Selfcare 10/10/2024 Travel 10/04/2024 10:15 AM CDT Office Visit [facility]monology & [facility] - [place] [address] [place] [phone] Chuck Lee MD MELIDA (obstructive sleep apnea) (Primary Dx); Primary hypertension; Non morbid obesity Discharge Disposition: Discharged to home or Selfcare 10/04/2024 Travel 09/27/2024 10:45 AM CDT Physical Therapy [facility] [address] [place] [address] Donn Gilman, Isacc Mahmood R, MECHANICAL TEST ENGINEER Calcific tendonitis of right foot (Primary Dx) Discharge Disposition: Discharged to home or Selfcare 09/27/2024 Travel 09/23/2024 7:00 AM CDT Physical Therapy [facility] at [facility] [address] [place] [address] Donn Gilman, Isacc Mahmood R, MECHANICAL TEST ENGINEER Calcific tendonitis of right foot (Primary Dx) Discharge Disposition: Discharged to home or Selfcare from Last 3 Months Immunizations Immunization Administration Dates Next Due Covid-19, Mrna, Lnp-s, Pf, 3 0 Mcg/0.3 Ml Dose (YourPOV.TV) 04/16/2021,06/03/2020,05/13/2020 Hepatitis A And Hepatitis B Vaccine [...] Valent 8 Pneumococcal conjugate PCV20 , polysaccharide [id number] conjugate, adjuvant, PF 04/01/2022 TD VACCINE 05/26/2007 [...] = 0.6 oz pur e alcohol) rarely [facility] Utilities Answer Date Recorded In the past 12 months has th [employer] electric, gas, oil, or water company threatened to shut off services in your home? No 07/07/2024 Social Connection and Isolation Panel Answer Date Recorded In a typical week, how many times do you talk on the phone with family, friends, or neighbors? More than three times a week 07/07/2024 How often do you get togethe r with friends or relatives? Once a week 07/07/2024 How often do you attend formerly [facility] or mandaeism services? Never 07/07/2024 Do you belong to any clubs o r organizations such as evangelical groups, unions, fraternal or athletic groups, or [...] Total Score - Questions 1-9 0 06/26 [place] of Occupat ional Health - Occupational Stress [...] a senior care (including now)? No 07/07/2023 Housing Stability Vital Sign Answer Yg e Recorded In the last 12 months, was t here a time when you were not able to pay the mortgage or rent on time? No 07/07/2024 In the past 12 months, how m any times have you moved where you were living? 0 07/07/2024 At any time in the past 12 m onths, were you homeless or living in a senior care (including now)? No 07/07/2024 Education Answer Date [...] Description 01/14/2025 9:30 AM CDT [facility] - [address] [place] [address] Javier Yost, PAC [address] [place] [address] 04/05/2025 1:15 PM ELECTROMEDICAL EQUIPMENT REPAIRER [facility] - [place] [address] [place] [address] Chuck Lee MD [address] [place] [phone] Health Maintenance Due Date Last Done Comments [...] this topic Medical Devices Implanted Type Area Player Piano Technician Device Identifier Shelf Expiration Date Model / Serial / Lot Attune Knee System Tibial Insert Fixed Bearing Medial Stabilized Implanted:Qty: 1 on 10/28/20[facility] Left: Knee [employer]Puy 03/25/2030 1518-20-607 / [id number] / [id number] Attune Knee System Tibial Base System Fixed Bearing Implanted:Qty: 1 on 10/28/2022 by [facility] Left: Knee [employer]uy 02/23/2032 1506-21-006 / [id number]--[id number] / [id number] Attune Femoral Porocoat Cruciate Retaining Implanted:Qty: 1 on 10/28/2022 by [facility] Left: Knee DePuy 08/24/2031 1504-01-106 / [id number] / [id number] Procedures Procedure Name Priority Date/Time Associated Diagnosis [...] W/ ESTIMATED GLUCOSE Routine 07/05/2024 12:52 PM ELECTROMEDICAL EQUIPMENT REPAIRER Type 2 diabetes mellitus without complication, without long-term current use of insulin (HCC) HM DILATED EYE EXAM 05/12/2024 1 2:00 AM ELECTROMEDICAL EQUIPMENT REPAIRER JOVANI BONE DENSITOMETRY AXIAL SKELETON Routine 08/13/2023 8:58 AM CDT Postmenopausal Undifferentiated connective tissue disease (HCC) Polyarthralgia Pain in unspecified joint JOVANI SCREENING BILATERAL DIGITAL W CAD W SOPHIA Routine 08/13/2023 8:49 AM CDT Visit for screening mammogram HEPATITIS PANEL ACUTE (AHP) Routine 07/09/2018 12:34 PM ELECTROMEDICAL EQUIPMENT REPAIRER Undifferentiated connective tissue disease (HCC) Family history of systemic lupus erythematosus Osteoarthritis of multiple joints, unspecified osteoarthritis type Long-term use of Plaquenil Thyroid disease HM COLONOSCOPY Routine 09/03/2013 from Last 3 Months or Most Recently Relevant to Health Maintenance Results * PATHOLOGY SURGICAL (10/12/2024 1:45 PM CDT) Only the most recent of2 resultswithin the time period is included. Case Report Surgical Pathology Report Case: [id number] Authorizing Provider: Rafa Ortega MD Collected: 10/12/2024 01:45 PM Ordering Location: [facility] - Received: 10/12/2024 01:45 PM General Surgery - [place] Pathologist: Yassine Ruiz MD PhD Specimens: A) - Ear, External B) - Arm 10/14/2024 9:00 AM CDT [facility] FINAL DIAG[facility] A. 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 Skin, left arm, excision: - Seborrheic keratosis and actinic keratosis - Negative for high-grade dysplasia or malignancy 10/14/2024 9:00 AM CDT [facility] at 0900 CDT Pre-Operative Diagnosis Excision of right external ear lesion, less than 1 cm - 10/14/2024 9:00 AM CDT [facility] Gross Description A. The [...] of fixation is 32 hours, 1 minute. MH/sb 10/14/2024 9:00 AM CDT [facility] Microscopic Description Microscopic examination was performed which supports the final diagnosis. All control tissues stained appropriately. 10/14/2024 9:00 AM CDT [facility] Other UPPER LIMB STRUCTURE / Unknown Non-Phlebotomy Collection / Unknown 10/12/2024 1:45 PM CDT 10/12/2024 1:45 PM CDT Specimen of unknown material (specimen) EXTERNAL EAR STRUCTURE / Unknown 10/12/2024 1:45 PM CDT 10/12/2024 1:45 PM CDT us Rafa Ortega MD PATHOLOGY/CYTOLOGY ORDERABLES Fi nal Result [facility] [address] [place] [address] * EXC SKIN BENIG 0.6-1CM FACE,FACIAL (10/12/2024 1:00 PM CDT) Narrative Rafa Ortega MD - 10/12/2024 1:00 PM CDT Rafa Ortega MD 10/12/2024 1:52 PM Pre-Op diagnosis: Lesion of the right ear and left arm Postop diagnosis: same Procedure: excision of left arm lesion 0.7 cm, excision of right ear skin lesion 0.7 cm. Surgeon: Rafa Ortega MD Dining Room Attendant: Barbie solomon ma Anesthesia: 3 cc 1% [...] lesion 0.7 cm. Surgeon: Rafa Ortega MD Dining Room Attendant: Barbie solomon ma Anesthesia: 3 cc 1% [...] - 12.00 10(3)/mcL 09/23/2024 4:28 PM CDT [facility] RBC 4.82 3.80 - 5.30 10(6)/mcL 09/23/2024 4:28 PM CDT [facility] HEMOGLOBIN (HGB) 12.9 12.0 - 15.8 g/dL 09/23/2024 4:28 PM CDT [facility] HEMATOCRIT (HCT) 40.2 36.0 - 47.0 % 09/23/2024 4:28 PM CDT [facility] MCV 83.4 82.0 - 96.0 fL 09/23/2024 4:28 PM CDT [facility] MCH 26.8 26.0 - 34.0 pg 09/23/2024 4:28 PM CDT [facility] MCHC 32.1 31.0 - 36.0 g/dL 09/23/2024 4:28 PM CDT [facility] PLATELET COUNT 277 140 - 440 10(3)/mcL 09/23/2024 4:28 PM CDT [facility] RDW 13.9 11.8 - 15.5 % 09/23/2024 4:28 PM CDT [facility] MPV 11.6 9.7 - 12.4 fL 09/23/2024 4:28 PM CDT [facility] NEUTROPHILS 62.0 47.0 - 73.0 % 09/23/2024 4:28 PM CDT [facility] LYMPHOCYTES 28.0 18.0 - 42.0 % 09/23/2024 4:28 PM CDT [facility] MONOCYTES 6.3 4.0 - 12.0 % 09/23/2024 4:28 PM CDT [facility] EOSINOPHILS 2.9 0.0 - 5.0 % 09/23/2024 4:28 PM CDT [facility] BASOPHILS 0.8 0.0 - 1.0 % 09/23/2024 4:28 PM CDT [facility] ABSOLUTE NEUTROPHILS 4.69 1.60 - 7.70 10(3)/[facility] 09/23/2024 4:28 PM CDT [facility] ABSOLUTE LYMPHOCYTES 2.12 1.30 - 3.20 10(3)/[facility] 09/23/2024 4:28 PM CDT [facility] ABSOLUTE MONOCYTES 0.48 0.20 - 1.00 10(3)/[facility] 09/23/2024 4:28 PM CDT [facility] ABSOLUTE EOSINOPHIL 0.22 0.00 - 0.40 10(3)/[facility] 09/23/2024 4:28 PM CDT [facility] ABSOLUTE BASOPHILS 0.06 0.00 - 0.10 10(3)/[facility] 09/23/2024 4:28 PM [facility] NRBC PER 100 WBC 0 09/24/19 4:28 PM [facility] Blood Venipuncture / Unknown 09/23/2024 3:59 PM CDT 09/23/2024 4:26 PM CDT us Shady Rust MD HEMATOLOGY ORDERABLES Fin al Result Performing Organization Address [facility] Co de Phone Number [facility] [address] [place] [address] * ERYTHROCYTE SEDIMENTATION RATE (ESR) (09/23/2024 3:59 PM CDT) ESR (SED RATE, ERYTHROCYTE SEDIMENTATION RATE) 10 <30 mm/h 09/23/2024 4:31 PM CDT [facility] Comment: Patients presenting with increased level of fibrinogen, gamma globulins, or abnormally shaped RBCs could affect the results for the erythrocyte sedimentation rate (ESR). Results should be clinically correlated. Blood Venipuncture / Unknown 09/23/2024 3:59 PM CDT 09/23/2024 4:26 PM CDT us Shady Rust MD HEMATOLOGY ORDERABLES Fin al Result Performing Organization Address [facility] de Phone Number [facility] [address] [place] [address] * (ABNORMAL) CMP (COMPREHENSIVE METABOLIC PANEL) (09/23/2024 3:59 PM CDT) SODIUM 144 136 - 145 mmol/L 09/23/2024 4:51 PM CDT [facility] POTASSIUM 3.8 3.5 - 5.1 mmol/L 09/23/2024 4:51 PM CDT [facility] CHLORIDE 109(H) 98 - 107 mmol/L 09/23/2024 4:51 PM CDT [facility] CO2, VENOUS 26 22 - 30 mmol/L 09/23/2024 4:51 PM CDT [facility] ANION GAP 12.8 <18.0 mmol/L 09/23/2024 4:51 PM CDT [facility] GLUCOSE 137(H) 70 - 99 mg/dL 09/23/2024 4:51 PM CDT [facility] BUN 22(H) 10 - 20 mg/dL 09/23/2024 4:51 PM CDT [facility] CREATININE, BLOOD 0.89 0.60 - 1.00 mg/dL 09/23/2024 4:51 PM T [facility] BUN/CREATININE RATIO 25(H) 12 - 20 ratio 09/23/2024 4:51 PM T [facility] TOTAL PROTEIN 7.5 6.0 - 8.0 g/dL 09/23/2024 4:51 PM CDT [facility] ALBUMIN 4.4 3.5 - 5.0 g/dL 09/23/2024 4:51 PM T [facility] A/G RATIO 1.4 1.0 - 2.2 09/23/2024 4:51 PM CDT [facility] CALCIUM 9.7 8.7 - 10.5 mg/dL 09/23/2024 4:51 PM CDT [facility] T BILI 0.3 0.2 - 1.2 mg/dL 09/23/2024 4:51 PM T [facility] SGOT (AST) 38 <43 U/L 09/23/2024 4:51 PM [facility] SGPT (ALT) 32 <56 U/L 09/23/2024 4:51 PM T [facility] ALKALINE PHOSPHATASE 80 40 - 150 U/L 09/23/2024 4:51 PM [facility] IS THE PATIENT REQUIRED TO BE FASTING? No 09/23/2024 4:51 PM T [facility] GFR, ESTIMATED >60 >=60 09/23/2024 4:51 PM [facility] Comment: Creatinine Clearance is the preferred criteria for selecting drug dose adjustments in renally impaired patients. The GFR is provided as additional pertinent clinical information. GFR is reported in mL/min/1.73 sq m. Calculation based on the Chronic Kidney Disease Epidemiology Collaboration (CKD- EPI) equation refit without adjustment for race. GFR, EST. >60 >=60 025 4:51 PM CDT [facility] GFR, EST. NONAFRICAN >60 >=60 09/23/2024 4:51 PM CDT [facility] Blood Venipuncture / Unknown 09/23/2024 3:59 PM CDT 09/23/2024 4:25 PM CDT Shady Rust MD CHEMISTRY ORDERABLES Iliana l Result [facility] [address] [place] [address] * C4 COMPLEMENT (09/23/2024 3:59 PM CDT) C4 COMPLEMENT 45 15 - 57 mg/dL 09/23/2024 10:59 PM CDT [facility] Blood Venipuncture / Unknown 09/23/2024 3:59 PM CDT 09/23/2024 4:25 PM CDT Shady Rust MD CHEMISTRY ORDERABLES Iliana l Result Performing Organization Address City/[facility]/ZIP Co de Phone Number [facility] [address] [place] [address], [place] * C3 COMPLEMENT GLOBULIN B-1C (09/23/2024 3:59 PM CDT) C3 COMPLEMENT 172 83 - 193 mg/dL 09/23/2024 10:59 PM CDT [facility] Blood Venipuncture / Unknown 09/23/2024 3:59 PM CDT 09/23/2024 4:25 PM CDT Shady Rust MD CHEMISTRY ORDERABLES Iliana l Result Performing Organization Address City/[facility]/ZIP Co de Phone Number [facility] [address] [place] [address], [place] * (ABNORMAL) C-REACTIVE PROTEIN (CRP) QUANT (09/23/2024 3:59 PM CDT) C-REACTIVE PROTEIN 1.30(H) <0.50 mg/dL 09/23/2024 4:51 PM CDT [facility] Blood Venipuncture / Unknown 09/23/2024 3:59 PM CDT 09/23/2024 4:25 PM CDT Shady Rust MD CHEMISTRY ORDERABLES Iliana l Result [facility] [address] [place] [address] * ANTI DOUBLE STRAND DNA (DS DNA) ANTIBODY (09/23/2024 3:59 PM CDT) DNA AB, DOUBLE STRAND 1 <5 IU/mL 09/24/2024 2:46 AM CDT [facility] Blood Venipuncture / Unknown 09/23/2024 3:59 PM CDT 09/23/2024 4:25 PM CDT Narrative [facility] - 09/24/2024 2:46 AM CDT <= 4 Negative 5-9 Indeterminate >= 10 Positive Antibody testing was performed by multiplex flow immunoassay on the Flavorvanil platform. Shady Rust MD IMMUNOLOGY ORDERABLES Fin al Result Performing Organization Address City/[facility]/ZIP Co de Phone Number [facility] [address] [place] [address], * HEMOGLOBIN A1C W/ ESTIMATED GLUCOSE (07/05/2024 12:52 PM ELECTROMEDICAL EQUIPMENT REPAIRER) HGB-A1C 5.8 4.0 - 6.0 % 07/05/2024 2:10 PM ELECTROMEDICAL EQUIPMENT REPAIRER [facility] Est Average Glucose 119.8 mg/dL 07/05/2024 2:10 PM ELECTROMEDICAL EQUIPMENT REPAIRER [facility] Blood Venipuncture / Unknown 07/05/2024 12:52 PM ELECTROMEDICAL EQUIPMENT REPAIRER 07/05/2024 1:30 PM ELECTROMEDICAL EQUIPMENT REPAIRER Narrative [facility] - 07/05/2024 2:10 PM ELECTROMEDICAL EQUIPMENT REPAIRER HEMOGLOBIN A1C: DIABETIC PATIENTS: WELL-CONTROLLED: 6.2 - 7.0 INTERMEDIATE WELL-CONTROLLED: 7.0 - 9.0 POORLY-CONTROLLED: >9.0 Specimens containing greater than 5% of Hemoglobin F may result in lower than expected % HbA1C results. us Javier Yost PAC CHEMISTRY ORDERABLES Final R esult Performing Organization Address City/[facility] Co de Phone Number [facility] [address] [place] [address] * HM DILATED EYE EXAM (05/12/2024 12:00 AM ELECTROMEDICAL EQUIPMENT REPAIRER) 05/12/2024 us Provider Scan PROCEDURE/MINOR SURGICAL ORDERAB LES Final Result Performing Organization Address [facility] de Phone Number SCAN * JOVANI BONE [...] Narrative 08/13/2023 9:18 AM CDT EXAM DESCRIPTION: [facility] BONE DENSITOMETRY AXIAL SKELETON REASON FOR STUDY: 68 y/o year old F with given history of: Postmenopausal, Undifferentiated connective tissue disease (HCC), Polyarthralgia. History of prior fracture and secondary osteoporosis. Patient takes vitamin-D and multivitamin. Player Piano Technician/Model: Kereos (S/N [id number]) CLINICAL INFORMATION: Current height: 69 inches Maximum [...] Thelma Cook M.D. TW: CB Report ID: [id number] Reading Location: [id number] Procedure Note Thelma Cook MD - 08/13/2023 EXAM DESCRIPTION: [facility] BONE DENSITOMETRY AXIAL SKELETON REASON FOR STUDY: 68 y/o year old F with given history of: Postmenopausal, Undifferentiated connective tissue disease (HCC), Polyarthralgia. History of prior fracture and secondary osteoporosis. Patient takes vitamin-D and multivitamin. Player Piano Technician/Model: Kereos (S/N [id number]) CLINICAL INFORMATION: Current height: 69 inches Maximum [...] Electronically signed by Thelma Cook M.D. TW: TW Report ID: [id number] Reading Location: [place] [address] IMPRESSION: Normal bone mass. REFERENCE: Bone mineral [...] to exams dated: 03/14/2021, 04/20/2019, and 01/19/2018 [facility]. BREAST TISSUE:There are scattered fibroglandular densities in [...] next screening exam. Electronically signed by: Riri whitley/levi:08/13/2023 12:55:25 Water Softener Servicer(s): RT Felix(R)(M), [facility] letter sent: Normal Exam Reading location: [place] [...] to exams dated: 03/14/2021, 04/20/2019, and 01/19/2018 [facility]. BREAST TISSUE:There are scattered fibroglandular densities in [...] next screening exam. Electronically signed by: Riri Dominique M.D. ll/penrad:08/13/2023 12:55:25 Water Softener Servicer(s): RT Felix(R)(M), [facility] letter sent: Normal Exam Reading location: [place] BI-RADS: 2 Benign us Sandra Duron MD IMG MAMMO ORDERABLES Final R esult * HEPATITIS PANEL ACUTE (AHP) (07/09/2018 12:34 PM ELECTROMEDICAL EQUIPMENT REPAIRER) HEPATITIS A IGM ANTIBODY NON DETECTED NON DETECTED 07/09/2018 10:37 PM ELECTROMEDICAL EQUIPMENT REPAIRER [facility] Comment: IGM Antibodies to HAV not detected. Does not exclude early acute or recovered HAV infection. HEP B CORE AB (IGM) NON DETECTED NON DETECTED 07/09/2018 10:37 PM ELECTROMEDICAL EQUIPMENT REPAIRER [facility] Comment: IGM anti-HBC not detected. Does not exclude the possibility of exposure to or infection with HBV. HEPATITIS B SURFACE ANTIGEN NON DETECTED NON DETECTED 07/09/2018 10:37 PM ELECTROMEDICAL EQUIPMENT REPAIRER [facility] Comment: A nonreactive test result does not [...] antibody 0.09 <1 S/CO 07/09/2018 10:37 PM ELECTROMEDICAL EQUIPMENT REPAIRER [facility] Comment: Signal/Cutoff ratio < 0.79 is Nondetected Signal/Cutoff ratio 0.80-0.99 is Grayzone Signal/Cutoff ratio > 0.99 is Detected Supplemental assays are recommended if signal/cutoff ratio is >/=1.00. Signal/cutoff ratio result >/= 5.00 is 97% predictive of positivity for recombinant immunoblot assay (RIBA) and will be reported to the [place] Department of Public Health as required. Blood specimen (specimen) Venipuncture / Unknown 07/09/2018 12:34 PM ELECTROMEDICAL EQUIPMENT REPAIRER 07/09/2018 2:03 PM ELECTROMEDICAL EQUIPMENT REPAIRER us Shady Rust MD HEMATOLOGY ORDERABLES Fin al Result Performing Organization Address City/State/[facility] Co de Phone Number [facility] [address] [place] [address], * COLONOSCOPY (09/03/2013) us Ailyn Cruz MD PROCEDURE/MINOR SURGICAL ORD ERABLES Final Result from Last 3 Months or Most Recently Relevant to Health Maintenance Insurance MEDICARE C [facility] [place] [address] Care Teams Torts Law Professor Relationship Specialty Start Date End Date Javier Yost, PAC [address] [place] [address] PCP - General Physician Dining Room Attendant 07/10/23 Jose Schwartz DPM Podiatry 07/18/15 Diana Gonzalez, TEST DEVELOPER, HOSTLER HELPER Nurse Practitioner Advanced Practice Nurse 12/21/15 Ewelina Reynolds, LUKE, HOSTLER HELPER Nurse Practitioner Advanced Practice Nurse 04/16/16 Chuck Lee MD [address] [place] [address] Consulting Physician Pulmonary Disease 03/04/22 Rafa Ortega MD [address] [id number] Consulting Physician Colon and Rectal Surgery 10/08/24
--- OUTSIDE RECORDS SUMMARY | 2024-12-24 02:26 | XMS_ITS | Encounter Summary ---
Author Organization [facility] Address [address] [place] [address] Phone Care Team Providers Care Food Taster Name Role Phone LanaJose DPM Unavailable [phone] Diana Gonzalez SOCIAL SERVICES DESIGNEE, DIRECTORY CLERK Unavailable [phone] Ewelina Reynolds SOCIAL SERVICES DESIGNEE, DIRECTORY CLERK Unavailable Sandra Duron MD Primary Care Provider + [phone] Chuck Lee MD Unavailable Javier Yost Primary Care Provider + [phone] Rafa Ortega MD Unavailable Encounter Details Date Type Department Care Team (Latest Contact Info) Description 06/03/2023 Transcribe Orders [facility] [address] [place] [phone] [place] [address] [address] [place] [phone] Diffuse disease of connective tissue (HCC) [...] Industry Job Start Date [facility] End Date [facility] Not on file Not on file Not on [facility] documented as of this encounter Plan of Treatment Upcoming Encounters Date Type Department Care Team (Late st Contact Info) Description 01/14/2025 9:30 AM CDT [facility] - Primary Care - [address] [place] [phone] Javier Yost PAC [address] [place] [address] 04/05/2025 1:15 PM HEAD OF MATHEMATICS [facility] - Pulmonology & Sleep Medicine [facility] #2 [place] [phone] Chuck Lee MD #2 [place] [address] documented as of this encounter Results * UR PROTEIN/CREATININE RATIO (07/09/2023 9:46 AM HEAD OF MATHEMATICS) UR PROTEIN RAND, QT 7.2 mg/dL 07/09/2023 11:39 AM HEAD OF MATHEMATICS [facility] Comment:No reference range h as been established. Consider Clinical Correlation. URINE CREATININE 99.4 mg/dL 07/09/2023 11:39 AM HEAD OF MATHEMATICS [facility] Comment:No reference range h as been established. Consider Clinical Correlation. URINE PROTEIN/CREATIN INE RATIO 0.07 <0.25 07/09/2023 11:39 AM HEAD OF MATHEMATICS [facility] Urine Non-Phlebotomy Collection / Unknown 07/09/2023 9:46 AM HEAD OF MATHEMATICS 07/09/2023 11:04 AM HEAD OF MATHEMATICS us Shady Rust MD URINE ORDERABLES Final Re sult [facility] [address] [place] [address] * ANTI DOUBLE STRAND DNA (DS DNA) ANTIBODY (07/09/2023 9:46 AM HEAD OF MATHEMATICS) DNA AB, DOUBLE STRAND 1 <5 IU/mL 07/09/2023 10:49 PM HEAD OF MATHEMATICS [facility] Blood Venipuncture / Unknown 07/09/2023 9:46 AM HEAD OF MATHEMATICS 07/09/2023 9:58 AM HEAD OF MATHEMATICS Narrative [facility] - 07/09/2023 10:49 PM HEAD OF MATHEMATICS <= 4 Negative 5-9 Indeterminate >= 10 Positive Antibody testing was performed by multiplex flow immunoassay on the [employer] Remember platform. us Shady Rust MD IMMUNOLOGY ORDERABLES Fin al Result Performing Organization Address City/[facility]/ZIP Co de Phone Number [facility] [address] [place] [address], * C4 COMPLEMENT (07/09/2023 9:46 AM HEAD OF MATHEMATICS) C4 COMPLEMENT 40 15 - 57 mg/dL 07/09/2023 2:54 PM HEAD OF MATHEMATICS [facility] Blood Venipuncture / Unknown 07/09/2023 9:46 AM HEAD OF MATHEMATICS 07/09/2023 9:57 AM HEAD OF MATHEMATICS us Shady Rust MD CHEMISTRY ORDERABLES Iliana l Result [facility] [address] [place] [address], [place] * C3 COMPLEMENT GLOBULIN B-1C (07/09/2023 9:46 AM HEAD OF MATHEMATICS) C3 COMPLEMENT 176 83 - 193 mg/dL 07/09/2023 2:54 PM HEAD OF MATHEMATICS [facility] Blood Venipuncture / Unknown 07/09/2023 9:46 AM HEAD OF MATHEMATICS 07/09/2023 9:57 AM HEAD OF MATHEMATICS us Shady Rust MD CHEMISTRY ORDERABLES Iliana l Result Performing Organization Address City/[facility]/ZIP Co de Phone Number [facility] [address] [place] [address], [place] * URIC ACID (BLOOD ASSAY) (07/09/2023 9:46 AM HEAD OF MATHEMATICS) URIC ACID 5.7 2.5 - 6.2 mg/dL 07/09/2023 10:23 AM HEAD OF MATHEMATICS [facility] Blood Venipuncture / Unknown 07/09/2023 9:46 AM HEAD OF MATHEMATICS 07/09/2023 9:57 AM HEAD OF MATHEMATICS us Shady Rust MD CHEMISTRY ORDERABLES Iliana l Result Performing Organization Address City/[facility]/ZIP Co de Phone Number [facility] [address] [place] [address] * ERYTHROCYTE SEDIMENTATION RATE (ESR) (07/09/2023 9:46 AM HEAD OF MATHEMATICS) ESR (SED RATE, ERYTHROCYTE SEDIMENTATION RATE) 13 <30 mm/h 07/09/2023 10:14 AM HEAD OF MATHEMATICS [facility] Comment: Patients presenting with increased level of fibrinogen, gamma globulins, or abnormally shaped RBCs could affect the results for the erythrocyte sedimentation rate (ESR). Results should be clinically correlated. Blood Venipuncture / Unknown 07/09/2023 9:46 AM HEAD OF MATHEMATICS 07/09/2023 9:56 AM HEAD OF MATHEMATICS us Shady Rust MD HEMATOLOGY ORDERABLES Fin al Result Performing Organization Address City/[facility]/ZIP Co de Phone Number [facility] [address] [place] [address] * (ABNORMAL) C-REACTIVE PROTEIN (CRP) QUANT (07/09/2023 9:46 AM HEAD OF MATHEMATICS) C-REACTIVE PROTEIN 0.61(H) <0.50 mg/dL 07/09/2023 10:23 AM [facility] Blood Venipuncture / Unknown 07/09/2023 9:46 AM HEAD OF MATHEMATICS 07/09/2023 9:57 AM HEAD OF MATHEMATICS us Shady Rust MD CHEMISTRY ORDERABLES Iliana l Result Performing Organization Address [facility] Co de Phone Number [facility] [address] [place] [address] * (ABNORMAL) CMP (COMPREHENSIVE METABOLIC PANEL) (07/09/2023 9:46 AM HEAD OF MATHEMATICS) SODIUM 146(H) 136 - 145 mmol/L 07/09/2023 10:23 AM [facility] POTASSIUM 4.1 3.5 - 5.1 mmol/L 07/09/2023 10:23 AM [facility] CHLORIDE 111(H) 98 - 107 mmol/L 07/09/2023 10:23 AM [facility] CO2, VENOUS 24 22 - 30 mmol/L 07/09/2023 10:23 AM [facility] ANION GAP 15.1 <18.0 mmol/L 07/09/2023 10:23 AM [facility] GLUCOSE 119(H) 70 - 99 mg/dL 07/09/2023 10:23 AM [facility] BUN 22(H) 10 - 20 mg/dL 07/09/2023 10:23 AM [facility] CREATININE, BLOOD 0.88 0.60 - 1.00 mg/dL 07/09/2023 10:23 AM [facility] BUN/CREATININE RATIO 25(H) 12 - 20 ratio 07/09/2023 10:23 AM [facility] TOTAL PROTEIN 7.5 6.3 - 8.2 g/dL 07/09/2023 10:23 AM [facility] ALBUMIN 4.6 3.5 - 5.0 g/dL 07/09/2023 10:23 AM [facility] A/G RATIO 1.6 1.0 - 2.2 07/09/2023 10:23 AM [facility] CALCIUM 9.7 8.7 - 10.5 mg/dL 07/09/2023 10:23 AM [facility] T BILI 0.6 0.2 - 1.2 mg/dL 07/09/2023 10:23 AM [facility] SGOT (AST) 32 5 - 34 U/L 07/09/2023 10:23 AM [facility] SGPT (ALT) 28 0 - 55 U/L 07/09/2023 10:23 AM [facility] ALKALINE PHOSPHATASE 82 40 - 150 U/L 07/09/2023 10:23 AM [facility] IS THE PATIENT REQUIRED TO BE FASTING? No 07/09/2023 10:23 AM [facility] GFR, ESTIMATED >60 >=60 07/09/2023 10:23 AM [facility] Comment: Creatinine Clearance is the preferred criteria for selecting drug dose adjustments in renally impaired patients. The GFR is provided as additional pertinent clinical information. GFR is reported in mL/min/1.73 sq m. Calculation based on the Chronic Kidney Disease Epidemiology Collaboration (CKD- EPI) equation refit without adjustment for race. GFR, EST. >60 >=60 024 10:23 AM [facility] GFR, EST. NONAFRICAN >60 >=60 07/09/2023 10:23 AM [facility] Blood Venipuncture / Unknown 07/09/2023 9:46 AM HEAD OF MATHEMATICS 07/09/2023 9:57 AM HEAD OF MATHEMATICS us Shady Rust MD CHEMISTRY ORDERABLES Iliana avril Result [facility] [address] [place] [address] documented in this encounter Visit Diagnoses Diagnosis Diffuse disease of connective tissue (HCC)- Primary Unspecified diffuse connective tissue disease Encounter for therapeutic drug monitoring Pain in joint, multiple sites Encounter for long-term (current) use of non-steroidal anti-inflammatories documented in this encounter Additional Health Concerns Infection Onset Date Last Indicated Resolved Time COVID - 19 06/23/2023 06/23/2023 06/23/2023 5:22 PM HEAD OF MATHEMATICS Respiratory Rule-Out 06/23/2023 06/23/2023 024 5:23 PM HEAD OF MATHEMATICS COVID - 19 Confirmed 06/23/2023 06/23/2023 024 12:16 AM HEAD OF MATHEMATICS COVID - 19 01/25/2024 01/25/2024 01/25/2024 12:0 2 PM CDT Assessment Noted Time PHQ-9 Depression Total Score: 0 02/21/20 20 10:00 AM CDT documented as of this encounter Care Teams Food Taster Relationship Specialty Start Date End Date Sandra Duron MD [address] [place] [address] PCP - General Family Medicine 07/10/22 07/09/23 Javier Yost PAC [address] [place] [phone] PCP - General Physician Awning Maker 07/10/23 Jose Schwartz DPM Podiatry 07/18/15 Diana Gonzalez, SOCIAL SERVICES DESIGNEE, DIRECTORY CLERK Nurse Practitioner Advanced Practice Nurse 12/21/15 Ewelina Reynolds APRN, DIRECTORY CLERK Nurse Practitioner Advanced Practice Nurse 04/16/16 Chuck Lee MD [address] [place] [phone] Consulting Physician Pulmonary Disease 03/04/22 Rafa Ortega MD [address] [address] Consulting Physician Colon and Rectal Surgery 10/08/24 documented as of this encounter
--- OUTSIDE RECORDS SUMMARY | 2024-12-24 02:26 | XMS_ITS | Clinical Summary ---
Author Organization [facility] Address [address] [address] Phone Care Team Providers Care Hoisting Engineer Pile Driving Name Role Phone Sandra Duron MD Primary Care Provider [phone] Allergies Active Allergy Reactions Criticality Noted Date Comments Atenolol Anaphylaxis,Unknown High Atorvastatin Other (See comments),Unknown Low pain Ezetimibe Other (See comments),Unknown Low pain Hydroxychloroquine Sulfate Rash Medium 8 Lisinopril Anaphylaxis High 03/12/2017 Niacin Other (See comments),Unknown Low reddness and feeling hot Simvastatin Other (See comments),Unknown Low pain Bcgeegl-Hwl-Msq Reductase Inhibitors Muscle pain Medium 07/07/2018 Sulfa [...] Proctozone-HC 2.5 % rectal cream 3 Active [facility] albuterol HFA () inhaler Inhale as directed [...] on file Legal Sex Female 9:09 AM COIN MACHINE MECHANIC Gender Identity Not on file Sexual Orientation Not on file Obstetrics History Last Filed Vital Signs Vital Sign Reading Time Taken Comments Blood Pressure 148/79 04/23/2023 9:05 AM COIN MACHINE MECHANIC Pulse 88 04/23/2023 9:05 AM COIN MACHINE MECHANIC Temperature 37.2 C (98.9 F) 03/22/2022 6:28 PM CDT Respiratory Rate 18 03/22/2022 6:28 PM CDT Oxygen Saturation 96% 03/22/2022 6:28 PM CDT Inhaled Oxygen Concentration - - Weight 108 kg (238 lb) 04/23/2023 9:05 AM COIN MACHINE MECHANIC Height 175.3 cm (5' 9) 04/23/2023 9:05 AM COIN MACHINE MECHANIC Body Mass Index 35.15 04/23/2023 9:05 AM COIN MACHINE MECHANIC Plan of Treatment Health Maintenance Due [...] ORDERABLES Final Result [facility] ([place]) 1 [facility] Department of Laboratories [place], [place] [id number] * (ABNORMAL) Hemoglobin A1c (10/09/2022 4:16 PM [...] and children were not included. (Diabetes Care [id number], 2008). The eAG is not equivalent to a fasting glucose. Blood 10/09/2022 4:16 PM CDT 10/09/2022 4:37 PM CDT us Sandra Duron MD LAB BLOOD ORDERABLES Final Result [facility] ([place]) 1 [facility] [place] [address] * (ABNORMAL) Lipid panel (10/09/2022 4:16 PM [...] on 2018. LDL, calculated 130(H) <=129 mg/dL [facility] ([place]) Comment: Interpretive Data Ages < [...] LAB BLOOD ORDERABLES Final Result [facility] ([place]) 1 [facility] [place] [address] from Last 3 Months or Most Recently Relevant to Health Maintenance Insurance [facility] Address: [address] [address] [facility] Address: [address] [address] [place] [address] Care Teams Hoisting Engineer Pile Driving Relationship Specialty Start Date End Date Sandra Duron MD [address] [place] [address] PCP - General Family Medicine 10/09/22
--- OUTSIDE RECORDS SUMMARY | 2024-12-24 02:26 | XMS_ITS | Referral Summary ---
Author Organization [facility] Address [address] [address] Phone Care Team Providers Care Breaker Engineer Name Role Phone Sandra Duron MD Primary Care Provider Allergies Active Allergy Reactions Criticality Noted Date Comments Atenolol Anaphylaxis,Unknown High Atorvastatin Other (See comments),Unknown Low pain Ezetimibe Other (See comments),Unknown Low pain Hydroxychloroquine Sulfate Rash Medium 8 Lisinopril Anaphylaxis High 03/12/2017 Niacin Other (See comments),Unknown Low reddness and feeling hot Simvastatin Other (See comments),Unknown Low pain Lefnpdz-Dlj-Cwa Reductase Inhibitors Muscle pain Medium 07/07/2018 Sulfa [...] Proctozone-HC 2.5 % rectal cream 3 Active [facility] albuterol HFA () inhaler Inhale as directed [...] on file Legal Sex Female 9:09 AM PRIMER INSERTING MACHINE ADJUSTER Gender Identity Not on file Sexual Orientation Not on file Last Filed Vital Signs Vital Sign Reading Time Taken Comments Blood Pressure 148/79 04/23/2023 9:05 AM PRIMER INSERTING MACHINE ADJUSTER Pulse 88 04/23/2023 9:05 AM PRIMER INSERTING MACHINE ADJUSTER Temperature 37.2 C (98.9 F) 03/22/2022 6:28 PM CDT Respiratory Rate 18 03/22/2022 6:28 PM CDT Oxygen Saturation 96% 03/22/2022 6:28 PM CDT Inhaled Oxygen Concentration - - Weight 108 kg (238 lb) 04/23/2023 9:05 AM PRIMER INSERTING MACHINE ADJUSTER Height 175.3 cm (5' 9) 04/23/2023 9:05 AM PRIMER INSERTING MACHINE ADJUSTER Body Mass Index 35.15 04/23/2023 9:05 AM PRIMER INSERTING MACHINE ADJUSTER Plan of Treatment Not on file Procedures Procedure Name Priority Date/Time Associated Diagnosis Comments EGFR Routine 10/09/2022 4:16 PM CDT HEMOGLOBIN A1C Routine 10/09/2022 4:16 PM CDT LIPID PANEL Routine 10/09/2022 4:16 PM CDT from Last 3 Months or Most Recently Relevant to Health Maintenance Results * eGFR (10/09/2022 4:16 PM CDT) eGFR 91 mL/min/1. 73 m2 [facility] ([place]) Comment: Interpretive Data Reference Interval Normal >/= [...] ORDERABLES Final Result [facility] ([place]) 1 [facility] Department of Laboratories [place], [place] [id number] * (ABNORMAL) Hemoglobin A1c (10/09/2022 4:16 PM [...] and children were not included. (Diabetes Care 31:4257-5755, 2008). The eAG is not equivalent to a fasting glucose. Blood 10/09/2022 4:16 PM CDT 10/09/2022 4:37 PM CDT us Sandra Duron MD LAB BLOOD ORDERABLES Final Result [facility] ([place]) 1 [facility] Department [place] [address] * (ABNORMAL) Lipid panel (10/09/2022 4:16 PM [...] LAB BLOOD ORDERABLES Final Result [facility] ([place]) 1 [facility] Department [place] [address] from Last 3 Months or Most Recently Relevant to Health Maintenance Insurance Care Teams Breaker Engineer Relationship Specialty Start Date End Date Sandra Duron MD [address] [place] [address] PCP - General Family Medicine 10/09/22
--- OUTSIDE RECORDS SUMMARY | 2024-12-24 02:26 | XMS_ITS | Encounter Summary ---
Author Organization [facility] Address [address] [place] [address] Phone Care Team Providers Care Hydraulic Press In Operator Name Role Phone Ailyn Cruz MD Primary Care Provider [phone] Jose Schwartz DPM Unavailable [phone] Diana Gonzalez PAPER CUP MACHINE TENDER, TRACK LINER OPERATOR Unavailable [phone] Ewelina Reynolds PAPER CUP MACHINE TENDER, TRACK LINER OPERATOR Unavailable Sandra Duron MD Primary Care Provider + [phone] Chuck Lee MD Unavailable Javier Yost PAC Primary Care Provider + [phone] Rafa Ortega MD Unavailable Encounter Details Date Type Department Care Team (Late st Contact Info) Description 03/20/2022 Transcribe Orders [facility] Admitting [address] [place] [address] Sherri Mckeon APRN, TRACK LINER OPERATOR [address] [place] [address] Immunity status testing (Primary Dx) Social History [...] Description 01/14/2025 9:30 AM CDT Office Visit [facility] - Primary Care - [place] [address] [place] [address] Javier Yost PAC [address] [place] [address] 04/05/2025 1:15 PM VEGETABLE HARVEST MACHINE OPERATOR [facility] - Pulmonology & Sleep [facility] #[address] [place] [address] Chuck Lee MD [address] [place] [address] documented as of this encounter Results * QUANTIFERON-TB GOLD PLUS (03/20/2022 12:20 PM CDT) NIL CONTROL 0.15 <8.01 IU/mL 03/22/2022 11:13 AM CDT [facility] TB ANTIGEN 1 0.00 <0.35 IU/mL 03/22/2022 11:13 AM CDT [facility] TB ANTIGEN 2 0.00 <0.35 IU/mL 03/22/2022 11:13 AM CDT [facility] MITOGEN CONTROL >10.00 >0.49 IU/mL 03/22/20 11:13 AM CDT [facility] INTEPRETATION TB NEGATIVE NEGATIVE, NEGATIVE (TB antigen response less than 25% of internal negative control value) 03/22/2022 11:13 AM CDT [facility] Comment:No immune response t o Mycobacterium tuberculosis antigens was noted. M. tuberculosis infection unlikely. Blood Venipuncture / Unknown 03/20/2022 12:20 PM CDT 03/20/2022 12:28 PM CDT Narrative [facility] - 03/22/2022 11:13 AM CDT A [...] otherwise immunocompromised individuals. https://www.cdc.gov/tb/publications/guidelines/testing.htm us Sherri Mckeon PAPER CUP MACHINE TENDER, TRACK LINER OPERATOR IMMUNOLOGY ORDERA BLES Final Result [facility] [address] [place] [address], documented in this encounter Visit Diagnoses Diagnosis Immunity status testing- Primary Antibody response examination documented in this encounter Additional Health Concerns Infection Onset Date Last Indicated Resolved Time COVID - 19 06/23/2023 06/23/2023 06/23/2023 5:22 PM VEGETABLE HARVEST MACHINE OPERATOR Respiratory Rule-Out 06/23/2023 06/23/2023 024 5:23 PM VEGETABLE HARVEST MACHINE OPERATOR COVID - 19 Confirmed 06/23/2023 06/23/2023 024 12:16 AM VEGETABLE HARVEST MACHINE OPERATOR COVID - 19 01/25/2024 01/25/2024 01/25/2024 12:0 2 PM CDT Assessment Noted Time PHQ-9 Depression Total Score: 0 02/21/20 20 10:00 AM CDT documented as of this encounter Care Teams Hydraulic Press In Operator Relationship Specialty Start Date End Date Ailyn Cruz MD PCP - General Family Medicine 03/11/15 07/09/22 Sandra Duron MD [address] [place] [address] PCP - General Family Medicine 07/10/22 07/09/23 Javier Yost PAC [address] [place] [address] PCP - General Physician Mat Machine Operator 07/10/23 Jose Schwartz DPM Podiatry 07/18/15 Diana Gonzalez PAPER CUP MACHINE TENDER, TRACK LINER OPERATOR Nurse Practitioner Advanced Practice Nurse 12/21/15 Ewelina Reynolds APRN, TRACK LINER OPERATOR Nurse Practitioner Advanced Practice Nurse 04/16/16 Chuck Lee MD [address] [place] [address] Consulting Physician Pulmonary Disease 03/04/22 Rafa Ortega MD [address] [id number] Consulting Physician Colon and Rectal Surgery 10/08/24 documented as of this encounter
--- OUTSIDE RECORDS SUMMARY | 2024-12-24 02:26 | XMS_ITS | Encounter Summary ---
Author Organization [facility] Address [address] [place] [address] Phone Care Team Providers Care Soil Checker Name Role Phone LanaJose griggs DPM Unavailable [phone] Diana Gonzalez FIG BAR MACHINE OPERATOR, SPINNER FIXER Unavailable [phone] Ewelina Reynolds FIG BAR MACHINE OPERATOR, SPINNER FIXER Unavailable Chuck Lee MD Unavailable Javier Yost Primary Care Provider [phone] Rafa Ortega MD Unavailable Reason for Visit * Reason Comments Medication Refill Encounter Details Date Type Department Care Team (Late st Contact Info) Description 09/28/2023 Refill [facility] - Primary Care - [address] [place] [address] Javier Yost PAC [address] [place] [address] Medication Refill Social History Tobacco Use Types Packs/Day Years Used Date Smoking Tobacco: Never Smokeless Tobacco: Never Alcohol Use Standard Drinks/Week Comments Yes 0 (1 standard drink = 0.6 oz pur e alcohol) Very seldom [facility] Utilities Answer Date Recorded In the past 12 months has th e electric, gas, oil, or water [employer] threatened to shut off services in your [...] How often do you attend chur or hinduism services? Never 07/07/2023 Do you belong to any clubs o r organizations such as gnosticist groups, unions, fraternal or athletic groups, or [...] Total Score - Questions 1-9 0 06/26 [facility] - Occupational [...] place to sleep or slept in a nursing home (including now)? No 07/07/2023 Education Answer Date [...] Dept 07/29/23 Office Visit Yelena Rausch APRN, SPINNER FIXER [facility] 07/09/23 Office Visit Javier Yost PAC [facility] 11/11/22 Office Visit Sandra Duron MD [facility] 10/02/22 Office Visit Sandra Duron MD [facility] Showing recent visits within past 365 days and meeting all other requirements Future Appointments No visits were found meeting these conditions. Showing future appointments within next 90 days and meeting all other requirements documented in this encounter Plan of Treatment Upcoming Encounters Date Type Department Care Team (Late st Contact Info) Description 01/14/2025 9:30 AM CDT Office Visit [facility] - Primary Care - Liu [address] [place] [address] Javier Yost PAC [address] [place] [address] 04/05/2025 1:15 PM ASSISTANT CURATOR Office Visit [facility] - Pulmonology & Sleep Medicine [facility] [address] [place] [address] Chuck Lee MD [address] [place] [address] documented as of this encounter Visit Diagnoses Diagnosis Arthralgia, unspecified joint documented in this encounter Additional Health Concerns Infection Onset Date Last Indicated Resolved Time COVID - 19 01/25/2024 01/25/202401/2401/25/2024 12:0 2 PM CDT Assessment Noted Time PHQ-9 Depression Total Score: 0 07/09/19 8:46 AM ASSISTANT CURATOR documented as of this encounter Care Teams Soil Checker Relationship Specialty Start Date End Date Javier Yost, PAC [address] [place] [address] PCP - General Physician Cooperer 07/10/23 Jose Schwartz DPM Podiatry 07/18/15 Diana Gonzalez APRN, SPINNER FIXER Nurse Practitioner Advanced Practice Nurse 12/21/15 Ewelina Reynolds APRN, SPINNER FIXER Nurse Practitioner Advanced Practice Nurse 04/16/16 Chuck Lee MD #[address] [facility] [place] [address] Consulting Physician Pulmonary Disease 03/04/22 Rafa Ortega MD #2 [facility] [address] [address] Consulting Physician Colon and Rectal Surgery 10/08/24 documented as of this encounter
--- OUTSIDE RECORDS SUMMARY | 2024-12-24 02:26 | XMS_ITS | Encounter Summary ---
Author Organization [facility] Address [address] [place] [address] Phone Care Team Providers Care Shipping Team Leader Name Role Phone LanaJose DPM Unavailable [phone] Diana Gonzalez INCIDENT MANAGER, BRIM CUTTER Unavailable [phone] Ewelina Reynolds INCIDENT MANAGER, BRIM CUTTER Unavailable Chuck Lee MD Unavailable Javier Yost [facility] Primary Care Provider [phone] Rafa Ortega MD Unavailable Reason for Visit * Reason Comments Medication Refill Encounter Details Date Type Department Care Team (Late st Contact Info) Description 08/10/[address] [facility] - Primary Care - [address] [place] [address] Sandra Duron MD [address] [place] [address] Medication Refill Social History Tobacco Use Types Packs/Day Years Used Date Smoking Tobacco: Never Smokeless Tobacco: Never Alcohol Use Standard Drinks/Week Comments Yes 0 (1 standard drink = 0.6 oz pur e alcohol) Very seldom [facility] Utilities Answer Date Recorded In the past 12 months has th e electric, gas, oil, or water [employer] threatened to shut off services in your [...] How often do you attend chur or denominational services? Never 07/07/2023 Do you belong to any clubs o r organizations such as islam groups, unions, fraternal or athletic groups, or [...] Total Score - Questions 1-9 0 06/26 [facility] - [...] to sleep or slept in a senior living (including now)? No 07/07/2023 Education Answer Date [...] Dept 07/29/23 Office Visit Yelena Rausch APRN, BRIM CUTTER [facility] 07/09/23 Office Visit Javier Yost PAC [facility] Showing recent visits within [...] 01/14/2025 9:30 AM CDT Office Visit [facility] - Primary Care - [address] [place] [address] Javier Yost PAC [address] [place] [address] 04/05/2025 1:15 PM MASTER BAKER Office Visit [facility] - Pulmonology & Sleep Medicine [facility] [address] [place] [address] Chuck Lee MD [address] [place] [address] documented as of this encounter Visit Diagnoses Diagnosis Depression, unspecified depression type documented in this encounter Additional Health Concerns Infection Onset Date Last Indicated Resolved Time COVID - 19 01/25/2024 01/25/2024 01/25/2024 12:0 2 PM CDT Assessment Noted Time PHQ-9 Depression Total Score: 0 07/09/19 8:46 AM MASTER BAKER documented as of this encounter Care Teams Shipping Team Leader Relationship Specialty Start Date End Date Javier Yost PAC [address] [place] [address] PCP - General Physician Dry Curer 07/10/23 Jose Schwartz DPM Podiatry 07/18/15 Diana Gonzalez, INCIDENT MANAGER, BRIM CUTTER Nurse Practitioner Advanced Practice Nurse 12/21/15 Ewelina Reynolds, INCIDENT MANAGER, BRIM CUTTER Nurse Practitioner Advanced Practice Nurse 04/16/16 Chuck Lee MD [address] [place] [address] Consulting Physician Pulmonary Disease 03/04/22 Rafa Ortega MD [address] [address] Consulting Physician Colon and Rectal Surgery 10/08/24 documented as of this encounter
--- OUTSIDE RECORDS SUMMARY | 2024-12-24 02:26 | XMS_ITS | Encounter Summary ---
Author Organization [facility] Address [address] [place] [address] Phone Care Team Providers Care Websphere Commerce Developer Name Role Phone LanaJose DPM Unavailable [phone] Diana Gonzalez LAYOUT TECHNICIAN, HIGH PRESSURE OPERATOR Unavailable [phone] Ewelina Reynolds LAYOUT TECHNICIAN, HIGH PRESSURE OPERATOR Unavailable Chuck Lee MD Unavailable Javier Yost [facility] Primary Care Provider [phone] Rafa Ortega MD Unavailable Reason for Visit * Reason Comments Medication Refill Encounter Details Date Type Department Care Team (Late st Contact Info) Description 08/29/2023 Refill [facility] - Primary Care - [address] [place] [address] Sandra Duron MD [address] [place] [address] Medication Refill Social History Tobacco Use Types Packs/Day Years Used Date Smoking Tobacco: Never Smokeless Tobacco: Never Alcohol Use Standard Drinks/Week Comments Yes 0 (1 standard drink = 0.6 oz pur e alcohol) Very seldom [facility] Utilities Answer Date Recorded In the past 12 months has th e electric, gas, oil, or water [employer] threatened to shut off services in your [...] How often do you attend chur or oriental orthodox services? Never 07/07/2023 Do you belong to any clubs o r organizations such as catholic groups, unions, fraternal or athletic groups, or [...] 0 06/26 [facility] - Occupational [...] place to sleep or slept in a long term (including now)? No 07/07/2023 Education Answer Date [...] 07/29/23 Office Visit Yelena Rausch APRN, BRANDY [facility] 07/09/23 Office Visit Javier Yost, PAC [facility] 11/11/22 Office Visit Sandra Duron, [facility] 10/02/22 Office Visit Sandra Duron, [facility] Showing recent visits within past [...] 07/29/23 Office Visit Yelena Rausch APRN, BRANDY [facility] 07/09/23 Office Visit Javier Yost, PAC [facility] 11/11/22 Office Visit Sandra Duron, [facility] 10/02/22 Office Visit Sandra Duron, [facility] Showing recent visits within past [...] Dept 07/29/23 Office Visit Yelena Rausch APRN, HIGH PRESSURE OPERATOR [facility] 07/09/23 Office Visit Javier Yost, NADIR [facility] Showing recent visits within past [...] Dept 07/29/23 Office Visit Yelena Rausch APRN, HIGH PRESSURE OPERATOR [facility] 07/09/23 Office Visit Javier Yost, NADIR [facility] 11/11/22 Office Visit Sandra Duron, [facility] 10/02/22 Office Visit Sandra Duron, [...] [facility] - Primary Care - [place] [address] [place] [address] Javier Yost PAC [address] [place] [address] 04/05/2025 1:15 PM COACH CLEANER Office Visit [facility] - Pulmonology & Sleep Medicine [facility] [address] [place] [address] Chuck Lee MD [address] [place] [address] documented as of this encounter Visit Diagnoses Diagnosis Type 2 diabetes mellitus without complication, without long-term current use of insulin Essential hypertension Unspecified essential hypertension documented in this encounter Additional Health Concerns Infection Onset Date Last Indicated Resolved Time COVID - 19 01/25/2024 01/25/2024 01/25/2024 12:0 2 PM CDT Assessment Noted Time PHQ-9 Depression Total Score: 0 07/09/19 8:46 AM COACH CLEANER documented as of this encounter Care Teams Websphere Commerce Developer Relationship Specialty Start Date End Date Javier Yost PAC [address] [place] [address] PCP - General Physician Braille Translator 07/10/23 Jose Schwartz DPM Podiatry 07/18/15 Diana Gonzalez, LAYOUT TECHNICIAN, HIGH PRESSURE OPERATOR Nurse Practitioner Advanced Practice Nurse 12/21/15 Ewelina Reynolds APRN, HIGH PRESSURE OPERATOR Nurse Practitioner Advanced Practice Nurse 04/16/16 Chuck Lee MD [address] [place] [address] Consulting Physician Pulmonary Disease 03/04/22 Rafa Ortega MD [address] [address] Consulting Physician Colon and Rectal Surgery 10/08/24 documented as of this encounter
--- OUTSIDE RECORDS SUMMARY | 2024-12-24 02:26 | XMS_ITS | Encounter Summary ---
Author Organization [facility] Address [address] [place] [address] Phone Care Team Providers Care Fish Hatchery Worker Name Role Phone LanaJose griggs DPM Unavailable [phone] Diana Gonzalez ANALYTICAL TECHNICIAN, NEWSPAPER OR PERIODICAL EDITOR Unavailable [phone] Ewelina Reynolds ANALYTICAL TECHNICIAN, NEWSPAPER OR PERIODICAL EDITOR Unavailable Chuck Lee MD Unavailable Javier Yost Primary Care Provider [phone] Rafa Ortega MD Unavailable Reason for Visit * Reason Comments Medication Refill Encounter Details Date Type Department Care Team (Late st Contact Info) Description 09/10/2023 Refill [facility] - Primary Care - [address] [place] [address] Javier Yost PAC [address] [place] [address] Medication Refill Social History Tobacco Use Types Packs/Day Years Used Date Smoking Tobacco: Never Smokeless Tobacco: Never Alcohol Use Standard Drinks/Week Comments Yes 0 (1 standard drink = 0.6 oz pur e alcohol) Very seldom [facility] Utilities Answer Date Recorded In the past 12 months has th e electric, gas, oil, or water [employer] threatened to shut off services in your [...] How often do you attend chur or church services? Never 07/07/2023 Do you belong to any clubs o r organizations such as jehovah's witness groups, unions, fraternal or athletic groups, or [...] Total Score - Questions 1-9 0 06/26 [facility] - Occupational [...] Provider Dept 07/29/23 Office Visit Yelena Rausch, ANALYTICAL TECHNICIAN, NEWSPAPER OR PERIODICAL EDITOR [facility] 07/09/23 Office Visit Javier Yost PAC [facility] Showing recent visits within past 182 [...] Description 01/14/2025 9:30 AM CDT Office Visit [facility] - Primary Care - [place] [address] [place] [address] Javier Yost PAC [address] [place] [address] 04/05/2025 1:15 PM BOOKBINDER CHIEF Office Visit [facility] - Pulmonology & Sleep Medicine [facility] [address] [place] [address] Chuck Lee MD [address] [place] [address] documented as of this encounter Visit Diagnoses Diagnosis Type 2 diabetes mellitus without complication, without long-term current use of insulin documented in this encounter Additional Health Concerns Infection Onset Date Last Indicated Resolved Time COVID - 19 01/25/2024 01/25/2024 01/25/2024 12:0 2 PM CDT Assessment Noted Time PHQ-9 Depression Total Score: 0 07/09/19 8:46 AM BOOKBINDER CHIEF documented as of this encounter Care Teams Fish Hatchery Worker Relationship Specialty Start Date End Date Javier Yost, PAC [address] [place] [address] PCP - General Physician Fisher Mussel 07/10/23 Jose Schwartz DPM Podiatry 07/18/15 Diana Gonzalez, ANALYTICAL TECHNICIAN, NEWSPAPER OR PERIODICAL EDITOR Nurse Practitioner Advanced Practice Nurse 12/21/15 Ewelina Reynolds, ANALYTICAL TECHNICIAN, NEWSPAPER OR PERIODICAL EDITOR Nurse Practitioner Advanced Practice Nurse 04/16/16 Chuck Lee MD [address] [place] [address] Consulting Physician Pulmonary Disease 03/04/22 Rafa Ortega MD [address] [address] Consulting Physician Colon and Rectal Surgery 10/08/24 documented as of this encounter
--- OUTSIDE RECORDS SUMMARY | 2024-12-24 02:26 | XMS_ITS | Encounter Summary ---
Author Organization [facility] Address [address] [place] [address] Phone Care Team Providers Care Manager Metrology Name Role Phone Ailyn Cruz MD Primary Care Provider [phone] Jose Schwartz DPM Unavailable [phone] Diana Gonzalez CANE CUTTER, COMMUNITY LIFE DIRECTOR Unavailable [phone] Ewelina Reynolds CANE CUTTER, COMMUNITY LIFE DIRECTOR Unavailable Sandra Duron MD Primary Care Provider [phone] Chuck Lee MD Unavailable Javier Yost PAC Primary Care Provider [phone] Rafa Ortega MD Unavailable Reason for Visit * Reason Comments Medication Refill Encounter Details Date Type Department Care Team (Late st Contact Info) Description 05/26/2022 Refill [facility] - Primary Care - [address] [place] [address] Ailyn Cruz MD [address] [place] [address] Medication Refill Social History Tobacco [...] Dept 04/01/22 Office Visit Ailyn Cruz MD [facility] 09/28/21 Office Visit Ailyn Cruz MD [facility] 08/23/21 Office Visit Natalya Maguire APRN, CNP [facility] 05/29/21 Office Visit Natalya Maguire APRN, CNP [facility] Showing recent visits within past 365 days and meeting all other requirements Future Appointments No visits were found meeting these conditions. Showing future appointments within next 90 days and meeting all other requirements CLEANER PRESSER documented in this encounter Plan of Treatment Upcoming Encounters Date Type Department Care Team (Late st Contact Info) Description 01/14/2025 9:30 AM CDT [facility] - [address] [place] [address] Javier Yost PAC [address] [place] [address] 04/05/2025 1:15 PM DRY CLEANER PRESSER [facility] [address] [place] [address] Chuck Lee MD [address] [place] [address] documented as of this encounter Visit Diagnoses Diagnosis Arthralgia, unspecified joint documented in this encounter Additional Health Concerns Infection Onset Date Last Indicated Resolved Time COVID - 19 06/23/2023 06/23/2023 06/23/2023 5:22 PM DRY CLEANER PRESSER Respiratory Rule-Out 06/23/2023 06/23/2023 024 5:23 PM DRY CLEANER PRESSER COVID - 19 Confirmed 06/23/2023 06/23/2023 024 12:16 AM DRY CLEANER PRESSER COVID - 19 01/25/2024 01/25/2024 01/25/2024 12:0 2 PM CDT Assessment Noted Time PHQ-9 Depression Total Score: 0 02/21/20 20 10:00 AM CDT documented as of this encounter Care Teams Manager Metrology Relationship Specialty Start Date End Date Ailyn Cruz MD PCP - General Family Medicine 03/11/15 07/09/22 Sandra Duron MD [address], [place] [id number] PCP - General Family Medicine 07/10/22 07/09/23 Javier Yost, PAC [address] [place] [address] PCP - General Physician Infant Toddler Lead Teacher 07/10/23 Jose Schwartz DPM Podiatry 07/18/15 Diana Gonzalez, CANE CUTTER, COMMUNITY LIFE DIRECTOR Nurse Practitioner Advanced Practice Nurse 12/21/15 Ewelina Reynolds APRN, COMMUNITY LIFE DIRECTOR Nurse Practitioner Advanced Practice Nurse 04/16/16 Chuck Lee MD #2 [facility] [place] [place] [address] Consulting Physician Pulmonary Disease 03/04/22 Rafa Ortega MD [address] [address] Consulting Physician Colon and Rectal Surgery 10/08/24 documented as of this encounter
--- OUTSIDE RECORDS SUMMARY | 2024-12-24 02:26 | XMS_ITS | Encounter Summary ---
Author Organization [facility] Address [address] [place] [address] Phone Care Team Providers Care Office Services Associate Name Role Phone LanaJose griggs DPM Unavailable [phone] Diana Gonzalez PHP MAGENTO DEVELOPER, COPING MACHINE OPERATOR Unavailable [phone] Ewelina Reynolds PHP MAGENTO DEVELOPER, COPING MACHINE OPERATOR Unavailable Chuck Lee MD Unavailable Javier Yost Primary Care Provider [phone] Rafa Ortega MD Unavailable Reason for Visit * Reason Comments Medication Refill Encounter Details Date Type Department Care Team (Late st Contact Info) Description 08/29/2023 Refill [facility] - Primary Care - [address] [place] [address] Javier Yost PAC [address] [place] [address] Medication Refill Social History Tobacco Use Types Packs/Day Years Used Date Smoking Tobacco: Never Smokeless Tobacco: Never Alcohol Use Standard Drinks/Week Comments Yes 0 (1 standard drink = 0.6 oz pur e alcohol) Very seldom [facility] Utilities Answer Date Recorded In the past 12 months has th e electric, gas, oil, or water [employer] threatened to shut off services in your [...] How often do you attend chur or yazidi services? Never 07/07/2023 Do you belong to any clubs o r organizations such as adventism groups, unions, fraternal or athletic groups, or [...] Total Score - Questions 1-9 0 06/26 [facility] Occupat ional Health - [...] place to sleep or slept in a custodial (including now)? No 07/07/2023 Education Answer Date [...] Dept 07/29/23 Office Visit Yelena Rausch APRN, COPING MACHINE OPERATOR [facility] 07/09/23 Office Visit Javier Yost PAC [facility] Showing recent visits within past 182 [...] Description 01/14/2025 9:30 AM CDT Office Visit [facility] - Primary Care - [address] [place] [address] Javier Yost PAC [address] [place] [address] 04/05/2025 1:15 PM FIELD IRRIGATION WORKER Office Visit [facility] - Pulmonology & Sleep Medicine [facility] #[address] [place] [address] Chuck Lee MD [address] [place] [address] documented as of this encounter Visit Diagnoses Diagnosis Depression, unspecified depression type documented in this encounter Additional Health Concerns Infection Onset Date Last Indicated Resolved Time COVID - 19 01/25/2024 01/25/2024 01/25/2024 12:0 2 PM CDT Assessment Noted Time PHQ-9 Depression Total Score: 0 07/09/19 8:46 AM FIELD IRRIGATION WORKER documented as of this encounter Care Teams Office Services Associate Relationship Specialty Start Date End Date Javier Yost, PAC [address] [place] [address] PCP - General Physician Gate Technician 07/10/23 Jose Schwartz DPM Podiatry 07/18/15 Diana Gonzalez, PHP MAGENTO DEVELOPER, COPING MACHINE OPERATOR Nurse Practitioner Advanced Practice Nurse 12/21/15 Ewelina Reynolds, LUKE, COPING MACHINE OPERATOR Nurse Practitioner Advanced Practice Nurse 04/16/16 Chuck Lee MD [address] [place] [address] Consulting Physician Pulmonary Disease 03/04/22 Rafa Ortega MD #[address] [address] Consulting Physician Colon and Rectal Surgery 10/08/24 documented as of this encounter
--- NOTE | 2024-12-24 07:14 | WPDHPUPDATE1 ---
History and Physical Update Update Date/Time: 12/24/24 07:14 History and Physical has been reviewed, including an updated exam of the patient. There are NO changes in the patient's condition. Risks, benefits, and alternatives have been discussed and questions answered. Patient agrees to proceed with procedure.
[2024-12-24] MEDS: LACTATED RINGERS 1,000 ML 30 ML IV CONT ×2 (09:10→11:58)
--- NOTE | 2024-12-24 10:13 | WPDANESEPPF ---
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Recorded ?Confirmed ?Type albuterol 90 mcg/actuation aerosol 90 mcg inhalation Q6-8H PRN dyspnea 12/17/24 12/17/24 History inhaler amlodipine 10 mg tablet 10 mg PO HS 12/17/24 12/24/24 History aspirin 81 mg tablet,delayed 81 mg PO DAILY 12/17/24 12/24/24 History release (Adult Low Dose Aspirin) bupropion HCl 150 mg 24 hr tablet, 150 mg PO DAILY 12/17/24 12/24/24 History extended release celecoxib 200 mg capsule 200 mg PO BID 12/17/24 12/24/24 History cyclobenzaprine 10 mg tablet 10 mg PO HS 12/17/24 12/24/24 History fenofibrate 160 mg tablet 160 mg PO HS 12/17/24 12/24/24 History fexofenadine 180 mg tablet 180 mg PO DAILY 12/17/24 12/24/24 History (Ángela Allergy) glipizide 5 mg tablet, extended 5 mg PO BID 12/17/24 12/24/24 History release 24 hr hydrochlorothiazide 25 mg tablet 25 mg PO DAILY 12/17/24 12/24/24 History lansoprazole 30 mg capsule,delayed 30 mg PO DAILY 12/17/24 12/24/24 History release levothyroxine 100 mcg tablet 100 mcg PO DAILY 12/17/24 12/24/24 History metformin 500 mg tablet 500 mg PO BIDAC 12/17/24 12/17/24 History oxycodone-acetaminophen 5 mg-325 1 tablet PO Q6H PRN pain 12/17/24 12/17/24 History mg tablet (Percocet) pregabalin 75 mg capsule 75 mg PO BID 12/17/24 12/24/24 History rivaroxaban 10 mg tablet (Xarelto) 10 mg PO DAILY 12/17/24 12/17/24 History sertraline 100 mg tablet 100 mg PO DAILY 12/17/24 12/24/24 History vit A 1,500 mcg-C 60 mg-E 20 1 tablet PO DAILY 12/17/24 12/24/24 History mg-zinc ox-copper ej-[id number]-[id number] tablet (Lutein Plus With Zeaxanthin) Laboratory Tests 12/24/24 09:12 POC Capillary Glucose 116 H mg/dl (65-105) Patient hx anesthesia problems: none Family hx anesthesia problems: none Results Review: All pre-operative results and documents have been reviewed as part of the pre-operative evaluation. [facility] Social History Social History Smoking status: Never smoker Alcohol intake: current Living arrangements: with family Spiritual care concerns: No Anes - Eval Final PreProcedure Day of Procedure 12/24/24 10:13 Patient weight: obese Heart: regular rate and rhythm Lungs: clear to auscultation Airway: Mallampati scale Neurological: alert and oriented Last oral intake: >/= 8 hours ASA classification: III Emergent: no Anesthetic plan: proceed Anesthesia type and monitoring: general LMA and standard monitoring Results Review: All pre-operative results and documents have been reviewed as part of the pre-operative evaluation. Informed Consent: The patient's anesthetic plan and its attendant risks and benefits were discussed with the patient/family/POA. Questions were solicited and answers provided to the satisfaction of the patient/family/POA.
[2024-12-24] MEDS: ceFAZolin 2 GM in SODIUM CHLORIDE 0.9% IV 50 ML 100 ML IVPB (10:23)
--- NOTE | 2024-12-24 12:14 | P.OP_ITS ---
Procedure Note - Detailed Date of Procedure 12/24/24 Pre-op Diagnosis Achilles Insertional Calcific Tendinosis Right Foot Post-op Diagnosis Same Procedure Performed 1. Achilles Tendon Lengthening right leg 2. 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 A pneumatic thigh tourniquet was placed about the patient's right thigh . Following general anesthesia I performed a local anesthetic nerve block with 20cc's of 1:1 Mix of 2% Lidocaine plain and 0.5% Marcaine plain along with a common peroneal nerve nerve block. The right foot and distal leg was then scrubbed, prepped, and draped in the usual aseptic manner. An Esmarch bandage was then used to examine the patient's right foot and pneumatic thigh tourniquet was then inflated. Surgery began in the following manner. Attention was directed to the posterior aspect of right leg where a curvilinear J shaped incision was made lateral to the retrocalcaneal exostosis which was palpable. The incision was made starting 6cm above the insertion of the Achilles and extending 3cm inferior and medial to the calcaneus. The incision was continued deep down through the subcutaneous tissues using sharp and blunt dissection. All bleeders were cauterized as necessary. At this point dissection was continued exposing the the insertional component of the Achilles Tendon. There was noted hypertrophy to the distal tendon. A midsubstance linear Achilles tendon incision was made exposing a large intrasubstance calcified region of bone which was carefully excised and sent for gross and histopathology. There was a large posterior and superior exostosis noted which was resected with an osteotome and mallet and feathered smooth with a sagittal saw blade. All rough edges were smoothed with a power wali and bone rasp. The area was flushed with copious amounts of sterile saline. Fluoroscopy was used to make sure that enough of the retrocalcaneal region was resected approximately 3m from superior to inferior and medial to lateral and 2cm from posterior to anterior. Next, u tilizing standard principle and techniques the [employer] system was used to reattach the debulked Achilles tendon to the posterior calcaneus. Comparable tension to the contralateral foot was maintained. Adequate stable reattachment was noted. I flushed the wound site with copious amounts of sterile saline. A triple hemisection Lenthening was performed starting 5cm above the Insertion o f the Achilles tendon and 2cm intervals extending proximally. Next, the paratenon and overlying subcutaneous tissue was reapproximated with 3-0 Vicryl and 4-0 Vicryl correspondingly. Next, the skin was reapproximated and coapted util 4-0 Monocryl in running subcuticular suture fashion technique. Upon completion of the procedure, the incision was dressed with Adaptic, 4 x 4's, Kerlix, and Scott Wrap. The pneumatic thigh tourniquet was then deflated and a prompt hyperemic response noted to all digits of the right foot. A posterior splint was then applied. The patient did very well with the procedure and the anesthesia. She was transferred to the recovery room with vital signs stable and vascular status intact to all toes of the right foot. Following a period of postoperative monitoring, the patient will be discharged home on the following written and oral postoperative instructions: 1. Keep the dressing clean, dry, and intact. Use a cast protector bag with showers. 2. The patient to be strictly nonweightbearing with a knee scooter. 3. The patient should ice and elevate the right foot when at rest. 4. The patient to contact Dr. Gilman for all postop care and if any problems arise. 5. Prescriptions were written for Percocet 5/325 dispensed 40 to be taken 1 p.o. q.4 to 6 hours as needed for severe pain. Implants [employer] Speed Bridge Estimated Blood Loss 1 Drains No Packing No Pathology None sent Complications No immediate complications Condition Stable Disposition Same day
[2024-12-24] MEDS: oxyCODONE HCL (*CRX) 5 MG TAB IR PO (13:30)
== END 2024-12-24 14:26 | disposition home or self-care (01) ==
PROVIDERS: Visit Provider Podiatrist Foot & Ankle Surgery
PROC: (CPT 28750; principal; 2024-12-24 10:00)
DX: M76.61 Achilles tendinitis, right leg (principal); M77.31 Calcaneal spur, right foot; M77.51 Other enthesopathy of right foot and ankle; M24.571 Contracture, right ankle; I10 Essential (primary) hypertension; E11.9 Type 2 diabetes mellitus without complications; E07.9 Disorder of thyroid, unspecified; E78.00 Pure hypercholesterolemia, unspecified; I45.89 Other specified conduction disorders; M19.90 Unspecified osteoarthritis, unspecified site; E66.9 Obesity, unspecified; Z68.35 Body mass index [BMI] 35.0-35.9, adult; Z79.51 Long term (current) use of inhaled steroids; Z79.82 Long term (current) use of aspirin; Z79.1 Long term (current) use of non-steroidal anti-inflammatories (NSAID); Z79.84 Long term (current) use of oral hypoglycemic drugs; Z79.891 Long term (current) use of opiate analgesic; Z79.01 Long term (current) use of anticoagulants; Z79.899 Other long term (current) drug therapy; Z98.890 Other specified postprocedural states; Z80.8 Family history of malignant neoplasm of other organs or systems; Z82.49 Family history of ischemic heart disease and other diseases of the circulatory system; Z80.1 Family history of malignant neoplasm of trachea, bronchus and lung
CPT/HCPCS: 27685; 28118; 82948; 99199; J0690; A9270; J1100; J2003; J2250; J2405; J2704; J3010; J7120